=== PATIENT | female | born 1970 | race Two or more races ===

== ENCOUNTER 2020-05-21 16:19 | Outpatient (REF) | payer OTHER, SELFPAY ==
[2020-05-21 17:46] LABS: Hemoglobin 11.6 g/dl (12.0-16.0); Mean Corpuscular HGB Conc 31.4 g/dl (31.0-35.0); Mean Corpuscular Hemoglobin 24.4 pg (27.0-33.0); Mean Corpuscular Volume 77.7 fL (80-98); Mean Platelet Volume 9.7 fL (9.4-12.3); Platelet Count 313 X10*3/uL (160-400); Red Blood Count 4.76 X10*6/uL (4.20-5.50); Red Cell Distribution Width 13.4 % (11.0-16.0); White Blood Count 7.3 X10*3/uL (4.8-10.8)
[2020-05-21 18:07] LABS: Anion Gap 11 (12-20); Blood Urea Nitrogen 11 mg/dL (9-16); Calcium 8.8 mg/dL (8.4-10.2); Carbon Dioxide 29 mmol/L (22-29); Chloride 102 mmol/L (96-108); Estimated Glomerular Filt Rate > 60; Glucose Random 94 mg/dL (60-115); Iron 32 mcg/dL (30-160); Percent Iron Saturation 8 % (15-50); Potassium 4.6 mmol/l (3.3-5.1); Sodium 137 mmol/L (135-145); Total Iron Binding Capacity 387 mcg/dL (228-428); Unsaturated Iron Binding 355 ug/dL
[2020-05-21 18:30] LABS: TSH reflex Free T4 2.11 mIU/mL (0.32-4.0)
== END 2020-05-21 16:20 | disposition home or self-care (01) ==
LOC: HO.LAB 16:19
PROVIDERS: PCP Physician Assistant; Visit Provider Physician Assistant
DX: D50.9 Iron deficiency anemia, unspecified (principal); N93.9 Abnormal uterine and vaginal bleeding, unspecified; I10 Essential (primary) hypertension
CPT/HCPCS: 36415; 80048; 83540; 84443; 85027

== ENCOUNTER → 2020-05-22 12:00 | Outpatient (BNVA) | payer OTHER, SELFPAY | PROVIDERS: PCP Physician Assistant; Visit Provider Surgery Vascular Surgery | DX: I83.11 Varicose veins of right lower extremity with inflammation (principal); I89.0 Lymphedema, not elsewhere classified | CPT/HCPCS: 99202 ==

== ENCOUNTER 2020-05-29 16:48 | Emergency (ER) | payer OTHER, SELFPAY ==
[2020-05-29 17:31] VITALS: BP 137/62; PULSE 95; RESP 16; TEMP 37.1; O2SAT 96; BMI 54.8
[2020-05-29 19:20] VITALS: BP 142/63; PULSE 87; RESP 18; TEMP 37.1; O2SAT 98
[2020-05-29 19:31] LABS: MANUAL DIFF FLAG NO
[2020-05-29 19:33] LABS: Basophils Percent Auto 0.3 % (0-2); Eosinophils Absolute Auto 0.2 X10*3/uL (0.0-0.4); Hemoglobin 10.6 g/dl (12.0-16.0); Imm Gran Abs Auto 0.01 X10*3/uL (0.00-0.03); Imm Gran Pct Auto 0.1 % (0.0-0.4); Lymphocytes Absolute Auto 2.1 X10*3/uL (1.2-4.9); Lymphocytes Percent Auto 28.5 % (20-40); Mean Corpuscular HGB Conc 31.2 g/dl (31.0-35.0); Mean Corpuscular Hemoglobin 24.3 pg (27.0-33.0); Mean Platelet Volume 9.1 fL (9.4-12.3); Monocytes Absolute Auto 0.5 X10*3/uL (0.1-1.2); Monocytes Percent Auto 6.7 % (2-11); Neutrophils Absolute Auto 4.6 X10*3/uL (2.0-8.3); Neutrophils Percent Auto 62.4 % (45-73); Platelet Count 297 X10*3/uL (160-400); Red Blood Count 4.36 X10*6/uL (4.20-5.50); Red Cell Distribution Width 13.3 % (11.0-16.0); White Blood Count 7.4 X10*3/uL (4.8-10.8)
--- NOTE | 2020-05-29 19:48 | US_ITS ---
EXAMINATION: ULTRASOUND PELVIC, COMPLETE CLINICAL INFORMATION: Vaginal bleeding for 3 months. Cramping. COMPARISON: Pelvic ultrasound 07/19/2017. CT scan abdomen pelvis 02/15/2019. TECHNIQUE: Transvaginal: Used to better visualize pelvic structures Transabdominal: Not adequate for visualization Spectral Doppler and color Doppler exam was utilized. LMP: Uncertain FINDINGS: UTERUS: The uterus is anteverted. Endometrial thickness 1.8 cm. Endometrial measured 2.1 cm on the prior ultrasound exam of 2018. There are small cysts associated with the endometrium measuring up to a diameter of about 9 mm. No fluid in the endometrial cavity. Uterus measures 15.5 x 6.4 x 8 cm. Total uterine volume 415 mL ADNEXA: Ovarian vascularity:Doppler demonstrates both arterial and venous vascular flow in the right and left ovary. No evidence of ovarian torsion. Right Ovary: Unremarkable. 4.5 x 2 x 2.7 cm. Volume 12.7 mL Left Ovary: Unremarkable. 2.7 x 1.9 x 2.3 cm. Volume 6.2 mL Cul-de-sac: No Fluid US/US transvaginal IMPRESSION: Thickened endometrium with heterogeneous echotexture with small cysts. Endometrial thickness today 1.8 cm. The endometrial measured 2.1 cm on the prior ultrasound exam of 2018. Consider endometrial sampling.
--- NOTE | 2020-05-29 19:48 | US_ITS ---
EXAMINATION: ULTRASOUND PELVIC, COMPLETE CLINICAL INFORMATION: Vaginal bleeding for 3 months. Cramping. COMPARISON: Pelvic ultrasound 07/19/2017. CT scan abdomen pelvis 02/15/2019. TECHNIQUE: Transvaginal: Used to better visualize pelvic structures Transabdominal: Not adequate for visualization Spectral Doppler and color Doppler exam was utilized. LMP: Uncertain FINDINGS: UTERUS: The uterus is anteverted. Endometrial thickness 1.8 cm. Endometrial measured 2.1 cm on the prior ultrasound exam of 2018. There are small cysts associated with the endometrium measuring up to a diameter of about 9 mm. No fluid in the endometrial cavity. Uterus measures 15.5 x 6.4 x 8 cm. Total uterine volume 415 mL ADNEXA: Ovarian vascularity:Doppler demonstrates both arterial and venous vascular flow in the right and left ovary. No evidence of ovarian torsion. Right Ovary: Unremarkable. 4.5 x 2 x 2.7 cm. Volume 12.7 mL Left Ovary: Unremarkable. 2.7 x 1.9 x 2.3 cm. Volume 6.2 mL Cul-de-sac: No Fluid US/US pelvic complete IMPRESSION: Thickened endometrium with heterogeneous echotexture with small cysts. Endometrial thickness today 1.8 cm. The endometrial measured 2.1 cm on the prior ultrasound exam of 2018. Consider endometrial sampling.
[2020-05-29 20:02] LABS: Anion Gap 10 (12-20); Blood Urea Nitrogen 11 mg/dL (9-16); Calcium 8.6 mg/dL (8.4-10.2); Carbon Dioxide 30 mmol/L (22-29); Chloride 105 mmol/L (96-108); Creatinine Clr Calc Pharmacy 134.9; Estimated Glomerular Filt Rate > 60; Glucose Random 123 mg/dL (60-115); Potassium 4.2 mmol/l (3.3-5.1); Sodium 141 mmol/L (135-145)
[2020-05-29 20:18] VITALS: BP 124/65; PULSE 80; RESP 20; TEMP 36.7; O2SAT 100
--- NOTE | 2020-05-29 21:50 | ED.FEMALEGU ---
HPI - Female Genitourinary General Chief complaint: Vaginal Bleeding Stated complaint: vaginal bleeding Time Seen by Provider: 05/29/20 19:35 Source: patient Mode of arrival: ambulatory Limitations: no limitations History of Present Illness HPI Narrative: Patient comes emergency room complaining of vaginal bleeding for 3 months. Patient states she has an appointment with OBGYN in 2 weeks, however over the last week she has been passing large blood clots. Patient states approximately 2-3 years ago she had similar episode of passing blood clots, she was scheduled to have a hysterectomy. However, the vaginal bleeding stopped and she never had any recurrent symptoms until this last 3 months. Patient denies dysuria. Patient complaining discomfort in the suprapubic area, constant, nonradiating. Related Data Home Medications Medication Instructions Recorded Confirmed buprenorphine 8 mg-naloxone 2 mg 30 mg SUBLINGUAL DAILY 05/07/20 05/07/20 sublingual film cholecalciferol (vitamin D3) 50 50 mcg PO DAILY 05/07/20 05/07/20 mcg (2,000 unit) capsule ferrous sulfate 324 mg (65 mg 324 mg PO BID 05/07/20 05/07/20 iron) tablet,delayed release furosemide 20 mg tablet 20 mg PO DAILY 05/07/20 05/07/20 tamoxifen 20 mg tablet 20 mg PO DAILY 05/07/20 05/07/20 Allergies Allergy/AdvReac Type Severity Reaction Status Date / Time ibuprofen [IBUPROFEN] Allergy Intermediate SWELLING Verified 05/22/20 12:03 codeine [CODEINE] Allergy Unknown ITCHY Verified 05/22/20 12:03 gabapentin [From Neurontin] Allergy Unknown anxiety, Verified 05/22/20 12:03 insomnia, restless/anxiety hydrocodone [From VICODIN] Allergy Unknown UNKNOWN Verified 05/22/20 12:03 nabumetone [Nabumetone] Allergy Unknown swelling, Verified 05/22/20 12:03 facial swelling Nabumetone Allergy Unknown edema Uncoded 12/10/19 00:00 nsaids Allergy Unknown Unknown Uncoded 05/07/20 18:40 Review of Systems Review of Systems: Constitutional : No Weight loss, No Fever, No Chills, No Night Sweats, No Fatigue, No Malaise ENT/Mouth : No Hearing loss, No Ear Pain, No Nasal Congestion, No Sinus Pain, No Hoarseness, No sore throat, No Rhinorrhea, No Swallowing Difficulty Eyes: No Eye Pain, No Swelling, No Redness, No Foreign Body, No Discharge, No Vision Changes Cardiovascular : No Chest Pain, No SOB, No Dyspnea on Exertion, No Orthopnea, No Edema, No Palpitations Respiratory : No Cough, No Sputum, No Wheezing, No Smoke Exposure, No Dyspnea Gastrointestinal : No Nausea, No Vomiting, No Diarrhea, No Constipation, No abdominal Pain, No Hematochezia, No Melena Genitourinary : Complaining of heavy irregular bleeding, No Dysuria, No Urinary Frequency, No Urinary Incontinence, No Urgency, No Flank Pain, No Urinary Flow Changes, No Hesitancy Musculoskeletal : No joint pain, No Myalgias, No Joint Swelling Skin : No Skin Lesions, No rash Neuro : No Weakness, No Numbness, No Paresthesias, No Loss of Consciousness, No Dizziness, No Headache Psych : No Anxiety/Panic, No Depression, No SI/HI/AH/VH, No Social Issues, Heme/Lymph: No Bruising, No Bleeding,No Lymphadenopathy Endocrine : No Polyuria, No Polydipsia, No Temperature Intolerance [facility] Past Medical History Medical History Adult ADHD Anxiety and depression Arthritis Breast CA Carpal tunnel syndrome Fibromyalgia Intermittent explosive disorder Iron deficiency anemia Kidney stones Myasthenia gravis Pseudotumor cerebri Social History Social History Alcohol intake: never Smoking Status: Former smoker Smoked in Last 30 Days: No Use of substances other than those prescribed or required for medical reasons: No Advance Directives: No Advance Directives Information Provided: Yes Physical Exam Vital Signs: Vital Signs: Last Vital Signs Temp 98.5 F 05/29/20 22:00 Pulse 81 05/29/20 22:00 Resp 18 05/29/20 22:00 BP 136/69 05/29/20 22:00 Pulse Ox 99 05/29/20 22:00 Body Mass Index 54.8 Appearance: Alert. Oriented X3. No acute distress. Eyes: Pupils equal, round and reactive to light. ENT: Pharynx normal. Neck: Normal inspection. Neck supple. No lymph nodes noted. No crepitus CVS: Normal heart rate and rhythm. Pulses normal. Normal S1 and S2 Respiratory: No respiratory distress. Breath sounds normal. No Wheezing. No rales Abdomen: Soft and nontender. No rigidity. No distention. good BS x4 : Mother amount of blood in the vaginal vault, cervix was very difficult to visualize due to patient's body habitus Skin: Skin warm and dry. Normal skin color. Normal skin turgor. Extremities: No lower extremity edema. No lower extremity edema. No Lacerations. No Rash Neuro: Oriented X 3. No motor deficit. No sensory deficit. Moving all extermities. No slurred speech. Course Course Course Narrative: I discussed the labs with the patient, hemoglobin is 10.6, however patient has been chronically anemic. Patient had iron studies done which are low. Patient instructed to follow-up with her primary care physician, patient is taking iron supplements. I also discussed the ultrasound with the patient, patient's endometrium is up to 2.1 cm taken. I discussed with the patient that she will need an endometrial biopsy. She has an appointment coming up with OBGYN in 2 weeks, discussed with the patient to give him a call in the morning and check if they can reschedule her appointment was sooner date. At this time, IV Premarin is not recommended due to the patient's endometrial thickness and her history of breast cancer. MDM - Female Genitourinary Lab Data Result diagrams: 05/29/20 19:27 05/29/20 19:27 Labs: Lab Results 05/29/20 05/29/20 05/29/20 Range/Units 19:27 19:27 21:57 WBC 7.4 (4.8-10.8) X10*3/uL RBC 4.36 (4.20-5.50) X10*6/uL Hgb 10.6 L (12.0-16.0) g/dl Hct 34.0 L (37-47) % MCV 78.0 L (80-98) fL MCH 24.3 L (27.0-33.0) pg MCHC 31.2 (31.0-35.0) g/dl RDW 13.3 (11.0-16.0) % Plt Count 297 (160-400) X10*3/uL MPV 9.1 L (9.4-12.3) fL Immature Gran % (Auto) 0.1 (0.0-0.4) % Neut % (Auto) 62.4 (45-73) % Lymph % (Auto) 28.5 (20-40) % Mcnairy % (Auto) 6.7 (2-11) % Eos % (Auto) 2.0 (0-4) % Baso % (Auto) 0.3 (0-2) % Lymph # (Auto) 2.1 (1.2-4.9) X10*3/uL Mcnairy # (Auto) 0.5 (0.1-1.2) X10*3/uL Eos # (Auto) 0.2 (0.0-0.4) X10*3/uL Baso # (Auto) 0.0 (0.0-0.2) X10*3/uL Abs Immat Gran (auto) 0.01 (0.00-0.03) X10*3/uL Absolute Neuts (auto) 4.6 (2.0-8.3) X10*3/uL Absolute Nucleated RBC 0.000 (0.0-0.012) X10*3/uL Nucleated RBC % (auto) 0.0 (0.0-0.2) /100WBC Sodium 141 (135-145) mmol/L Potassium 4.2 (3.3-5.1) mmol/l Chloride 105 (96-108) mmol/L Carbon Dioxide 30 H (22-29) mmol/L Anion Gap 10 L (12-20) BUN 11 (9-16) mg/dL Creatinine 0.68 (0.5-1.4) mg/dL Estim Creat Clear Calc 134.9 Estimated GFR > 60 Random Glucose 123 H (60-115) mg/dL Calcium 8.6 (8.4-10.2) mg/dL Urine Color YELLOW Urine Appearance HAZY Urine pH 6.5 (5.0-8.0) Ur Specific Capac 1.025 (1.005-1.025) Urine Protein NEG (NEG-TRACE) MG/DL Urine Glucose (UA) NEG (NEG) MG/DL Urine Ketones NEG (NEG) MG/DL Urine Blood 3+ H (NEG) Urine Nitrite NEG (NEG) Ur Leukocyte Esterase NEG (NEG) Urine Test NEGATIVE (NEGATIVE) Imaging Data Abdominal/transvaginal ultrasound: Radiologist's impression: UTERUS: The uterus is anteverted. Endometrial thickness 1.8 cm. Endometrial measured 2.1 cm on the prior ultrasound exam of 2018. There are small cysts associated with the endometrium measuring up to a diameter of about 9 mm. No fluid in the endometrial cavity. Uterus measures 15.5 x 6.4 x 8 cm. Total uterine volume 415 mL ADNEXA: Ovarian vascularity:Doppler demonstrates both arterial and venous vascular flow in the right and left ovary. No evidence of ovarian torsion. Right Ovary: Unremarkable. 4.5 x 2 x 2.7 cm. Volume 12.7 mL Left Ovary: Unremarkable. 2.7 x 1.9 x 2.3 cm. Volume 6.2 mL Discharge Plan Discharge Clinical Impression: Menometrorrhagia Patient Disposition: Home, Self-Care Instructions: Dysfunctional Uterine Bleeding (ED) Additional Instructions: Please call your OBGYN tomorrow, tried to reschedule your appointment to a sooner date. Please follow-up with your primary care physician tomorrow. If you have any worsening or new symptoms, please return to the emergency room or call 911 Prescriptions: No Action tamoxifen 20 mg tablet 20 mg PO DAILY RF: 0 buprenorphine-naloxone 8-2 mg film 30 mg sublingual DAILY RF: 0 furosemide 20 mg tablet 20 mg PO DAILY RF: 0 cholecalciferol (vitamin D3) 50 mcg (2,000 unit) capsule 50 mcg PO DAILY RF: 0 ferrous sulfate 324 mg (65 mg iron) tablet,delayed release (DR/EC) 324 mg PO BID RF: 0 Referrals: Physician,Unknown [Primary Care Provider] -
[2020-05-29 22:00] VITALS: BP 136/69; PULSE 81; RESP 18; TEMP 36.9; O2SAT 99
[2020-05-29] MEDS: Acetaminophen 325 MG TABLET 650 MG PO (22:04)
[2020-05-29 22:13] LABS: Glucose Urine UA NEG (NEG); Leukocyte Esterase Urine NEG (NEG); Nitrite Urine NEG (NEG); PH 6.5 (5.0-8.0); Specific Gravity - Urine 1.025 (1.005-1.025); Urine Blood 3+ (NEG); Urine Ketones NEG (NEG); Urine Protein NEG (NEG-TRACE)
[2020-05-29 22:18] LABS: Appearance Urine HAZY; Color Urine YELLOW
[2020-05-29 22:19] LABS: UPreg QC Valid YES; Urine Pregnancy NEGATIVE (NEGATIVE)
[2020-05-29 22:37] LABS: Mucus Urine TRACE /LPF; RBC Urine 50-75 /HPF (0); Squamous Epithelial Cell Urine TRACE /LPF; WBC Urine 0-2 /HPF (0-4)
== END 2020-05-29 22:46 | disposition home or self-care (01) ==
PROVIDERS: Emergency Provider Emergency Medicine
DX: N92.1 Excessive and frequent menstruation with irregular cycle (principal); Z85.3 Personal history of malignant neoplasm of breast
CPT/HCPCS: 36415; 76830; 76856; 80048; 81001; 81025; 85025; 99284

== ENCOUNTER 2020-06-05 13:19 | Outpatient (REF) | payer OTHER, SELFPAY ==
--- NOTE | ~2020-06-05 | US_ITS ---
EXAMINATION: RIGHT and LEFT LOWER EXTREMITY VENOUS ULTRASOUND (Reflux Exam) CLINICAL INDICATION: leg pain and varicose veins. COMPARISON: September 22, 2017 TECHNIQUE: Color flow triplex imaging and compression Doppler was performed to evaluate both the deep and the superficial systems bilaterally. To evaluate the superficial system, the examination was performed in the upright position. Color-flow Doppler ultrasound and compression ultrasound were utilized. In addition, maneuvers were utilized to demonstrate reflux. FINDINGS: 1. DEEP VENOUS ULTRASOUND OF THE RIGHT LOWER EXTREMITY: Respiratory variation, normal compression and augmented flow are noted in the right common femoral vein as well as the right popliteal vein and there is no evidence of deep venous thrombosis at these locations. There is no evidence of reflux in the deep system in either the common femoral vein or the popliteal vein. There is no evidence of the artery aneurysm or popliteal fossa cyst. 2. SUPERFICIAL ULTRASOUND WITH DOPPLER OF RIGHT LOWER EXTREMITY: The right great saphenous vein at the saphenofemoral junction measures 9 mm, at the mid thigh 4 mm, oxphx-fdk-eltk 4 mm, cnaeu-hao-yfws 4 mm, at mid calf 3 mm and at the ankle measures 4 mm. There is no reflux demonstrated in the right great saphenous vein. The right small saphenous vein measures 3 mm and shows no reflux. There is a 3 mm mid calf color control supervisor without reflux. Varicosities are seen within the proximal and mid thigh, at the knee, and within the proximal thigh without reflux. 3. DEEP VENOUS ULTRASOUND OF THE LEFT LOWER EXTREMITY: Respiratory variation, normal compression and augmented flow are noted in the left common femoral vein as well as the left popliteal vein and there is no evidence of deep venous thrombosis at these locations. There is no evidence of reflux in the deep system in either the common femoral vein or the popliteal vein. . There is no evidence of a Barajas's cyst. 4. SUPERFICIAL ULTRASOUND WITH DOPPLER OF LEFT LOWER EXTREMITY: Left great saphenous vein at the saphenofemoral junction measures 9 mm, at the mid thigh 3 mm, ybezp-slw-utyq 4 mm, edyih-end-irnl 3 mm, at mid calf 3 mm and at the ankle measures 3 mm. There is no reflux demonstrated in the left great saphenous vein. The left small saphenous vein measures 3 mm and shows no reflux. There is a 2 mm color control supervisor without reflux in the mid calf. Varicosities are noted about the proximal thigh without reflux. US/US venous duplex LE BI IMPRESSION: 1. No evidence of reflux or thrombus in the common femoral veins or popliteal veins bilaterally. 2. The saphenous systems are competent bilaterally.
== END 2020-06-05 13:20 | disposition home or self-care (01) ==
LOC: HO.US 13:19
PROVIDERS: Visit Provider Surgery Vascular Surgery
DX: I83.893 Varicose veins of bilateral lower extremities with other complications (principal); I83.11 Varicose veins of right lower extremity with inflammation
CPT/HCPCS: 93970

== ENCOUNTER → 2020-06-06 13:17 | Outpatient (BNVA) | payer OTHER, SELFPAY | PROVIDERS: PCP Physician Assistant; Visit Provider Obstetrics & Gynecology | DX: N93.9 Abnormal uterine and vaginal bleeding, unspecified (principal) | CPT/HCPCS: 99212 ==

== ENCOUNTER → 2020-06-10 15:21 | Outpatient (BNVA) | payer OTHER, SELFPAY | PROVIDERS: PCP Physician Assistant; Visit Provider Surgery Vascular Surgery | DX: M79.89 Other specified soft tissue disorders (principal) | CPT/HCPCS: 99212 ==

== ENCOUNTER → 2020-06-26 11:13 | Outpatient (BNVA) | payer OTHER, SELFPAY | PROVIDERS: PCP Physician Assistant; Visit Provider Orthopaedic Surgery | DX: G56.02 Carpal tunnel syndrome, left upper limb (principal) | CPT/HCPCS: 99202 ==

== ENCOUNTER 2020-11-18 11:02 | Outpatient (REF) | payer OTHER, SELFPAY ==
--- NOTE | ~2020-11-18 | MM_ITS ---
EXAMINATION: MM SCREENING DIGITAL BREAST TOMOSYNTHESIS, BILATERAL CLINICAL INFORMATION: Screening. Asymptomatic. Right DCIS status post lumpectomy 2014. Due for yearly. COMPARISON: Mammography: 10/27/2019, 07/27/2018, 04/18/2017, 04/16/2016, 04/14/2015, 04/17/2014 TECHNIQUE: Digital breast tomosynthesis is performed in both the craniocaudal and mediolateral oblique views along with computer-aided detection (CAD). Synthesized 2D images are generated from the tomosynthesis. Additional left CC and left MLO views are provided. FINDINGS: There are scattered areas of fibroglandular density (ACR BI-RADS breast composition Category b). The left breast is unremarkable. There is no developing density or interval mass or architectural abnormality. No abnormal calcifications. Mild chronic nipple retraction present. Right breast has post therapy changes with mild reduced breast size and stable scarring. There is a chronic hematoma anterior 11:30 o'clock position which is slightly decreased in size, currently 2.7 cm. Margins are circumscribed. There are scattered calcifications right breast biopsy clip marker again seen posterior right upper outer quadrant. Right axilla are unremarkable. Chronic right nipple retraction. There is simulated areolar thickening on right MLO view likely related to positioning and the chronic nipple retraction. There is no skin thickening on the CC projection. There may be some retroareolar duct ectasia right CC view. Patient will be read called to fully characterize the retroareolar right breast with additional views. MM/MM tomosynthesis screening BI IMPRESSION: 1. Right: Subtle increased retroareolar density on right, suspect incompletely compressed glandular tissue. 2. Left: No mammographic evidence of malignancy. ASSESSMENT: BI-RADS 0: Incomplete - Need Additional Imaging Evaluation RECOMMENDATION: 1. Additional views of the right breast (3-D spot CC nipple in profile, 3-D spot ML nipple in profile). 2. Targeted ultrasound if warranted after review of the additional views. 3. Radiology department staff will contact the patient for additional imaging. This patient's information was entered into a reminder system with a target due date for their next mammogram.
== END 2020-11-18 11:03 | disposition home or self-care (01) ==
LOC: HO.MAMMO 11:02
PROVIDERS: Visit Provider Internal Medicine
DX: Z12.31 Encounter for screening mammogram for malignant neoplasm of breast (principal)
CPT/HCPCS: 77063; 77067

== ENCOUNTER 2020-11-21 14:30 | Outpatient (REF) | payer OTHER, SELFPAY ==
--- NOTE | ~2020-11-21 | MM_ITS ---
EXAMINATION: MM DIAGNOSTIC DIGITAL BREAST TOMOSYNTHESIS, RIGHT CLINICAL INFORMATION: Recall from screening for increased retroareolar density, likely incompletely compressed glandular tissue due to the chronic hematoma near this area. Prior history right lumpectomy for DCIS, 2014 COMPARISON: Mammography: 11/18/2020, 10/27/2019, 07/27/2018 TECHNIQUE: Digital breast tomosynthesis is performed. 2D images are generated from the tomosynthesis. The following views are obtained: 3-D spot CC, 3-D spot ML. FINDINGS: There are scattered areas of fibroglandular density (ACR BI-RADS breast composition Category b). The additional views show normal retroglandular tissue similar to prior studies. There is no interval mass or architectural abnormality. Mild smooth skin thickening or nipple retraction is similar to prior exams. Results are discussed with the patient at time of visit. MM/MM tomosynthesis added views R IMPRESSION: Additional views show no significant changes from prior exams. ASSESSMENT: BI-RADS 2: Benign RECOMMENDATION: Routine annual mammography screening. This patient's information was entered into a reminder system with a target due date for their next mammogram.
== END 2020-11-21 14:31 | disposition home or self-care (01) ==
LOC: HO.MAMMO 14:30
PROVIDERS: Visit Provider Internal Medicine
DX: N64.59 Other signs and symptoms in breast (principal)
CPT/HCPCS: 77061; 77065

== ENCOUNTER 2021-01-12 10:52 | Outpatient (REF) | payer OTHER, SELFPAY ==
--- NOTE | ~2021-01-12 | XR_ITS ---
EXAMINATION: XR LUMBOSACRAL SPINE CLINICAL INFORMATION: Low back pain radiating down both legs. COMPARISON: Lumbar spine x-rays July 24, 2013 TECHNIQUE: Three views of the lumbosacral spine. FINDINGS: 5 nonrib-bearing lumbar vertebral bodies are visualized. Normal alignment. Vertebral body heights are maintained. Minimally decreased L5/S1 disc space height. Other disc space heights are well-maintained. A few tiny anterior osteophytes are noted throughout the lumbar spine. Sacroiliac joints are symmetric. 6 mm calcific density projecting over the left renal shadow is most suggestive of renal calculus. XR/XR lumbar spine 2-3V IMPRESSION: -Minimal degenerative changes of the lumbar spine. -Suspected left renal calculus.
== END 2021-01-12 10:53 | disposition home or self-care (01) ==
LOC: HO.XRAY 10:52
PROVIDERS: PCP Physician Assistant; Visit Provider Physician Assistant
DX: M54.16 Radiculopathy, lumbar region (principal)
CPT/HCPCS: 72100

== ENCOUNTER 2021-02-24 17:02 | Inpatient (IN) | payer OTHER, SELFPAY ==
--- NOTE | ~2021-02-24 | XR_ITS ---
EXAMINATION: XR CHEST CLINICAL INFORMATION: Shortness of breath. COMPARISON: Chest radiograph dated from 09/14/2018. TECHNIQUE: Frontal view of the chest was obtained. FINDINGS: Normal appearance of the cardiomediastinal silhouette. Low lung volumes without focal airspace opacities, pleural effusions or pneumothorax. No acute osseous findings. XR/XR chest 1V IMPRESSION: Low lung volumes without focal airspace opacities.
--- NOTE | ~2021-02-24 | US_ITS ---
EXAMINATION: US PELVIS, LIMITED/FOLLOW UP CLINICAL INFORMATION: Vaginal bleeding COMPARISON: 05/29/2020 TECHNIQUE: Only transabdominal ultrasound was performed. The patient refused endovaginal exam. FINDINGS: An anteverted anteflexed uterus is present measuring 12.5 x 5.5 x 5.8 cm. The endometrium measures 8 mm in thickness but there are some adjacent small cysts, the largest measuring just under a centimeter in size. Similar cysts were present at the time of the 05/29/2020 study, but better seen on that study. No fluid is present in the endometrial canal. Neither ovary could be seen. No free fluid was present in the cul-de-sac US/US pelvic limited IMPRESSION: The endometrium appears less thickened than previously noted. Small para-endometrial cysts persist and are unchanged.
[2021-02-24 17:20] VITALS: BP 158/70; PULSE 90; RESP 16; TEMP 36.3; O2SAT 100; BMI 54.5
--- NOTE | 2021-02-24 17:27 | ECG_ITS ---
Test Reason : chest pain/dyspnea Blood Pressure : / mmHG Vent. Rate : 079 BPM Atrial Rate : 079 BPM P-R Int : 150 ms QRS Dur : 098 ms QT Int : 382 ms P-R-T Axes : 043 024 004 degrees QTc Int : 438 ms Normal sinus rhythm Normal ECG No significant changes seen Referred By: Generic ED Physician Electronically Signed By:PAPO GAINES MD
--- NOTE | 2021-02-24 18:06 | ED.SOB ---
HPI - SOB/Dyspnea General Chief Complaint: Dyspnea Stated Complaint: SoB, CP, Migraine Time Seen by Provider: 02/24/21 18:03 History of Present Illness HPI Narrative: Patient is a 50-year-old female with a history of pseudotumor cerebri. She had an episode over 20 years ago. Complaining of headache that is diffuse over the entire head that is been ongoing for about a week. Not getting any better. Not affected by position. No fever no chills. No neck pain. No focal weakness. No trauma. Patient from home. Also complaining of chest pain worse with exertion. She has no history of diabetes, hypertension, high cholesterol. Previous history of smoking. About 20 years ago. Never had a heart attack. Never had a stroke. No family member with a heart attack at a young age. No diaphoresis. Symptoms seems to be improving with rest. Patient denies any recent stress test. Positive generalized malaise. Patient from home. Did have her coronavirus vaccine x2. Related Data Home Medications Medication Instructions Recorded Confirmed buprenorphine 8 mg-naloxone 2 mg 3 film SUBLINGUAL DAILY 05/07/20 02/24/21 sublingual film Allergies Allergy/AdvReac Type Severity Reaction Status Date / Time ibuprofen [IBUPROFEN] Allergy Intermediate SWELLING Verified 01/06/21 14:25 codeine [CODEINE] Allergy Unknown ITCHY Verified 01/06/21 14:25 gabapentin [From Neurontin] Allergy Unknown anxiety, Verified 01/06/21 14:25 insomnia, restless/anxiety hydrocodone [From VICODIN] Allergy Unknown UNKNOWN Verified 01/06/21 14:25 nabumetone [Nabumetone] Allergy Unknown swelling, Verified 01/06/21 14:25 facial swelling Nabumetone Allergy Unknown edema Uncoded 06/06/20 13:26 nsaids Allergy Unknown Unknown Uncoded 06/06/20 13:26 Review of Systems Review of Systems: No fever no chills positive chest pain or diaphoresis mild shortness of breath with exertion. Positive headache Yes all other systems are reviewed and are negative Constitutional: Constitutional: Reports as per HPI [facility] Past Medical History Attestation statement: The following information was validated with the patient. Medical History (Updated 02/24/21 @ 20:06 by Caprice Youssef MD) Adult ADHD Anxiety and depression Arthritis Breast CA Carpal tunnel syndrome Fibromyalgia Intermittent explosive disorder Iron deficiency anemia Kidney stones Myasthenia gravis Pseudotumor cerebri Surgical History History of endometrial ablation History of tubal ligation Family History Family History Mother Mental health disorder Social History Social History Housing: House Alcohol intake: never Patient Tobacco Use Status: Never used Tobacco e-Cigarette/Vaping Use: Never Used Second Hand Smoke Exposure: No Use of substances other than those prescribed or required for medical reasons: No Advance Directives: No Advance Directives Information Provided: Yes Patient : No Sexual orientation: Straight/Heterosexual Gender identity: Female Physical Exam Vital Signs: Vital Signs: Last Vital Signs Temp 98.5 F 02/24/21 19:04 Pulse 73 02/24/21 19:04 Resp 18 02/24/21 19:04 BP 123/51 L 02/24/21 19:04 Pulse Ox 98 02/24/21 19:04 Body Mass Index 54.5 Appearance: Alert. Oriented X3. No acute distress. Eyes: Pupils equal, round and reactive to light. ENT: Pharynx normal. Neck: Normal inspection. Neck supple. No lymph nodes noted. No crepitus CVS: Normal heart rate and rhythm. Pulses normal. Normal S1 and S2 Respiratory: No respiratory distress. Breath sounds normal. No Wheezing. No rales Abdomen: Soft and nontender. No rigidity. No distention. good BS x4 Skin: Skin warm and dry. Normal skin color. Normal skin turgor. Extremities: No lower extremity edema. Neurovascular intact to all extremities. No Lacerations. No Rash Neuro: Oriented X 3. No motor deficit. No sensory deficit. Moving all extermities. No slurred speech MDM - SOB/Dyspnea MDM Narrative Medical decision making narrative: Patient stool was grossly guaiac negative for blood. Hemoglobin was 5. Patient is source of bleeding likely vaginal. Has been more chronic in nature likely causing patient's shortness of breath. Patient's D-dimer is negative. There is no evidence for pulmonary emboli. Patient's blood was type and screen. Crossed for a unit of blood. Risk and benefit of transfusion discussed with patient. Will transfuse patient with at least 1-2 units of blood as patient's hemoglobin even on recheck was 5. Likely the cause of patient's shortness of breath and weakness. Medical Records Attestation: I reviewed the patient's medical records. Lab Data Attestation: I reviewed the patient's lab results. Result diagrams: 02/24/21 19:29 02/24/21 18:09 Labs: Lab Results 02/24/21 02/24/21 02/24/21 Range/Units 18:09 18:09 18:09 WBC 7.1 (4.8-10.8) X10*3/uL RBC 2.73 L D (4.20-5.50) X10*6/uL Hgb 4.7 L* D (12.0-16.0) g/dl Hct 17.0 L* D (37-47) % MCV 62.3 L (80-98) fL MCH 17.2 L (27.0-33.0) pg MCHC 27.6 L (31.0-35.0) g/dl RDW 19.0 H (11.0-16.0) % Plt Count 288 (160-400) X10*3/uL MPV 9.5 (9.4-12.3) fL Immature Gran % (Auto) 1.0 H (0.0-0.4) % Neut % (Auto) 67.9 (45-73) % Lymph % (Auto) 21.8 (20-40) % [place] % (Auto) 7.9 (2-11) % Eos % (Auto) 1.1 (0-4) % Baso % (Auto) 0.3 (0-2) % Lymph # (Auto) 1.5 (1.2-4.9) X10*3/uL [place] # (Auto) 0.6 (0.1-1.2) X10*3/uL Eos # (Auto) 0.1 (0.0-0.4) X10*3/uL Baso # (Auto) 0.0 (0.0-0.2) X10*3/uL Abs Immat Gran (auto) 0.07 H (0.00-0.03) X10*3/uL Absolute Neuts (auto) 4.8 (2.0-8.3) X10*3/uL Absolute Nucleated RBC 0.050 H (0.0-0.012) X10*3/uL Nucleated RBC % (auto) 0.7 H (0.0-0.2) /100WBC D-Dimer NG/ML Sodium 142 (135-145) mmol/L Potassium 4.1 (3.3-5.1) mmol/L Chloride 107 (96-108) mmol/L Carbon Dioxide 28 (22-29) mmol/L Anion Gap 11 L (12-20) BUN 14 (9-16) mg/dL Creatinine 0.64 (0.5-1.4) mg/dL Estim Creat Clear Calc 142.7 Estimated GFR > 60 Random Glucose 93 (60-115) mg/dL Calcium 8.7 (8.4-10.2) mg/dL Troponin I High Sens < 3.5 (<3.5-17.0) ng/L B-Natriuretic Peptide 27 (<100) pg/mL Beta HCG, Quant < 2 mIU/mL Stool Occult Blood (NEGATIVE) COVID-19 ([facility]) (Negative) COVID-19 Clin Com Blood Type Antibody Screen Crossmatch 02/24/21 02/24/21 02/24/21 Range/Units 18:09 18:55 19:18 WBC (4.8-10.8) X10*3/uL RBC (4.20-5.50) X10*6/uL Hgb (12.0-16.0) g/dl Hct (37-47) % MCV (80-98) fL MCH (27.0-33.0) pg MCHC (31.0-35.0) g/dl RDW (11.0-16.0) % Plt Count (160-400) X10*3/uL MPV (9.4-12.3) fL Immature Gran % (Auto) (0.0-0.4) % Neut % (Auto) (45-73) % Lymph % (Auto) (20-40) % [place] % (Auto) (2-11) % Eos % (Auto) (0-4) % Baso % (Auto) (0-2) % Lymph # (Auto) (1.2-4.9) X10*3/uL [place] # (Auto) (0.1-1.2) X10*3/uL Eos # (Auto) (0.0-0.4) X10*3/uL Baso # (Auto) (0.0-0.2) X10*3/uL Abs Immat Gran (auto) (0.00-0.03) X10*3/uL Absolute Neuts (auto) (2.0-8.3) X10*3/uL Absolute Nucleated RBC (0.0-0.012) X10*3/uL Nucleated RBC % (auto) (0.0-0.2) /100WBC D-Dimer < 200 NG/ML Sodium (135-145) mmol/L Potassium (3.3-5.1) mmol/L Chloride (96-108) mmol/L Carbon Dioxide (22-29) mmol/L Anion Gap (12-20) BUN (9-16) mg/dL Creatinine (0.5-1.4) mg/dL Estim Creat Clear Calc Estimated GFR Random Glucose (60-115) mg/dL Calcium (8.4-10.2) mg/dL Troponin I High Sens (<3.5-17.0) ng/L B-Natriuretic Peptide (<100) pg/mL Beta HCG, Quant mIU/mL Stool Occult Blood NEGATIVE (NEGATIVE) COVID-19 ([facility]) Negative (Negative) COVID-19 Clin Com See Note Blood Type Antibody Screen Crossmatch 02/24/21 02/24/21 Range/Units 19:29 19:29 WBC 8.0 (4.8-10.8) X10*3/uL RBC 2.92 L (4.20-5.50) X10*6/uL Hgb 5.0 L* (12.0-16.0) g/dl Hct 18.0 L* (37-47) % MCV 61.6 L (80-98) fL MCH 17.1 L (27.0-33.0) pg MCHC 27.8 L (31.0-35.0) g/dl RDW 19.1 H (11.0-16.0) % Plt Count 278 (160-400) X10*3/uL MPV 9.0 L (9.4-12.3) fL Immature Gran % (Auto) 1.0 H (0.0-0.4) % Neut % (Auto) 64.4 (45-73) % Lymph % (Auto) 25.8 (20-40) % [place] % (Auto) 7.7 (2-11) % Eos % (Auto) 1.0 (0-4) % Baso % (Auto) 0.1 (0-2) % Lymph # (Auto) 2.1 (1.2-4.9) X10*3/uL [place] # (Auto) 0.6 (0.1-1.2) X10*3/uL Eos # (Auto) 0.1 (0.0-0.4) X10*3/uL Baso # (Auto) 0.0 (0.0-0.2) X10*3/uL Abs Immat Gran (auto) 0.08 H (0.00-0.03) X10*3/uL Absolute Neuts (auto) 5.1 (2.0-8.3) X10*3/uL Absolute Nucleated RBC 0.060 H (0.0-0.012) X10*3/uL Nucleated RBC % (auto) 0.8 H (0.0-0.2) /100WBC D-Dimer NG/ML Sodium (135-145) mmol/L Potassium (3.3-5.1) mmol/L Chloride (96-108) mmol/L Carbon Dioxide (22-29) mmol/L Anion Gap (12-20) BUN (9-16) mg/dL Creatinine (0.5-1.4) mg/dL Estim Creat Clear Calc Estimated GFR Random Glucose (60-115) mg/dL Calcium (8.4-10.2) mg/dL Troponin I High Sens (<3.5-17.0) ng/L B-Natriuretic Peptide (<100) pg/mL Beta HCG, Quant mIU/mL Stool Occult Blood (NEGATIVE) COVID-19 ([facility]) (Negative) COVID-19 Clin Com Blood Type O Positive Antibody Screen NEGATIVE Crossmatch See Detail Critical Care Time Critical Care Time Total Critical Care Time: 40 Attestation: I have personally provided 40 minutes of critical care time exclusive of time spent on separately billable procedures. Time includes review of lab data, radiology results, discussion with consultants, and monitoring for potential decompensation. Interventions were performed as documented above Discharge Plan Discharge Clinical Impression: Anemia, Abnormal vaginal bleeding Patient Disposition: Admitted As Inpatient Prescriptions: No Action buprenorphine-naloxone 8-2 mg film 3 film sublingual DAILY RF: 0
[2021-02-24 18:27] LABS: MANUAL DIFF FLAG NO
[2021-02-24 18:33] LABS: Basophils Percent Auto 0.3 % (0-2); Eosinophils Absolute Auto 0.1 X10*3/uL (0.0-0.4); Eosinophils Percent Auto 1.1 % (0-4); Imm Gran Abs Auto 0.07 X10*3/uL (0.00-0.03); Lymphocytes Absolute Auto 1.5 X10*3/uL (1.2-4.9); Lymphocytes Percent Auto 21.8 % (20-40); Mean Corpuscular HGB Conc 27.6 g/dl (31.0-35.0); Mean Corpuscular Hemoglobin 17.2 pg (27.0-33.0); Mean Platelet Volume 9.5 fL (9.4-12.3); Monocytes Absolute Auto 0.6 X10*3/uL (0.1-1.2); Monocytes Percent Auto 7.9 % (2-11); NRBC Pct Auto 0.7 /100WBC (0.0-0.2); Neutrophils Absolute Auto 4.8 X10*3/uL (2.0-8.3); Neutrophils Percent Auto 67.9 % (45-73); Platelet Count 288 X10*3/uL (160-400); Red Blood Count 2.73 X10*6/uL (4.20-5.50); White Blood Count 7.1 X10*3/uL (4.8-10.8)
[2021-02-24] MEDS: Ketorolac Tromethamine 15 MG/ML VIAL IVPUSH (18:41)
[2021-02-24] MEDS: diphenhydrAMINE HCL 50 MG/ML VIAL 25 MG IVPUSH (18:42)
[2021-02-24] MEDS: Metoclopramide HCl 10 MG/2 ML VIAL IVPUSH (18:42)
[2021-02-24 18:43] LABS: Mean Corpuscular Volume 62.3 fL (80-98)
[2021-02-24 18:45] LABS: Hemoglobin 4.7 g/dl (12.0-16.0)
[2021-02-24 18:46] LABS: D Dimer < 200 NG/ML
[2021-02-24 18:48] LABS: Anion Gap 11 (12-20); Blood Urea Nitrogen 14 mg/dL (9-16); Calcium 8.7 mg/dL (8.4-10.2); Carbon Dioxide 28 mmol/L (22-29); Chloride 107 mmol/L (96-108); Creatinine Clr Calc Pharmacy 142.7; Estimated Glomerular Filt Rate > 60; Glucose Random 93 mg/dL (60-115); Potassium 4.1 mmol/L (3.3-5.1); Sodium 142 mmol/L (135-145)
[2021-02-24 18:52] LABS: B Type Natriuretic Peptide 27 pg/mL (<100); Troponin-I High Sensitivity < 3.5 ng/L (<3.5-17.0)
[2021-02-24 18:59] LABS: OBS Int Ctl Valid YES; OBS1 NEGATIVE (NEGATIVE)
[2021-02-24 19:04] VITALS: BP 123/51; PULSE 73; RESP 18; TEMP 36.9; O2SAT 98
[2021-02-24 19:11] LABS: HCG Quantitative < 2 mIU/mL
[2021-02-24 19:34] LABS: Basophils Percent Auto 0.1 % (0-2); Eosinophils Absolute Auto 0.1 X10*3/uL (0.0-0.4); Imm Gran Abs Auto 0.08 X10*3/uL (0.00-0.03); Lymphocytes Absolute Auto 2.1 X10*3/uL (1.2-4.9); Lymphocytes Percent Auto 25.8 % (20-40); MANUAL DIFF FLAG NO; Mean Corpuscular HGB Conc 27.8 g/dl (31.0-35.0); Mean Corpuscular Hemoglobin 17.1 pg (27.0-33.0); Monocytes Absolute Auto 0.6 X10*3/uL (0.1-1.2); Monocytes Percent Auto 7.7 % (2-11); NRBC Pct Auto 0.8 /100WBC (0.0-0.2); Neutrophils Absolute Auto 5.1 X10*3/uL (2.0-8.3); Neutrophils Percent Auto 64.4 % (45-73); Platelet Count 278 X10*3/uL (160-400); Red Blood Count 2.92 X10*6/uL (4.20-5.50); Red Cell Distribution Width 19.1 % (11.0-16.0)
[2021-02-24 19:36] LABS: Mean Corpuscular Volume 61.6 fL (80-98)
--- NOTE | 2021-02-24 19:50 | P.HPHOSP_ITS ---
History of Present Illness Date of Service: 02/24/21 Chief Complaint: Shortness of breath 50-year-old female With a past medical history of anxiety, depression, ADHD, history of breast cancer, iron deficiency anemia, myasthenia gravis, pseudotumor cerebri, arthritis, fibromyalgia, history of uterine bleeding status post endometrial ablation; presented to the hospital with a chief complaint of shortness of breath. Patient reported that over the past week she has been having shortness of breath and dyspnea on exertion which have been gradually worsening. Denies any fever chills or cough. Reports that she gets shortness of breath with minimal activity. Patient reports that she has remote history of uterine bleeding and has ablation done; and for the past 2 months she has been having uterine bleeding-heavy menses; noted clots; just stopped yesterday. And is supposed to follow-up with OBGYN doctor as outpatient. Patient also mentioned that she has history of iron deficiency anemia-not on iron supplementation. Denies any recent travel or sick contacts. Denies any recent surgeries. Denies any nausea vomiting or diarrhea. Denies any upper or lower GI bleeding signs. Denies any blood in the urine. Patient denies any chest pain palpitations. Review of all other systems is negative except mentioned above ER course: Per ER team patient exam was nonfocal; stool guaiac test was negative; lung exam was clear; on labs noted to have hemoglobin of 4.7; repeat lab showed hemoglobin of 5.0. Patient did report chronic slow vaginal bleeding. Patient being ordered 1 unit of blood transfusion. EKG was nonischemic. Troponin negative. Admitted to the hospital for further management. [facility] Medical History (Updated 02/24/21 @ 20:06 by Caprice Youssef MD) Adult ADHD Anxiety and depression Arthritis Breast CA Carpal tunnel syndrome Fibromyalgia Intermittent explosive disorder Iron deficiency anemia Kidney stones Myasthenia gravis Pseudotumor cerebri Family History Mother Mental health disorder Pertinent family history: As mentioned above Surgical History History of endometrial ablation History of tubal ligation Social History Household Members: Children Housing: Apartment Do you presently have visiting nurse or other home services: No Alcohol intake: never Patient Tobacco Use Status: Never used Tobacco e-Cigarette/Vaping Use: Never Used Second Hand Smoke Exposure: No Use of substances other than those prescribed or required for medical reasons: No Advance Directives: No Advance Directives Information Provided: Yes Do you have thoughts of harming others: None Do you have a plan to hurt others: No Plan Recently lost weight without trying: No Nutrition Risks: No Nutritional Risk Patient : No Sexual orientation: Straight/Heterosexual Gender identity: Female Meds Allergies Allergy/AdvReac Type Severity Reaction Status Date / Time ibuprofen [IBUPROFEN] Allergy Intermediate SWELLING Verified 01/06/21 14:25 codeine [CODEINE] Allergy Unknown ITCHY Verified 01/06/21 14:25 gabapentin [From Neurontin] Allergy Unknown anxiety, Verified 01/06/21 14:25 insomnia, restless/anxiety hydrocodone [From VICODIN] Allergy Unknown UNKNOWN Verified 01/06/21 14:25 nabumetone [Nabumetone] Allergy Unknown swelling, Verified 01/06/21 14:25 facial swelling Nabumetone Allergy Unknown edema Uncoded 06/06/20 13:26 nsaids Allergy Unknown Unknown Uncoded 06/06/20 13:26 Active Medications: Current Medications Pharmacy Consult (Consult Rx Perform Med Rec) 1 each MISCELLANE ONCE PRN PRN Reason: Consult order Home Medications Medication Instructions Recorded Confirmed Last Taken Type buprenorphine 8 mg-naloxone 2 mg 3 film SUBLINGUAL DAILY 05/07/20 02/24/21 Unknown History sublingual film Physical Exam Vital Signs and Narrative: Vital Signs: Last Vital Signs Temp 98.5 F 02/24/21 19:04 Pulse 73 02/24/21 19:04 Resp 18 02/24/21 19:04 BP 123/51 L 02/24/21 19:04 Pulse Ox 98 02/24/21 19:04 Body Mass Index 54.5 Gen: Appears be in no acute distress; speaks in full sentences. No respiratory distress. HEENT: NCAT, Moist mucosa.; PERRLA Pulmonary: Vesicular breath sounds, fair air entry; no wheezing CVS: Normal S1-S2; regular Abdomen: BS+, Soft, Nontender Extremities: Warm well perfused Neuro: Alert and awake. Grossly nonfocal Results Labs CBC and Chem 7: 02/24/21 19:29 02/24/21 18:09 Labs: Laboratory Results - last 24 hr 10/26/21 10/26/21 10/26/21 18:09 18:09 18:09 MCV 62.3 L MCH 17.2 L MCHC 27.6 L RDW 19.0 H Plt Count 288 MPV 9.5 Immature Gran % (Auto) 1.0 H Neut % (Auto) 67.9 Lymph % (Auto) 21.8 [place] % (Auto) 7.9 Eos % (Auto) 1.1 Baso % (Auto) 0.3 Lymph # (Auto) 1.5 [place] # (Auto) 0.6 Eos # (Auto) 0.1 Baso # (Auto) 0.0 Abs Immat Gran (auto) 0.07 H Absolute Neuts (auto) 4.8 Absolute Nucleated RBC 0.050 H Nucleated RBC % (auto) 0.7 H D-Dimer Anion Gap 11 L Estim Creat Clear Calc 142.7 Estimated GFR > 60 Random Glucose 93 Calcium 8.7 Troponin I High Sens < 3.5 B-Natriuretic Peptide 27 Beta HCG, Quant < 2 Stool Occult Blood Blood Type Crossmatch 02/24/21 02/24/21 02/24/21 18:09 18:55 19:29 MCV MCH MCHC RDW Plt Count MPV Immature Gran % (Auto) Neut % (Auto) Lymph % (Auto) [place] % (Auto) Eos % (Auto) Baso % (Auto) Lymph # (Auto) [place] # (Auto) Eos # (Auto) Baso # (Auto) Abs Immat Gran (auto) Absolute Neuts (auto) Absolute Nucleated RBC Nucleated RBC % (auto) D-Dimer < 200 Anion Gap Estim Creat Clear Calc Estimated GFR Random Glucose Calcium Troponin I High Sens B-Natriuretic Peptide Beta HCG, Quant Stool Occult Blood NEGATIVE Blood Type O Positive Crossmatch See Detail 02/24/21 19:29 MCV 61.6 L MCH 17.1 L MCHC 27.8 L RDW 19.1 H Plt Count 278 MPV 9.0 L Immature Gran % (Auto) 1.0 H Neut % (Auto) 64.4 Lymph % (Auto) 25.8 [place] % (Auto) 7.7 Eos % (Auto) 1.0 Baso % (Auto) 0.1 Lymph # (Auto) 2.1 [place] # (Auto) 0.6 Eos # (Auto) 0.1 Baso # (Auto) 0.0 Abs Immat Gran (auto) 0.08 H Absolute Neuts (auto) 5.1 Absolute Nucleated RBC 0.060 H Nucleated RBC % (auto) 0.8 H D-Dimer Anion Gap Estim Creat Clear Calc Estimated GFR Random Glucose Calcium Troponin I High Sens B-Natriuretic Peptide Beta HCG, Quant Stool Occult Blood Blood Type Crossmatch Imaging Radiologist's Impressions: Impressions Chest X-Ray 02/24/21 17:27 IMPRESSION: Low lung volumes without focal airspace opacities. Assessment and Plan (1) Anemia: Status: Acute (2) Iron deficiency anemia: Status: Acute 50-year-old female With a past medical history of anxiety, depression, ADHD, history of breast cancer, iron deficiency anemia, myasthenia gravis, pseudotumor cerebri, arthritis, fibromyalgia, history of uterine bleeding status post endometrial ablation; presented to the hospital with a chief complaint of shortness of breath. Noted to have symptomatic anemia likely secondary to vaginal bleeding. Admitted to the hospital for further management. Anemia: Secondary to blood loss from vaginal/uterine bleeding. Will obtain transvaginal ultrasound. OBGYN consult Patient being transfused 1 unit of blood in the ER. Will order another unit. Stool guaiac was negative. Vitals currently stable. Serial H&H. Monitor H and H post transfusion. Patient does report prior history of iron-deficiency anemia. Patient noted to have microcytic anemia. Will obtain iron profile, folate and B12 as well. Hematology consult History of opiate dependence: Patient on Suboxone. Will consult Addiction Medicine for conforming and resuming her home medication. History of breast cancer: Patient on tamoxifen hx Peripheral edema: pt on lasix- hold for now. DVT prophylaxis: SCD boots Code status: Full code Quality Stroke Does the patient have a stroke diagnosis?: No VTE Prior VTE?: No VTE Risk Level:: Medical - low VTE Device Contraindication: N/A - Device Ordered VTE Drug Contraindication: Treatment Not Indicated
[2021-02-24 19:54] LABS: COVID-19 Test Negative (Negative)
--- NOTE | 2021-02-24 19:56 | PHA.MEDREC ---
Pharmacy Consult ? Medication Reconciliation Pharmacy has completed the medication reconciliation. Patient reports she only takes suboxone. Judy Sandhu, CharyD
[2021-02-24 20:08] LABS: Iron 11 mcg/dL (30-160); Percent Iron Saturation 2 % (15-50); Total Iron Binding Capacity 476 mcg/dL (228-428); Unsaturated Iron Binding 465 ug/dL
[2021-02-24 20:45] LABS: Folate 7.1 ng/mL (> or = 4.0); Vitamin B12 339 pg/mL (200-900)
[2021-02-24 21:55] VITALS: BP 127/41; PULSE 74; RESP 16; TEMP 36.8
[2021-02-24 22:11] VITALS: BP 134/41; PULSE 72; RESP 16; TEMP 37.1
[2021-02-24 23:28] VITALS: BP 126/54; PULSE 72; RESP 16; O2SAT 95
--- NOTE | 2021-02-24 23:31 | PC.NURSE ---
rn will call back for report due to being in a pt room
[2021-02-25] VITALS (14 sets, daily range): BP systolic 111–162; BP diastolic 54–76; PULSE 63–100; RESP 16–20; TEMP 36.5–36.9; O2SAT 93–100
[2021-02-25 07:22] LABS: MANUAL DIFF FLAG NO
[2021-02-25 07:29] LABS: Basophils Percent Auto 0.3 % (0-2); Eosinophils Absolute Auto 0.1 X10*3/uL (0.0-0.4); Eosinophils Percent Auto 1.6 % (0-4); Hematocrit 21.1 % (37-47); Imm Gran Abs Auto 0.07 X10*3/uL (0.00-0.03); Lymphocytes Absolute Auto 2.2 X10*3/uL (1.2-4.9); Lymphocytes Percent Auto 32.9 % (20-40); Mean Corpuscular HGB Conc 28.9 g/dl (31.0-35.0); Mean Corpuscular Hemoglobin 19.4 pg (27.0-33.0); Mean Corpuscular Volume 67.2 fL (80-98); Mean Platelet Volume 9.8 fL (9.4-12.3); Monocytes Absolute Auto 0.6 X10*3/uL (0.1-1.2); Monocytes Percent Auto 8.8 % (2-11); NRBC Pct Auto 0.4 /100WBC (0.0-0.2); Neutrophils Absolute Auto 3.8 X10*3/uL (2.0-8.3); Neutrophils Percent Auto 55.4 % (45-73); Platelet Count 247 X10*3/uL (160-400); Red Blood Count 3.14 X10*6/uL (4.20-5.50); Red Cell Distribution Width 24.9 % (11.0-16.0); White Blood Count 6.8 X10*3/uL (4.8-10.8)
[2021-02-25 07:50] LABS: Hemoglobin 6.1 g/dl (12.0-16.0)
[2021-02-25 07:51] LABS: Anion Gap 9 (12-20); Blood Urea Nitrogen 13 mg/dL (9-16); Calcium 8.3 mg/dL (8.4-10.2); Carbon Dioxide 28 mmol/L (22-29); Chloride 106 mmol/L (96-108); Estimated Glomerular Filt Rate > 60; Glucose Random 89 mg/dL (60-115); Potassium 4.1 mmol/L (3.3-5.1); Sodium 139 mmol/L (135-145)
[2021-02-25] MEDS: 0.9 % Sodium Chloride Flush 3 ML SYRINGE IVFLUSH ×3 (07:51→23:32)
--- NOTE | 2021-02-25 08:58 | MHC.CM.PN ---
Female 50 DX Anemia. She lives with family. She is independent all functional mobility. DP home no services family transport. Patient was educated on HCP. She declined the offer of documenting a HCP.
[2021-02-25] MEDS: Buprenorphine/Naloxone 8/2 mg FILM 3 FILM SUBLINGUAL (09:10)
--- NOTE | 2021-02-25 09:14 | P.CDIC_ITS ---
CDI Concurrent Query Documentation Clarification: PHYSICIAN'S DOCUMENTATION REQUEST Date of Query: 02/25/21 0914 Patient Name: Vika Reynolds Admit Date: 02/24/21 Dear Doctor, A review of the medical record indicates additional documentation may be needed. Please review below and update the documentation accordingly. Risk Factors/Clinical Indicators/Treatments Anemia 2nd to blood loss likey from vaginal/uterine bleeding. OBGYN consult Transfuse blood HGB 4.7 HCT 17.0 Bleeding more chronic in nature, vaginal is likely source causing SOB and weakness. Based on the above, could you clarify in the Progress Notes the appropriate diagnosis, if significant, that supports the above abnormalities and additional evaluation, monitoring, and/or treatment rendered: * Iron deficiency anemia secondary to blood loss (chronic) * Iron deficiency anemia secondary to acute on chronic blood loss * Other (please specify) * Unable to determine Use of terms such as suspected, likely, concern for, or probable (associated with a specific diagnosis that is being evaluated, monitored, or treated as if it exists) are acceptable and can be coded in the inpatient setting, when documented at the time of discharge. Thank you, Sharonda Chow [facility], CDIS Extension: [phone] Please use your independent medical judgment in providing your response. THIS QUERY IS PART OF THE PERMANENT MEDICAL RECORD Provider Response: Other Other Diagnosis: iron deficiency anemia due to acute on chronic blood loss
--- NOTE | 2021-02-25 09:34 | P.CONOB_ITS ---
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 H&H in the emergency room was 4.7/17 the patient gives history of chronic vaginal bleeding. The patient was seen in January of 2018 in the OBGYN office by Dr. Shaikh who performed hysteroscopy D&C because of menometrorrhagia, pathology came back with no endometrial tissue. Patient has history of endometrial ablation. Since the patient was on tamoxifen she was referred to Gyne Onc in September of 2017. After counseling by Dr. Paul at [facility] regarding her high risk for endometrial cancer due to tamoxifen intake and high BMI and thelack of endometrial tissues on endometrial biopsy secondary to endometrial ablation the plan was to proceed with robotic assisted laparoscopic hysterectomy. The patient never followed up with her appointment. Since then has been bleeding heavily. The patient was seen by Dr. Servin in June of 2020 , on pelvic exam was suboptimal to few to patient's body habitus cervix was I did not identified and an attempt at endometrial biopsy failed. The patient was referred to Gynecologic Oncology at [facility] but did not follow-up with appointment cc:: CC: Bethanie Wilson MD PRODUCTION CONTROLLER - Review of Systems Review of Systems ROS Unobtainable: All systems reviewed & are unremarkable except as noted in HPI and below OB PMFSH Past Medical History Medical History (Updated 02/24/21 @ 20:06 by Caprice Youssef MD) Adult ADHD Anxiety and depression Arthritis Breast CA Carpal tunnel syndrome Fibromyalgia Intermittent explosive disorder Iron deficiency anemia Kidney stones Myasthenia gravis Pseudotumor cerebri Family History Family History Mother Mental health disorder Surgical History Surgical History History of endometrial ablation History of tubal ligation Social History Social History Household Members: Children Housing: Apartment Do you presently have visiting nurse or other home services: No Alcohol intake: never Patient Tobacco Use Status: Never used Tobacco e-Cigarette/Vaping Use: Never Used Second Hand Smoke Exposure: No Use of substances other than those prescribed or required for medical reasons: No Advance Directives: No Advance Directives Information Provided: Yes Do you have thoughts of harming others: None Do you have a plan to hurt others: No Plan Recently lost weight without trying: No Nutrition Risks: No Nutritional Risk Patient : No service: No Current occupational status: employed Sexual orientation: Straight/Heterosexual Gender identity: Female Meds Allergies Allergy/AdvReac Type Severity Reaction Status Date / Time ibuprofen [IBUPROFEN] Allergy Intermediate SWELLING Verified 01/06/21 14:25 codeine [CODEINE] Allergy Unknown ITCHY Verified 01/06/21 14:25 gabapentin [From Neurontin] Allergy Unknown anxiety, Verified 01/06/21 14:25 insomnia, restless/anxiety hydrocodone [From VICODIN] Allergy Unknown UNKNOWN Verified 01/06/21 14:25 nabumetone [Nabumetone] Allergy Unknown swelling, Verified 01/06/21 14:25 facial swelling Nabumetone Allergy Unknown edema Uncoded 06/06/20 13:26 nsaids Allergy Unknown Unknown Uncoded 06/06/20 13:26 Active Medications: Current Medications Acetaminophen (Acetaminophen 325 Mg Tablet) 650 mg PO Q6H PRN PRN Reason: Pain, Mild (Pain Scale 1-3) Buprenorphine/Naloxone (Buprenorphine/Naloxone 8/2 Mg Film) 3 film SUBLINGUAL DAILY [facility] Last Admin: 02/25/21 09:10 Dose: 3 film Documented by: Melatonin (Melatonin 3 Mg Tablet) 6 mg PO BEDTIME PRN PRN Reason: Insomnia Pharmacy Consult (Consult Rx Perform Med Rec) 1 each MISCELLANE ONCE PRN PRN Reason: Consult order Senna (Sennosides 8.6 Mg Tablet) 17.2 mg PO BEDTIME PRN PRN Reason: Constipation Sodium Chloride (0.9 % Sodium Chloride Flush 3 Ml Syringe) 3 ml IVFLUSH QSHIFT [facility] Last Admin: 02/25/21 07:51 Dose: 3 ml Documented by: Home Medications Medication Instructions Recorded Confirmed Last Taken Type buprenorphine 8 mg-naloxone 2 mg 3 film SUBLINGUAL DAILY 05/07/20 02/24/21 Unknown History sublingual film 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 - Results Labs CBC & Chem 7: 02/25/21 06:27 02/25/21 06:27 Labs: Short CBC 02/24/21 02/24/21 02/25/21 Range/Units 18:09 19:29 06:27 WBC 7.1 8.0 6.8 (4.8-10.8) X10*3/uL Hgb 4.7 L* D 5.0 L* 6.1 L* D (12.0-16.0) g/dl Hct 17.0 L* D 18.0 L* 21.1 L (37-47) % Plt Count 288 278 247 (160-400) X10*3/uL BMP 02/24/21 02/25/21 18:09 06:27 Sodium 142 139 Potassium 4.1 4.1 Chloride 107 106 Carbon Dioxide 28 28 BUN 14 13 Creatinine 0.64 0.63 Calcium 8.7 8.3 L Antibody Screen Antibody Screen NEGATIVE 02/24/21 19:29 Assessment and Plan (1) Abnormal vaginal bleeding: Status: Acute Discussed with the patient the difficult exam, inadequate evaluation of the cervix uterus and adnexa. Also discussed with the patient that tamoxifen increases the risk of endometrial cancer , which presents with vaginal bleeding. Next step is the to proceed with endometrial sampling to rule out endometrial pathology including hyperplasia and cancer; since the patient is high risk for endometrial cancer secondary to tamoxifen and endometrial sampling failed twice in addition the fact that the patient was evaluated and scheduled for robotic assisted laparoscopic hysterectomy, I recommended for the patient to be referred to Gynecology Oncology at [facility] to reschedule the hysterectomy. I offered to refer the patient, but she stated that she would like to contact the Gyne Onc office herself, she was given our office number to call , in case she is having a difficult is reaching Gyne Onc office, we will assist in the referral. All questions answered, the patient verbalized understanding
--- NOTE | 2021-02-25 10:24 | P.PNIM_ITS ---
Subjective Subjective Date of Service: 02/25/21 Interval History: Being followed for symptomatic anemia, feeling better less short of breath and lightheaded, mostly symptomatic with ambulation, denies chest pain, shortness of breath or palpitation, denies active vaginal bleed, denies nausea /vomiting. Review of Systems General no headache, no dizziness no fever chills. CVS no chest pain, no palpitation. Respiratory no cough, no sob. Gastrointestinal no nausea, no vomiting, no abdominal pain Review of Systems: Yes all other systems are reviewed and are negative Physical Exam Vital Signs: Vital Signs: Last Vital Signs Temp 98.2 F 02/25/21 10: Pulse 80 02/25/21 10:22 Resp 18 02/25/21 10:22 BP 134/62 02/25/21 10: Pulse Ox 99 02/25/21 07:38 Body Mass Index 54.5 General alert oriented x3,no acute distress. Neck supple no JVD. CVS regular rate rhythm, Respiratory lungs clear to auscultation, no respiratory distress, no wheeze, no rhonchi. Gastrointestinal abdomen soft, nontender, bowel sounds audible, no guarding , no rigidity. Extremities no edema. Neuro nonfocal , speech clear. Skin pallor/no rash Psych appropriate affect Objective Data Active Medications Acetaminophen (Acetaminophen 325 Mg Tablet) 650 mg PO Q6H PRN PRN Reason: Pain, Mild (Pain Scale 1-3) Buprenorphine/Naloxone (Buprenorphine/Naloxone 8/2 Mg Film) 3 film SUBLINGUAL DAILY [facility] Last Admin: 02/25/21 09:10 Dose: 3 film Documented by: MARIE Ferric Sodium Gluconate Complex 125 mg/ Sodium Chloride 110 mls @ 100 mls/hr IV DAILY [facility] Stop: 02/27/21 10:05 Melatonin (Melatonin 3 Mg Tablet) 6 mg PO BEDTIME PRN PRN Reason: Insomnia Pharmacy Consult (Consult Rx Perform Med Rec) 1 each MISCELLANE ONCE PRN PRN Reason: Consult order Senna (Sennosides 8.6 Mg Tablet) 17.2 mg PO BEDTIME PRN PRN Reason: Constipation Sodium Chloride (0.9 % Sodium Chloride Flush 3 Ml Syringe) 3 ml IVFLUSH QSHIFT [facility] Last Admin: 02/25/21 07:51 Dose: 3 ml Documented by: MARIE Labs CBC & Chem 7: 02/25/21 06:27 02/25/21 06:27 Labs: Laboratory Results - last 24 hr 02/24/21 02/24/21 02/24/21 18:09 18:09 18:09 MCV 62.3 L MCH 17.2 L MCHC 27.6 L RDW 19.0 H Plt Count 288 MPV 9.5 Immature Gran % (Auto) 1.0 H Neut % (Auto) 67.9 Lymph % (Auto) 21.8 Wagoner % (Auto) 7.9 Eos % (Auto) 1.1 Baso % (Auto) 0.3 Lymph # (Auto) 1.5 Wagoner # (Auto) 0.6 Eos # (Auto) 0.1 Baso # (Auto) 0.0 Abs Immat Gran (auto) 0.07 H Absolute Neuts (auto) 4.8 Absolute Nucleated RBC 0.050 H Nucleated RBC % (auto) 0.7 H Smear Path Review SEE NOTE D-Dimer Anion Gap 11 L Estim Creat Clear Calc 142.7 Estimated GFR > 60 Random Glucose 93 Calcium 8.7 Iron 11 L TIBC 476 H % Saturation 2 L Unsat Iron Binding 465 Troponin I High Sens < 3.5 B-Natriuretic Peptide 27 Vitamin B12 Folate Beta HCG, Quant < 2 Stool Occult Blood COVID-19 (LUCIANO) COVID-[employer] Blood Type Antibody Screen Crossmatch 02/24/21 02/24/21 02/24/21 18:09 18:09 18:55 MCV MCH MCHC RDW Plt Count MPV Immature Gran % (Auto) Neut % (Auto) Lymph % (Auto) Wagoner % (Auto) Eos % (Auto) Baso % (Auto) Lymph # (Auto) Wagoner # (Auto) Eos # (Auto) Baso # (Auto) Abs Immat Gran (auto) Absolute Neuts (auto) Absolute Nucleated RBC Nucleated RBC % (auto) Smear Path Review D-Dimer < 200 Anion Gap Estim Creat Clear Calc Estimated GFR Random Glucose Calcium Iron TIBC % Saturation Unsat Iron Binding Troponin I High Sens B-Natriuretic Peptide Vitamin B12 339 Folate 7.1 Beta HCG, Quant Stool Occult Blood NEGATIVE COVID-19 ([facility]CI[facility]O) COVID-[facility] Com Blood Type Antibody Screen Crossmatch 02/24/21 02/24/21 02/24/21 19:18 19:29 19:29 MCV 61.6 L MCH 17.1 L MCHC 27.8 L RDW 19.1 H Plt Count 278 MPV 9.0 L Immature Gran % (Auto) 1.0 H Neut % (Auto) 64.4 Lymph % (Auto) 25.8 Wagoner % (Auto) 7.7 Eos % (Auto) 1.0 Baso % (Auto) 0.1 Lymph # (Auto) 2.1 Wagoner # (Auto) 0.6 Eos # (Auto) 0.1 Baso # (Auto) 0.0 Abs Immat Gran (auto) 0.08 H Absolute Neuts (auto) 5.1 Absolute Nucleated RBC 0.060 H Nucleated RBC % (auto) 0.8 H Smear Path Review D-Dimer Anion Gap Estim Creat Clear Calc Estimated GFR Random Glucose Calcium Iron TIBC % Saturation Unsat Iron Binding Troponin I High Sens B-Natriuretic Peptide Vitamin B12 Folate Beta HCG, Quant Stool Occult Blood COVID-19 ([facility]) Negative COVID-19 Clin Com See Note Blood Type O Positive Antibody Screen NEGATIVE Crossmatch See Detail 02/25/21 02/25/21 06:27 06:27 MCV 67.2 L D MCH 19.4 L MCHC 28.9 L RDW 24.9 H Plt Count 247 MPV 9.8 Immature Gran % (Auto) 1.0 H Neut % (Auto) 55.4 Lymph % (Auto) 32.9 Wagoner % (Auto) 8.8 Eos % (Auto) 1.6 Baso % (Auto) 0.3 Lymph # (Auto) 2.2 Wagoner # (Auto) 0.6 Eos # (Auto) 0.1 Baso # (Auto) 0.0 Abs Immat Gran (auto) 0.07 H Absolute Neuts (auto) 3.8 Absolute Nucleated RBC 0.030 H Nucleated RBC % (auto) 0.4 H Smear Path Review D-Dimer Anion Gap 9 L Estim Creat Clear Calc 145.0 Estimated GFR > 60 Random Glucose 89 Calcium 8.3 L Iron TIBC % Saturation Unsat Iron Binding Troponin I High Sens B-Natriuretic Peptide Vitamin B12 Folate Beta HCG, Quant Stool Occult Blood COVID-19 ([facility]) COVID-19 Clin Com Blood Type Antibody Screen Crossmatch Assessment and Plan (1) Abnormal vaginal bleeding: Status: Acute (2) Iron deficiency anemia: Status: Acute Assessment and Plan: 50-year-old female with past medical history of anxiety, depression, ADHD, history of breast cancer, iron deficiency anemia, myasthenia gravis, pseudotumor cerebri, arthritis, fibromyalgia, history of uterine bleeding status post endometrial ablation; presented to the hospital with a chief complaint of shortness of breath.? Noted to have symptomatic anemia likely secondary to vaginal bleeding.? Admitted to the hospital for further management. Iron deficiency anemia due to acute on chronic blood loss from vaginal/uterine bleeding. Less symptomatic post transfusion, still feel lightheaded and short of breath with ambulation status post 2 units of packed RBC hematocrit improved from 17-21, baseline hematocrit around 35 Will order 1 more unit. Goal of hemoglobin greater than 7,Follow hemoglobin post transfusion Stool guaiac was negative. Iron studies consistent with iron-deficiency anemia, iron saturation 2, will transfuse iron infusion Ferrlecit 125 mcg daily , normal B12 and folate. Case discussed with Dr. Bal she agrees with above management. Acute on chronic uterine bleed Status post endometrial ablation in the past Will follow OBGYN input. History of opiate dependence:? Resume Suboxone History of breast cancer:? on tamoxifen hx Peripheral edema: Resume Lasix DVT prophylaxis: On? SCD boots, avoid heparin due to bleed Code status:? Full code Quality Stroke Does the patient have a stroke diagnosis?: No VTE Prior VTE?: No VTE Risk Level:: Medical - low VTE Device Contraindication: N/A - Device Ordered VTE Drug Contraindication: Treatment Not Indicated
[2021-02-25] MEDS: Sodium Ferric Gluconat/Sucrose 125 MG in 0.9 % Sodium Chloride 100 ML 100 MG IV (12:56)
[2021-02-25 15:22] LABS: Hematocrit 23.3 % (37-47)
[2021-02-26 04:00] VITALS: BP 143/67; PULSE 57; RESP 18; TEMP 36.3; O2SAT 99
[2021-02-26 07:18] VITALS: BP 103/53; PULSE 58; RESP 17; TEMP 36.3; O2SAT 100
[2021-02-26] MEDS: Buprenorphine/Naloxone 8/2 mg FILM 3 FILM SUBLINGUAL (08:42)
[2021-02-26] MEDS: 0.9 % Sodium Chloride Flush 3 ML SYRINGE IVFLUSH (08:43)
[2021-02-26 09:15] LABS: Hematocrit 28.8 % (37-47); Hemoglobin 8.5 g/dl (12.0-16.0)
[2021-02-26] MEDS: Sodium Ferric Gluconat/Sucrose 125 MG in 0.9 % Sodium Chloride 100 ML 100 MG IV (09:49)
--- NOTE | 2021-02-26 11:54 | P.DS_ITS ---
DS: Providers Provider Date of Service: 02/26/21 Date of admission: 02/24/21 19:48 Primary care physician: Renee Marley MD Consults: 02/24/21 19:50 Consult to Hematology / Oncology Routine Consulting Provider: Yoana Cook Reason for consultation: anemia 02/24/21 21:47 Consult to Obstetrics / Gynecology Routine Consulting Provider: Carlos Lee Reason for consultation: Uterine bleeding/menorrhagia DS: Diagnosis Discharge Diagnosis (1) Abnormal vaginal bleeding: Status: Acute (2) Iron deficiency anemia: Status: Acute DS: Summary Hospital Course Hospital Course: History of presenting illness Chief Complaint: Shortness of breath 50-year-old female With a past medical history of anxiety, depression, ADHD, history of breast cancer, iron deficiency anemia, myasthenia gravis, pseudotumor cerebri, arthritis, fibromyalgia, history of uterine bleeding status post endometrial ablation; presented to the hospital with a chief complaint of shortness of breath with activity Patient reported that over the past week she has been having shortness of breath and dyspnea on exertion which have been gradually worsening.? Denies any fever chills or cough. Reports that she gets shortness of breath with minimal activity. Patient reports that she has remote history of uterine bleeding and has ablation done; and for the past 2 months she has been having uterine bleeding-heavy menses; noted clots; just stopped yesterday.? And is supposed to follow-up with OBGYN doctor as outpatient. Patient also mentioned that she has history of iron deficiency anemia-not on iron supplementation. Denies any recent travel or sick contacts. Denies any recent surgeries. Denies any nausea vomiting or diarrhea.? Denies any upper or lower GI bleeding signs. Denies any blood in the urine. Patient denies any chest pain palpitations. Hospital course 50-year-old female with past medical history of anxiety, depression, ADHD, history of breast cancer, iron deficiency anemia, myasthenia gravis, pseudotumor cerebri, arthritis, fibromyalgia, history of uterine bleeding status post endometrial ablation; presented to the hospital with a chief complaint of shortness of breath with activity, palpitation, patient noted to have severe anemia with hematocrit 17 likely due to heavy vaginal bleeding , patient treated with 3 units of packed RBC hematocrit improved to 28.8, noted to have iron saturation of 2 therefore received IV iron infusion, since patient's symptoms of shortness of breath and palpitations have resolved and she is feeling significantly better she is being discharged home on iron supplements and recommended to use stool softeners if noted to have constipation, patient was evaluated by Dr. Lee from OBGYN due to intermittent heavy uterine bleeding and he recommended patient to OBGYN at [facility] for laparoscopic hysterectomy, since patient is high risk for endometrial cancer secondary to tamoxifen. History of opiate dependence:? continue Suboxone History of breast cancer:? on tamoxifen hx Peripheral edema:? on Lasix Time Spent with Patient Time attestation: Total time spent providing and/or coordinating discharge services: Discharge coordination time: Greater than 30 minutes Quality: Stroke Does the patient have a stroke diagnosis?: No Physical Exam Vital Signs: Vital Signs: Last Vital Signs Temp 97.3 F 02/26/21 07:18 Pulse 58 02/26/21 07:18 Resp 17 02/26/21 07:18 BP 103/53 L 02/26/21 07:18 Pulse Ox 100 02/26/21 07:18 Body Mass Index 54.5 eneral alert oriented x3,no acute distress.? Neck supple no JVD. CVS? regular rate rhythm, Respiratory lungs clear to auscultation, no respiratory distress, no wheeze, no rhonchi. Gastrointestinal abdomen soft, nontender, bowel sounds audible, no guarding , no rigidity. Extremities no edema. Neuro non focal , speech clear. Skin no rash Psych appropriate affect DS: Data Data Completed and Pending Labs on day of discharge: Laboratory Results - last 24 hr 02/24/21 02/25/21 02/26/21 19:29 14:49 09:09 Hgb 7.0 L* 8.5 L D Hct 23.3 L 28.8 L D Crossmatch See Detail Discharge Plan Discharge Patient Disposition: Home, Self-Care Discharge Diagnosis: Acute blood loss anemia Iron deficiency anemia Referrals: Po,Renee Yen MD [Primary Care Provider] - 1 Week (Your doctor's office should call you to schedule a follow up appointment.) Discharge Medications: New ferrous sulfate 325 mg (65 mg iron) tablet 325 mg PO BID Qty: 60 RF: 0 Continued buprenorphine-naloxone 8-2 mg film 3 film sublingual DAILY RF: 0 Discharge Orders: Discharge Order (Routine); Ordered 02/26/21 Ordered By: Bethanie Wilson Diet: advance to usual diet Activity on Discharge: As tolerated Stand Alone Forms: Patient Portal Discharge page Care Plan Goals: Uterine bleeding causing iron deficiency anemia, please follow-up at OBGYN clinic at [facility], call Dr. Lee at [facility] if unable to make an appointment at [facility]. Health Concerns: Anemia take iron supplement twice daily if develops constipation take stool softeners and high-fiber diet Plan of Treatment: Outpatient follow-up with primary care physician and OBGYN at [facility] in next 1-2 weeks Assessment: As above
[2021-02-26 12:00] VITALS: BP 138/61; PULSE 68; RESP 18; O2SAT 100
== END 2021-02-26 15:00 | disposition home or self-care (01) | DRG 532 ==
LOC: HO.ED 20:06 → HO.EDOVER 20:15 → HO.IMC 20:28
PROVIDERS: Admitting Provider Hospitalist; Emergency Provider Emergency Medicine Emergency Medical Services; PCP Internal Medicine; Visit Provider Hospitalist
DX: N93.9 Abnormal uterine and vaginal bleeding, unspecified (principal); D62 Acute posthemorrhagic anemia; C50.919 Malignant neoplasm of unspecified site of unspecified female breast; F41.9 Anxiety disorder, unspecified; F32.A Depression, unspecified; F11.20 Opioid dependence, uncomplicated; Z88.5 Allergy status to narcotic agent; Z88.6 Allergy status to analgesic agent; Z79.810 Long term (current) use of selective estrogen receptor modulators (SERMs); Z20.822 Contact with and (suspected) exposure to COVID-19; Z79.899 Other long term (current) drug therapy
CPT/HCPCS: 36415; 36430; 71045; 76857; 80048; 82272; 82607; 82746; 83540; 83880; 84484; 84702; 85014; 85018; 85025; 85379; 86850; 86900; 86901; 86923; 87635; 93005; 96374; 96375; 99219; 99285; 99291; J1200; J1885; J2765; J2916; P9016

== ENCOUNTER 2021-09-08 13:14 | Outpatient (REF) | payer OTHER, SELFPAY ==
[2021-09-08 14:07] LABS: Hematocrit 25.9 % (37.0-47.0); Hemoglobin 7.1 g/dl (12.0-16.0); Mean Corpuscular HGB Conc 27.4 g/dl (31.0-35.0); Mean Corpuscular Hemoglobin 17.4 pg (27.0-33.0); Mean Platelet Volume 9.5 fL (9.4-12.3); Platelet Count 360 X10*3/uL (160-400); Red Blood Count 4.07 X10*6/uL (4.20-5.50); Red Cell Distribution Width 18.1 % (11.0-16.0); White Blood Count 6.8 X10*3/uL (4.8-10.8)
[2021-09-08 14:13] LABS: Mean Corpuscular Volume 63.6 fL (80.0-98.0)
[2021-09-08 14:28] LABS: Estimated Average Glucose 114 mg/dL; Hemoglobin A1c % 5.6 %
[2021-09-08 14:30] LABS: Alanine Aminotransferase 6 U/L (0-31); Albumin Level 3.8 g/dL (3.5-5.0); Alkaline Phosphatase 64 U/L (39-117); Anion Gap 9 (12-20); Aspartate Amino Transferase 11 U/L (5-31); Bilirubin Total 0.2 mg/dL (0.0-1.0); Blood Urea Nitrogen 16 mg/dL (9-16); Calcium 8.9 mg/dL (8.4-10.2); Carbon Dioxide 29 mmol/L (22-29); Chloride 107 mmol/L (96-108); Cholesterol 149 mg/dL; Estimated Glomerular Filt Rate > 60; Glucose Fasting 97 mg/dL (60-99); HDL Cholesterol 45 mg/dL; Iron 13 mcg/dL (30-160); LDL Cholesterol Calculated 92 mg/dl; Percent Iron Saturation 3 % (15-50); Potassium 4.2 mmol/L (3.3-5.1); Sodium 141 mmol/L (135-145); Total Iron Binding Capacity 423 mcg/dL (228-428); Triglycerides 64 mg/dL; Unsaturated Iron Binding 410 ug/dL
[2021-09-08 14:43] LABS: TSH reflex Free T4 2.24 uIU/mL (0.32-4.0)
== END 2021-09-08 13:15 | disposition home or self-care (01) ==
LOC: HO.LAB 13:14
PROVIDERS: PCP Physician Assistant; Visit Provider Physician Assistant
DX: Z13.1 Encounter for screening for diabetes mellitus (principal); D50.0 Iron deficiency anemia secondary to blood loss (chronic); I10 Essential (primary) hypertension; E66.9 Obesity, unspecified
CPT/HCPCS: 36415; 80053; 80061; 83036; 83540; 84443; 85027

== ENCOUNTER → 2021-09-09 15:53 | Outpatient (BNV) | payer OTHER, SELFPAY | PROVIDERS: PCP Physician Assistant; Visit Provider Internal Medicine | DX: D50.9 Iron deficiency anemia, unspecified (principal); Z85.3 Personal history of malignant neoplasm of breast | CPT/HCPCS: 99214 ==

== ENCOUNTER 2021-09-18 08:14 | Outpatient (REF) | payer OTHER, SELFPAY | END 2021-09-18 08:15 | disposition home or self-care (01) | LOC: HO.MDS 08:14 | PROVIDERS: PCP Physician Assistant; Visit Provider Internal Medicine | DX: D50.9 Iron deficiency anemia, unspecified (principal) | CPT/HCPCS: 96365; 96366; J1200; J1750; Q0163 ==

== ENCOUNTER → 2021-11-10 07:39 | Outpatient (REF) | payer OTHER, SELFPAY ==
--- NOTE | 2021-11-10 07:43 | CA_ITS ---
Transthoracic Echocardiogram Patient (Last, First, Middle): Vika Reynolds, Gender: Female Date of : 1970 Age: 51 Procedure Date: 11/10/2021 Procedure Type: Transthoracic Echocardiogram Location: OP Height: 157.48 cm Weight: 125.19 kg BSA: 2.19 m2 Heart Rate: bpm BP: 135 / 76 mmHg Aircraft Ordnance Technician: ROSEANNA Referring MD: Chris Minaya MD Group Reservations Coordinator: Porfirio Aguila MD Symptoms: PRE OP [place] Study Quality: Adequate ECG Rhythm: Sinus Conclusions: - 1. Normal LV systolic function with mild LVH 2. Mild aortic stenosis with mean gradient of 12 mmHg, aortic valve was not well visualized on this study and cannot rule out bicuspid aortic valve 3. Normal RV systolic pressure 4. No pericardial effusion Findings Left Ventricle Normal left ventricular size and systolic function. There is mildly increased left ventricular wall thickness. The visually estimated ejection fraction is between 60-65%. Spectral Doppler is indicative of a normal filling pattern. Right Ventricle The right ventricle was not well visualized. Atria The left atrium is normal in size. Interatrial shunt cannot be excluded. The right atrium was not well visualized. Aortic Valve The aortic valve was not well visualized. There is mild aortic valve stenosis. The peak aortic gradient is 21 mmHg.The mean gradient is 12 mmHg. The aortic valve area is 1.89 cm2. There is no aortic valve regurgitation. Mitral Valve The mitral valve was not well visualized. There is trace mitral valve regurgitation. There is no mitral valve stenosis. Pulmonic Valve The pulmonic valve was not well visualized. Tricuspid Valve The tricuspid valve was not well visualized. There is trace tricuspid valve regurgitation. The right ventricular systolic pressure is normal. The right ventricular systolic pressure is 20 mmHg. Normal right atrial pressure. There is no evidence of pulmonary hypertension. Great Vessels All visible segments of the aorta are normal in size. The pulmonary artery was not well visualized. Venous The inferior vena cava is normal in size and collapses greater than 50% with inspiration. Pericardium/Pleural There is no evidence of pericardial effusion. Prior Study Comparison No prior study available for comparison. Measurements 2D Linear Measurements IVSd: 1.23 0.6-0.9/0.6-1.0 cm LVIDd: 4.68 3.9-5.3/4.2-5.9 cm LVIDd Index: 2.14 2.4-3.2/2.2-3.1 cm/m2 LVIDs: 3.21 2.0-3.6 cm LVPWd: 1.13 0.7-1.1 cm LA Diam: 3.30 2.7-3.8/3.0-4.0 cm LAIDs Index: 1.51 1.5-2.3 cm/m2 LV Mass: 256.27 67-162/88-224 g LV Mass Index: 117.02 43-95/49-115 g/m2 LVOT Diam: 2.00 3.0+(-)1.3 cm 2D Systolic Function EF 4C: 62.30 >55% EF 2C: 60.30 >55% EF BiP: 61.30 >55% Mitral Valve MV Pk E: 1.02 MV PK A: 0.73 MV Decel Time: 249.00 E/A: 1.40 E'Lateral: 10.90 E'Medial: 7.07 E/E' Med: 14.40 E/E' Lat: 9.40 PHT: 73.00 MVA PHT: 3.01 Decel Tift: 4.11 Aortic Valve AoV Pk Hima: 2.31 AoV Mn Hima: 1.65 AoV VTI: 0.56 AoV Pk Grad: 21.00 Aov Mn Grad: 12.00 TIMOTHY Cont.VTI: 1.89 LVOT LVOT Pk Hima: 1.29 LVOT Mn Hima: 0.87 LVOT VTI: 0.34 LVOT Pk Grad: 7.00 LVOT Mn Grad: 3.00 LVOT Diam: 2.00 LVOT Area: 3.14 Diastolic Function MV Pk E: 1.02 MV Pk A: 0.73 E/A: 1.40 E'Medial: 7.07 E/E' Med: 14.40 E' Laterial: 10.90 E/E' Lat: 9.40 Right Ventricle TAPSE (mm): 30.10 TVS' Hima: 12.90 Tricuspid Valve TR Pk Hima: 2.06 TR Pk Grad: 17.00 RA Press: 3.00 RVSP: 20.00 Great Vessels Aorta Sinus of Valsalva: 3.12 2.0-3.5 cm Ao Asc: 3.00 2.1-3.4 cm Ao Arch: 2.90 Updated in Other Vendor System with Status of Final Porfirio Aguila MD electronically signed on 11/11/2021 9:42:57 AM with status of Final
== END ==
LOC: HO.CARD 07:39
PROVIDERS: Visit Provider Obstetrics & Gynecology Gynecologic Oncology
DX: R01.1 Cardiac murmur, unspecified (principal); R42 Dizziness and giddiness
CPT/HCPCS: 93306

== ENCOUNTER 2021-11-26 09:42 | Outpatient (REF) | payer OTHER, SELFPAY ==
--- NOTE | 2021-11-26 | EMG_ITS ---
Left median and ulnar motor and sensory studies were performed. Left radial sensory study was performed, and paraspinal muscles were tested with a needle. IMPRESSION: 1. 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 2. Left Tr Nael anastomosis. MD RHEA Baker/BONNY / [id number]
== END 2021-11-26 09:43 | disposition home or self-care (01) ==
LOC: HO.NEURO 09:42
PROVIDERS: PCP Physician Assistant; Visit Provider Obstetrics & Gynecology Gynecologic Oncology
DX: G56.02 Carpal tunnel syndrome, left upper limb (principal)
CPT/HCPCS: 95886; 95909

== ENCOUNTER 2022-08-01 01:04 | Emergency (ER) | payer OTHER, SELFPAY ==
[2022-08-01 02:03] VITALS: BP 128/63; PULSE 77; RESP 20; TEMP 35.5; O2SAT 98; BMI 54.8
[2022-08-01 02:05] LABS: Hematocrit 39.4 % (37.0-47.0); Hemoglobin 12.6 g/dl (12.0-16.0); Mean Corpuscular Hemoglobin 24.8 pg (27.0-33.0); Mean Corpuscular Volume 77.4 fL (80.0-98.0); Platelet Count 288 X10*3/uL (160-400); Red Blood Count 5.09 X10*6/uL (4.20-5.50); Red Cell Distribution Width 15.5 % (11.0-16.0); White Blood Count 6.9 X10*3/uL (4.8-10.8)
[2022-08-01 02:19] LABS: Alanine Aminotransferase 7 U/L (0-31); Albumin Level 4.1 g/dL (3.5-5.0); Alkaline Phosphatase 73 U/L (39-117); Anion Gap 13 (12-20); Aspartate Amino Transferase 10 U/L (5-31); Bilirubin Total 0.3 mg/dL (0.0-1.0); Blood Urea Nitrogen 17 mg/dL (9-16); Calcium 8.8 mg/dL (8.4-10.2); Carbon Dioxide 28 mmol/L (22-29); Chloride 105 mmol/L (96-108); Creatinine Clr Calc Pharmacy 122.9; Estimated Glomerular Filt Rate > 60; Glucose Random 96 mg/dL (60-115); Sodium 142 mmol/L (135-145)
[2022-08-01 02:49] LABS: HCG Quantitative < 2 mIU/mL
[2022-08-01 03:34] LABS: Appearance Urine Clear; Color Urine Yellow; Glucose Urine UA Negative (Negative); Leukocyte Esterase Urine Negative (Negative); Nitrite Urine Negative (Negative); PH 6.5 (5.0-9.0); Specific Gravity - Urine 1.025 (1.005-1.025); UMIC TRIGGER UACC YES; Urine Blood Small (1+) (Negative); Urine Ketones Negative (Negative); Urine Protein Negative (Neg-Trace)
[2022-08-01 03:44] LABS: Bacteria Urine None Seen (None Seen); Hyaline Casts Urine 0-2 /LPF (0-2); RBC Urine 0-2 /HPF (0-2); Squamous Epithelial Cell Urine 0-2 /HPF (0-2); WBC Urine 0-5 /HPF (0-5)
--- NOTE | 2022-08-01 03:50 | ED.GENADULT ---
HPI - General Adult General Chief complaint: General Medical Stated complaint: Dizziness x4 days Time Seen by Provider: 08/01/22 02:26 Source: patient Mode of arrival: ambulatory History of Present Illness HPI narrative: 52-year-old female who presents with dizziness for the last 5 days but not associated with any fever, chills, diaphoresis, nausea, GI or symptoms but she does endorse that she drinks very little water and she is primarily concerned she has had acute blood loss anemia previously for which she received IV iron and transfusions. Related Data Home Medications Medication Instructions Recorded Confirmed buprenorphine 8 mg-naloxone 2 mg 3 film sublingual DAILY 05/07/20 10/15/21 sublingual film (Suboxone) Previous Rx's Medication Instructions Recorded walker (Ultra-Light Rollator misc) #1 ea 09/08/21 ferrous sulfate 325 mg (65 mg 325 mg PO BID #60 tabs 09/09/21 iron) tablet (Feosol) miscellaneous medical supply 1 ea miscellaneous DAILY 99 days 11/20/21 #2 ea miscellaneous medical supply 2 ea miscellaneous DAILY 99 days 11/20/21 #2 ea miscellaneous medical supply 1 ea miscellaneous DAILY 99 days 12/29/21 #2 ea miscellaneous medical supply 1 ea miscellaneous DAILY 99 days 12/29/21 #2 ea Allergies Allergy/AdvReac Type Severity Reaction Status Date / Time ibuprofen [IBUPROFEN] Allergy Intermediate SWELLING Verified 10/15/21 16:09 codeine [CODEINE] Allergy Unknown ITCHY Verified 10/15/21 16:09 gabapentin [From Neurontin] Allergy Unknown anxiety, Verified 10/15/21 16:09 insomnia, restless/anxiety hydrocodone [From VICODIN] Allergy Unknown UNKNOWN Verified 10/15/21 16:09 nabumetone [Nabumetone] Allergy Unknown swelling, Verified 10/15/21 16:09 facial swelling Nabumetone Allergy Unknown edema Uncoded 10/15/21 16:09 nsaids Allergy Unknown Unknown Uncoded 10/15/21 16:09 Review of Systems Review of Systems: Pertinent positives and negatives as stated in HPI [facility] Past Medical History Source: nursing notes reviewed Medical History Adult ADHD Anxiety and depression Arthritis Breast CA Carpal tunnel syndrome Fibromyalgia Intermittent explosive disorder Iron deficiency anemia Kidney stones Lumbar stenosis Myasthenia gravis Pseudotumor cerebri Surgical History History of History of endometrial ablation History of tubal ligation Family History Family History Mother Mental health disorder Heart attack CVA (cerebral vascular accident), Onset Age: 50 Breast cancer Sister CVA (cerebral vascular accident), Onset Age: 51 Leukemia Social History Social History Household Members: Children Housing: Apartment Are you a primary patient centered care specialist to a significant other at home: No Do you presently have visiting nurse or other home services: No Alcohol intake: never Patient Tobacco Use Status: Never used Tobacco Smoked in Last 30 Days: No e-Cigarette/Vaping Use: Never Used Second Hand Smoke Exposure: No Use of substances other than those prescribed or required for medical reasons: No Advance Directives: Yes Advance Directives Information Provided: No Advance Directives on File: No Patient : No service: No Current occupational status: employed 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 GENERAL: Elevated BMI, Well developed, well nourished, in no acute distress. HEAD: Normocephalic/atraumatic EYES: PERRLA, EOMI EARS: Ext canals without abnormality NOSE: Nares patent bilateral OROPHARYNX: no oral lesions noted, posterior pharynx clear NECK: Supple, no adenopathy LUNGS: Normal breath sounds. No adventitious sounds or accessory muscle use. SpO2<98> CARDIOVASCULAR: Regular rate and rhythm without noted murmurs ABDOMEN: Soft, non-tender, non-distended with bowel sounds. MUSCULOSKELETAL: No tenderness, deformities, or effusions noted on gross inspection. EXTREMITIES: No cyanosis, clubbing or edema. SKIN: Inspection of the skin reveals no rashes NEUROLOGIC: Alert and oriented x 4. Strength and sensation to light touch were grossly intact x 4. Medical Decision Making Medical Decision Making [facility] Narrative: 52-year-old female with history and clinical presentation after review of all investigations most consistent with hypovolemic etiology, she was strongly encouraged to push hydration, there is no evidence to suggest infection, anemia, electrolyte abnormalities Differential Diagnosis Please see the discussion above Lab Data Please see the discussion above 08/01/22 01:56 08/01/22 01:56 Labs: Lab Results 08/01/22 08/01/22 08/01/22 Range/Units 01:56 01:56 03:28 WBC 6.9 (4.8-10.8) X10*3/uL RBC 5.09 D (4.20-5.50) X10*6/uL Hgb 12.6 D (12.0-16.0) g/dl Hct 39.4 D (37.0-47.0) % MCV 77.4 L (80.0-98.0) fL MCH 24.8 L (27.0-33.0) pg MCHC 32.0 (31.0-35.0) g/dl RDW 15.5 (11.0-16.0) % Plt Count 288 (160-400) X10*3/uL MPV 10.0 (9.4-12.3) fL Absolute Nucleated RBC 0.000 (0.0-0.012) X10*3/uL Nucleated RBC % (auto) 0.0 (0.0-0.2) /100WBC Sodium 142 (135-145) mmol/L Potassium 4.0 (3.3-5.1) mmol/L Chloride 105 (96-108) mmol/L Carbon Dioxide 28 (22-29) mmol/L Anion Gap 13 (12-20) BUN 17 H (9-16) mg/dL Creatinine 0.73 (0.5-1.4) mg/dL Estim Creat Clear Calc 122.9 Estimated GFR > 60 Random Glucose 96 (60-115) mg/dL Calcium 8.8 (8.4-10.2) mg/dL Total Bilirubin 0.3 (0.0-1.0) mg/dL AST 10 (5-31) U/L ALT 7 (0-31) U/L Alkaline Phosphatase 73 (39-117) U/L Total Protein 7.0 (6.5-8.0) g/dL Albumin 4.1 (3.5-5.0) g/dL Beta HCG, Quant < 2 mIU/mL Urine Color Yellow Urine Appearance Clear Urine pH 6.5 (5.0-9.0) Ur Specific [place] 1.025 (1.005-1.025) Urine Protein Negative (Neg-Trace) mg/dL Urine Glucose (UA) Negative (Negative) mg/dL Urine Ketones Negative (Negative) mg/dL Urine Blood Small (1+) H (Negative) Urine Nitrite Negative (Negative) Ur Leukocyte Esterase Negative (Negative) Urine RBC 0-2 (0-2) /HPF Urine WBC 0-5 (0-5) /HPF Ur Squamous Epith Cells 0-2 (0-2) /HPF Urine Bacteria None Seen (None Seen) Hyaline Casts 0-2 (0-2) /LPF External Record Review External record reviewed: Prior outpatient labs Discharge Plan Discharge Clinical Impression: Dizziness Patient Disposition: Home, Self-Care Instructions: Dizziness (ED) Additional Instructions: 1. Resume all home medications. 2. Please increase the amount of water intake. 3. Follow-up with primary care provider Tuesday morning. Return to the ER for any worsening symptoms. Prescriptions: No Action miscellaneous medical supply Misc 2 ea miscellaneous DAILY 99 Days Qty: 2 0RF miscellaneous medical supply Misc 1 ea miscellaneous DAILY 99 Days Qty: 2 0RF miscellaneous medical supply Misc 1 ea miscellaneous DAILY 99 Days Qty: 2 0RF miscellaneous medical supply Misc 1 ea miscellaneous DAILY 99 Days Qty: 2 0RF ferrous sulfate [Feosol] 325 mg (65 mg iron) Tablet 325 mg PO BID Qty: 60 3RF buprenorphine-naloxone [Suboxone] 8-2 mg film 3 film sublingual DAILY (DME) Ultra-Light Rollator Misc See Rx Instructions .Route Qty: 1 0RF Rx Instructions: As directed Referrals: Faisal Melgoza PA-C [Primary Care Provider] -
--- NOTE | 2022-08-01 04:36 | PC.NURSE ---
Discharge instructions given and explained to patient No apparent distress Patient ambulates safely and independently, with walker (baseline) All of patient's questions answered aox4
== END 2022-08-01 04:16 | disposition home or self-care (01) ==
PROVIDERS: Emergency Provider Student in an Organized Health Care Education/Training Program; PCP Physician Assistant
DX: R42 Dizziness and giddiness (principal); Z79.899 Other long term (current) drug therapy
CPT/HCPCS: 36415; 80053; 81001; 84702; 85027; 99284

== ENCOUNTER 2022-08-12 13:11 | Outpatient (REF) | payer OTHER, SELFPAY ==
--- NOTE | ~2022-08-12 | MM_ITS ---
EXAMINATION: MM SCREENING DIGITAL BREAST TOMOSYNTHESIS, BILATERAL CLINICAL INFORMATION: Screening. Asymptomatic. 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 COMPARISON: Multiple prior breast imaging exams including most recent mammography 11/21/2020. TECHNIQUE: Digital breast tomosynthesis is performed in both the craniocaudal and mediolateral oblique views along with computer-aided detection (CAD). Synthesized 2D images are generated from the tomosynthesis. FINDINGS: There are scattered areas of fibroglandular density (ACR BI-RADS breast composition Category b). Right breast post therapy changes are similar to prior studies with mild reduced breast size and stable scarring. There is a chronic hematoma anterior 11:00 right breast slightly decreased. The left breast is unremarkable and shows no significant mass and no architectural abnormality or developing density. There are no abnormal calcifications. The axilla are unremarkable. No significant changes. MM/MM tomosynthesis screening BI IMPRESSION: -No mammographic evidence of malignancy. -Post therapy changes right breast. ASSESSMENT: BI-RADS 2: Benign RECOMMENDATION: Routine annual mammography screening. This patient's information was entered into a reminder system with a target due date for their next mammogram.
== END 2022-08-12 13:12 | disposition home or self-care (01) ==
LOC: HO.MAMMO 13:11
PROVIDERS: PCP Physician Assistant; Visit Provider Physician Assistant
DX: Z12.31 Encounter for screening mammogram for malignant neoplasm of breast (principal)
CPT/HCPCS: 77063; 77067

== ENCOUNTER 2022-08-20 07:22 | Emergency (ER) | payer OTHER, SELFPAY ==
--- NOTE | 2022-08-20 | ECG_ITS ---
Test Reason : anxiety Blood Pressure : / mmHG Vent. Rate : 070 BPM Atrial Rate : 070 BPM P-R Int : 174 ms QRS Dur : 106 ms QT Int : 396 ms P-R-T Axes : 032 014 013 degrees QTc Int : 427 ms Normal sinus rhythm Normal ECG When compared with ECG of 24-FEB-2021 17:39, No significant change was found Referred By: Evgeny Kruger Electronically Signed By:KALEE WITT
--- NOTE | ~2022-08-20 | XR_ITS ---
EXAMINATION: XR CHEST CLINICAL INFORMATION: Resolved chest tightness COMPARISON: 02/24/2021 TECHNIQUE: Frontal view of the chest was obtained. FINDINGS: Cardiac leads overlie the chest. The lungs are well expanded. There is no focal consolidation, edema, or effusion. No pneumothorax. The cardiomediastinal silhouette is within normal limits. No acute osseous abnormality. Degenerative changes of the spine. XR/XR chest 1V IMPRESSION: No acute pulmonary disease.
[2022-08-20 07:36] VITALS: BP 136/66; BP 137/62; PULSE 75; PULSE 81; RESP 20; TEMP 36.6; O2SAT 100; O2SAT 98; BMI 54.5
--- OUTSIDE RECORDS SUMMARY | 2022-08-20 07:46 | XMS_ITS | Continuity of Care Document ---
Author Name Unknown Organization [facility] Address [address] [place] [id number]- Care Team Providers Care Mannequin Sander And Finisher Name Role Phone Gabbie Coker MD Primary Care Physician [place] [facility] [place]21 [facility] On[facility] [address] [place] [id number]- Attending Physician: Chris Minaya MD Admitting Physician: Chris Minaya MD Referring Physician: Gabbie Coker MD Allergies, Adverse Reactions, Alerts Substance Reaction Severity Status ibuprofen swelling Moderate Active nabumetone edema Severe Active Neurontin insomnia Persistent Moderate Active Medications Ferrous Sulfate EC Refills 0, Maintenance, 10/01/21 11:25:00 EDT, Partial fill upon patient request if the prescription is for a schedule II opioid drug. Start Date: 10/01/21 Status: Ordered Suboxone 2 mg-0.5 mg sublingual film 1 film, Sublingual, Daily, 0 Refills, Maintenance, 10/01/21 11:26:00 EDT, Partial fill upon patientrequest if the prescription is for a schedule II opioid drug. Start Date: 10/01/21 Status: Ordered Problem List Condition Effective Dates Status Health Status Inform ant Abnormal uterine bleeding (AUB)(Confirmed) Active Anxiety(Confirmed) Active Arthritis(Confirmed) Active Pseudotumor cerebri(Confirmed) Active Carpal tunnel syndrome(Confirmed) Active Depression(Confirmed) Active Fibromyalgia(Confirmed) Active HTN (hypertension)(Confirmed) Active Intermittent explosive disorder(Confirmed) Active Iron deficiency anemia(Confirmed) Active Kidney stones(Confirmed) Active Lymphedema(Confirmed) Active Breast CA(Confirmed) Active Morbid obesity(Confirmed) Active Lung nodules(Confirmed) Active Myasthenia gravis(Confirmed) Active Obesity(Confirmed) Active Opiate dependence(Confirmed) Active PVD (peripheral vascular disease)(Confirmed) Active Severe obesity(Confirmed) Active Social History Social History Type Response Smoking Status Former smoker, quit more than 30 days ago entered on: 10/01/21 Sex Care Team Personnel Name: Payam Child MD , Gabbie Scott Address: [address] [place] [id number]
--- OUTSIDE RECORDS SUMMARY | 2022-08-20 07:46 | XMS_ITS | Continuity of Care Document ---
Author Name Unknown Organization [facility] Address [address] [place] [address]- Care Team Providers Care Inspector Barrel Name Role Phone Candida Coker MD Primary Care Physician [place] [facility] [place]20 - 08/07/20 [facility] On[facility] [address] [place] [id number] Attending Physician: Chris Minaya MD Admitting Physician: Chris Minaya MD Referring Physician: Candida Coker MD Allergies, Adverse Reactions, Alerts Substance Reaction Severity Status ibuprofen swelling Moderate Active nabumetone edema Severe Active Neurontin insomnia Persistent Moderate Active Medications tamoxifen 20 mg oral tablet 1 tablet = 20 mg, By Mouth, Daily, # 30 tablet, 0 Refills, Maintenance, 07/30/15 20:52:43, Tablet Start Date: 07/30/15 Status: Ordered traMADol 50 mg oral tablet 1 tablet = 50 mg, By Mouth, Every 12 hours, PRN as needed for pain, 0 Refills, Maintenance, 07/30/15 20:52:23, Tablet Start Date: 07/30/15 Status: Ordered Problem List Condition Effective Dates Status Health Status Inform ant Anxiety(Confirmed) Active Arthritis(Confirmed) Active Pseudotumor cerebri(Confirmed) Active Carpal tunnel syndrome(Confirmed) Active Depression(Confirmed) Active Fibromyalgia(Confirmed) Active Intermittent explosive disorder(Confirmed) Active Iron deficiency anemia(Confirmed) Active Breast CA(Confirmed) Active Morbid obesity(Confirmed) Active Lung nodules(Confirmed) Active Myasthenia gravis(Confirmed) Active Procedures Procedure Date Related Diagnosis Body Site Status Endometrial ablation Comp leted Tubal ligation Completed Social History Social History Type Response Smoking Status Never (less than 100 in lifetime) entered on: 07/07/20 Sex
--- OUTSIDE RECORDS SUMMARY | 2022-08-20 07:46 | XMS_ITS | Continuity of Care Document ---
Author Name Unknown Organization [facility] Address [address] [place] [id number]- Care Team Providers Care Trouble Clerk Name Role Phone Payam Child MD, [place] Primary Care Physician [place] [facility] [place] [facility] On[facility] [address] [place] [id number] Attending Physician: Gregorio Epperson Admitting Physician: Gregorio Epperson Referring Physician: AdmtrGregorio Allergies, Adverse Reactions, Alerts Substance Reaction Severity [...] Payam Child MD , Gabbie Scott Address: [address] [place] [id number]
--- OUTSIDE RECORDS SUMMARY | 2022-08-20 07:46 | XMS_ITS | Continuity of Care Document ---
Author Name Unknown Organization [facility] Address [address] [place] [address]- Care Team Providers Care Public Relations Account Executive Name Role Phone Payam Child MD, Candida Scott Primary Care Physician [place] [facility] [id number] Date(s): 07/08/20 - 08/07/20 [facility] On[facility] [address] [place] [id number]- Attending Physician: Gregorio Epperson Admitting Physician: Admtr, Gregorio Referring Physician: Admtr, ArSukumar Allergies, Adverse Reactions, Alerts Substance Reaction Severity [...] Active Lung nodules(Confirmed) Active Myasthenia gravis(Confirmed) Active Social History Social History Type Response Smoking Status Never (less than 100 in lifetime) entered on: 07/07/20 Sex
[2022-08-20 09:03] LABS: MANUAL DIFF FLAG NO
[2022-08-20 09:04] LABS: Basophils Percent Auto 0.3 % (0-2); Eosinophils Absolute Auto 0.1 X10*3/uL (0.0-0.4); Eosinophils Percent Auto 1.6 % (0-4); Hematocrit 37.4 % (37.0-47.0); Hemoglobin 11.9 g/dl (12.0-16.0); Imm Gran Abs Auto 0.02 X10*3/uL (0.00-0.03); Imm Gran Pct Auto 0.3 % (0.0-0.4); Lymphocytes Absolute Auto 1.2 X10*3/uL (1.2-4.9); Lymphocytes Percent Auto 17.7 % (20-40); Mean Corpuscular HGB Conc 31.8 g/dl (31.0-35.0); Mean Corpuscular Hemoglobin 25.2 pg (27.0-33.0); Mean Corpuscular Volume 79.2 fL (80.0-98.0); Mean Platelet Volume 9.2 fL (9.4-12.3); Monocytes Absolute Auto 0.6 X10*3/uL (0.1-1.2); Monocytes Percent Auto 8.4 % (2-11); Neutrophils Absolute Auto 4.9 x10*3/uL (2.0-8.3); Neutrophils Percent Auto 71.7 % (45-73); Platelet Count 239 X10*3/uL (160-400); Red Blood Count 4.72 X10*6/uL (4.20-5.50); Red Cell Distribution Width 15.2 % (11.0-16.0); White Blood Count 6.8 X10*3/uL (4.8-10.8)
[2022-08-20 09:09] LABS: Prothrombin Time 11.9 SEC (10.0-13.1)
[2022-08-20 09:12] LABS: Partial Thromboplastin Time 29.3 SEC (26.0-36.4)
[2022-08-20 09:19] LABS: Alanine Aminotransferase 7 U/L (0-31); Albumin Level 3.7 g/dL (3.5-5.0); Alkaline Phosphatase 64 U/L (39-117); Anion Gap 10 (12-20); Aspartate Amino Transferase 10 U/L (5-31); Bilirubin Total 0.2 mg/dL (0.0-1.0); Blood Urea Nitrogen 15 mg/dL (9-16); Calcium 8.8 mg/dL (8.4-10.2); Carbon Dioxide 30 mmol/L (22-29); Chloride 108 mmol/L (96-108); Creatinine Clr Calc Pharmacy 127.7; Estimated Glomerular Filt Rate > 60; Glucose Random 102 mg/dL (60-115); Potassium 4.2 mmol/L (3.3-5.1); Sodium 144 mmol/L (135-145); Total Protein 6.4 g/dL (6.5-8.0)
[2022-08-20 09:25] LABS: B Type Natriuretic Peptide 30 pg/mL (<100)
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
[2022-08-20 09:31] VITALS: PULSE 76; RESP 14
[2022-08-20 09:36] LABS: Troponin-I High Sensitivity < 2.7 ng/L (<3.5-17.0)
[2022-08-20 09:39] LABS: TSH reflex Free T4 1.99 uIU/mL (0.32-4.0)
[2022-08-20 10:02] VITALS: BP 130/68; PULSE 70; RESP 12; O2SAT 99
[2022-08-20 12:11] VITALS: BP 128/65; PULSE 62; RESP 16; O2SAT 98
[2022-08-20 12:29] LABS: Troponin-I High Sensitivity < 2.7 ng/L (<3.5-17.0)
== END 2022-08-20 13:38 | disposition home or self-care (01) ==
PROVIDERS: Physician Assistant; Emergency Provider Emergency Medicine Emergency Medical Services; PCP Physician Assistant
DX: F41.1 Generalized anxiety disorder (principal); F43.0 Acute stress reaction; R07.89 Other chest pain; R06.02 Shortness of breath; Z79.899 Other long term (current) drug therapy
CPT/HCPCS: 36415; 71045; 80053; 83880; 84443; 84484; 85025; 85610; 85730; 93005; 99283; 99284

== ENCOUNTER 2022-08-25 09:37 | Emergency (ER) | payer OTHER, SELFPAY ==
[2022-08-25 10:21] VITALS: BP 181/87; PULSE 70; RESP 20; TEMP 36.6; O2SAT 100; BMI 54.5
--- NOTE | 2022-08-25 10:26 | ECG_ITS ---
Test Reason : chest tightness/pain Blood Pressure : / mmHG Vent. Rate : 069 BPM Atrial Rate : 069 BPM P-R Int : 158 ms QRS Dur : 096 ms QT Int : 396 ms P-R-T Axes : 035 014 013 degrees QTc Int : 424 ms Normal sinus rhythm Normal ECG When compared with ECG of 20-AUG-2022 07:44, No significant change was found Referred By: Generic ED Physician Electronically Signed By:Shaun Alan
[2022-08-25 10:50] LABS: MANUAL DIFF FLAG NO
[2022-08-25 10:56] LABS: Basophils Percent Auto 0.4 % (0-2); Eosinophils Absolute Auto 0.2 X10*3/uL (0.0-0.4); Eosinophils Percent Auto 2.2 % (0-4); Hematocrit 39.4 % (37.0-47.0); Hemoglobin 12.4 g/dl (12.0-16.0); Imm Gran Abs Auto 0.02 X10*3/uL (0.00-0.03); Imm Gran Pct Auto 0.3 % (0.0-0.4); Lymphocytes Absolute Auto 1.6 X10*3/uL (1.2-4.9); Lymphocytes Percent Auto 21.8 % (20-40); Mean Corpuscular HGB Conc 31.5 g/dl (31.0-35.0); Mean Corpuscular Hemoglobin 25.4 pg (27.0-33.0); Mean Corpuscular Volume 80.7 fL (80.0-98.0); Mean Platelet Volume 9.7 fL (9.4-12.3); Monocytes Absolute Auto 0.7 X10*3/uL (0.1-1.2); Monocytes Percent Auto 8.9 % (2-11); Neutrophils Absolute Auto 4.9 x10*3/uL (2.0-8.3); Neutrophils Percent Auto 66.4 % (45-73); Platelet Count 273 X10*3/uL (160-400); Red Blood Count 4.88 X10*6/uL (4.20-5.50); Red Cell Distribution Width 15.2 % (11.0-16.0); White Blood Count 7.4 X10*3/uL (4.8-10.8)
[2022-08-25 11:18] LABS: Alanine Aminotransferase 8 U/L (0-31); Albumin Level 4.1 g/dL (3.5-5.0); Alkaline Phosphatase 67 U/L (39-117); Anion Gap 10 (12-20); Aspartate Amino Transferase 13 U/L (5-31); Bilirubin Direct 0.1 mg/dL (0.0-0.5); Bilirubin Total 0.4 mg/dL (0.0-1.0); Blood Urea Nitrogen 22 mg/dL (9-16); Calcium 9.2 mg/dL (8.4-10.2); Carbon Dioxide 31 mmol/L (22-29); Chloride 106 mmol/L (96-108); Creatinine Clr Calc Pharmacy 135.4; Estimated Glomerular Filt Rate > 60; Glucose Random 95 mg/dL (60-115); Lipase 10 U/L (8-78); Potassium 4.7 mmol/L (3.3-5.1); Sodium 142 mmol/L (135-145); Total Protein 7.1 g/dL (6.5-8.0)
[2022-08-25 11:27] LABS: Troponin-I High Sensitivity < 2.7 ng/L (<3.5-17.0)
--- NOTE | 2022-08-25 11:36 | ED.GENADULT ---
HPI - General Adult General Chief complaint: Anxiety Stated complaint: dizzy, shakes, anxiety attacks Time Seen by Provider: 08/25/22 11:36 Source: patient Mode of arrival: other (walker assisted ambulation) Limitations: no limitations History of Present Illness HPI narrative: Patient is a 52 year old assigned female at with a history of MDD, anxiety, and HTN presenting to the emergency department today with increased anxiety over the last few days. Patient states that she has been under an immense amount of stress with her son being recently shot in the leg and her other son being arrested. Patient states that she used to be on medication for depression and anxiety but she stopped following up with that doctor and stopped taking the medication because she felt better. Patient states that she has been feeling much more worked up over the last few days. Patient denies any current dizziness, lightheadedness, abdominal pain, nausea, vomiting, fever, chills, blurry vision, double vision, loss of vision, chest pain, difficulty breathing, shortness of breath, back pain, night sweats, pain with urination, increased urinary frequency, increased urinary urgency, blood in her urine or stool, syncope or a near syncopal episode, recent trauma or falls, bowel incontinence, bladder incontinence, bowel retention, bladder retention, or any other complaints at this time. Onset (ago): day(s) Severity: mild Relieving factors: none Exacerbating factors: none Associated symptoms: denies other symptoms Treatments prior to arrival: none Related Data Home Medications Medication Instructions Recorded Confirmed buprenorphine 8 mg-naloxone 2 mg 3 film sublingual DAILY 05/07/20 10/15/21 sublingual film (Suboxone) Previous Rx's Medication Instructions Recorded walker (Ultra-Light Rollator misc) #1 ea 09/08/21 ferrous sulfate 325 mg (65 mg 325 mg PO BID #60 tabs 09/09/21 iron) tablet (Feosol) miscellaneous medical supply 1 ea miscellaneous DAILY 99 days 11/20/21 #2 ea miscellaneous medical supply 2 ea miscellaneous DAILY 99 days 11/20/21 #2 ea miscellaneous medical supply 1 ea miscellaneous DAILY 99 days 12/29/21 #2 ea miscellaneous medical supply 1 ea miscellaneous DAILY 99 days 12/29/21 #2 ea hydroxyzine HCl 10 mg tablet 10 mg PO TID PRN anxiety #10 tabs 08/25/22 Allergies Allergy/AdvReac Type Severity Reaction Status Date / Time ibuprofen [IBUPROFEN] Allergy Intermediate SWELLING Verified 08/25/22 10:24 codeine [CODEINE] Allergy Unknown ITCHY Verified 08/25/22 10:24 gabapentin [From Neurontin] Allergy Unknown anxiety, Verified 08/25/22 10:24 insomnia, restless/anxiety hydrocodone [From VICODIN] Allergy Unknown UNKNOWN Verified 08/25/22 10:24 nabumetone [Nabumetone] Allergy Unknown swelling, Verified 08/25/22 10:24 facial swelling Nabumetone Allergy Unknown edema Uncoded 10/15/21 16:09 nsaids Allergy Unknown Unknown Uncoded 10/15/21 16:09 Review of Systems Constitutional: Constitutional: Reports no additional constitutional complaints, Denies chills, Denies fever(s) and Denies night sweats Eyes: Eyes: Reports no additional eye complaints, Denies blurry vision, Denies change in vision, Denies diplopia, Denies eye discharge, Denies loss of vision and Denies eye pain ENT: Denies dizziness Cardiovascular: Cardiovascular: Reports no additional cardiovascular complaints, Reports chest pain (now resolved), Denies lightheadedness, Denies Loss of Consciousness and Denies dyspnea Respiratory: Respiratory: Reports no additional respiratory complaints and Denies dyspnea Gastrointestinal: Gastrointestinal: Reports no additional gastrointestinal complaints, Denies abdominal pain, Denies melena, Denies hematochezia, Denies change in bowel habits and Denies change in stool character Genitourinary: Genitourinary: Denies hematuria, Denies urinary frequency, Denies dysuria, Denies urinary incontinence, Denies urinary hesitancy and Denies urinary urgency Musculoskeletal: Musculoskeletal: Reports no additional musculoskeletal complaints, Denies numbness and Denies tingling Neurologic: Denies dizziness, Denies loss of vision, Denies numbness and Denies tingling Psychiatric: Psychiatric: Reports no additional psychiatric complaints, Reports anxiety and Reports panic attacks Endocrine: Endocrine: Reports no additional endocrine complaints Hematologic/Lymphatic: Hematologic/Lymphatic: Reports no additional hematologic/lymphatic complaints Allergic/Immunologic: Allergic/Immunologic: Reports no additional allergic/immunologic complaints PMFSH Past Medical History Attestation statement: The following information was validated with the patient. Source: old records reviewed and nursing notes reviewed Medical History Adult ADHD Anxiety and depression Arthritis Breast CA Carpal tunnel syndrome Fibromyalgia Intermittent explosive disorder Iron deficiency anemia Kidney stones Lumbar stenosis Myasthenia gravis Pseudotumor cerebri Surgical History History of History of endometrial ablation History of tubal ligation Family History Family History Mother Mental health disorder Heart attack CVA (cerebral vascular accident), Onset Age: 50 Breast cancer Sister CVA (cerebral vascular accident), Onset Age: 51 Leukemia Social History Social History Household Members: Children Housing: Apartment Are you a primary rn progressive care unit to a significant other at home: No Do you presently have visiting nurse or other home services: No Alcohol intake: never Patient Tobacco Use Status: Never used Tobacco e-Cigarette/Vaping Use: Never Used Second Hand Smoke Exposure: No Advance Directives: No service: No Current occupational status: employed 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[employer] Sexual orientation: Straight/Heterosexual Gender identity: Female Cognitive needs: Yes Hearing needs: No Vision needs: Yes (Pt wears glasses and is up to date.) Physical Exam ED Vital Signs: Vital Signs - 24 hr 08/25/22 10:21 Temperature 97.8 F Pulse Rate 70 Respiratory Rate 20 Blood Pressure 181/87 H Pulse Oximetry 100 Oxygen Delivery Method Room Air BMI result Body Mass Index 54.5 Const General: cooperative, no acute distress, alert and awake Nutritional Appearance: well nourished Orientation/consciousness: patient oriented x3 Limitations: no limitations HENMT Head: Yes normal to inspection and Yes atraumatic Ears: hearing grossly normal bilaterally and external ears normal General nose exam: Normal external nose present, no nasal discharge noted and no epistaxis Face and sinus: Yes normal facial exam, No abrasion and No laceration Mouth: Normal oral and palatal mucosa present, no drooling and no muffled voice Eyes General: appearance normal, both eyes and all related structures Periorbital: periorbital findings normal Eyelids: Yes eyelids normal Conjunctivae: conjunctivae normal Pupils: Equal, round and reactive pupils present EOM: EOMs intact bilaterally Neck Neck: Yes normal visual inspection, Yes full ROM and Yes no lymphadenopathy Chest Chest palpation & inspection: normal inspection of the chest Resp Effort & Inspection: normal respiratory effort and able to speak in complete sentences Auscultation: clear to auscultation bilaterally Cardio Rate: regular rate Rhythm: regular rhythm GI Inspection: Yes normal to inspection Neuro General: patient oriented x3 and moves all extremities Cranial nerves: Yes Equal, round and reactive pupils present Cognition (Neuro): normal cognition Motor exam (neuro): 5/5 motor strength present throughout Sensory Exam: Normal double simultaneous stimulation for sensation Coordination: [id number] test normal Extrem General: Yes normal to inspection, Yes full ROM and Yes capillary refill normal Psych Appearance: grossly normal Mental Status: mental status grossly normal Affect: normal affect Attitude: cooperative Thought process: Normal thought process present Thought content: Normal thought content present Insight: Good insight present (Psych) Medical Decision Making Medical Decision Making MDM Narrative: Patient is a 52 year old assigned female at with a history of MDD, anxiety, and HTN presenting to the emergency department today with intermittent anxiety. Patient's physical exam showed a tearful individual but was otherwise unremarkable. Patient's blood work was unremarkable. Patient's EKG was unremarkable. I explained my physical exam findings as well as all test results to the patient. I answered all questions asked by the patient. I stressed the importance of the patient taking her medication as prescribed. I stressed the importance of the patient following up with her primary care provider and a psychiatrist. I stressed the importance of the patient returning to the emergency department immediately if her symptoms were to worsen or if she were to develop any dizziness, shortness of breath, difficulty breathing, chest pain, blurry vision, loss of vision, nausea, vomiting, abdominal pain, fever, chills, back pain, or any other complaints. Patient verbalized agreement and understanding with this treatment plan and discharge. Differential Diagnosis Differential Diagnoses: The differential diagnosis associated with the presentation includes anxiety Lab Data [facility] Lab Attestation statement: I reviewed the patient's lab results. 08/25/22 10:40 08/25/22 10:40 Labs: Lab Results 08/25/22 08/25/22 08/25/22 Range/Units 10:40 10:40 10:40 WBC 7.4 (4.8-10.8) X10*3/uL RBC 4.88 (4.20-5.50) X10*6/uL Hgb 12.4 (12.0-16.0) g/dl Hct 39.4 (37.0-47.0) % MCV 80.7 (80.0-98.0) fL MCH 25.4 L (27.0-33.0) pg MCHC 31.5 (31.0-35.0) g/dl RDW 15.2 (11.0-16.0) % Plt Count 273 (160-400) X10*3/uL MPV 9.7 (9.4-12.3) fL Immature Gran % (Auto) 0.3 (0.0-0.4) % Neut % (Auto) 66.4 (45-73) % Lymph % (Auto) 21.8 (20-40) % Evans % (Auto) 8.9 (2-11) % Eos % (Auto) 2.2 (0-4) % Baso % (Auto) 0.4 (0-2) % Lymph # (Auto) 1.6 (1.2-4.9) X10*3/uL [place] # (Auto) 0.7 (0.1-1.2) X10*3/uL Eos # (Auto) 0.2 (0.0-0.4) X10*3/uL Baso # (Auto) 0.0 (0.0-0.2) X10*3/uL Abs Immat Gran (auto) 0.02 (0.00-0.03) X10*3/uL Absolute Neuts (auto) 4.9 (2.0-8.3) x10*3/uL Absolute Nucleated RBC 0.000 (0.0-0.012) X10*3/uL Nucleated RBC % (auto) 0.0 (0.0-0.2) /100WBC Sodium 142 (135-145) mmol/L Potassium 4.7 (3.3-5.1) mmol/L Chloride 106 (96-108) mmol/L Carbon Dioxide 31 H (22-29) mmol/L Anion Gap 10 L (12-20) BUN 22 H (9-16) mg/dL Creatinine 0.66 (0.5-1.4) mg/dL Estim Creat Clear Calc 135.4 Estimated GFR > 60 Random Glucose 95 (60-115) mg/dL Calcium 9.2 (8.4-10.2) mg/dL Total Bilirubin 0.4 (0.0-1.0) mg/dL Direct Bilirubin 0.1 (0.0-0.5) mg/dL AST 13 (5-31) U/L ALT 8 (0-31) U/L Alkaline Phosphatase 67 (39-117) U/L Troponin I High Sens < 2.7 (<3.5-17.0) ng/L Total Protein 7.1 (6.5-8.0) g/dL Albumin 4.1 (3.5-5.0) g/dL Lipase 10 (8-78) U/L Independent Interpretation I performed an independent interpretation of an: EKG Interpretation: Vent. Rate: 069 BPM ? ? Atrial Rate: 069 BPM P-R Int: 158 ms? QRS Dur: 096 ms QT Int: 396 ms ? ? ? P-R-T Axes: 035 014 013 degrees QTc Int: 424 ms ? Normal sinus rhythm Normal ECG When compared with ECG of 20-AUG-2022 07:44, No significant change was found DD/ 1030 Discharge Plan Discharge Clinical Impression: Anxiety Patient Disposition: Home, Self-Care Instructions: Anxiety (ED) Additional Instructions: Follow up with your primary care provider. Return to the emergency department immediately if your symptoms worsen or if you develop any dizziness, shortness of breath, difficulty breathing, chest pain, blurry vision, loss of vision, nausea, vomiting, abdominal pain, fever, chills, back pain, or any other complaints. [facility] ([facility]) at [facility]: [address] [place] [address] Open from 10am - 12pm [facility] Crisis Services: [address] [place] [address] Open 22/11 Behavioral [facility] Network: [address] [place] [id number] [address] [place] [id number] Hours: M-F 8am to 8pm Tuesday and Tuesday 9am to 5pm Prescriptions: New hydroxyzine HCl 10 mg tablet 10 mg PO TID PRN (Reason: anxiety) Qty: 10 0RF No Action miscellaneous medical supply Misc 2 ea miscellaneous DAILY 99 Days Qty: 2 0RF miscellaneous medical supply Misc 1 ea miscellaneous DAILY 99 Days Qty: 2 0RF miscellaneous medical supply Misc 1 ea miscellaneous DAILY 99 Days Qty: 2 0RF miscellaneous medical supply Misc 1 ea miscellaneous DAILY 99 Days Qty: 2 0RF ferrous sulfate [Feosol] 325 mg (65 mg iron) Tablet 325 mg PO BID Qty: 60 3RF buprenorphine-naloxone [Suboxone] 8-2 mg film 3 film sublingual DAILY (DME) Ultra-Light Rollator Misc See Rx Instructions .Route Qty: 1 0RF Rx Instructions: As directed Referrals: Faisal Melgoza PA-C [Primary Care Provider] - Interventions: ED Discharge Assessment Last Done: 08/25/22 11:50 Discharge Date/Time: 08/25/22 11:52 Print Language: Polish
== END 2022-08-25 11:52 | disposition home or self-care (01) ==
PROVIDERS: Emergency Provider Emergency Medicine; PCP Physician Assistant
DX: F41.1 Generalized anxiety disorder (principal); R42 Dizziness and giddiness; F43.0 Acute stress reaction; R07.89 Other chest pain; Z79.899 Other long term (current) drug therapy
CPT/HCPCS: 36415; 80048; 80076; 83690; 84484; 85025; 93005; 99283

== ENCOUNTER 2022-09-19 03:41 | Emergency (ER) | payer OTHER, SELFPAY ==
--- NOTE | ~2022-09-19 | CT_ITS ---
EXAMINATION: CT HEAD WITHOUT CONTRAST CLINICAL INFORMATION: Headache. History of pseudotumor cerebri. COMPARISON: 09/22/2014 TECHNIQUE: Contiguous axial imaging was performed from the skull base to vertex without intravenous administration of contrast. This CT examination was performed using dose optimization techniques as appropriate, variously including the following: *Automated exposure control *Adjustment of mA and/or kV according to patient size (this includes techniques or standardized protocols for targeted exams where dose is matched to indication/reason for exam; i.e. extremities or head) *Use of iterative reconstruction technique DLP: 657 mGy-cm FINDINGS: There is no evidence of acute intracranial hemorrhage or territorial infarction. No abnormal mass effect or midline shift is seen. Leonard to white matter differentiation is well preserved. No extra-axial fluid collections are identified. No hydrocephalus. No significant volume loss. There is no abnormal attenuation within the brain parenchyma. No acute osseous or soft tissue abnormality. Chronic opacification of the right middle ear cavity and mastoid air cells. Left mastoid air cells and middle ear cavity are clear. Paranasal sinuses are clear. CT/CT head/brain wo IV con IMPRESSION: No acute intracranial pathology.
[2022-09-19 04:04] VITALS: BP 157/69; PULSE 73; RESP 16; TEMP 36.7; O2SAT 96; BMI 50.7
--- NOTE | 2022-09-19 04:12 | ED.HA ---
HPI - Headache General Chief Complaint: Headache Stated Complaint: Migraine, pressure in head Time Seen by Provider: 09/19/22 04:04 Source: patient Mode of arrival: ambulatory Limitations: no limitations History of Present Illness HPI Narrative: Patient comes to the emergency room complaining of a headache. Patient states she has history of pseudotumor cerebri. Patient states the headache has been ongoing for about 4 days, complaining of nausea, photophobia, no vomiting or diarrhea. No neck pain or neck stiffness. Related Data Home Medications Medication Instructions Recorded Confirmed buprenorphine 8 mg-naloxone 2 mg 3 film sublingual DAILY 05/07/20 09/09/22 sublingual film (Suboxone) Previous Rx's Medication Instructions Recorded walker (Ultra-Light Rollator misc) #1 ea 09/08/21 ferrous sulfate 325 mg (65 mg 325 mg PO BID #60 tabs 09/09/21 iron) tablet (Feosol) miscellaneous medical supply 1 ea miscellaneous DAILY 99 days 11/20/21 #2 ea miscellaneous medical supply 2 ea miscellaneous DAILY 99 days 11/20/21 #2 ea miscellaneous medical supply 1 ea miscellaneous DAILY 99 days 12/29/21 #2 ea miscellaneous medical supply 1 ea miscellaneous DAILY 99 days 12/29/21 #2 ea meclizine 12.5 mg tablet 12.5 mg PO TID PRN dizziness 10 09/09/22 days #30 tabs sertraline 50 mg tablet (Zoloft) 50 mg PO DAILY #30 tabs 09/09/22 metoclopramide HCl 5 mg tablet 5 mg PO BID PRN nausea and 09/19/22 (Reglan) vomiting #7 tabs sumatriptan succinate 100 mg tablet 100 mg PO Q2-4H PRN migraine 09/19/22 headache 2 doses #7 tabs Allergies Allergy/AdvReac Type Severity Reaction Status Date / Time ibuprofen [IBUPROFEN] Allergy Intermediate SWELLING Verified 09/09/22 11:24 codeine [CODEINE] Allergy Unknown ITCHY Verified 09/09/22 11:24 gabapentin [From Neurontin] Allergy Unknown anxiety, Verified 09/09/22 11:24 insomnia, restless/anxiety hydrocodone [From VICODIN] Allergy Unknown UNKNOWN Verified 09/09/22 11:24 nabumetone [Nabumetone] Allergy Unknown swelling, Verified 09/09/22 11:24 facial swelling Nabumetone Allergy Unknown edema Uncoded 10/15/21 16:09 nsaids Allergy Unknown Unknown Uncoded 10/15/21 16:09 Review of Systems Review of Systems: Constitutional : No Weight loss, No Fever, No Chills, No Night Sweats, No Fatigue, No Malaise ENT/Mouth : No Hearing loss, No Ear Pain, No Nasal Congestion, No Sinus Pain, No Hoarseness, No sore throat, No Rhinorrhea, No Swallowing Difficulty Eyes: No Eye Pain, No Swelling, No Redness, No Foreign Body, No Discharge, No Vision Changes Cardiovascular : No Chest Pain, No SOB, No Dyspnea on Exertion, No Orthopnea, No Edema, No Palpitations Respiratory : No Cough, No Sputum, No Wheezing, No Smoke Exposure, No Dyspnea Gastrointestinal : No Nausea, No Vomiting, No Diarrhea, No Constipation, No abdominal Pain, No Hematochezia, No Melena Genitourinary : no irregular bleeding, No Dysuria, No Urinary Frequency, No Hematuria, No Urinary Incontinence, No Urgency, No Flank Pain, No Urinary Flow Changes, No Hesitancy Musculoskeletal : No joint pain, No Myalgias, No Joint Swelling Skin : No Skin Lesions, No rash Neuro : No Weakness, No Numbness, No Paresthesias, No Loss of Consciousness, No Dizziness, complaining of Headache Psych : No Anxiety/Panic, No Depression, No SI/HI/AH/VH, No Social Issues, Heme/Lymph: No Bruising, No Bleeding,No Lymphadenopathy Endocrine : No Polyuria, No Polydipsia, No Temperature Intolerance [facility] Past Medical History Medical History Adult ADHD Anxiety and depression Arthritis Breast CA Carpal tunnel syndrome Fibromyalgia Intermittent explosive disorder Iron deficiency anemia Kidney stones Lumbar stenosis Myasthenia gravis Pseudotumor cerebri Surgical History History of History of endometrial ablation History of tubal ligation Family History Family History Mother Mental health disorder Heart attack CVA (cerebral vascular accident), Onset Age: 50 Breast cancer Sister CVA (cerebral vascular accident), Onset Age: 51 Leukemia Social History Social History Household Members: Children Housing: Apartment Are you a primary long term acute care registered nurse to a significant other at home: No Do you presently have visiting nurse or other home services: No Alcohol intake: never Patient Tobacco Use Status: Former Tobacco user Tobacco use type: Cigarette e-Cigarette/Vaping Use: Never Used Second Hand Smoke Exposure: No Advance Directives: No Advance Directives Information Provided: No service: No Current occupational status: employed 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 Oriented X3. Seems uncomfortable Eyes: Pupils equal, round and reactive to light. Patient has photophobia ENT: Pharynx normal. Neck: Normal inspection. Neck supple. No lymph nodes noted. No crepitus CVS: Normal heart rate and rhythm. Pulses normal. Normal S1 and S2 Respiratory: No respiratory distress. Breath sounds normal. No Wheezing. No rales Abdomen: Soft and nontender. No rigidity. No distention. Skin: Skin warm and dry. Normal skin color. Normal skin turgor. Extremities: No lower extremity edema. No Lacerations. No Rash Neuro: Oriented X 3. No motor deficit. No sensory deficit. Moving all extremities. No slurred speech. CN 2 through 12 grossly intact Psych: calm, cooperative, normal affect Course Course Course Narrative: -patient's CT scan of the head pending, history of pseudotumor cerebri -patient receiving IV fluids, Reglan, Benadryl, PO sumatriptan, patient allergic to NSAIDs, declines receiving narcotics due to history of narcotic abuse Medications Administered Discontinued Medications Generic Name Dose Route Start Last Admin Trade Name Freq PRN Reason Stop Dose Admin Diphenhydramine HCl 25 mg 09/19/22 04:10 09/19/22 05:39 Diphenhydramine Hcl 50 Mg/Ml Vial IVPUSH 09/19/22 04:11 25 mg ONCE ONE Administration Sodium Chloride 1,000 mls @ 999 mls/hr 09/19/22 04:10 09/19/22 05:40 Ns IVCONT 09/19/22 05:10 999 mls/hr .Q1H1M ONE Administration Metoclopramide HCl 10 mg 09/19/22 04:10 09/19/22 05:39 Metoclopramide Hcl 10 Mg/2 Ml Vial IVPUSH 09/19/22 04:11 10 mg ONCE ONE Administration Sumatriptan Succinate 100 mg 09/19/22 04:11 09/19/22 05:39 Sumatriptan Succinate 100 Mg Tablet PO 09/19/22 04:12 100 mg ONCE ONE Administration Medical Decision Making Medical Decision Making MDM Narrative: -patient states that she feels much better, no longer having a headache -CT scan of the head, no acute pathology, no intracranial bleed Lab Data MDM Lab Attestation statement: I reviewed the patient's lab results. 09/19/22 04:18 09/19/22 04:18 Labs: Lab Results 09/19/22 09/19/22 Range/Units 04:18 04:18 WBC 7.5 (4.8-10.8) X10*3/uL RBC 4.55 (4.20-5.50) X10*6/uL Hgb 11.5 L (12.0-16.0) g/dl Hct 36.3 L (37.0-47.0) % MCV 79.8 L (80.0-98.0) fL MCH 25.3 L (27.0-33.0) pg MCHC 31.7 (31.0-35.0) g/dl RDW 14.5 (11.0-16.0) % Plt Count 253 (160-400) X10*3/uL MPV 9.8 (9.4-12.3) fL Immature Gran % (Auto) 0.1 (0.0-0.4) % Neut % (Auto) 66.6 (45-73) % Lymph % (Auto) 24.1 (20-40) % [place] % (Auto) 7.2 (2-11) % Eos % (Auto) 1.7 (0-4) % Baso % (Auto) 0.3 (0-2) % Lymph # (Auto) 1.8 (1.2-4.9) X10*3/uL [place] # (Auto) 0.5 (0.1-1.2) X10*3/uL Eos # (Auto) 0.1 (0.0-0.4) X10*3/uL Baso # (Auto) 0.0 (0.0-0.2) X10*3/uL Abs Immat Gran (auto) 0.01 (0.00-0.03) X10*3/uL Absolute Neuts (auto) 5.0 (2.0-8.3) x10*3/uL Absolute Nucleated RBC 0.000 (0.0-0.012) X10*3/uL Nucleated RBC % (auto) 0.0 (0.0-0.2) /100WBC Sodium 143 (135-145) mmol/L Potassium 4.0 (3.3-5.1) mmol/L Chloride 106 (96-108) mmol/L Carbon Dioxide 32 H (22-29) mmol/L Anion Gap 9 L (12-20) BUN 17 H (9-16) mg/dL Creatinine 0.77 (0.5-1.4) mg/dL Estim Creat Clear Calc 110.8 Estimated GFR > 60 Random Glucose 111 (60-115) mg/dL Calcium 9.2 (8.4-10.2) mg/dL Total Bilirubin 0.3 (0.0-1.0) mg/dL AST 11 (5-31) U/L ALT 8 (0-31) U/L Alkaline Phosphatase 72 (39-117) U/L Total Protein 6.8 (6.5-8.0) g/dL Albumin 3.9 (3.5-5.0) g/dL Radiology Impression Discussion of test interpretation with radiology: I have reviewed the radiologist's reading. Radiologist Impression: FINDINGS: There is no evidence of acute intracranial hemorrhage or territorial infarction. No abnormal mass effect or midline shift is seen. Leonard to white matter differentiation is well preserved. No extra-axial fluid collections are identified. No hydrocephalus. No significant volume loss. There is no abnormal attenuation within the brain parenchyma. No acute osseous or soft tissue abnormality. Chronic opacification of the right middle ear cavity and mastoid air cells. Left mastoid air cells and middle ear cavity are clear. Paranasal sinuses are clear. ? CT/CT head/brain wo IV con IMPRESSION: No acute intracranial pathology. Discharge Plan Discharge Clinical Impression: Headache, migraine Patient Disposition: Home, Self-Care Instructions: Migraine Headache (ED) Additional Instructions: Please follow-up with your primary care physician tomorrow. If you have any worsening or new symptoms, please return to the emergency room or call 911 Prescriptions: New sumatriptan succinate 100 mg tablet 100 mg PO Q2-4H PRN (Reason: migraine headache) Qty: 7 0RF Rx Instructions: do not exceed 2 doses per 24 hrs metoclopramide HCl [Reglan] 5 mg tablet 5 mg PO BID PRN (Reason: nausea and vomiting) Qty: 7 0RF Rx Instructions: Take together with sumatriptan p.r.n. migraine No Action miscellaneous medical supply Misc 2 ea miscellaneous DAILY 99 Days Qty: 2 0RF miscellaneous medical supply Misc 1 ea miscellaneous DAILY 99 Days Qty: 2 0RF miscellaneous medical supply Misc 1 ea miscellaneous DAILY 99 Days Qty: 2 0RF miscellaneous medical supply Misc 1 ea miscellaneous DAILY 99 Days Qty: 2 0RF ferrous sulfate [Feosol] 325 mg (65 mg iron) Tablet 325 mg PO BID Qty: 60 3RF buprenorphine-naloxone [Suboxone] 8-2 mg film 3 film sublingual DAILY sertraline [Zoloft] 50 mg tablet 50 mg PO DAILY Qty: 30 3RF meclizine 12.5 mg tablet 12.5 mg PO TID PRN (Reason: dizziness) 10 Days Qty: 30 0RF (DME) Ultra-Light Rollator Misc See Rx Instructions .Route Qty: 1 0RF Rx Instructions: As directed
[2022-09-19 04:46] LABS: MANUAL DIFF FLAG NO
[2022-09-19 04:47] LABS: Basophils Percent Auto 0.3 % (0-2); Eosinophils Absolute Auto 0.1 X10*3/uL (0.0-0.4); Eosinophils Percent Auto 1.7 % (0-4); Hematocrit 36.3 % (37.0-47.0); Hemoglobin 11.5 g/dl (12.0-16.0); Imm Gran Abs Auto 0.01 X10*3/uL (0.00-0.03); Imm Gran Pct Auto 0.1 % (0.0-0.4); Lymphocytes Absolute Auto 1.8 X10*3/uL (1.2-4.9); Lymphocytes Percent Auto 24.1 % (20-40); Mean Corpuscular HGB Conc 31.7 g/dl (31.0-35.0); Mean Corpuscular Hemoglobin 25.3 pg (27.0-33.0); Mean Corpuscular Volume 79.8 fL (80.0-98.0); Mean Platelet Volume 9.8 fL (9.4-12.3); Monocytes Absolute Auto 0.5 X10*3/uL (0.1-1.2); Monocytes Percent Auto 7.2 % (2-11); Neutrophils Percent Auto 66.6 % (45-73); Platelet Count 253 X10*3/uL (160-400); Red Blood Count 4.55 X10*6/uL (4.20-5.50); Red Cell Distribution Width 14.5 % (11.0-16.0); White Blood Count 7.5 X10*3/uL (4.8-10.8)
[2022-09-19 05:08] LABS: Alanine Aminotransferase 8 U/L (0-31); Albumin Level 3.9 g/dL (3.5-5.0); Alkaline Phosphatase 72 U/L (39-117); Anion Gap 9 (12-20); Aspartate Amino Transferase 11 U/L (5-31); Bilirubin Total 0.3 mg/dL (0.0-1.0); Blood Urea Nitrogen 17 mg/dL (9-16); Calcium 9.2 mg/dL (8.4-10.2); Carbon Dioxide 32 mmol/L (22-29); Chloride 106 mmol/L (96-108); Creatinine Clr Calc Pharmacy 110.8; Estimated Glomerular Filt Rate > 60; Glucose Random 111 mg/dL (60-115); Sodium 143 mmol/L (135-145); Total Protein 6.8 g/dL (6.5-8.0)
[2022-09-19] MEDS: SUMAtriptan succinate 100 MG TABLET PO (05:39)
[2022-09-19] MEDS: Metoclopramide HCl 10 MG/2 ML VIAL IVPUSH (05:39)
[2022-09-19] MEDS: diphenhydrAMINE HCL 50 MG/ML VIAL 25 MG IVPUSH (05:39)
[2022-09-19] MEDS: 0.9 % Sodium Chloride 1,000 ML 999 ML IVCONT (05:40)
== END 2022-09-19 06:48 | disposition home or self-care (01) ==
PROVIDERS: Emergency Provider Emergency Medicine; PCP Physician Assistant
DX: G43.909 Migraine, unspecified, not intractable, without status migrainosus (principal); Z87.891 Personal history of nicotine dependence; Z79.899 Other long term (current) drug therapy
CPT/HCPCS: 36415; 70450; 80053; 85025; 96361; 96374; 96375; 99284; J1200; J2765

== ENCOUNTER 2022-09-27 00:24 | Emergency (ER) | payer OTHER, SELFPAY ==
[2022-09-27 01:16] VITALS: BP 125/65; PULSE 79; RESP 16; TEMP 36.9; O2SAT 96; BMI 50.1
[2022-09-27 01:25] VITALS: BP 163/87; PULSE 86; RESP 16; TEMP 36.9; O2SAT 96
[2022-09-27] MEDS: Butalb/Acetamin/Caff 50/325/40 TABLET 1 TAB PO (01:31)
--- NOTE | 2022-09-27 02:13 | ED_ITS ---
HPI - Headache General Chief Complaint: Headache Stated Complaint: Migraine Time Seen by Provider: 09/27/22 01:21 Source: patient Mode of arrival: ambulatory History of Present Illness HPI Narrative: 52-year-old female who presents with what she initially states is a migraine with 9/10 pain but reports that it feels like a lot of pressure. Patient also reports that it is located at her forehead, behind her eyes and additionally reports nasal congestion. Related Data Home Medications Medication Instructions Recorded Confirmed buprenorphine 8 mg-naloxone 2 mg 3 film sublingual DAILY 05/07/20 09/09/22 sublingual film (Suboxone) Previous Rx's Medication Instructions Recorded walker (Ultra-Light Rollator misc) #1 ea 09/08/21 ferrous sulfate 325 mg (65 mg 325 mg PO BID #60 tabs 09/09/21 iron) tablet (Feosol) miscellaneous medical supply 1 ea miscellaneous DAILY 99 days 11/20/21 #2 ea miscellaneous medical supply 2 ea miscellaneous DAILY 99 days 11/20/21 #2 ea miscellaneous medical supply 1 ea miscellaneous DAILY 99 days 12/29/21 #2 ea miscellaneous medical supply 1 ea miscellaneous DAILY 99 days 12/29/21 #2 ea meclizine 12.5 mg tablet 12.5 mg PO TID PRN dizziness 10 09/09/22 days #30 tabs sertraline 50 mg tablet (Zoloft) 50 mg PO DAILY #30 tabs 09/09/22 metoclopramide HCl 5 mg tablet 5 mg PO BID PRN nausea and 09/19/22 (Reglan) vomiting #7 tabs sumatriptan succinate 100 mg tablet 100 mg PO Q2-4H PRN migraine 09/19/22 headache 2 doses #7 tabs amoxicillin 875 mg-potassium 1 tab PO Q12H 5 days #10 tabs 09/27/22 clavulanate 125 mg tablet Allergies Allergy/AdvReac Type Severity Reaction Status Date / Time ibuprofen [IBUPROFEN] Allergy Intermediate SWELLING Verified 09/27/22 01:21 codeine [CODEINE] Allergy Unknown ITCHY Verified 09/27/22 01:21 gabapentin [From Neurontin] Allergy Unknown anxiety, Verified 09/27/22 01:21 insomnia, restless/anxiety hydrocodone [From VICODIN] Allergy Unknown UNKNOWN Verified 09/27/22 01:21 nabumetone [Nabumetone] Allergy Unknown swelling, Verified 09/27/22 01:21 facial swelling Nabumetone Allergy Unknown edema Uncoded 09/27/22 01:21 nsaids Allergy Unknown Unknown Uncoded 09/27/22 01:21 Review of Systems Review of Systems: Pertinent positives and negatives as stated in HPI [facility] Past Medical History Source: nursing notes reviewed Medical History Adult ADHD Anxiety and depression Arthritis Breast CA Carpal tunnel syndrome Fibromyalgia Intermittent explosive disorder Iron deficiency anemia Kidney stones Lumbar stenosis Myasthenia gravis Pseudotumor cerebri Surgical History History of History of endometrial ablation History of tubal ligation Family History Family History Mother Mental health disorder Heart attack CVA (cerebral vascular accident), Onset Age: 50 Breast cancer Sister CVA (cerebral vascular accident), Onset Age: 51 Leukemia Social History Social History Household Members: Children Housing: Apartment Are you a primary pet caretaker to a significant other at home: No Do you presently have visiting nurse or other home services: No Alcohol intake: never Patient Tobacco Use Status: Former Tobacco user Tobacco use type: Cigarette Smoked in Last 30 Days: No e-Cigarette/Vaping Use: Never Used Second Hand Smoke Exposure: No Use of substances other than those prescribed or required for medical reasons: No Advance Directives: No Advance Directives Information Provided: No Patient : No service: No Current occupational status: employed 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 GENERAL: Well developed, well nourished, in no acute distress. HEAD: Normocephalic/atraumatic, some tenderness to palpation over frontal sinus/maxillary sinuses EYES: PERRLA, EOMI EARS: Ext canals without abnormality NOSE: Nasal congestion, bilateral boggy turbinates OROPHARYNX: no oral lesions noted, posterior pharynx clear NECK: Supple, no adenopathy LUNGS: Normal breath sounds. No adventitious sounds or accessory muscle use. SpO2<96> CARDIOVASCULAR: Regular rate and rhythm without noted murmurs ABDOMEN: Soft, non-tender, non-distended with bowel sounds. MUSCULOSKELETAL: No tenderness, deformities, or effusions noted on gross inspection. EXTREMITIES: No cyanosis, clubbing or edema. SKIN: Inspection of the skin reveals no rashes NEUROLOGIC: Alert and oriented x 4. Strength and sensation to light touch were grossly intact x 4, no facial asymmetry, no pronator drift, cranial nerves 2-12 are grossly intact.. Medications Administered Discontinued Medications Generic Name Dose Route Start Last Admin Trade Name Freq PRN Reason Stop Dose Admin Acetaminophen/Butalbital/Caffeine 1 tab 09/27/22 01:24 09/27/22 01:31 Butalb/Acetamin/Caff 50/325/40 Tablet PO 09/27/22 01:25 1 tab ONCE ONE Administration Medical Decision Making Medical Decision Making MDM Narrative: 52-year-old female with whom I provided initially your set but will go home with presumptive sinus infection will be treated for 5 days. All findings and recommendations were discussed with her at bedside and she reports feeling better and will follow-up with primary care provider on Tuesday. Differential Diagnosis Please see the discussion above Discharge Plan Discharge Clinical Impression: Sinusitis Patient Disposition: Home, Self-Care Instructions: Sinusitis (ED) Additional Instructions: 1. Please complete the entire course of antibiotics as ordered. 2. Recommend [id number] Flonase, apply 1 spray to each nostril daily. 3. Please follow-up with primary care provider on Tuesday. Return to the ER for any worsening symptoms. Prescriptions: New amoxicillin-pot clavulanate 875-125 mg tablet 1 tab PO Q12H 5 Days Qty: 10 0RF No Action miscellaneous medical supply Misc 2 ea miscellaneous DAILY 99 Days Qty: 2 0RF miscellaneous medical supply Misc 1 ea miscellaneous DAILY 99 Days Qty: 2 0RF miscellaneous medical supply Misc 1 ea miscellaneous DAILY 99 Days Qty: 2 0RF miscellaneous medical supply Misc 1 ea miscellaneous DAILY 99 Days Qty: 2 0RF ferrous sulfate [Feosol] 325 mg (65 mg iron) Tablet 325 mg PO BID Qty: 60 3RF sumatriptan succinate 100 mg tablet 100 mg PO Q2-4H PRN (Reason: migraine headache) Qty: 7 0RF Rx Instructions: do not exceed 2 doses per 24 hrs metoclopramide HCl [Reglan] 5 mg tablet 5 mg PO BID PRN (Reason: nausea and vomiting) Qty: 7 0RF Rx Instructions: Take together with sumatriptan p.r.n. migraine buprenorphine-naloxone [Suboxone] 8-2 mg film 3 film sublingual DAILY sertraline [Zoloft] 50 mg tablet 50 mg PO DAILY Qty: 30 3RF meclizine 12.5 mg tablet 12.5 mg PO TID PRN (Reason: dizziness) 10 Days Qty: 30 0RF (DME) [facility] See Rx Instructions .Route Qty: 1 0RF Rx Instructions: As directed Referrals: Faisal Melgoza PA-C [Primary Care Provider] -
[2022-09-27] MEDS: Amoxicillin/Potassium Clav 875 MG TABLET PO (02:33)
== END 2022-09-27 02:39 | disposition home or self-care (01) ==
PROVIDERS: Emergency Provider Student in an Organized Health Care Education/Training Program; PCP Physician Assistant
DX: J32.9 Chronic sinusitis, unspecified (principal); Z87.891 Personal history of nicotine dependence; Z79.899 Other long term (current) drug therapy
CPT/HCPCS: 99283; 99284

== ENCOUNTER 2022-10-05 12:20 | Outpatient (REF) | payer OTHER, SELFPAY ==
[2022-10-05 12:53] LABS: Hematocrit 38.2 % (37.0-47.0); Hemoglobin 12.2 g/dl (12.0-16.0); Mean Corpuscular HGB Conc 31.9 g/dl (31.0-35.0); Mean Corpuscular Hemoglobin 25.7 pg (27.0-33.0); Mean Corpuscular Volume 80.6 fL (80.0-98.0); Platelet Count 272 X10*3/uL (160-400); Red Blood Count 4.74 X10*6/uL (4.20-5.50); Red Cell Distribution Width 13.9 % (11.0-16.0); White Blood Count 6.1 X10*3/uL (4.8-10.8)
[2022-10-05 13:50] LABS: Creatinine Urine 203.48 mg/dL; Microalbum/Creatinine Ratio Ur 10.8 ug/mg cr
[2022-10-05 13:52] LABS: Alanine Aminotransferase 8 U/L (0-31); Alkaline Phosphatase 66 U/L (39-117); Anion Gap 11 (12-20); Aspartate Amino Transferase 11 U/L (5-31); Bilirubin Total 0.4 mg/dL (0.0-1.0); Blood Urea Nitrogen 12 mg/dL (9-16); Calcium 9.1 mg/dL (8.4-10.2); Carbon Dioxide 27 mmol/L (22-29); Chloride 108 mmol/L (96-108); Cholesterol 163 mg/dL; Estimated Glomerular Filt Rate > 60; Glucose Fasting 92 mg/dL (60-99); HDL Cholesterol 47 mg/dL; LDL Cholesterol Calculated 100 mg/dl; Sodium 142 mmol/L (135-145); Triglycerides 82 mg/dL
== END 2022-10-05 12:21 | disposition home or self-care (01) ==
LOC: HO.LAB 12:20
PROVIDERS: PCP Physician Assistant; Visit Provider Physician Assistant
DX: I73.9 Peripheral vascular disease, unspecified (principal); I10 Essential (primary) hypertension
CPT/HCPCS: 36415; 80053; 80061; 82043; 85027

== ENCOUNTER 2022-10-05 13:01 | Emergency (ER) | payer OTHER, SELFPAY ==
[2022-10-05 13:58] VITALS: BP 126/70; PULSE 82; RESP 18; TEMP 36.5; O2SAT 96; BMI 49.6
--- NOTE | 2022-10-05 13:59 | ED_ITS ---
HPI - Headache General Chief Complaint: Headache Stated Complaint: Headache Related Data Home Medications Medication Instructions Recorded Confirmed buprenorphine 8 mg-naloxone 2 mg 3 film sublingual DAILY 05/07/20 09/09/22 sublingual film (Suboxone) Previous Rx's Medication Instructions Recorded walker (Ultra-Light Rollator misc) #1 ea 09/08/21 ferrous sulfate 325 mg (65 mg 325 mg PO BID #60 tabs 09/09/21 iron) tablet (Feosol) miscellaneous medical supply 1 ea miscellaneous DAILY 99 days 11/20/21 #2 ea miscellaneous medical supply 2 ea miscellaneous DAILY 99 days 11/20/21 #2 ea miscellaneous medical supply 1 ea miscellaneous DAILY 99 days 12/29/21 #2 ea miscellaneous medical supply 1 ea miscellaneous DAILY 99 days 12/29/21 #2 ea meclizine 12.5 mg tablet 12.5 mg PO TID PRN dizziness 10 09/09/22 days #30 tabs sertraline 50 mg tablet (Zoloft) 50 mg PO DAILY #30 tabs 09/09/22 metoclopramide HCl 5 mg tablet 5 mg PO BID PRN nausea and 09/19/22 (Reglan) vomiting #7 tabs sumatriptan succinate 100 mg tablet 100 mg PO Q2-4H PRN migraine 09/19/22 headache 2 doses #7 tabs amoxicillin 875 mg-potassium 1 tab PO Q12H 5 days #10 tabs 09/27/22 clavulanate 125 mg tablet Allergies Allergy/AdvReac Type Severity Reaction Status Date / Time ibuprofen [IBUPROFEN] Allergy Intermediate SWELLING Verified 10/05/22 14:02 codeine [CODEINE] Allergy Unknown ITCHY Verified 10/05/22 14:02 gabapentin [From Neurontin] Allergy Unknown anxiety, Verified 10/05/22 14:02 insomnia, restless/anxiety hydrocodone [From VICODIN] Allergy Unknown UNKNOWN Verified 10/05/22 14:02 nabumetone [Nabumetone] Allergy Unknown swelling, Verified 10/05/22 14:02 facial swelling Nabumetone Allergy Unknown edema Uncoded 09/27/22 01:21 nsaids Allergy Unknown Unknown Uncoded 09/27/22 01:21 [facility] Past Medical History Medical History Adult ADHD Anxiety and depression Arthritis Breast CA Carpal tunnel syndrome Fibromyalgia Intermittent explosive disorder Iron deficiency anemia Kidney stones Lumbar stenosis Myasthenia gravis Pseudotumor cerebri Surgical History History of History of endometrial ablation History of tubal ligation Family History Family History Mother Mental health disorder Heart attack CVA (cerebral vascular accident), Onset Age: 50 Breast cancer Sister CVA (cerebral vascular accident), Onset Age: 51 Leukemia Social History Social History Household Members: Children Housing: Apartment Are you a primary ambulatory care coordinator to a significant other at home: No Do you presently have visiting nurse or other home services: No Alcohol intake: never Patient Tobacco Use Status: Former Tobacco user Tobacco use type: Cigarette e-Cigarette/Vaping Use: Never Used Second Hand Smoke Exposure: No Advance Directives: No Advance Directives Information Provided: No service: No Current occupational status: employed 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 Current occupational exposures/hazards: No Sexual orientation: Straight/Heterosexual Gender identity: Female Cognitive needs: Yes Hearing needs: No Vision needs: Yes (Pt wears glasses and is up to date.) Physical Exam Vital Signs: Vital Signs: Last Vital Signs Temp 97.7 F 10/05/22 13:58 Pulse 82 10/05/22 13:58 Resp 18 10/05/22 13:58 BP 126/70 10/05/22 13:58 Pulse Ox 96 10/05/22 13:58 O2 Del Method Room Air 10/05/22 13:58 BMI result Body Mass Index 49.6 Course Course Course Narrative: RME - 52 y/o f with history of migraine, psuedo tumor cerebri Presents today with 2 weeks headache, states diffuse head ache in the back of the head and front. Denies vision changes, tingling, dumbness of the face similar to her last experience of psuedo tumor cerebri. Seen here twice for the same sx with a CT done on 09/19 Plan: full evaluation and treatment in ER Reevaluation(s) Reevaluation #1: patient eloped from the ER prior to full eval and treatment Discharge Plan Discharge Clinical Impression: Headache Patient Disposition: Elopement Prescriptions: No Action miscellaneous medical supply Misc 2 ea miscellaneous DAILY 99 Days Qty: 2 0RF miscellaneous medical supply Misc 1 ea miscellaneous DAILY 99 Days Qty: 2 0RF miscellaneous medical supply Misc 1 ea miscellaneous DAILY 99 Days Qty: 2 0RF miscellaneous medical supply Misc 1 ea miscellaneous DAILY 99 Days Qty: 2 0RF ferrous sulfate [Feosol] 325 mg (65 mg iron) Tablet 325 mg PO BID Qty: 60 3RF sumatriptan succinate 100 mg tablet 100 mg PO Q2-4H PRN (Reason: migraine headache) Qty: 7 0RF Rx Instructions: do not exceed 2 doses per 24 hrs metoclopramide HCl [Reglan] 5 mg tablet 5 mg PO BID PRN (Reason: nausea and vomiting) Qty: 7 0RF Rx Instructions: Take together with sumatriptan p.r.n. migraine amoxicillin-pot clavulanate 875-125 mg tablet 1 tab PO Q12H 5 Days Qty: 10 0RF buprenorphine-naloxone [Suboxone] 8-2 mg film 3 film sublingual DAILY sertraline [Zoloft] 50 mg tablet 50 mg PO DAILY Qty: 30 3RF meclizine 12.5 mg tablet 12.5 mg PO TID PRN (Reason: dizziness) 10 Days Qty: 30 0RF (DME) Ultra-Light Rollator Misc See Rx Instructions .Route Qty: 1 0RF Rx Instructions: As directed Interventions: ED Discharge Assessment Last Done: 10/05/22 19:35 Discharge Date/Time: 10/05/22 19:35
== END 2022-10-05 19:35 | disposition left against medical advice (07) ==
PROVIDERS: Emergency Provider Emergency Medicine; PCP Physician Assistant
DX: R51.9 Headache, unspecified (principal)
CPT/HCPCS: 99282

== ENCOUNTER 2022-10-08 15:01 | Outpatient (RCR) | payer OTHER, SELFPAY ==
[2022-10-08 15:04] VITALS: BP 147/67; PULSE 70
--- NOTE | 2022-10-08 16:07 | MHC.PT.EP ---
[facility] [place] Office [place] [facility] [place] [facility] [address] [phone] F: [phone] F: [phone] F: [phone] F: [phone] Physical Therapy Plan of Care Date of Evaluation: Date of Surgery: NA Diagnosis: Dizziness and giddiness Assessment: Vika is a 52 year old female who is referred to PT for dizziness and giddiness . She reports of having symptoms of dizziness for about 2 months. She describes them as unsteadiness and it comes on randomly and lasts for a few seconds. She denies any nausea or vomiting. On PT examination she presented with intact saccades, visual tracking, smooth pursuit, negative head thrust, intact DVA and static balance. Dynamic balance impaired due to leg pain. She was negative for BPPV in [place] and B roll test. She did not present with any symptoms suggestive of vestibular dysfunction. Therefore no PT indicated at this time. Pt however has intractable SANCHEZ and was advised to follow up with her PCP. 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 Manual therapy to restore motion and function. Therapeutic exercise to improve strength and flexibility. Neuromuscular re-education for posture and balance. Therapeutic activities to return to functional activities of daily living. Electronically signed by: Berenice Bashir PT DPT Please sign and return to therapist. Thank you for your referral.
--- NOTE | 2022-11-10 15:47 | MHC.PT.DC ---
[facility] [place] Office [place] Office [place] Office [address] [place] Cuadra [address] [phone] F: [phone] F: [phone] F: [phone] F: [phone] Physical Therapy Discharge Report Diagnosis: Dizziness and giddiness Date of Surgery: NA Date of Evaluation: 10/08/22 Date of Discharge: 11/10/22 Treatments to Date: 1 Cancellations to Date: No Shows to Date: Discharge Status: Achieved Goals Discharge Summary: Vika has had no symptoms of vestibular dysfunction in over a month. She is therefore being d/c from PT. Electronically signed by: Berenice Bashir PT DPT Please sign and return to therapist. Thank you for your referral.
== END 2022-11-10 15:47 | disposition home or self-care (01) ==
LOC: HO.PT 15:01
PROVIDERS: PCP Physician Assistant; Visit Provider Physician Assistant
DX: R42 Dizziness and giddiness (principal)
CPT/HCPCS: 97112; 97161

== ENCOUNTER 2022-10-11 14:45 | Outpatient (REF) | payer OTHER, SELFPAY ==
--- NOTE | ~2022-10-11 | US_ITS ---
EXAMINATION: US EXTRACRANIAL CAROTID DUPLEX, BILATERAL CLINICAL INFORMATION: 1 month history of dizziness. COMPARISON: None available. TECHNIQUE: Real-time ultrasound and Doppler techniques (integrating B-mode 2-D vascular images, Doppler spectral analysis and color-flow Doppler imaging) were utilized to interrogate the extracranial carotid arteries, the vertebral arteries and proximal subclavian arteries bilaterally. The degree of stenosis is determined by criteria similar to NASCET. FINDINGS: Right Side: 1. There is mild atherosclerotic plaque seen in the bifurcation/proximal ICA region. 2. The common carotid artery PSV proximally is 108 cm/s and distally 94 cm/s. 3. The proximal internal carotid artery velocities are 62 cm/s systolic and 24 cm/s diastolic. 4. The proximal external carotid artery PSV is 120 cm/s. 5. The vertebral artery shows antegrade flow. 6. The subclavian artery waveforms are normal. Left Side: 1. There is mild atherosclerotic plaque seen in the bifurcation/proximal ICA region. 2. The common carotid artery PSV proximally is 118 cm/s and distally 71 cm/s. 3. The proximal internal carotid artery velocities are 97 cm/s systolic and 41 cm/s diastolic. 4. The proximal external carotid artery PSV is 94 cm/s. 5. The vertebral artery shows antegrade flow. 6. The subclavian artery waveforms are normal. US/US carotid duplex BI IMPRESSION: 1. RIGHT: Minimal, non-hemodynamically significant stenosis of the proximal right internal carotid artery corresponding to a 0-49% stenosis by velocity criteria. 2. LEFT: Minimal, non-hemodynamically significant stenosis of the proximal left internal carotid artery corresponding to a 0-49% stenosis by velocity criteria.
== END 2022-10-11 14:46 | disposition home or self-care (01) ==
LOC: HO.US 14:45
PROVIDERS: PCP Physician Assistant; Visit Provider Physician Assistant
DX: R09.89 Other specified symptoms and signs involving the circulatory and respiratory systems (principal)
CPT/HCPCS: 93880

== ENCOUNTER 2022-11-01 01:59 | Emergency (ER) | payer OTHER, SELFPAY ==
[2022-11-01 02:00] VITALS: BP 146/74; PULSE 92; RESP 18; TEMP 36.3; O2SAT 97; BMI 49.6
[2022-11-01 02:23] LABS: MANUAL DIFF FLAG NO
[2022-11-01 02:25] LABS: Basophils Percent Auto 0.4 % (0-2); Eosinophils Absolute Auto 0.2 X10*3/uL (0.0-0.4); Eosinophils Percent Auto 2.7 % (0-4); Hemoglobin 12.3 g/dl (12.0-16.0); Imm Gran Abs Auto 0.01 X10*3/uL (0.00-0.03); Imm Gran Pct Auto 0.1 % (0.0-0.4); Lymphocytes Absolute Auto 1.7 X10*3/uL (1.2-4.9); Lymphocytes Percent Auto 21.7 % (20-40); Mean Corpuscular HGB Conc 32.4 g/dl (31.0-35.0); Mean Corpuscular Hemoglobin 25.7 pg (27.0-33.0); Mean Corpuscular Volume 79.5 fL (80.0-98.0); Mean Platelet Volume 9.8 fL (9.4-12.3); Monocytes Absolute Auto 0.6 X10*3/uL (0.1-1.2); Monocytes Percent Auto 7.2 % (2-11); Neutrophils Absolute Auto 5.2 x10*3/uL (2.0-8.3); Neutrophils Percent Auto 67.9 % (45-73); Platelet Count 268 X10*3/uL (160-400); Red Blood Count 4.78 X10*6/uL (4.20-5.50); White Blood Count 7.7 X10*3/uL (4.8-10.8)
[2022-11-01 02:39] LABS: Anion Gap 14 (12-20); Blood Urea Nitrogen 18 mg/dL (9-16); Calcium 9.4 mg/dL (8.4-10.2); Carbon Dioxide 25 mmol/L (22-29); Chloride 106 mmol/L (96-108); Creatinine Clr Calc Pharmacy 120.2; Estimated Glomerular Filt Rate > 60; Glucose Random 101 mg/dL (60-115); Potassium 4.1 mmol/L (3.3-5.1); Sodium 141 mmol/L (135-145)
[2022-11-01 05:42] VITALS: BP 136/72; PULSE 69; RESP 15; O2SAT 99
--- NOTE | 2022-11-01 05:50 | PC.NURSE ---
pt reports headaches x 2 weeks. intermittent in intensity but says the pain is constantly there. pt has been seen here a few times for the same, had CT scans done with no findings. pt reports her pcp appt is not until next month but she cannot deal with the pain. home medications no relief only slight relief from imitrex that she was previously prescribed. denies n/v or dizziness. vital signs updated, pt waiting to be seen by ED provider. will CTM
--- NOTE | 2022-11-01 06:44 | ED.GENADULT ---
HPI - General Adult General Chief complaint: General Medical Stated complaint: shaking, trouble breathing Time Seen by Provider: 11/01/22 05:49 Source: patient Mode of arrival: ambulatory Limitations: no limitations History of Present Illness HPI narrative: 52-year-old female came in for evaluation of multiple symptoms. Headache for several weeks patient was treated previously for acute sinusitis with partial improvement, patient also was treated for this headache with Imitrex no improvement. Patient also felt chest pain earlier today that is localized to the mid chest with no radiation lasted for less than a minute, no exacerbating factor or relieving factor, no other associated symptoms. Patient earlier before coming to the emergency department felt anxious and shaking, but no fever or chills. Related Data Home Medications Medication Instructions Recorded Confirmed buprenorphine 8 mg-naloxone 2 mg 3 film sublingual DAILY 05/07/20 09/09/22 sublingual film (Suboxone) Previous Rx's Medication Instructions Recorded walker (Ultra-Light Rollator misc) #1 ea 09/08/21 ferrous sulfate 325 mg (65 mg 325 mg PO BID #60 tabs 09/09/21 iron) tablet (Feosol) miscellaneous medical supply 1 ea miscellaneous DAILY 99 days 11/20/21 #2 ea miscellaneous medical supply 2 ea miscellaneous DAILY 99 days 11/20/21 #2 ea miscellaneous medical supply 1 ea miscellaneous DAILY 99 days 12/29/21 #2 ea miscellaneous medical supply 1 ea miscellaneous DAILY 99 days 12/29/21 #2 ea meclizine 12.5 mg tablet 12.5 mg PO TID PRN dizziness 10 09/09/22 days #30 tabs sertraline 50 mg tablet (Zoloft) 50 mg PO DAILY #30 tabs 09/09/22 metoclopramide HCl 5 mg tablet 5 mg PO BID PRN nausea and 09/19/22 (Reglan) vomiting #7 tabs sumatriptan succinate 100 mg tablet 100 mg PO Q2-4H PRN migraine 09/19/22 headache 2 doses #7 tabs amoxicillin 875 mg-potassium 1 tab PO Q12H 5 days #10 tabs 09/27/22 clavulanate 125 mg tablet sumatriptan succinate 50 mg tablet See Rx Instructions PO .COMPLEX 11/01/22 (Imitrex) #20 tabs Allergies Allergy/AdvReac Type Severity Reaction Status Date / Time ibuprofen [IBUPROFEN] Allergy Intermediate SWELLING Verified 10/05/22 14:02 codeine [CODEINE] Allergy Unknown ITCHY Verified 10/05/22 14:02 gabapentin [From Neurontin] Allergy Unknown anxiety, Verified 10/05/22 14:02 insomnia, restless/anxiety hydrocodone [From VICODIN] Allergy Unknown UNKNOWN Verified 10/05/22 14:02 nabumetone [Nabumetone] Allergy Unknown swelling, Verified 10/05/22 14:02 facial swelling Nabumetone Allergy Unknown edema Uncoded 09/27/22 01:21 nsaids Allergy Unknown Unknown Uncoded 09/27/22 01:21 Review of Systems Review of Systems: All other systems are reviewed and are negative Constitutional: Reports as per HPI and Reports no additional constitutional complaints Eyes: Reports as per HPI and Reports no additional eye complaints Reports system reviewed and no additional complaints, except as documented Cardiovascular: Reports as per HPI and Reports no additional cardiovascular complaints Respiratory: Reports as per HPI and Reports no additional respiratory complaints Gastrointestinal: Reports as per HPI and Reports no additional gastrointestinal complaints Genitourinary: Reports no additional female genitourinary complaints Musculoskeletal: Reports no additional musculoskeletal complaints Skin/Breast: Reports system reviewed and no additional complaints, except as docu Psychiatric: Reports no additional psychiatric complaints Endocrine: Reports no additional endocrine complaints Hematologic/Lymphatic: Reports no additional hematologic/lymphatic complaints Allergic/Immunologic: Reports no additional allergic/immunologic complaints Reports system reviewed and no additional complaints, except as documented and Reports Abnormal speech present PMFSH Past Medical History Medical History Adult ADHD Anxiety and depression Arthritis Breast CA Carpal tunnel syndrome Fibromyalgia Intermittent explosive disorder Iron deficiency anemia Kidney stones Lumbar stenosis Myasthenia gravis Pseudotumor cerebri Surgical History History of History of endometrial ablation History of tubal ligation Family History Family History Mother Mental health disorder Heart attack CVA (cerebral vascular accident), Onset Age: 50 Breast cancer Sister CVA (cerebral vascular accident), Onset Age: 51 Leukemia Social History Social History Household Members: Children Housing: Apartment Are you a primary skin care specialist to a significant other at home: No Do you presently have visiting nurse or other home services: No Alcohol intake: never Patient Tobacco Use Status: Former Tobacco user Tobacco use type: Cigarette e-Cigarette/Vaping Use: Never Used Second Hand Smoke Exposure: No Advance Directives: No Advance Directives Information Provided: No Patient : No service: No Current occupational status: employed Current occupation: [employer] Current occupational exposures/hazards: No Sexual orientation: Straight/Heterosexual Gender identity: Female Cognitive needs: Yes Hearing needs: No Vision needs: Yes (Pt wears glasses and is up to date.) Physical Exam ED Vital Signs: Vital Signs - 24 hr 11/01/22 02:00 11/01/22 05:42 Temperature 97.4 F Pulse Rate 92 69 Respiratory Rate 18 15 Blood Pressure 146/74 H 136/72 Pulse Oximetry 97 99 Oxygen Delivery Method Room Air Room Air BMI result Body Mass Index 49.6 Vital signs have been reviewed as appeared to be correct. Blood pressure normal. Heart rate normal. Respiration rate normal. Temperature normal. Oxygen saturation normal. Appearance: Alert. Oriented X3. No acute distress. Head: Normal external exam. Normocephalic. Atraumatic. No Shepard signs noted. No raccoon eyes noted, tenderness on percussion over bilateral frontal sinuses Eyes: PERRLA. EOMI. Conjunctiva and sclera normal. Eyelids normal. ENT: TM's Normal. Pharynx normal. Uvula midline. Moist mucous membranes. No trismus noted. No drooling noted. No muffled voice noted. Neck: Normal inspection. Neck supple. FROM. No adenopathy. Thyroid Normal. No meningeal signs. No neck mass noted. CVS: Normal heart rate and rhythm. Heart sound normal. No murmurs noted. Pulses normal throughout. Respiratory: No respiratory distress. Painless inspiration. Breath sounds normal. No wheezes/rales/rhonchi noted. Chest nontender. No accessory muscle usage noted or decreased air movement noted. Abdomen: Soft and nontender. Bowel sounds normal in all 4 quadrants. No distention noted. No organomegaly noted. No visible injury noted. Back: No CVA tenderness. Full range of motion noted. Skin: Skin warm and dry. Normal skin color. Normal skin turgor. No rashes/lesions/lacerations noted. Extremities: No lower extremity edema. Extremities exhibit normal range of motion. Extremities nontender. Neuro: Oriented X 3. Cranial nerve exam: II-XII are grossly intact No motor deficit. No sensory deficit. Reflexes normal. Course Reevaluation(s) Reevaluation #1: 52 year old female came in for evaluation of multiple symptoms CP/headache/shaking. Labs otherwise unremarkable and exam is consistent with sinusitis, EKG/ troponin/chest x-ray/UA/head CT are pending and the case was signed out to Dr. Kruger. To check the pending results and dispo accordingly. Time: 06:48 Reevaluation #2: I assumed care of this patient from my colleague at 07:[address] scan of the head was unremarkable, chest x-ray was unremarkable as well . Her laboratory evaluation did not reveal any signal abnormality. Patient states she has a history of pseudotumor cerebri. Patient's headache sounds more chronic and she has had a multiple times over the last month. At this time, I do not think that her headache is due to a sinus infection. Patient states that the last time she was here with her headache she did get prescribed Imitrex which improved her pain. Patient was prescribed tract 50 mg x1, may repeat in 2 hours, dispense 20 tablets. Patient was advised to follow-up her neurologist, Dr. Mathew for further evaluation of her headaches Time: 09:28 Medications Administered Discontinued Medications Generic Name Dose Route Start Last Admin Trade Name Freq PRN Reason Stop Dose Admin Amoxicillin/Clavulanate Potassium 875 mg 11/01/22 06:43 11/01/22 07:39 Amoxicillin/Potassium Clav 875 Mg Tablet PO 11/01/22 06:44 875 mg ONCE ONE Administration Medical Decision Making Differential Diagnosis Differential Diagnoses: The differential diagnosis associated with the presentation includes (Anxiety, sinusitis, migraine headache, chills and infection, UTI, ACS, electrolyte abnormalities, severe anemia.) Admission/Observation Consideration of admission/observation: Escalation of care including admission/observation considered Lab Data MDM Lab Attestation statement: I reviewed the patient's lab results. My interpretation of the patient's laboratory evaluation is as follows: WBC was normal 7700, H&H was normal 12.3 and 38-patient has a low MCV-this is chronic. BMP was normal . Troponin was below detectable limits. Urinalysis was positive for blood, microscopic greater than 20 RBCs, 0 WBCs, trace bacteria-negative urine analysis and microscopic 11/01/22 02:19 11/01/22 02:19 Labs: Lab Results 11/01/22 11/01/22 11/01/22 Range/Units 02:19 02:19 07:30 WBC 7.7 (4.8-10.8) X10*3/uL RBC 4.78 (4.20-5.50) X10*6/uL Hgb 12.3 (12.0-16.0) g/dl Hct 38.0 (37.0-47.0) % MCV 79.5 L (80.0-98.0) fL MCH 25.7 L (27.0-33.0) pg MCHC 32.4 (31.0-35.0) g/dl RDW 14.0 (11.0-16.0) % Plt Count 268 (160-400) X10*3/uL MPV 9.8 (9.4-12.3) fL Immature Gran % (Auto) 0.1 (0.0-0.4) % Neut % (Auto) 67.9 (45-73) % Lymph % (Auto) 21.7 (20-40) % [place] % (Auto) 7.2 (2-11) % Eos % (Auto) 2.7 (0-4) % Baso % (Auto) 0.4 (0-2) % Lymph # (Auto) 1.7 (1.2-4.9) X10*3/uL [place] # (Auto) 0.6 (0.1-1.2) X10*3/uL Eos # (Auto) 0.2 (0.0-0.4) X10*3/uL Baso # (Auto) 0.0 (0.0-0.2) X10*3/uL Abs Immat Gran (auto) 0.01 (0.00-0.03) X10*3/uL Absolute Neuts (auto) 5.2 (2.0-8.3) x10*3/uL Absolute Nucleated RBC 0.000 (0.0-0.012) X10*3/uL Nucleated RBC % (auto) 0.0 (0.0-0.2) /100WBC Sodium 141 (135-145) mmol/L Potassium 4.1 (3.3-5.1) mmol/L Chloride 106 (96-108) mmol/L Carbon Dioxide 25 (22-29) mmol/L Anion Gap 14 (12-20) BUN 18 H (9-16) mg/dL Creatinine 0.70 (0.5-1.4) mg/dL Estim Creat Clear Calc 120.2 Estimated GFR > 60 Random Glucose 101 (60-115) mg/dL Calcium 9.4 (8.4-10.2) mg/dL Troponin I High Sens (<3.5-17.0) ng/L Urine Color Yellow Urine Appearance Clear Urine pH 6.0 (5.0-9.0) Ur Specific [place] >= 1.030 H (1.005-1.025) Urine Protein Trace (Neg-Trace) mg/dL Urine Glucose (UA) Negative (Negative) mg/dL Urine Ketones Negative (Negative) mg/dL Urine Blood Large (3+) H (Negative) Urine Nitrite Negative (Negative) Ur Leukocyte Esterase Negative (Negative) Urine RBC >20 H (0-2) /HPF Urine WBC 0-5 (0-5) /HPF Ur Squamous Epith Cells 0-2 (0-2) /HPF Urine Bacteria Trace (None Seen) Hyaline Casts 0-2 (0-2) /LPF 11/01/22 Range/Units 07:36 WBC (4.8-10.8) X10*3/uL RBC (4.20-5.50) X10*6/uL Hgb (12.0-16.0) g/dl Hct (37.0-47.0) % MCV (80.0-98.0) fL MCH (27.0-33.0) pg MCHC (31.0-35.0) g/dl RDW (11.0-16.0) % Plt Count (160-400) X10*3/uL MPV (9.4-12.3) fL Immature Gran % (Auto) (0.0-0.4) % Neut % (Auto) (45-73) % Lymph % (Auto) (20-40) % [place] % (Auto) (2-11) % Eos % (Auto) (0-4) % Baso % (Auto) (0-2) % Lymph # (Auto) (1.2-4.9) X10*3/uL [place] # (Auto) (0.1-1.2) X10*3/uL Eos # (Auto) (0.0-0.4) X10*3/uL Baso # (Auto) (0.0-0.2) X10*3/uL Abs Immat Gran (auto) (0.00-0.03) X10*3/uL Absolute Neuts (auto) (2.0-8.3) x10*3/uL Absolute Nucleated RBC (0.0-0.012) X10*3/uL Nucleated RBC % (auto) (0.0-0.2) /100WBC Sodium (135-145) mmol/L Potassium (3.3-5.1) mmol/L Chloride (96-108) mmol/L Carbon Dioxide (22-29) mmol/L Anion Gap (12-20) BUN (9-16) mg/dL Creatinine (0.5-1.4) mg/dL Estim Creat Clear Calc Estimated GFR Random Glucose (60-115) mg/dL Calcium (8.4-10.2) mg/dL Troponin I High Sens < 2.7 (<3.5-17.0) ng/L Urine Color Urine Appearance Urine pH (5.0-9.0) Ur Specific [place] (1.005-1.025) Urine Protein (Neg-Trace) mg/dL Urine Glucose (UA) (Negative) mg/dL Urine Ketones (Negative) mg/dL Urine Blood (Negative) Urine Nitrite (Negative) Ur Leukocyte Esterase (Negative) Urine RBC (0-2) /HPF Urine WBC (0-5) /HPF Ur Squamous Epith Cells (0-2) /HPF Urine Bacteria (None Seen) Hyaline Casts (0-2) /LPF Independent Interpretation I performed an independent interpretation of an: Plain X-Ray Interpretation: My interpretation patient's chest x-ray is as follows: No acute disease Radiology Impression Discussion of test interpretation with radiology: I have reviewed the radiologist's reading. Radiologist Impression: CT head/brain wo IV con IMPRESSION: No acute intracranial pathology. No significant interval change. Dictated By:Alberto Lerma MD R chest 1V IMPRESSION: No acute cardiopulmonary process. Dictated By:Alberto Lerma MD Discharge Plan Discharge Clinical Impression: Headache Patient Disposition: Still a Patient Instructions: Acute Headache (ED) Additional Instructions: The CT scan of your brain was normal. Your EKG was normal and your troponin (marker of heart damage) was below detectable limits which is reassuring Your blood work was otherwise unremarkable. Your headaches are more consistent with a chronic headache such as a migraine headache or they may be caused by your pseudotumor cerebri. Take Imitrex (sumatriptan) 50 mg pills, take 1 pill you may repeat this pill in 2 hours if not better. When you take this medication you should lie down in a dark quiet room and try to fall asleep and this may break the headache Follow-up with your doctor in 2 days. Please return to the emergency department if your symptoms get worse or if you develop any symptoms that are concerning to you. Prescriptions: New sumatriptan succinate [Imitrex] 50 mg tablet See Rx Instructions .ROUTE .COMPLEX Qty: 20 0RF Rx Instructions: take 1 tab at onset of headache; if no relief may repeat 1 tab after at least 2 hrs; max = 4 tabs/24 hr No Action miscellaneous medical supply Misc 2 ea miscellaneous DAILY 99 Days Qty: 2 0RF miscellaneous medical supply Misc 1 ea miscellaneous DAILY 99 Days Qty: 2 0RF miscellaneous medical supply Misc 1 ea miscellaneous DAILY 99 Days Qty: 2 0RF miscellaneous medical supply Misc 1 ea miscellaneous DAILY 99 Days Qty: 2 0RF ferrous sulfate [Feosol] 325 mg (65 mg iron) Tablet 325 mg PO BID Qty: 60 3RF sumatriptan succinate 100 mg tablet 100 mg PO Q2-4H PRN (Reason: migraine headache) Qty: 7 0RF Rx Instructions: do not exceed 2 doses per 24 hrs metoclopramide HCl [Reglan] 5 mg tablet 5 mg PO BID PRN (Reason: nausea and vomiting) Qty: 7 0RF Rx Instructions: Take together with sumatriptan p.r.n. migraine amoxicillin-pot clavulanate 875-125 mg tablet 1 tab PO Q12H 5 Days Qty: 10 0RF buprenorphine-naloxone [Suboxone] 8-2 mg film 3 film sublingual DAILY sertraline [Zoloft] 50 mg tablet 50 mg PO DAILY Qty: 30 3RF meclizine 12.5 mg tablet 12.5 mg PO TID PRN (Reason: dizziness) 10 Days Qty: 30 0RF (DME) Ultra-Light Rollator Misc See Rx Instructions .Route Qty: 1 0RF Rx Instructions: As directed
== END 2022-11-01 10:09 | disposition home or self-care (01) ==
PROVIDERS: Emergency Medicine; Emergency Provider Emergency Medicine Emergency Medical Services; PCP Physician Assistant
DX: R51.9 Headache, unspecified (principal); F11.20 Opioid dependence, uncomplicated; Z87.891 Personal history of nicotine dependence
CPT/HCPCS: 36415; 70450; 71045; 80048; 81001; 84484; 85025; 93005; 99284

== ENCOUNTER 2022-12-02 05:53 | Emergency (ER) | payer OTHER, SELFPAY ==
--- NOTE | 2022-12-02 | ECG_ITS ---
Test Reason : DIZZINESS Blood Pressure : / mmHG Vent. Rate : 062 BPM Atrial Rate : 062 BPM P-R Int : 174 ms QRS Dur : 102 ms QT Int : 402 ms P-R-T Axes : 031 005 027 degrees QTc Int : 408 ms Normal sinus rhythm with sinus arrhythmia Minimal voltage criteria for LVH, may be normal variant ( R in aVL ) Borderline ECG When compared with ECG of 01-NOV-2022 07:08, No significant change was found Referred By: Generic ED Physician Electronically Signed By:KALEE WITT
[2022-12-02 06:19] VITALS: BP 136/58; PULSE 78; RESP 16; TEMP 36.1; O2SAT 99; BMI 49.2
[2022-12-02 06:50] LABS: Hematocrit 39.6 % (37.0-47.0); Hemoglobin 12.5 g/dl (12.0-16.0); Mean Corpuscular HGB Conc 31.6 g/dl (31.0-35.0); Mean Corpuscular Hemoglobin 25.2 pg (27.0-33.0); Mean Corpuscular Volume 79.8 fL (80.0-98.0); Mean Platelet Volume 9.8 fL (9.4-12.3); Platelet Count 255 X10*3/uL (160-400); Red Blood Count 4.96 X10*6/uL (4.20-5.50); Red Cell Distribution Width 13.5 % (11.0-16.0); White Blood Count 6.7 X10*3/uL (4.8-10.8)
[2022-12-02 07:06] LABS: Alanine Aminotransferase 9 U/L (0-31); Alkaline Phosphatase 70 U/L (39-117); Anion Gap 15 (12-20); Aspartate Amino Transferase 12 U/L (5-31); Bilirubin Total 0.2 mg/dL (0.0-1.0); Blood Urea Nitrogen 18 mg/dL (9-16); Calcium 9.7 mg/dL (8.4-10.2); Carbon Dioxide 25 mmol/L (22-29); Chloride 106 mmol/L (96-108); Estimated Glomerular Filt Rate > 60; Glucose Random 98 mg/dL (60-115); Potassium 4.1 mmol/L (3.3-5.1); Sodium 142 mmol/L (135-145); Total Protein 7.6 g/dL (6.5-8.0)
[2022-12-02 07:34] LABS: HCG Quantitative < 2 mIU/mL
--- NOTE | 2022-12-02 07:44 | ED.ANXIETY ---
HPI - Anxiety General Chief Complaint: Anxiety Stated Complaint: Anxiety? Body shakes, feels like going to faint Time Seen by Provider: 12/02/22 07:11 Source: patient Mode of arrival: ambulatory History of Present Illness HPI narrative: 52-year-old female who has a history of anxiety states that last night while she was pumping gas she experienced some palpitations and then began feeling very flushed and nervous and took half a Klonopin before going home. Patient states that she surprised as everything is going much better at home and states that there are no significant stresses in her life right now. Patient then reports that this morning while she was preparing breakfast she experienced another episode of palpitations and decided to come into the emergency room. Related Data Home Medications Medication Instructions Recorded Confirmed buprenorphine 8 mg-naloxone 2 mg 3 film sublingual DAILY 05/07/20 09/09/22 sublingual film (Suboxone) Previous Rx's Medication Instructions Recorded landy (Ultra-Light Rollator misc) #1 ea 09/08/21 ferrous sulfate 325 mg (65 mg 325 mg PO BID #60 tabs 09/09/21 iron) tablet (Feosol) miscellaneous medical supply 1 ea miscellaneous DAILY 99 days 11/20/21 #2 ea miscellaneous medical supply 2 ea miscellaneous DAILY 99 days 11/20/21 #2 ea miscellaneous medical supply 1 ea miscellaneous DAILY 99 days 12/29/21 #2 ea miscellaneous medical supply 1 ea miscellaneous DAILY 99 days 12/29/21 #2 ea meclizine 12.5 mg tablet 12.5 mg PO TID PRN dizziness 10 09/09/22 days #30 tabs sertraline 50 mg tablet (Zoloft) 50 mg PO DAILY #30 tabs 09/09/22 metoclopramide HCl 5 mg tablet 5 mg PO BID PRN nausea and 09/19/22 (Reglan) vomiting #7 tabs sumatriptan succinate 100 mg tablet 100 mg PO Q2-4H PRN migraine 09/19/22 headache 2 doses #7 tabs amoxicillin 875 mg-potassium 1 tab PO Q12H 5 days #10 tabs 09/27/22 clavulanate 125 mg tablet sumatriptan succinate 50 mg tablet See Rx Instructions PO .COMPLEX 11/01/22 (Imitrex) #20 tabs Allergies Allergy/AdvReac Type Severity Reaction Status Date / Time ibuprofen [IBUPROFEN] Allergy Intermediate SWELLING Verified 10/05/22 14:02 codeine [CODEINE] Allergy Unknown ITCHY Verified 10/05/22 14:02 gabapentin [From Neurontin] Allergy Unknown anxiety, Verified 10/05/22 14:02 insomnia, restless/anxiety hydrocodone [From VICODIN] Allergy Unknown UNKNOWN Verified 10/05/22 14:02 nabumetone [Nabumetone] Allergy Unknown swelling, Verified 10/05/22 14:02 facial swelling Nabumetone Allergy Unknown edema Uncoded 09/27/22 01:21 nsaids Allergy Unknown Unknown Uncoded 09/27/22 01:21 Review of Systems Review of Systems: Pertinent positives and negatives as stated in HPI [facility] Past Medical History Source: nursing notes reviewed Medical History Adult ADHD Anxiety and depression Arthritis Breast CA Carpal tunnel syndrome Fibromyalgia Intermittent explosive disorder Iron deficiency anemia Kidney stones Lumbar stenosis Myasthenia gravis Pseudotumor cerebri Surgical History History of History of endometrial ablation History of tubal ligation Family History Family History Mother Mental health disorder Heart attack CVA (cerebral vascular accident), Onset Age: 50 Breast cancer Sister CVA (cerebral vascular accident), Onset Age: 51 Leukemia Social History Social History Household Members: Children Housing: Apartment Are you a primary customer care specialist to a significant other at home: No Do you presently have visiting nurse or other home services: No Alcohol intake: never Patient Tobacco Use Status: Former Tobacco user Tobacco use type: Cigarette e-Cigarette/Vaping Use: Never Used Second Hand Smoke Exposure: No Advance Directives: No Advance Directives Information Provided: No service: No Current occupational status: employed Current occupation: [employer] Current occupational exposures/hazards: No Sexual orientation: Straight/Heterosexual Gender identity: Female Cognitive needs: Yes Hearing needs: No Vision needs: Yes (Pt wears glasses and is up to date.) Physical Exam Vital Signs: Vital Signs: Last Vital Signs Temp 97 F 12/02/22 08:24 Pulse 56 12/02/22 08:24 Resp 18 12/02/22 08:24 BP 132/54 L 12/02/22 08:24 Pulse Ox 96 12/02/22 08:24 O2 Del Method Room Air 12/02/22 08:24 BMI result Body Mass Index 49.2 VITAL SIGNS: Reviewed. GENERAL: Elevated BMI, Well developed, well nourished, in no acute distress. HEAD: Normocephalic/atraumatic EYES: PERRLA, EOMI EARS: Ext canals without abnormality NOSE: Nares patent bilateral OROPHARYNX: no oral lesions noted, posterior pharynx clear NECK: Supple, no adenopathy LUNGS: Normal breath sounds. No adventitious sounds or accessory muscle use. SpO2<99> CARDIOVASCULAR: Regular rate and rhythm without noted murmurs ABDOMEN: Soft, non-tender, non-distended with bowel sounds. MUSCULOSKELETAL: No tenderness, deformities, or effusions noted on gross inspection. EXTREMITIES: No cyanosis, clubbing or edema. SKIN: Inspection of the skin reveals no rashes NEUROLOGIC: Alert and oriented x 4. Strength and sensation to light touch were grossly intact x 4. Medical Decision Making Medical Decision Making [facility] Narrative: 52-year-old female with history and clinical presentation, DDX: Anxiety/panic attack, no history or clinical exam findings to suggest infectious etiology, patient does have a history of anemia and will evaluate for acute worsening or electrolyte abnormalities. And will evaluate urinalysis. She is otherwise nonfocal in suspect once again that this is likely anxiety or panic in etiology. I reviewed all investigations there is no evidence of acute anemia or infection, hematologic indices do not demonstrate any leukocytosis or anemia. Chemistry and sees are negative for FELIPE or electrolyte abnormalities and liver enzymes do not demonstrate any derangement, urinalysis is negative for UTI or hematuria. EKG does not demonstrate any arrhythmia and again highly suspect this is an anxiety/panic reaction and patient was discharged home with instructions to follow-up with her primary care provider. She is asymptomatic at this time. Differential Diagnosis Differential Diagnoses: The differential diagnosis associated with the presentation includes Please see the discussion above Admission/Observation Consideration of admission/observation: Escalation of care including admission/observation considered Please see the discussion above Lab Data [facility] Lab Attestation statement: I reviewed the patient's lab results. Please see the discussion above. 12/02/22 06:39 12/02/22 06:38 Labs: Lab Results 12/02/22 12/02/22 12/02/22 Range/Units 06:38 06:39 07:47 WBC 6.7 (4.8-10.8) X10*3/uL RBC 4.96 (4.20-5.50) X10*6/uL Hgb 12.5 (12.0-16.0) g/dl Hct 39.6 (37.0-47.0) % MCV 79.8 L (80.0-98.0) fL MCH 25.2 L (27.0-33.0) pg MCHC 31.6 (31.0-35.0) g/dl RDW 13.5 (11.0-16.0) % Plt Count 255 (160-400) X10*3/uL MPV 9.8 (9.4-12.3) fL Absolute Nucleated RBC 0.000 (0.0-0.012) X10*3/uL Nucleated RBC % (auto) 0.0 (0.0-0.2) /100WBC Sodium 142 (135-145) mmol/L Potassium 4.1 (3.3-5.1) mmol/L Chloride 106 (96-108) mmol/L Carbon Dioxide 25 (22-29) mmol/L Anion Gap 15 (12-20) BUN 18 H (9-16) mg/dL Creatinine 0.67 (0.5-1.4) mg/dL Estim Creat Clear Calc 125.0 Estimated GFR > 60 Random Glucose 98 (60-115) mg/dL Calcium 9.7 (8.4-10.2) mg/dL Total Bilirubin 0.2 (0.0-1.0) mg/dL AST 12 (5-31) U/L ALT 9 (0-31) U/L Alkaline Phosphatase 70 (39-117) U/L Total Protein 7.6 (6.5-8.0) g/dL Albumin 4.0 (3.5-5.0) g/dL Beta HCG, Quant < 2 mIU/mL Urine Color Yellow Urine Appearance Clear Urine pH 6.0 (5.0-9.0) Ur Specific [place] >= 1.030 H (1.005-1.025) Urine Protein Negative (Neg-Trace) mg/dL Urine Glucose (UA) Negative (Negative) mg/dL Urine Ketones Negative (Negative) mg/dL Urine Blood Negative (Negative) Urine Nitrite Negative (Negative) Ur Leukocyte Esterase Negative (Negative) Independent Interpretation I performed an independent interpretation of an: EKG Interpretation: Normal sinus rhythm, HR-62, no STEMI, MI/QRS/QTC are within normal limits. Chronic Conditions Patient?s care impacted by: Hypertension Discharge Plan Discharge Clinical Impression: Anxiety Patient Disposition: Home, Self-Care Instructions: Anxiety (ED) Additional Instructions: 1. Resume all home medications as prescribed. 2. I recommend that you follow-up with your primary care provider by calling the office this morning and setting up an appointment for re-evaluation. Return to the ER for any worsening symptoms. Prescriptions: No Action miscellaneous medical supply Misc 2 ea miscellaneous DAILY 99 Days Qty: 2 0RF miscellaneous medical supply Misc 1 ea miscellaneous DAILY 99 Days Qty: 2 0RF miscellaneous medical supply Misc 1 ea miscellaneous DAILY 99 Days Qty: 2 0RF miscellaneous medical supply Misc 1 ea miscellaneous DAILY 99 Days Qty: 2 0RF ferrous sulfate [Feosol] 325 mg (65 mg iron) Tablet 325 mg PO BID Qty: 60 3RF sumatriptan succinate 100 mg tablet 100 mg PO Q2-4H PRN (Reason: migraine headache) Qty: 7 0RF Rx Instructions: do not exceed 2 doses per 24 hrs metoclopramide HCl [Reglan] 5 mg tablet 5 mg PO BID PRN (Reason: nausea and vomiting) Qty: 7 0RF Rx Instructions: Take together with sumatriptan p.r.n. migraine amoxicillin-pot clavulanate 875-125 mg tablet 1 tab PO Q12H 5 Days Qty: 10 0RF sumatriptan succinate [Imitrex] 50 mg tablet See Rx Instructions .ROUTE .COMPLEX Qty: 20 0RF Rx Instructions: take 1 tab at onset of headache; if no relief may repeat 1 tab after at least 2 hrs; max = 4 tabs/24 hr buprenorphine-naloxone [Suboxone] 8-2 mg film 3 film sublingual DAILY sertraline [Zoloft] 50 mg tablet 50 mg PO DAILY Qty: 30 3RF meclizine 12.5 mg tablet 12.5 mg PO TID PRN (Reason: dizziness) 10 Days Qty: 30 0RF (DME) Ultra-Light Rollator Misc See Rx Instructions .Route Qty: 1 0RF Rx Instructions: As directed Referrals: Faisal Melgoza PA-C [Primary Care Provider] -
[2022-12-02 07:56] LABS: Appearance Urine Clear; Color Urine Yellow; Glucose Urine UA Negative (Negative); Leukocyte Esterase Urine Negative (Negative); Nitrite Urine Negative (Negative); Specific Gravity - Urine >= 1.030 (1.005-1.025); Urine Blood Negative (Negative); Urine Ketones Negative (Negative); Urine Protein Negative (Neg-Trace)
[2022-12-02 08:24] VITALS: BP 132/54; PULSE 56; RESP 18; TEMP 36.1; O2SAT 96
[2022-12-02 08:46] VITALS: BP 133/54; PULSE 55; RESP 18; TEMP 36.5; O2SAT 99
== END 2022-12-02 08:51 | disposition home or self-care (01) ==
PROVIDERS: Emergency Provider Student in an Organized Health Care Education/Training Program; PCP Physician Assistant
DX: F41.1 Generalized anxiety disorder (principal); F43.0 Acute stress reaction; I49.8 Other specified cardiac arrhythmias; M79.10 Myalgia, unspecified site; R00.2 Palpitations; Z79.899 Other long term (current) drug therapy
CPT/HCPCS: 36415; 80053; 81003; 84702; 85027; 93005; 99284

== ENCOUNTER → 2022-12-02 06:32 | Outpatient (BNV) | payer OTHER, SELFPAY | PROVIDERS: Emergency Provider Student in an Organized Health Care Education/Training Program; PCP Physician Assistant; Visit Provider Internal Medicine | DX: I49.9 Cardiac arrhythmia, unspecified (principal) | CPT/HCPCS: 93010 ==

== ENCOUNTER 2023-05-19 05:11 | Emergency (ER) | payer OTHER, SELFPAY ==
[2023-05-19 05:32] VITALS: BP 132/64; PULSE 88; RESP 18; TEMP 36.8; O2SAT 95; BMI 50.4
--- NOTE | 2023-05-19 05:41 | ECG_ITS ---
Test Reason : ABD PAIN Blood Pressure : / mmHG Vent. Rate : 070 BPM Atrial Rate : 070 BPM P-R Int : 168 ms QRS Dur : 102 ms QT Int : 410 ms P-R-T Axes : 042 017 009 degrees QTc Int : 442 ms Normal sinus rhythm Normal ECG When compared with ECG of 02-DEC-2022 06:32, No significant change was found Referred By: Generic ED Physician Electronically Signed By:KALEE WITT
[2023-05-19 05:55] LABS: Appearance Urine Turbid; Color Urine Yellow; Glucose Urine UA Negative (Negative); Leukocyte Esterase Urine Large (3+) (Negative); Nitrite Urine Positive (Negative); Specific Gravity - Urine 1.025 (1.005-1.025); UMIC TRIGGER UACC YES; Urine Blood Small (1+) (Negative); Urine Ketones Negative (Negative); Urine Protein 100 (2+) mg/dL (Neg-Trace)
[2023-05-19 05:57] LABS: Urine Pregnancy NEGATIVE (NEGATIVE)
[2023-05-19 05:58] LABS: UPreg QC Valid YES
[2023-05-19 06:10] LABS: MANUAL DIFF FLAG NO
[2023-05-19 06:14] LABS: Basophils Percent Auto 0.4 % (0-2); Eosinophils Absolute Auto 0.2 X10*3/uL (0.0-0.4); Eosinophils Percent Auto 2.8 % (0-4); Hemoglobin 10.4 g/dl (12.0-16.0); Imm Gran Abs Auto 0.02 X10*3/uL (0.00-0.03); Imm Gran Pct Auto 0.4 % (0.0-0.4); Lymphocytes Absolute Auto 1.5 X10*3/uL (1.2-4.9); Lymphocytes Percent Auto 27.8 % (20-40); Mean Corpuscular HGB Conc 31.5 g/dl (31.0-35.0); Mean Corpuscular Hemoglobin 26.3 pg (27.0-33.0); Mean Corpuscular Volume 83.5 fL (80.0-98.0); Mean Platelet Volume 9.3 fL (9.4-12.3); Monocytes Absolute Auto 0.5 X10*3/uL (0.1-1.2); Monocytes Percent Auto 9.1 % (2-11); Neutrophils Absolute Auto 3.2 x10*3/uL (2.0-8.3); Neutrophils Percent Auto 59.5 % (45-73); Platelet Count 244 X10*3/uL (160-400); Red Blood Count 3.95 X10*6/uL (4.20-5.50); Red Cell Distribution Width 15.9 % (11.0-16.0); White Blood Count 5.4 X10*3/uL (4.8-10.8)
[2023-05-19 06:15] LABS: Bacteria Urine 4+ (None Seen); Hyaline Casts Urine 0-2 /LPF (0-2); Squamous Epithelial Cell Urine 0-2 /HPF (0-2); UACC Culture Trigger YES; WBC Urine >50 /HPF (0-5)
[2023-05-19 06:25] LABS: Alanine Aminotransferase 12 U/L (0-31); Alkaline Phosphatase 67 U/L (39-117); Anion Gap 12 (12-20); Aspartate Amino Transferase 17 U/L (5-31); Bilirubin Total 0.2 mg/dL (0.0-1.0); Blood Urea Nitrogen 17 mg/dL (9-16); Calcium 9.2 mg/dL (8.4-10.2); Carbon Dioxide 33 mmol/L (22-29); Chloride 104 mmol/L (96-108); Creatinine Clr Calc Pharmacy 121.9; Estimated Glomerular Filt Rate > 60; Glucose Random 95 mg/dL (60-115); Potassium 3.8 mmol/L (3.3-5.1); Sodium 145 mmol/L (135-145); Total Protein 7.4 g/dL (6.5-8.0)
[2023-05-19 06:31] LABS: B Type Natriuretic Peptide 24 pg/mL (<100); Troponin-I High Sensitivity < 2.7 ng/L (<3.5-17.0)
--- NOTE | 2023-05-19 06:48 | ED.GENADULT ---
HPI - General Adult General Chief complaint: General Medical Stated complaint: ?UTI/ Leg swelling Time Seen by Provider: 05/19/23 06:43 Source: patient Mode of arrival: ambulatory Limitations: no limitations History of Present Illness HPI narrative: Patient is a 53 yr old female with a past medical history of PVD, carotid stenosis, bilateral carotid bruits, lymphedema, lumbar radiculopathy, ANSON, MDD, DIDIER, GENE, kidney stones, opioid dependence on suboxone, breast cancer status post lumpectomy presenting with worsening lower leg swelling for 1.5 weeks and foul smelling urine. She states her legs were bumpy and rock hard up until this morning. Denies calf pain, numbness or tingling. Patient started taking lasix 2 days ago, double her normal dose. She states that her legs are improved today. Also states she has a weird feeling in her chest like something bad is about to happen feels like her anxiety however. Additionally, patient states she noticed foul smelling urine 6 days ago that developed into burning with urinary and increased frequency. Reports mild right sided back pain. Reports intermittent dizziness. Denies fever, cough, chills SOB, chest pain, recent sick contacts, headache, nausea, vomiting, abdominal pain. Related Data Home Medications Medication Instructions Recorded Confirmed buprenorphine 8 mg-naloxone 2 mg 3 film sublingual DAILY 05/07/20 01/17/23 sublingual film (Suboxone) Previous Rx's Medication Instructions Recorded walker (Ultra-Light Rollator misc) #1 ea 09/08/21 miscellaneous medical supply 1 ea miscellaneous DAILY 99 days 11/20/21 #2 ea miscellaneous medical supply 2 ea miscellaneous DAILY 99 days 11/20/21 #2 ea miscellaneous medical supply 1 ea miscellaneous DAILY 99 days 12/29/21 #2 ea miscellaneous medical supply 1 ea miscellaneous DAILY 99 days 12/29/21 #2 ea sertraline 50 mg tablet 50 mg PO DAILY 90 days #90 tabs 12/06/22 meclizine 12.5 mg tablet 12.5 mg PO TID PRN dizziness 10 01/17/23 days #30 tabs miscellaneous medical supply #1 ea 01/17/23 (Blood Pressure Cuff) sumatriptan succinate 50 mg tablet See Rx Instructions PO .COMPLEX 30 01/17/23 (Imitrex) days #20 tabs ferrous sulfate 325 mg (65 mg 325 mg PO BID #60 tabs 04/22/23 iron) tablet (Feosol) cefuroxime axetil 250 mg tablet 250 mg PO BID 7 days #14 tabs 05/19/23 Allergies Allergy/AdvReac Type Severity Reaction Status Date / Time ibuprofen [IBUPROFEN] Allergy Intermediate SWELLING Verified 05/19/23 05:31 codeine [CODEINE] Allergy Unknown ITCHY Verified 05/19/23 05:31 gabapentin [From Neurontin] Allergy Unknown anxiety, Verified 05/19/23 05:31 insomnia, restless/anxiety hydrocodone [From VICODIN] Allergy Unknown UNKNOWN Verified 05/19/23 05:31 nabumetone [Nabumetone] Allergy Unknown swelling, Verified 05/19/23 05:31 facial swelling Nabumetone Allergy Unknown edema Uncoded 01/17/23 15:21 nsaids Allergy Unknown Unknown Uncoded 01/17/23 15:21 Review of Systems Review of Systems: Constitutional : No Weight loss, No Fever, No Chills, No Fatigue, No Malaise ENT/Mouth : No sore throat, No Rhinorrhea Eyes: No Eye Pain, No Swelling, No Redness Cardiovascular : + Chest Pain, No SOB, No Dyspnea on Exertion, No Orthopnea, No Edema, No Palpitations Respiratory : No Cough, No Sputum, No Wheezing Gastrointestinal : No Nausea, No Vomiting, No Diarrhea, No Constipation, No abdominal Pain, No Hematochezia, No Melena Genitourinary : + Dysuria, + Urinary Frequency, No Hematuria, Musculoskeletal : No joint pain, No Myalgias, No Joint Swelling Skin : + LE erythema, swelling. No Skin Lesions, No rash Neuro : No Weakness, No Numbness, No Dizziness, No Headache Psych : + Anxiety/Panic, No Depression Heme/Lymph: No Bruising, No Bleeding,No Lymphadenopathy All other systems reviewed and are negative Yes all other systems are reviewed and are negative PMFSH Past Medical History Attestation statement: The following information was validated with the patient. Source: old records reviewed and nursing notes reviewed Onset Date is defined in the Problem List Problems that require an onset date and time if occurred within 24 hrs of arrival to the ED Aortic Dissection and Rupture; Neurologic impairment; Cardiopulmonary Arrest; Endotracheal Intubation; Insertion or Replacement of Mechanical Circulatory Assist Device Medical History Lumbar stenosis Kidney stones Intermittent explosive disorder Adult ADHD Anxiety and depression Myasthenia gravis Carpal tunnel syndrome Arthritis Fibromyalgia Pseudotumor cerebri Iron deficiency anemia Breast CA Surgical History History of History of tubal ligation History of endometrial ablation Family History Family History Mother Mental health disorder Heart attack CVA (cerebral vascular accident), Onset Age: 50 Breast cancer Sister CVA (cerebral vascular accident), Onset Age: 51 Leukemia Social History Social History Household Members: Children Housing: Apartment Are you a primary director of healthcare systems to a significant other at home: No Do you presently have visiting nurse or other home services: No Alcohol intake: never Patient Tobacco Use Status: Former Tobacco user Tobacco use type: Cigarette e-Cigarette/Vaping Use: Never Used Second Hand Smoke Exposure: No Advance Directives: No Advance Directives Information Provided: Yes service: No Current occupational status: employed 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 Oriented X3.? No acute distress.? Head: Normocephalic, atraumatic, no step-offs or deformities Eyes: Pupils equal, round and reactive to light.? Neck: Normal inspection.? Neck supple.?+ carotid bruit bilaterally ( known hx of this) CVS: Normal heart rate and rhythm.? Pulses normal.? Respiratory: No respiratory distress.? Breath sounds normal.? Abdomen: Soft, nontender, non distended.?Bowel sounds present throughout. Skin: Skin warm and dry.? Normal skin color.? Normal skin turgor.? Extremities: 4+ pitting lower extremity edema from the knee to feet b/l. Pulses 2+ and symmetric. Mild erythema of the LE bilaterally. No calf ttp b/l. 5/5 strength to bilateral upper and lower extremities. Negative Jason's sign b/l. Back: Mild right sided lower back tenderness to palpation. No midline tenderness, no C-spine tenderness, full range of motion, no CVA tenderness bilaterally Neuro: Oriented X 3.? No motor deficit.? No sensory deficit. CN 2-12 intact Course Reevaluation(s) Reevaluation #1: CBC with no acute findings. Chemistry unremarkable. Troponin negative, EKG nonischemic. UA with evident infection. Urine negative. Will treat patient for UTI. Without chest pain or shortness of breath at this time, no need for 2nd troponin, unlikely ACS. History and physical exam not consistent with PE. Will treat patient for UTI advised her to follow-up with PCP for lower extremity edema peer Educated patient on diagnosis and treatment plan, answered all question, patient verbalizes understanding. At this time patient will be discharged home, advised to return with new or worsening symptoms. Educated on worrisome signs and symptoms and when to return. At this time I feel comfortable discharge home. Time: 07:39 Medical Decision Making Medical Decision Making MDM Narrative: Patient is a 53 yr old female with a past medical history of PVD, carotid stenosis, bilateral carotid bruits, lymphedema, lumbar radiculopathy, ANSON, MDD, DIDIER, GENE, kidney stones, opioid dependence on suboxone, breast cancer status post lumpectomy presenting with worsening lower leg swelling for 1.5 weeks and foul smelling urine. PE significant for 4+ pitting edema bilaterally. LE erythema which is the patients baseline. Pulses 2+ symmetric. Mild right sided lower back tenderness to palpation. Most likely exacerbation of lymphedema. Unlikely DVT due to negative Jason and both lower extremities being involved. Unlikely heart failure exacerbation, PE. Most likely UTI. Unlikely renal calculus, pyelonephritis, obstruction, acute abdomen Dizziness most likely related to patients ongoing carotid stenosis patient states this is her baseline. Unlikely stroke, posterior stroke, ich Will rule out metaboic derangements Hx and pe not consistent w/ ACS, dissection, acute respiratory distress. Plan labs, EKG, UA. Differential Diagnosis Differential Diagnoses: The differential diagnosis associated with the presentation includes Most likely exacerbation of lymphedema. Unlikely DVT due to negative Jason and both lower extremities being involved. Unlikely heart failure exacerbation, PE. Most likely UTI. Unlikely renal calculus, pyelonephritis, obstruction, acute abdomen Dizziness most likely related to patients ongoing carotid stenosis patient states this is her baseline. Unlikely stroke, posterior stroke, ich Will rule out metaboic derangements Hx and pe not consistent w/ ACS, dissection, acute respiratory distress. Admission/Observation Consideration of admission/observation: Escalation of care including admission/observation considered Lab Data MDM Lab Attestation statement: I reviewed the patient's lab results. CBC low RBC 3.95, Hgb 10.4, Hct 33.0 BUN high 17, but at patients baseline UA 2+ protein, 1+ blood, + nitrate, + 3+ leukocytes, 3-5 RBC and >50 WBC. urine preg negative 05/19/23 06:04 05/19/23 06:04 Labs: Lab Results 05/19/23 05/19/23 Range/Units 05:45 06:04 WBC 5.4 (4.8-10.8) X10*3/uL RBC 3.95 L D (4.20-5.50) X10*6/uL Hgb 10.4 L (12.0-16.0) g/dl Hct 33.0 L (37.0-47.0) % MCV 83.5 (80.0-98.0) fL MCH 26.3 L (27.0-33.0) pg MCHC 31.5 (31.0-35.0) g/dl RDW 15.9 (11.0-16.0) % Plt Count 244 (160-400) X10*3/uL MPV 9.3 L (9.4-12.3) fL Immature Gran % (Auto) 0.4 (0.0-0.4) % Neut % (Auto) 59.5 (45-73) % Lymph % (Auto) 27.8 (20-40) % [place] % (Auto) 9.1 (2-11) % Eos % (Auto) 2.8 (0-4) % Baso % (Auto) 0.4 (0-2) % Lymph # (Auto) 1.5 (1.2-4.9) X10*3/uL [place] # (Auto) 0.5 (0.1-1.2) X10*3/uL Eos # (Auto) 0.2 (0.0-0.4) X10*3/uL Baso # (Auto) 0.0 (0.0-0.2) X10*3/uL Abs Immat Gran (auto) 0.02 (0.00-0.03) X10*3/uL Absolute Neuts (auto) 3.2 (2.0-8.3) x10*3/uL Absolute Nucleated RBC 0.000 (0.0-0.012) X10*3/uL Nucleated RBC % (auto) 0.0 (0.0-0.2) /100WBC Sodium 145 (135-145) mmol/L Potassium 3.8 (3.3-5.1) mmol/L Chloride 104 (96-108) mmol/L Carbon Dioxide 33 H (22-29) mmol/L Anion Gap 12 (12-20) BUN 17 H (9-16) mg/dL Creatinine 0.69 (0.5-1.4) mg/dL Estim Creat Clear Calc 121.9 Estimated GFR > 60 Random Glucose 95 (60-115) mg/dL Calcium 9.2 (8.4-10.2) mg/dL Total Bilirubin 0.2 (0.0-1.0) mg/dL AST 17 (5-31) U/L ALT 12 (0-31) U/L Alkaline Phosphatase 67 (39-117) U/L Troponin I High Sens < 2.7 (<3.5-17.0) ng/L B-Natriuretic Peptide 24 (<100) pg/mL Total Protein 7.4 (6.5-8.0) g/dL Albumin 4.0 (3.5-5.0) g/dL Urine Color Yellow Urine Appearance Turbid Urine pH 6.0 (5.0-9.0) Ur Specific [place] 1.025 (1.005-1.025) Urine Protein 100 (2+) H (Neg-Trace) mg/dL Urine Glucose (UA) Negative (Negative) mg/dL Urine Ketones Negative (Negative) mg/dL Urine Blood Small (1+) H (Negative) Urine Nitrite Positive H (Negative) Ur Leukocyte Esterase Large (3+) H (Negative) Urine RBC 3-5 H (0-2) /HPF Urine WBC >50 H (0-5) /HPF Ur Squamous Epith Cells 0-2 (0-2) /HPF Urine Bacteria 4+ (None Seen) Hyaline Casts 0-2 (0-2) /LPF Urine Test NEGATIVE (NEGATIVE) Independent Interpretation I performed an independent interpretation of an: EKG (Vent. Rate : 070 BPM Atrial Rate : 070 BPM P-R Int : 168 ms QRS Dur : 102 ms QT Int : 410 ms P-R-T Axes : 042 017 009 degrees QTc Int : 442 ms Normal sinus rhythm Normal ECG When compared with ECG of 02-DEC-2022 06:32, No significant change was found) Interpretation: EKG: Vent. Rate : 070 BPM Atrial Rate : 070 BPM P-R Int : 168 ms QRS Dur : 102 ms QT Int : 410 ms P-R-T Axes : 042 017 009 degrees QTc Int : 442 ms Normal sinus rhythm Normal ECG When compared with ECG of 02-DEC-2022 06:32, No significant change was found Radiology Impression Discussion of test interpretation with radiology: I have reviewed the radiologist's reading. External Record Review External record reviewed: Inpatient record, Outpatient record, Prior outpatient labs and Primary care record Social Determinants Patient?s care significantly limited by Social Determinants of Health including: Other Social Determinant of Health Discharge Plan Discharge Clinical Impression: UTI (urinary tract infection), Bilateral edema of lower extremity Patient Disposition: Home, Self-Care Instructions: Urinary Tract Infection in Women (DC), Leg Edema (ED), Edema (ED) Additional Instructions: Take your medications as prescribed. If you were prescribed antibiotics today, it is important that you take your medication to their entirety, do not skip any doses, do not finish them early. Follow-up with your primary care provider this week. Return to the emergency department with new or worsening symptoms. Such as fevers, chills, chest pain, shortness of breath, nausea, vomiting, dizziness, headache, vision changes, lethargy In case of emergency call 911 Please take your water pills as prescribed. Take Ceftin for urinary tract infection. Return for worsening symptoms such as flank pain, fevers, chills, nausea, vomiting, abdominal pain Prescriptions: New cefuroxime axetil 250 mg tablet 250 mg PO BID 7 Days Qty: 14 0RF No Action miscellaneous medical supply Misc 2 ea miscellaneous DAILY 99 Days Qty: 2 0RF miscellaneous medical supply Misc 1 ea miscellaneous DAILY 99 Days Qty: 2 0RF miscellaneous medical supply Misc 1 ea miscellaneous DAILY 99 Days Qty: 2 0RF miscellaneous medical supply Misc 1 ea miscellaneous DAILY 99 Days Qty: 2 0RF sertraline 50 mg tablet 50 mg PO DAILY 90 Days Qty: 90 2RF ferrous sulfate [Feosol] 325 mg (65 mg iron) tablet 325 mg PO BID Qty: 60 3RF buprenorphine-naloxone [Suboxone] 8-2 mg film 3 film sublingual DAILY sumatriptan succinate [Imitrex] 50 mg tablet See Rx Instructions .ROUTE .COMPLEX 30 Days Qty: 20 3RF Rx Instructions: take 1 tab at onset of headache; if no relief may repeat 1 tab after at least 2 hrs; max = 4 tabs/24 hr meclizine 12.5 mg tablet 12.5 mg PO TID PRN (Reason: dizziness) 10 Days Qty: 30 3RF (DME) Blood Pressure Cuff Misc See Rx Instructions .ROUTE .MEDSUPPLY Qty: 1 0RF Rx Instructions: As directed (DME) Ultra-Light Rollator Misc See Rx Instructions .Route Qty: 1 0RF Rx Instructions: As directed Referrals: Faisal Melgoza PA-C [Primary Care Provider] - 2 days Stand Alone Forms: Work/School Release
[2023-05-19 07:43] VITALS: BP 115/39; PULSE 60; RESP 14; TEMP 36.6; O2SAT 100
== END 2023-05-19 08:03 | disposition home or self-care (01) ==
PROVIDERS: Emergency Provider Emergency Medicine; PCP Physician Assistant
DX: I49.9 Cardiac arrhythmia, unspecified (principal); R07.89 Other chest pain; R00.2 Palpitations; M79.10 Myalgia, unspecified site; R06.02 Shortness of breath; F14.90 Cocaine use, unspecified, uncomplicated; F41.9 Anxiety disorder, unspecified; Z79.899 Other long term (current) drug therapy
CPT/HCPCS: 36415; 80053; 81001; 81025; 83880; 84484; 85025; 87086; 93005; 99283; 99284

== ENCOUNTER → 2023-05-19 05:41 | Outpatient (BNV) | payer OTHER, SELFPAY | PROVIDERS: Emergency Provider Emergency Medicine; PCP Physician Assistant; Visit Provider Internal Medicine | DX: R60.0 Localized edema (principal); N39.0 Urinary tract infection, site not specified | CPT/HCPCS: 93010 ==

== ENCOUNTER 2023-06-02 01:41 | Emergency (ER) | payer OTHER, SELFPAY ==
--- NOTE | ~2023-06-02 | US_ITS ---
EXAMINATION: BILATERAL LOWER EXTREMITY DEEP VENOUS ULTRASOUND CLINICAL INFORMATION: Extremity pain and edema. COMPARISON: Left lower extremity DVT study October 25, 2014 TECHNIQUE: Duplex Doppler imaging with compression maneuvers were performed of the bilateral lower extremity deep venous systems. Today's examination is extreme limited secondary to habitus and patient's inability to tolerate compression. FINDINGS: The bilateral visualized common femoral, femoral and left popliteal veins demonstrate normal compressibility and color flow without evidence of venous thrombosis. Right popliteal vein and visualized. Visualized portions of the bilateral calf veins demonstrate normal color fill-in suggesting patency. There is no evidence of a Barajas's cyst. US/US venous duplex LE BI IMPRESSION: No evidence of deep venous thrombosis involving the bilateral lower extremities on today's limited study.
--- NOTE | ~2023-06-02 | XR_ITS ---
EXAMINATION: XR CHEST CLINICAL INFORMATION: Lower extremity swelling and difficulty breathing COMPARISON: 11/01/2022 TECHNIQUE: 2 views of the chest were obtained. FINDINGS: Heart borderline size with slight distention of the pulmonary vessels. There may be mild element of edema. No focal consolidations or pleural effusions. XR/XR chest 2V IMPRESSION: Query mild congestive change.
[2023-06-02 01:58] VITALS: BP 164/81; PULSE 87; RESP 16; TEMP 36.8; O2SAT 95; BMI 51.2
--- NOTE | 2023-06-02 02:05 | ECG_ITS ---
Test Reason : leg pain Blood Pressure : / mmHG Vent. Rate : 070 BPM Atrial Rate : 070 BPM P-R Int : 176 ms QRS Dur : 096 ms QT Int : 396 ms P-R-T Axes : 032 010 019 degrees QTc Int : 427 ms Normal sinus rhythm Normal ECG When compared with ECG of 19-MAY-2023 06:13, No significant change was found Referred By: Generic ED Physician Electronically Signed By:MALIK TAM MD
[2023-06-02 02:20] LABS: MANUAL DIFF FLAG NO
[2023-06-02 02:21] LABS: Basophils Percent Auto 0.4 % (0-2); Eosinophils Absolute Auto 0.2 X10*3/uL (0.0-0.4); Eosinophils Percent Auto 2.7 % (0-4); Hematocrit 35.3 % (37.0-47.0); Hemoglobin 11.1 g/dl (12.0-16.0); Imm Gran Abs Auto 0.01 X10*3/uL (0.00-0.03); Imm Gran Pct Auto 0.1 % (0.0-0.4); Lymphocytes Absolute Auto 1.5 X10*3/uL (1.2-4.9); Lymphocytes Percent Auto 21.8 % (20-40); Mean Corpuscular HGB Conc 31.4 g/dl (31.0-35.0); Mean Corpuscular Hemoglobin 25.6 pg (27.0-33.0); Mean Corpuscular Volume 81.5 fL (80.0-98.0); Mean Platelet Volume 9.4 fL (9.4-12.3); Monocytes Absolute Auto 0.5 X10*3/uL (0.1-1.2); Neutrophils Absolute Auto 4.5 x10*3/uL (2.0-8.3); Platelet Count 248 X10*3/uL (160-400); Red Blood Count 4.33 X10*6/uL (4.20-5.50); Red Cell Distribution Width 14.2 % (11.0-16.0); White Blood Count 6.7 X10*3/uL (4.8-10.8)
[2023-06-02 02:40] LABS: Alanine Aminotransferase 12 U/L (0-31); Albumin Level 3.9 g/dL (3.5-5.0); Alkaline Phosphatase 71 U/L (39-117); Anion Gap 15 (12-20); Aspartate Amino Transferase 17 U/L (5-31); Bilirubin Total 0.2 mg/dL (0.0-1.0); Blood Urea Nitrogen 19 mg/dL (9-16); Calcium 9.2 mg/dL (8.4-10.2); Carbon Dioxide 25 mmol/L (22-29); Chloride 105 mmol/L (96-108); Creatinine Clr Calc Pharmacy 121.3; Estimated Glomerular Filt Rate > 60; Glucose Random 127 mg/dL (60-115); Sodium 141 mmol/L (135-145); Total Protein 7.3 g/dL (6.5-8.0)
[2023-06-02 03:01] LABS: B Type Natriuretic Peptide 31 pg/mL (<100)
[2023-06-02 04:55] VITALS: BP 142/47; PULSE 71; RESP 14; TEMP 36.8; O2SAT 98
[2023-06-02 05:16] LABS: Appearance Urine Clear; Color Urine Yellow; Glucose Urine UA Negative (Negative); Leukocyte Esterase Urine Negative (Negative); Nitrite Urine Negative (Negative); PH 6.5 (5.0-9.0); Specific Gravity - Urine 1.025 (1.005-1.025); Urine Blood Negative (Negative); Urine Ketones Negative (Negative); Urine Protein Negative (Neg-Trace)
--- NOTE | 2023-06-02 07:17 | ED.GENADULT ---
HPI - General Adult General Chief complaint: Extremity Problem Stated complaint: R Leg pain/swelling Time Seen by Provider: 06/02/23 06:33 Source: patient and RN notes reviewed Mode of arrival: ambulatory Limitations: no limitations History of Present Illness HPI narrative: This is a 53-year-old female, with a history of PVD, carotid stenosis, bilateral carotid bruits, lymphedema, lumbar radiculopathy, ANSON, MDD, myasthenia gravis, pseudotumor cerebri, GERD, kidney stones, opioid dependence on Suboxone, breast cancer status post lumpectomy, presenting to the emergency department for evaluation of right calf pain x2 days. Patient reports that she has a history of lower extremity edema but states that over the last 2 days she has now had right calf pain. She denies any fevers, chills, chest pain, shortness for breath, abdominal pain, nausea, vomiting or diarrhea. Denies any recent trauma or injury to her calf or leg. MD complaint: calf pain Onset (ago): day(s) Severity: moderate Quality: aching Relieving factors: none Exacerbating factors: none Associated symptoms: denies other symptoms Treatments prior to arrival: none Related Data Home Medications Medication Instructions Recorded Confirmed buprenorphine 8 mg-naloxone 2 mg 3 film sublingual DAILY 05/07/20 01/17/23 sublingual film (Suboxone) Previous Rx's Medication Instructions Recorded walker (Ultra-Light Rollator misc) #1 ea 09/08/21 miscellaneous medical supply 1 ea miscellaneous DAILY 99 days 11/20/21 #2 ea miscellaneous medical supply 2 ea miscellaneous DAILY 99 days 11/20/21 #2 ea miscellaneous medical supply 1 ea miscellaneous DAILY 99 days 12/29/21 #2 ea miscellaneous medical supply 1 ea miscellaneous DAILY 99 days 12/29/21 #2 ea sertraline 50 mg tablet 50 mg PO DAILY 90 days #90 tabs 12/06/22 meclizine 12.5 mg tablet 12.5 mg PO TID PRN dizziness 10 01/17/23 days #30 tabs miscellaneous medical supply #1 ea 01/17/23 (Blood Pressure Cuff) sumatriptan succinate 50 mg tablet See Rx Instructions PO .COMPLEX 30 01/17/23 (Imitrex) days #20 tabs ferrous sulfate 325 mg (65 mg 325 mg PO BID #60 tabs 04/22/23 iron) tablet (Feosol) cefuroxime axetil 250 mg tablet 250 mg PO BID 7 days #14 tabs 05/19/23 furosemide 20 mg tablet (Lasix) 20 mg PO DAILY 5 days #5 tabs 06/02/23 Allergies Allergy/AdvReac Type Severity Reaction Status Date / Time ibuprofen [IBUPROFEN] Allergy Intermediate SWELLING Verified 06/02/23 01:57 codeine [CODEINE] Allergy Unknown ITCHY Verified 06/02/23 01:57 gabapentin [From Neurontin] Allergy Unknown anxiety, Verified 06/02/23 01:57 insomnia, restless/anxiety hydrocodone [From VICODIN] Allergy Unknown UNKNOWN Verified 06/02/23 01:57 nabumetone [Nabumetone] Allergy Unknown swelling, Verified 06/02/23 01:57 facial swelling Nabumetone Allergy Unknown edema Uncoded 01/17/23 15:21 nsaids Allergy Unknown Unknown Uncoded 01/17/23 15:21 Review of Systems Review of Systems: Yes all other systems are reviewed and are negative Constitutional: Constitutional: Reports as per [facility] Past Medical History Attestation statement: The following information was validated with the patient. Medical History Lumbar stenosis Kidney stones Intermittent explosive disorder Adult ADHD Anxiety and depression Myasthenia gravis Carpal tunnel syndrome Arthritis Fibromyalgia Pseudotumor cerebri Iron deficiency anemia Breast CA Surgical History History of History of tubal ligation History of endometrial ablation Family History Family History Mother Mental health disorder Heart attack CVA (cerebral vascular accident), Onset Age: 50 Breast cancer Sister CVA (cerebral vascular accident), Onset Age: 51 Leukemia Social History Social History Household Members: Children Housing: Apartment Are you a primary personal caregiver to a significant other at home: No Do you presently have visiting nurse or other home services: No Alcohol intake: never Patient Tobacco Use Status: Former Tobacco user Tobacco use type: Cigarette Smoked in Last 30 Days: No e-Cigarette/Vaping Use: Never Used Second Hand Smoke Exposure: No Use of substances other than those prescribed or required for medical reasons: No Advance Directives: No Advance Directives Information Provided: Yes Patient : No service: No Current occupational status: employed Current occupation: [employer] Current occupational exposures/hazards: No Sexual orientation: Straight/Heterosexual Gender identity: Female Cognitive needs: Yes Hearing needs: No Vision needs: Yes (Pt wears glasses and is up to date.) Physical Exam ED Vital Signs: Vital Signs - 24 hr 06/02/23 01:58 06/02/23 04:55 06/02/23 11:35 Temperature 98.2 F 98.2 F Pulse Rate 87 71 69 Respiratory Rate 16 14 16 Blood Pressure 164/81 H 142/47 H 122/54 L Pulse Oximetry 95 98 96 Oxygen Delivery Method Room Air Room Air Room Air BMI result Body Mass Index 51.2 Const General: cooperative, comfortable and no acute distress Orientation/consciousness: patient oriented x3 Limitations: no limitations HENMT Head: Yes normal to inspection, Yes normocephalic and Yes atraumatic Ears: hearing grossly normal bilaterally General nose exam: Normal external nose present Face and sinus: Yes normal facial exam Mouth: Normal oral and palatal mucosa present, oropharynx normal and moist mucous membranes Throat: Yes posterior oropharynx normal Eyes General: appearance normal, both eyes and all related structures Eyelids: Yes eyelids normal Conjunctivae: conjunctivae normal Sclerae: sclerae normal Pupils: Equal, round and reactive pupils present EOM: EOMs intact bilaterally Neck Neck: Yes normal visual inspection, Yes full ROM and Yes no lymphadenopathy Lymphatic: no lymphadenopathy noted Chest Chest palpation & inspection: normal inspection of the chest Resp Effort & Inspection: normal respiratory effort and able to speak in complete sentences Auscultation: clear to auscultation bilaterally, no crackles, no rales, no rhonchi and no wheezes Cardio Rate: regular rate Rhythm: regular rhythm Heart sounds: S1 normal heart sound present and S2 normal heart sound present GI Inspection: Yes normal to inspection Skin General skin exam: no rashes or lesions noted Trauma: no lacerations or abrasions Wounds: no wounds Neuro General: patient oriented x3 and moves all extremities Cranial nerves: Yes Equal, round and reactive pupils present Extrem Other: 4+ pitting edema noted to bilateral pitting edema noted from the knee to the feet bilaterally. Pulse 2 + and symmetric. Mild erythema of the lower extremities bilaterally, exquisite tenderness palpation along the right calf. She does have tenderness along the left calf as well. Strength 5/5 in bilateral upper and lower extremities. General: Yes normal to inspection Right upper extremity: normal to inspection Left upper extremity: normal to inspection Course Reevaluation(s) Reevaluation #1: Ultrasound returns, no evidence of DVT involving bilateral lower extremities. Labs today do not reveal leukocytosis, stable H&H, BUN around her baseline, no evidence of acute kidney injury, mild hyperglycemia at 1:27 a.m., BNP 31. Will obtain chest x-ray to rule out any cardio pulmonary process that were related to her lower extremity swelling. Symptoms likely due to exacerbation of dependent edema. Urine does not appear to be infected. Time: 10:11 Reevaluation #2: Chest x-ray finally returns. I discussed workup with patient, answered all questions. Patient states that she has not on Lasix every day, but takes as needed. She states that she took Lasix several days ago, has not had any doses in the last 2 days. Will give Lasix 20 mg for the next 5 days. Given return precautions. Legs do not appear to be infectious, will treat as dependent edema, patient given return precautions. Patient stable for discharge. Time: 12:35 Medical Decision Making Medical Decision Making [facility] Narrative: This is a 53-year-old female with a history of PVD, carotid stenosis, bilateral carotid bruits, lymphedema, lumbar radiculopathy, ANSON, MDD, IgA, GERD, kidney stones, opioid dependency on Suboxone, breast cancer status post lumpectomy presenting to the emergency department complaints of atraumatic right calf pain x2 days. On arrival, patient mildly hypertensive at 164/81, all other vital signs within normal limits. Patient is nontoxic appearing, afebrile. Physical examination significant for 4+ pitting edema bilaterally. No profound lower extremity erythema noted, cellulitis less likely. Pulses 2+ symmetric. Plan: Labs, EKG, chest x-ray, ultrasound, urine Differential Diagnosis Differential Diagnoses: The differential diagnosis associated with the presentation includes Lymphedema, cellulitis, DVT, CHF Lab Data [facility] Lab Attestation statement: I reviewed the patient's lab results. No leukocytosis, H&H 11.1/35.3, BNP 31. 02//24 02:16 02/01/24 02:16 Labs: Lab Results 06/02/23 06/02/23 Range/Units 02:16 05:11 WBC 6.7 (4.8-10.8) X10*3/uL RBC 4.33 (4.20-5.50) X10*6/uL Hgb 11.1 L (12.0-16.0) g/dl Hct 35.3 L (37.0-47.0) % MCV 81.5 (80.0-98.0) fL MCH 25.6 L (27.0-33.0) pg MCHC 31.4 (31.0-35.0) g/dl RDW 14.2 (11.0-16.0) % Plt Count 248 (160-400) X10*3/uL MPV 9.4 (9.4-12.3) fL Immature Gran % (Auto) 0.1 (0.0-0.4) % Neut % (Auto) 68.0 (45-73) % Lymph % (Auto) 21.8 (20-40) % [place] % (Auto) 7.0 (2-11) % Eos % (Auto) 2.7 (0-4) % Baso % (Auto) 0.4 (0-2) % Lymph # (Auto) 1.5 (1.2-4.9) X10*3/uL [place] # (Auto) 0.5 (0.1-1.2) X10*3/uL Eos # (Auto) 0.2 (0.0-0.4) X10*3/uL Baso # (Auto) 0.0 (0.0-0.2) X10*3/uL Abs Immat Gran (auto) 0.01 (0.00-0.03) X10*3/uL Absolute Neuts (auto) 4.5 (2.0-8.3) x10*3/uL Absolute Nucleated RBC 0.000 (0.0-0.012) X10*3/uL Nucleated RBC % (auto) 0.0 (0.0-0.2) /100WBC Sodium 141 (135-145) mmol/L Potassium 4.0 (3.3-5.1) mmol/L Chloride 105 (96-108) mmol/L Carbon Dioxide 25 (22-29) mmol/L Anion Gap 15 (12-20) BUN 19 H (9-16) mg/dL Creatinine 0.70 (0.5-1.4) mg/dL Estim Creat Clear Calc 121.3 Estimated GFR > 60 Random Glucose 127 H (60-115) mg/dL Calcium 9.2 (8.4-10.2) mg/dL Total Bilirubin 0.2 (0.0-1.0) mg/dL AST 17 (5-31) U/L ALT 12 (0-31) U/L Alkaline Phosphatase 71 (39-117) U/L B-Natriuretic Peptide 31 (<100) pg/mL Total Protein 7.3 (6.5-8.0) g/dL Albumin 3.9 (3.5-5.0) g/dL Urine Color Yellow Urine Appearance Clear Urine pH 6.5 (5.0-9.0) Ur Specific [place] 1.025 (1.005-1.025) Urine Protein Negative (Neg-Trace) mg/dL Urine Glucose (UA) Negative (Negative) mg/dL Urine Ketones Negative (Negative) mg/dL Urine Blood Negative (Negative) Urine Nitrite Negative (Negative) Ur Leukocyte Esterase Negative (Negative) Independent Interpretation I performed an independent interpretation of an: EKG and Plain X-Ray Interpretation: EKG normal sinus rhythm at a ventricular rate of 70 beats per minute, no ST elevation or depression. WV interval 176, QRS 96, QTC 427 I reviewed the chest x-ray and agree with the radiology report Radiology Impression Discussion of test interpretation with radiology: I have reviewed the radiologist's reading. Radiologist Impression: EXAMINATION: XR CHEST CLINICAL INFORMATION: Lower extremity swelling and difficulty breathing COMPARISON: 11/01/2022 TECHNIQUE: 2 views of the chest were obtained. FINDINGS: Heart borderline size with slight distention of the pulmonary vessels. There may be mild element of edema. No focal consolidations or pleural effusions. XR/XR chest 2V IMPRESSION: Query mild congestive change. Dictated By: Freddy Patel MD EXAMINATION: BILATERAL LOWER EXTREMITY DEEP VENOUS ULTRASOUND CLINICAL INFORMATION: Extremity pain and edema. COMPARISON: Left lower extremity DVT study October 25, 2014 TECHNIQUE: Duplex Doppler imaging with compression maneuvers were performed of the bilateral lower extremity deep venous systems. Today's examination is extreme limited secondary to habitus and patient's inability to tolerate compression. FINDINGS: The bilateral visualized common femoral, femoral and left popliteal veins demonstrate normal compressibility and color flow without evidence of venous thrombosis. Right popliteal vein and visualized. Visualized portions of the bilateral calf veins demonstrate normal color fill-in suggesting patency. There is no evidence of a Barajas's cyst. US/US venous duplex LE BI IMPRESSION: No evidence of deep venous thrombosis involving the bilateral lower extremities on today's limited study. Dictated By: Boo Danielle MD Discharge Plan Discharge Clinical Impression: Dependent edema Patient Disposition: Home, Self-Care Instructions: Leg Edema (ED) Additional Instructions: You were seen in the emergency department due to leg swelling. Your ultrasound did not reveal any blood clots. Your blood work was reassuring. Your chest x-ray was normal. Your urine does not appear to be infected. Please take prescribed Lasix as directed. Please be advised that this can cause urinary frequency. Follow-up with your primary care physician. Call today to make an appointment. If any new or worsening symptoms occur, including but not limited to chest pain, shortness breast, worsening swelling, fevers, chills, increased redness to your legs, please return for re-evaluation. Prescriptions: New furosemide [Lasix] 20 mg tablet 20 mg PO DAILY 5 Days Qty: 5 0RF No Action miscellaneous medical supply [facility] 2 ea miscellaneous DAILY 99 Days Qty: 2 0RF miscellaneous medical supply [facility] [place] 1 ea miscellaneous DAILY 99 Days Qty: 2 0RF miscellaneous medical supply [facility] [place] 1 ea miscellaneous DAILY 99 Days Qty: 2 0RF [facility] misc[facility] DAILY 99 Days Qty: 2 0RF sertraline 50 mg tablet 50 mg PO DAILY 90 Days Qty: 90 2RF ferrous sulfate [Feosol] 325 mg (65 mg iron) tablet 325 mg PO BID Qty: 60 3RF cefuroxime axetil 250 mg tablet 250 mg PO BID 7 Days Qty: 14 0RF buprenorphine-naloxone [Suboxone] 8-2 mg film 3 film sublingual DAILY sumatriptan succinate [Imitrex] 50 mg tablet See Rx Instructions .ROUTE .COMPLEX 30 Days Qty: 20 3RF Rx Instructions: take 1 tab at onset of headache; if no relief may repeat 1 tab after at least 2 hrs; max = 4 tabs/24 hr meclizine 12.5 mg tablet 12.5 mg PO TID PRN (Reason: dizziness) 10 Days Qty: 30 3RF (DME) Blood Pressure Cuff Misc See Rx Instructions .ROUTE .MEDSUPPLY Qty: 1 0RF Rx Instructions: As directed (DME) Ultra-Light Rollator Misc See Rx Instructions .Route Qty: 1 0RF Rx Instructions: As directed Referrals: [facility] [place] [facility] [Provider Group]
[2023-06-02 11:35] VITALS: BP 122/54; PULSE 69; RESP 16; O2SAT 96
== END 2023-06-02 13:12 | disposition home or self-care (01) ==
PROVIDERS: Internal Medicine; Emergency Provider Emergency Medicine; PCP Physician Assistant
DX: R60.0 Localized edema (principal); M79.661 Pain in right lower leg; R06.00 Dyspnea, unspecified; F11.20 Opioid dependence, uncomplicated; Z85.3 Personal history of malignant neoplasm of breast
CPT/HCPCS: 36415; 71046; 80053; 81003; 83880; 85025; 93005; 93970; 99284

== ENCOUNTER → 2023-06-02 02:05 | Outpatient (BNV) | payer OTHER, SELFPAY | PROVIDERS: Emergency Provider Emergency Medicine; PCP Physician Assistant; Visit Provider Internal Medicine Cardiovascular Disease | DX: M79.604 Pain in right leg (principal); R60.0 Localized edema | CPT/HCPCS: 93010 ==

== ENCOUNTER 2023-07-02 12:23 | Emergency (ER) | payer OTHER, SELFPAY ==
--- NOTE | ~2023-07-02 | CT_ITS ---
EXAMINATION: CT ANGIOGRAM OF THE CHEST WITH AND WITHOUT CONTRAST (CT PULMONARY ANGIOGRAM FOR PE) CLINICAL INFORMATION: Reason for Exam Chest pain with elevated D-dimer COMPARISON: None available. Report of mammogram for 1323 indicates previous lumpectomy for right breast DCIS. TECHNIQUE: Prior to contrast administration, noncontrast localization images were obtained. Subsequently, multidetector volumetric imaging was performed from the thoracic inlet to below the diaphragms following the administration of 65 mL Omnipaque 350 intravenous contrast. No contrast reaction reported Sagittal, coronal, and MIP oblique sagittal reformatted images were obtained on the CT workstation, uploaded to PACS, and reviewed. This CT examination was performed using dose optimization techniques as appropriate, variously including the following: *Automated exposure control *Adjustment of mA and/or kV according to patient size (this includes techniques or standardized protocols for targeted exams where dose is matched to indication/reason for exam; i.e. extremities or head) *Use of iterative reconstruction technique Total exam dose-length product 476 mGy-cm FINDINGS: QUALITY OF STUDY/CONTRAST BOLUS: Suboptimal. The degree of enhancement of the pulmonary arteries is limited. PULMONARY ARTERIES: No central pulmonary embolus demonstrated. THORACIC AORTA: No aneurysm. LUNG: There are several small calcified and noncalcified pulmonary nodules all of which measure less than 0.6 cm. These involve the upper and lower lung zones. No edema or mass. No focal pneumonia PLEURA: No pleural effusion or pneumothorax. MEDIASTINUM: Normal heart size. No pericardial effusion. No hilar or mediastinal lymphadenopathy. No evidence of septal bowing or right heart strain. CORONARY ARTERY CALCIFICATION: None visualized on this study. CHEST WALL/AXILLA: There is a mass in the right breast likely related to previous lumpectomy. OSSEOUS STRUCTURES: No acute or suspicious osseous abnormality. UPPER ABDOMEN: No suspicious abnormality demonstrated. No reflux of contrast into the hepatic veins to suggest elevated right heart pressures. CT/CT angio chest PE protocol IMPRESSION: Suboptimal enhancement of the pulmonary arteries. No central pulmonary embolus demonstrated. No focal pneumonia or edema. There are multiple scattered pulmonary nodules. These all measure less than 0.6 cm. According to the UPDATED 2017 Fleischner Society recommendations, the advised follow-up imaging for nodules < 6mm in the upper lobes is not necessarily required in low-risk patients. In high-risk patients with a nodule in the upper lobe and/or demonstrating suspicious morphology, an optional CT follow-up at 12 months may be obtained. If stable at 12 months, no further follow-up is recommended. VTE: negative
--- NOTE | ~2023-07-02 | XR_ITS ---
EXAMINATION: XR CHEST CLINICAL INFORMATION: Chest pain COMPARISON: 06/02/2023 TECHNIQUE: Frontal view of the chest was obtained. FINDINGS: Heart is top normal in size. No acute vascular congestion or focal infiltrates. No pleural effusions XR/XR chest 1V IMPRESSION: No acute process
--- NOTE | 2023-07-02 12:26 | ECG_ITS ---
Test Reason : CHEST PAIN Blood Pressure : / mmHG Vent. Rate : 070 BPM Atrial Rate : 070 BPM P-R Int : 154 ms QRS Dur : 102 ms QT Int : 398 ms P-R-T Axes : 015 016 009 degrees QTc Int : 429 ms Normal sinus rhythm Normal ECG When compared with ECG of 02-JUN-2023 02:21, No significant change was found Referred By: Generic ED Physician Electronically Signed By:KALEE WITT
[2023-07-02 12:53] VITALS: BP 147/62; PULSE 88; RESP 16; TEMP 36.8; O2SAT 96; BMI 51.8
--- NOTE | 2023-07-02 12:55 | ED.GENADULT ---
HPI - General Adult General Chief complaint: Chest Pain Stated complaint: Chest pain 3 days Time Seen by Provider: 07/02/23 16:35 Source: patient Mode of arrival: ambulatory Limitations: no limitations History of Present Illness HPI narrative: 53-year-old female came in for evaluation of left-sided chest pain. Came in for evaluation of left-sided chest pain x3 days pain feels like sharp stabbing pain on and off for the past 3 days, no clear aggravating or relieving factor, pain is not associated with exertion or taking deep breath, no recent travel, no recent prolonged immobilization, patient with chronic bilateral lower extremities lymphedema and pain patient had multiple ultrasound to the lower extremities in the past to rule out DVT and patient prefer not to repeat the ultrasound. No coughing, no chest trauma. Related Data Home Medications Medication Instructions Recorded Confirmed buprenorphine 8 mg-naloxone 2 mg 3 film sublingual DAILY 05/07/20 01/17/23 sublingual film (Suboxone) Previous Rx's Medication Instructions Recorded walker (Ultra-Light Rollator misc) #1 ea 09/08/21 miscellaneous medical supply 1 ea miscellaneous DAILY 99 days 11/20/21 #2 ea miscellaneous medical supply 2 ea miscellaneous DAILY 99 days 11/20/21 #2 ea miscellaneous medical supply 1 ea miscellaneous DAILY 99 days 12/29/21 #2 ea miscellaneous medical supply 1 ea miscellaneous DAILY 99 days 12/29/21 #2 ea sertraline 50 mg tablet 50 mg PO DAILY 90 days #90 tabs 12/06/22 miscellaneous medical supply #1 ea 01/17/23 (Blood Pressure Cuff) sumatriptan succinate 50 mg tablet See Rx Instructions PO .COMPLEX 01/17/23 (Imitrex) days #20 tabs ferrous sulfate 325 mg (65 mg 325 mg PO BID #60 tabs 04/22/23 iron) tablet (Feosol) cefuroxime axetil 250 mg tablet 250 mg PO BID 7 days #14 tabs 05/19/23 furosemide 20 mg tablet (Lasix) 20 mg PO DAILY 5 days #5 tabs 06/02/23 meclizine 12.5 mg tablet 12.5 mg PO TID PRN dizziness 10 06/18/23 days #30 tabs Allergies Allergy/AdvReac Type Severity Reaction Status Date / Time ibuprofen [IBUPROFEN] Allergy Intermediate SWELLING Verified 06/02/23 01:57 codeine [CODEINE] Allergy Unknown ITCHY Verified 06/02/23 01:57 gabapentin [From Neurontin] Allergy Unknown anxiety, Verified 06/02/23 01:57 insomnia, restless/anxiety hydrocodone [From VICODIN] Allergy Unknown UNKNOWN Verified 06/02/23 01:57 nabumetone [Nabumetone] Allergy Unknown swelling, Verified 06/02/23 01:57 facial swelling Nabumetone Allergy Unknown edema Uncoded 01/17/23 15:21 nsaids Allergy Unknown Unknown Uncoded 01/17/23 15:21 Review of Systems Review of Systems: All other systems are reviewed and are negative Constitutional: Reports as per HPI and Reports no additional constitutional complaints Eyes: Reports as per HPI and Reports no additional eye complaints Reports system reviewed and no additional complaints, except as documented Cardiovascular: Reports as per HPI and Reports no additional cardiovascular complaints Respiratory: Reports as per HPI and Reports no additional respiratory complaints Gastrointestinal: Reports as per HPI and Reports no additional gastrointestinal complaints Genitourinary: Reports no additional female genitourinary complaints Musculoskeletal: Reports no additional musculoskeletal complaints Skin/Breast: Reports system reviewed and no additional complaints, except as docu Psychiatric: Reports no additional psychiatric complaints Endocrine: Reports no additional endocrine complaints Hematologic/Lymphatic: Reports no additional hematologic/lymphatic complaints Allergic/Immunologic: Reports no additional allergic/immunologic complaints Reports system reviewed and no additional complaints, except as documented and Reports Abnormal speech present [facility] Past Medical History Medical History Lumbar stenosis Kidney stones Intermittent explosive disorder Adult ADHD Anxiety and depression Myasthenia gravis Carpal tunnel syndrome Arthritis Fibromyalgia Pseudotumor cerebri Iron deficiency anemia Breast CA Surgical History History of History of tubal ligation History of endometrial ablation Family History Family History Mother Mental health disorder Heart attack CVA (cerebral vascular accident), Onset Age: 50 Breast cancer Sister CVA (cerebral vascular accident), Onset Age: 51 Leukemia Social History Social History Household Members: Children Housing: Apartment Are you a primary healthcare applications analyst to a significant other at home: No Do you presently have visiting nurse or other home services: No Alcohol intake: never Patient Tobacco Use Status: Former Tobacco user Tobacco use type: Cigarette e-Cigarette/Vaping Use: Never Used Second Hand Smoke Exposure: No Advance Directives: No Advance Directives Information Provided: No service: No Current occupational status: employed 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 Blood pressure elevated. Heart rate normal. Respiratory rate normal. Temperature normal. Oxygen saturation normal. Appearance: Alert. Oriented X3. No acute distress. Head: Normal external exam. Normocephalic. Atraumatic. No Shepard signs noted. No raccoon eyes noted Eyes: PERRLA. EOMI. Conjunctiva and sclera normal. Eyelids normal. ENT: TM's Normal. Pharynx normal. Uvula midline. Moist mucous membranes. No trismus noted. No drooling noted. No muffled voice noted. Neck: Normal inspection. Neck supple. FROM. No adenopathy. Thyroid Normal. No meningeal signs. No neck mass noted. CVS: Normal heart rate and rhythm. Heart sound normal. No murmurs noted. Pulses normal throughout. Respiratory: No respiratory distress. Painless inspiration. Breath sounds normal. No wheezes/rales/rhonchi noted. Chest nontender. No accessory muscle usage noted or decreased air movement noted. Abdomen: Soft and nontender. Bowel sounds normal in all 4 quadrants. No distention noted. No organomegaly noted. No visible injury noted. Back: No CVA tenderness. Full range of motion noted. Skin: Skin warm and dry. Normal skin color. Normal skin turgor. No rashes/lesions/lacerations noted. Extremities: No lower extremity edema. Extremities exhibit normal range of motion. Extremities nontender. Neuro: Oriented X 3. Cranial nerve exam: II-XII are grossly intact No motor deficit. No sensory deficit. Reflexes normal. Course Course Course Narrative: RME- 53 year old female presents for evaluation of left sided chest pain and numbness in her fingers. Plan for labs, EKG Reevaluation(s) Reevaluation #1: 53-year-old female with chronic bilateral lower extremity lymphedema otherwise no history of HTN or high cholesterol or DM. Three days of stabbing chest pain not likely to be ACS related with a negative troponin after 3 days, a slightly elevated D-dimer with suboptimal CTA show no central pulmonary embolism patient has stable vital sign with normal O2 sat and respiratory rate, with history of multiple ultrasound of lower extremity to rule out DVT, making pulmonary embolism is not a favorable diagnosis. Will reassure the patient and follow-up with PCP. Time: 16:45 Medications Administered Discontinued Medications Generic Name Dose Route Start Last Admin Trade Name Freq PRN Reason Stop Dose Admin Iohexol 100 ml 07/02/23 18:23 07/02/23 18:23 Iohexol 350 Mg/Ml 100 Ml Infus..Btl IV 07/02/23 18:24 65 ml ONCE ONE Administration Medical Decision Making Differential Diagnosis Differential Diagnoses: The differential diagnosis associated with the presentation includes (Pneumonia, pneumothorax, pleural effusion, aortic dissection, ACS, pulmonary embolism, anxiety, electrolyte derangement, severe anemia.) Admission/Observation Consideration of admission/observation: Escalation of care including admission/observation considered Lab Data MDM Lab Attestation statement: I reviewed the patient's lab results. 07/02/23 13:18 07/02/23 13:18 Labs: Lab Results 07/02/23 Range/Units 13:18 WBC 6.8 (4.8-10.8) X10*3/uL RBC 4.67 (4.20-5.50) X10*6/uL Hgb 11.6 L (12.0-16.0) g/dl Hct 37.1 (37.0-47.0) % MCV 79.4 L (80.0-98.0) fL MCH 24.8 L (27.0-33.0) pg MCHC 31.3 (31.0-35.0) g/dl RDW 13.0 (11.0-16.0) % Plt Count 242 (160-400) X10*3/uL MPV 9.9 (9.4-12.3) fL Immature Gran % (Auto) 0.1 (0.0-0.4) % Neut % (Auto) 68.3 (45-73) % Lymph % (Auto) 22.0 (20-40) % Hardin % (Auto) 6.5 (2-11) % Eos % (Auto) 2.8 (0-4) % Baso % (Auto) 0.3 (0-2) % Lymph # (Auto) 1.5 (1.2-4.9) X10*3/uL Hardin # (Auto) 0.4 (0.1-1.2) X10*3/uL Eos # (Auto) 0.2 (0.0-0.4) X10*3/uL Baso # (Auto) 0.0 (0.0-0.2) X10*3/uL Abs Immat Gran (auto) 0.01 (0.00-0.03) X10*3/uL Absolute Neuts (auto) 4.7 (2.0-8.3) x10*3/uL Absolute Nucleated RBC 0.000 (0.0-0.012) X10*3/uL Nucleated RBC % (auto) 0.0 (0.0-0.2) /100WBC PT 12.1 (11.1-13.3) SEC INR 1.0 (0.9-1.1) D-Dimer High Sensitivty 374 NG/ML Sodium 142 (135-145) mmol/L Potassium 3.8 (3.3-5.1) mmol/L Chloride 106 (96-108) mmol/L Carbon Dioxide 29 (22-29) mmol/L Anion Gap 11 L (12-20) BUN 16 (9-16) mg/dL Creatinine 0.74 (0.5-1.4) mg/dL Estim Creat Clear Calc 115.7 Estimated GFR > 60 Random Glucose 127 H (60-115) mg/dL Calcium 9.6 (8.4-10.2) mg/dL Total Bilirubin 0.2 (0.0-1.0) mg/dL AST 11 (5-31) U/L ALT 7 (0-31) U/L Alkaline Phosphatase 77 (39-117) U/L Troponin I High Sens < 2.7 (<3.5-17.0) ng/L Total Protein 7.7 (6.5-8.0) g/dL Albumin 4.2 (3.5-5.0) g/dL Lipase 12 (8-78) U/L Independent Interpretation I performed an independent interpretation of an: EKG (Normal sinus rhythm at 70 beats per minutes, normal axis deviation, normal intervals, nonspecific ST-T changes, no change from prior EKG.), Plain X-Ray (Chest: No acute intrathoracic pathology.) and CT Scan (CTA chest: Multiple pulmonary nodule, no central pulmonary embolism.) Radiology Impression Discussion of test interpretation with radiology: I have reviewed the radiologist's reading. Discharge Plan Discharge Clinical Impression: Chest pain, non-cardiac, Pulmonary nodule Patient Disposition: Home, Self-Care Instructions: Chest Pain (ED) Prescriptions: No Action miscellaneous medical supply Misc 2 ea miscellaneous DAILY 99 Days Qty: 2 0RF miscellaneous medical supply Misc 1 ea miscellaneous DAILY 99 Days Qty: 2 0RF miscellaneous medical supply Misc 1 ea miscellaneous DAILY 99 Days Qty: 2 0RF miscellaneous medical supply Misc 1 ea miscellaneous DAILY 99 Days Qty: 2 0RF sertraline 50 mg tablet 50 mg PO DAILY 90 Days Qty: 90 2RF ferrous sulfate [Feosol] 325 mg (65 mg iron) tablet 325 mg PO BID Qty: 60 3RF meclizine 12.5 mg tablet 12.5 mg PO TID PRN (Reason: dizziness) 10 Days Qty: 30 3RF cefuroxime axetil 250 mg tablet 250 mg PO BID 7 Days Qty: 14 0RF furosemide [Lasix] 20 mg tablet 20 mg PO DAILY 5 Days Qty: 5 0RF buprenorphine-naloxone [Suboxone] 8-2 mg film 3 film sublingual DAILY sumatriptan succinate [Imitrex] 50 mg tablet See Rx Instructions .ROUTE .COMPLEX 30 Days Qty: 20 3RF Rx Instructions: take 1 tab at onset of headache; if no relief may repeat 1 tab after at least 2 hrs; max = 4 tabs/24 hr (DME) Blood Pressure Cuff Misc See Rx Instructions .ROUTE .MEDSUPPLY Qty: 1 0RF Rx Instructions: As directed (DME) Ultra-Light Rollator Misc See Rx Instructions .Route Qty: 1 0RF Rx Instructions: As directed Referrals: Faisal Melgoza PA-C [Primary Care Provider] -
[2023-07-02 13:40] LABS: MANUAL DIFF FLAG NO
[2023-07-02 13:45] LABS: Basophils Percent Auto 0.3 % (0-2); Eosinophils Absolute Auto 0.2 X10*3/uL (0.0-0.4); Eosinophils Percent Auto 2.8 % (0-4); Hematocrit 37.1 % (37.0-47.0); Hemoglobin 11.6 g/dl (12.0-16.0); Imm Gran Abs Auto 0.01 X10*3/uL (0.00-0.03); Imm Gran Pct Auto 0.1 % (0.0-0.4); Lymphocytes Absolute Auto 1.5 X10*3/uL (1.2-4.9); Mean Corpuscular HGB Conc 31.3 g/dl (31.0-35.0); Mean Corpuscular Hemoglobin 24.8 pg (27.0-33.0); Mean Corpuscular Volume 79.4 fL (80.0-98.0); Mean Platelet Volume 9.9 fL (9.4-12.3); Monocytes Absolute Auto 0.4 X10*3/uL (0.1-1.2); Monocytes Percent Auto 6.5 % (2-11); Neutrophils Absolute Auto 4.7 x10*3/uL (2.0-8.3); Neutrophils Percent Auto 68.3 % (45-73); Platelet Count 242 X10*3/uL (160-400); Red Blood Count 4.67 X10*6/uL (4.20-5.50); White Blood Count 6.8 X10*3/uL (4.8-10.8)
[2023-07-02 13:52] LABS: Prothrombin Time 12.1 SEC (11.1-13.3)
[2023-07-02 14:04] LABS: Alanine Aminotransferase 7 U/L (0-31); Albumin Level 4.2 g/dL (3.5-5.0); Alkaline Phosphatase 77 U/L (39-117); Anion Gap 11 (12-20); Aspartate Amino Transferase 11 U/L (5-31); Bilirubin Total 0.2 mg/dL (0.0-1.0); Blood Urea Nitrogen 16 mg/dL (9-16); Calcium 9.6 mg/dL (8.4-10.2); Carbon Dioxide 29 mmol/L (22-29); Chloride 106 mmol/L (96-108); Creatinine Clr Calc Pharmacy 115.7; Estimated Glomerular Filt Rate > 60; Glucose Random 127 mg/dL (60-115); Lipase 12 U/L (8-78); Potassium 3.8 mmol/L (3.3-5.1); Sodium 142 mmol/L (135-145); Total Protein 7.7 g/dL (6.5-8.0)
[2023-07-02 14:13] LABS: Troponin-I High Sensitivity < 2.7 ng/L (<3.5-17.0)
[2023-07-02 16:51] LABS: D Dimer High Sensitivity 374 NG/ML
[2023-07-02] MEDS: iohexoL 350 MG/ML 100 ML INFUS..BTL IV (18:23)
[2023-07-02 18:27] VITALS: BP 137/59; PULSE 68; RESP 18; TEMP 36.7; O2SAT 98
== END 2023-07-02 20:16 | disposition home or self-care (01) ==
PROVIDERS: Physician Assistant; Emergency Provider Emergency Medicine; PCP Physician Assistant
DX: R07.9 Chest pain, unspecified (principal); R91.1 Solitary pulmonary nodule; I89.0 Lymphedema, not elsewhere classified; R79.1 Abnormal coagulation profile
CPT/HCPCS: 36415; 71045; 71275; 80053; 83690; 84484; 85025; 85379; 85610; 93005; 99284; Q9967

== ENCOUNTER → 2023-07-02 12:26 | Outpatient (BNV) | payer OTHER, SELFPAY | PROVIDERS: Emergency Provider Emergency Medicine; PCP Physician Assistant; Visit Provider Internal Medicine | DX: R07.9 Chest pain, unspecified (principal) | CPT/HCPCS: 93010 ==

== ENCOUNTER 2023-07-18 15:30 | Outpatient (AMB) | payer OTHER, SELFPAY ==
[2023-07-18 15:32] VITALS: BP 108/68; PULSE 84; RESP 16; O2SAT 98; BMI 52.1
--- NOTE | 2023-07-18 15:32 | MHC.PC.OV ---
Vital Signs 07/18/23 15:32 Height 5 ft 2 in Weight 285 lb 0.923 oz BMI 52.1 BP 108/68 Blood Pressure Location Lt brachial Position Sitting Respiration 16 Pulse 84 Pulse Source Pulse Oximeter Pulse Oximetry (%) 98 Oxygen Delivery Method Room Air Intake Visit Reasons: f/u migraines. Intake Note: The patient is here for a follow-up regarding bilateral edema noted on June 02 and their visit to [facility] [place] emergency room for chest pain on July 01. 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 [employer] Required: No Accompanied by: Self / Same As Patient Allergies ibuprofen [IBUPROFEN] Allergy (Intermediate, Verified 07/18/23 16:12) SWELLING codeine [CODEINE] Allergy (Unknown, Verified 07/18/23 16:12) ITCHY gabapentin [From Neurontin] Allergy (Unknown, Verified 07/18/23 16:12) anxiety, insomnia, restless/anxiety hydrocodone [From VICODIN] Allergy (Unknown, Verified 07/18/23 16:12) UNKNOWN nabumetone [Nabumetone] Allergy (Unknown, Verified 07/18/23 16:12) swelling, facial swelling Nabumetone Allergy (Unknown, Uncoded 07/18/23 15:54) edema nsaids Allergy (Unknown, Uncoded 07/18/23 15:54) Unknown Medication List - Last Reconciled 07/18/23 by Faisal Melgoza PA-C buprenorphine-naloxone 8-2 mg (Suboxone) 3 film sublingual DAILY ferrous sulfate (Feosol) 325 mg PO BID furosemide (Lasix) 20 mg PO DAILY 5 days meclizine 12.5 mg PO TID PRN 10 days miscellaneous medical supply 1 ea miscellaneous DAILY 99 days miscellaneous medical supply 1 ea miscellaneous DAILY 99 days miscellaneous medical supply 1 ea miscellaneous DAILY 99 days miscellaneous medical supply 2 ea miscellaneous DAILY 99 days miscellaneous medical supply (Blood Pressure Cuff) As directed sertraline 50 mg PO DAILY 90 days sumatriptan succinate (Imitrex) take 1 tab at onset of headache; if no relief may repeat 1 tab after at least 2 hrs; max = 4 tabs/24 hr 30 days walker (Ultra-Light Rollator misc) As directed Tobacco use date assessed: 07/18/23 Dental Screening Dental Screen Date: 07/18/23 Did you have a dental visit in the last 12 months?: Yes Did you have a dental problem in the last 6 months where you did not have access to dental care?: No Was dental information given to patient?: Patient has dentist HPI f/u migraines. HPI Details Patient is a 53-year-old female here today for an ER follow-up visit. She was seen at the ER for chest pain, EKG, CT angio of chest and labs were all within normal range. Chest pain likely related to her anxiety. She is mostly concerned about her bilateral lower extremity swelling and pain. She does report furosemide is helpful. She has seen Occupational therapy in the past for wrappings though could not continue due to insurance issues. [facility] Medical History Lumbar stenosis Kidney stones Intermittent explosive disorder Adult ADHD Anxiety and depression Myasthenia gravis Carpal tunnel syndrome Arthritis Fibromyalgia Pseudotumor cerebri Iron deficiency anemia Breast CA Surgical History History of History of tubal ligation History of endometrial ablation Family History Mother Mental health disorder Heart attack CVA (cerebral vascular accident), Onset Age: 50 Breast cancer Sister CVA (cerebral vascular accident), Onset Age: 51 Leukemia Social History Household Members: Children Housing: Apartment Are you a primary career services director to a significant other at home: No Do you presently have visiting nurse or other home services: No Alcohol intake: never Patient Tobacco Use Status: Former Tobacco user Tobacco use type: Cigarette e-Cigarette/Vaping Use: Never Used Second Hand Smoke Exposure: No service: No Current occupational status: employed 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 1. Little interest or pleasure in doing things: not at all 2. Feeling down, depressed, or hopeless: not at all 3. Trouble falling or staying asleep, or sleeping too much: not at all 4. Feeling tired or having little energy: not at all 5. Poor appetite or overeating: not at all 6. Feeling bad about yourself - or that you are a failure or have let yourself or your family down: not at all 7. Trouble concentrating on things, such as reading the newspaper or watching television: not at all 8. Moving or speaking so slowly that other people could have noticed. Or the opposite - being so fidgety or restless that you have been moving around a lot more than usual: not at all 9. Thoughts that you would be better off or of hurting yourself in some way: not at all Total score: 0 Depression Screening Interpretation: Negative Depression Screening Done: Yes 77230 - PHQ-9 Billing: Yes Source: Developed by Drs. Garrett Peres, Marla Dick, Jorge Duarte and colleagues, with an educational romeo from [employer]. Thrive Questionnaire Date Thrive assessed: 07/18/23 I am a: Patient What is your living situation today?: I have a steady place to live Within the past 12 months, did the food you bought not last and you didn't have the money to get more?: Never true Within the past 12 months, did you worry whether your food would run out before you got money to buy more?: Never true Do you have trouble paying for medicines?: No Do you have trouble getting transportation to medical appointments?: No Do you have trouble paying your heating and electricity bill?: No Do you have trouble taking care of your child, family member or friend?: No Do you have trouble with day-to-day activities such as bathing, preparing meals, shopping, managing finances, etc.?: No Are you currently unemployed and looking for a job?: No Are you interested in more education?: No Please select the resources that you would like help with: None Currently or been in a relationship where the following occur: no concerns reported THRIVE Score: 0 AUDIT C Alcohol Use Questionnaire (AUDIT-C) 1. How often do you have a drink containing alcohol?: Never 3. How often do you have six or more drinks on one occasion?: Never Total Score: 0 GENE-7 AMB Questionnaire GENE-7 Date GENE - 7 assessed: 07/18/23 Feeling nervous, anxious, or on edge: 2 = More than half the days Not being able to stop or control worryin = Nearly every day Worrying too much about different things: 3 = Nearly every day Trouble relaxin = Nearly every day Being so restless that it is hard to sit still: 3 = Nearly every day Becoming easily annoyed or irritable: 3 = Nearly every day Feeling afraid as if something awful might happen: 3 = Nearly every day Total GENE-7 score (0-4 normal; 5-9 mild; 10-14 moderate; 15-21 severe): 20 Source: Developed by Drs. Garrett Peres, Marla Dick, Jorge Duarte and colleagues, with an educational romeo from [employer]. GENE-7 Assessment Billing GENE-7 Assessment Tool: GENE-7 Assessment 96834 Review of Systems Const Denies headache(s) Eyes Denies loss of vision ENT Denies vertigo, Denies dizziness, Denies headache(s) and Denies sore throat Card Denies chest pain, Denies leg edema and Denies lightheadedness Resp Denies cough, Denies hemoptysis and Denies wheezing GI Denies abdominal pain, Denies melena, Denies constipation, Denies diarrhea and Denies vomiting Denies urinary frequency, Denies dysuria and Denies urinary urgency Musc Denies arthralgias, Denies joint swelling, Denies numbness and Denies tingling Neuro Denies Abnormal speech present, Denies behavioral changes, Denies vertigo, Denies dizziness, Denies headache(s), Denies loss of vision, Denies memory loss, Denies numbness and Denies tingling Psych Denies anxiety, Denies behavioral changes, Denies depression, Denies memory loss and Denies panic attacks Kevin/Lymph Denies easy bleeding and Denies easy bruising Aller/Immun Denies wheezing Physical exam (Primary Care) Vital Signs: Last Vital Signs Pulse 84 07/18/23 15:32 Resp 16 07/18/23 15:32 BP 108/68 07/18/23 15:32 Pulse Ox 98 07/18/23 15:32 Oxygen Delivery Method Room Air 07/18/23 15:32 BMI result Body Mass Index 52.1 Tobacco/Smoking Status: Tobacco use Status Tobacco use date assessed 07/18/23 07/18/23 15:56 Patient Tobacco Use Status Former Tobacco user 07/18/23 15:33 Tobacco use type Cigarette 07/18/23 15:33 e-Cigarette/Vaping Use Never Used 07/18/23 15:33 PHQ-9: PHQ-9 Score PHQ-9: Total score 0 07/18/23 16:13 Depression Screening Interpretation: Negative Thrive Assessment: Date of Thrive Assessment Date Thrive assessed 07/18/23 07/18/23 15:56 Currently or been in a relationship where the following occur: no concerns reported Const General: healthy appearing, no acute distress, alert and awake Nutritional Appearance: well nourished Orientation/consciousness: oriented to person, oriented to place and oriented to time HENMT Ears: TM's normal bilaterally General nose exam: Normal nasal mucous membranes and turbinates present Eyes Conjunctivae: conjunctivae normal Sclerae: sclerae normal Pupils: Equal, round and reactive pupils present Neck Neck: Yes no lymphadenopathy and Yes no JVD Thyroid: Thyroid normal Carotids: no bruits Resp Effort & Inspection: normal respiratory effort and not tachypneic Auscultation: no crackles, no rales, no rhonchi and no wheezes Cardio Rate: regular rate Rhythm: regular rhythm Heart sounds: no murmurs and normal S1 and S2 GI Palpation (GI): Soft to palpation, nontender, no hepatomegaly and no splenomegaly Auscultation: normal bowel sounds Skin General skin exam: no rashes or lesions noted and dry skin Neuro General: oriented to person, oriented to place and oriented to time Cranial nerves: Yes Equal, round and reactive pupils present Speech: No Abnormal speech present Gait exam (Neuro): Normal gait present Motor exam (neuro): no tremor noted Extrem Other: BILATERAL LOWER EXTREMITY LYMPHEDEMA ON NOTED Right upper extremity: full ROM Left upper extremity: full ROM Right lower extremity: full ROM; no edema Left lower extremity: full ROM; no edema Psych Mental Status: mental status grossly normal Speech and movement: Normal speech and movement present Affect: normal affect Attitude: cooperative Thought process: Normal thought process present Assessment and Plan Assessment & Plan (1) GENE (generalized anxiety disorder): Code(s): F41.1 - Generalized anxiety disorder Plan: Patient's GEEN-7 Positive for severe anxiety which has been existing condition for her though has worsened over the last month.. Patient seems to be suffering with generalized anxiety disorder which has been an existing condition for her though has worsened over last month. She is interested in increasing dose of her sertraline 100 mg daily. (2) Lymphedema: Code(s): I89.0 - Lymphedema, not elsewhere classified Plan: Patient continues to have significant lymphedema in her lower extremities. She does use furosemide which she feels is helpful. She has upcoming appointment with vascular surgeon to evaluate her chronic leg edema. (3) ANSON (obstructive sleep apnea): Code(s): G47.33 - Obstructive sleep apnea (adult) (pediatric) Plan: Patient does have history of obstructive sleep apnea. She does report she has lost her CPAP machine during moving out of her apartment. She will need a new sleep study Orders: Orders RT home sleep study 07/18/23 G47.33 - Obstructive sleep apnea (adult) (pediatric) Medications: New sertraline 100 mg PO DAILY 90 days 90 tabs 2RF F41.1 - Generalized anxiety disorder Changed From furosemide (Lasix) 20 mg PO DAILY 5 days 5 tabs 0RF I89.0 - Lymphedema, not elsewhere classified To furosemide (Lasix) 20 mg PO Q OTHER DAY 30 days 15 tabs 1RF I89.0 - Lymphedema, not elsewhere classified Refilled sumatriptan succinate (Imitrex) take 1 tab at onset of headache; if no relief may repeat 1 tab after at least 2 hrs; max = 4 tabs/24 hr 30 days 20 tabs 3RF G43.909 - Migraine, unspecified, not intractable, without status migrainosus meclizine 12.5 mg PO TID 10 days PRN 30 tabs 3RF dizziness R42 - Dizziness and giddiness Coding Level of Care Code Est Pt Level 4 (99330) Diagnoses GENE (generalized anxiety disorder) F41.1 Lymphedema I89.0 ANSON (obstructive sleep apnea) G47.33 Additional Codes GENE-7 Assessment Billing - GENE-7 Assessment Tool: GENE-7 Assessment [id number] ([id number])
== END 2023-07-18 16:38 | disposition home or self-care (01) ==
PROVIDERS: PCP Physician Assistant; Visit Provider Physician Assistant
DX: I89.0 Lymphedema, not elsewhere classified (principal); R07.9 Chest pain, unspecified; F41.1 Generalized anxiety disorder; G47.33 Obstructive sleep apnea (adult) (pediatric)
CPT/HCPCS: 99214

== ENCOUNTER 2023-08-11 15:38 | Outpatient (AMB) | payer OTHER, SELFPAY ==
--- NOTE | 2023-08-11 15:39 | A.OFFVIS_ITS ---
Intake Intake Visit Reasons: ED Re-Ref for LE swelling & Pain Intake Note: Patient presents for bilateral leg swelling. States she has burning, swelling and numbness. Right leg is worse. Also has burning on the heel of her right foot for about a month. Accompanied by: Self / Same As Patient Allergies ibuprofen [IBUPROFEN] Allergy (Intermediate, Verified 08/11/23 15:42) SWELLING codeine [CODEINE] Allergy (Unknown, Verified 08/11/23 15:42) ITCHY gabapentin [From Neurontin] Allergy (Unknown, Verified 08/11/23 15:42) anxiety, insomnia, restless/anxiety hydrocodone [From VICODIN] Allergy (Unknown, Verified 08/11/23 15:42) UNKNOWN nabumetone [Nabumetone] Allergy (Unknown, Verified 08/11/23 15:42) swelling, facial swelling Nabumetone Allergy (Unknown, Uncoded 07/18/23 15:54) edema nsaids Allergy (Unknown, Uncoded 07/18/23 15:54) Unknown HPI ED Re-Ref for LE swelling & Pain HPI Details Very pleasant 53-year-old female Year old patient presents for evaluation of lymphedema. The patient complains of lymphedema located bilateral lower extremity but does experience it more so on the right. This has been present for approximately 2 years at which time she had seen us but at that time insurance had refused lymphedema pumps. Her symptoms continued to get worse. Symptoms that the patient has been experiencing include hyperkeratosis hyperpigmentation lymphedema papillomatosis pitting edema recurrent episodes of infection cellulitis pain and wounds. Patient has had a trial of conservative therapy inclusive compression garments of 20-30 mmHg starting on 05/22/2020. In addition the patient has tried exercise limb elevation and home manual lymph decongestive therapy for proximally 30 minutes a day over the past month. They have not experienced any significant relief from the swelling and discomfort. They now present for follow-up evaluation. [facility] Medical History Lumbar stenosis Kidney stones Intermittent explosive disorder Adult ADHD Anxiety and depression Myasthenia gravis Carpal tunnel syndrome Arthritis Fibromyalgia Pseudotumor cerebri Iron deficiency anemia Breast CA Surgical History History of History of tubal ligation History of endometrial ablation Family History Mother Mental health disorder Heart attack CVA (cerebral vascular accident), Onset Age: 50 Breast cancer Sister CVA (cerebral vascular accident), Onset Age: 51 Leukemia Social History Household Members: Children Housing: Apartment Are you a primary ambulatory care coordinator to a significant other at home: No Do you presently have visiting nurse or other home services: No Alcohol intake: never Patient Tobacco Use Status: Former Tobacco user Tobacco use type: Cigarette e-Cigarette/Vaping Use: Never Used Second Hand Smoke Exposure: No service: No Current occupational status: employed 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 Current occupational exposures/hazards: No Sexual orientation: Straight/Heterosexual Gender identity: Female Cognitive needs: Yes Hearing needs: No Vision needs: Yes (Pt wears glasses and is up to date.) Review of Systems Const All systems reviewed & are unremarkable except as noted in HPI and below Reports no additional complaints ENT Reports Normal hearing present Card Denies chest pain, Denies chest pain at rest, Denies chest pain with activity and Denies pedal edema Resp Denies cough GI Denies abdominal pain Musc Denies abnormal gait, Denies muscle cramps and Denies radiating pain into limb Skin/Breast Denies skin ulcer and Denies wounds Neuro Reports Normal hearing present and Denies abnormal gait Psych Reports no additional complaints Physical Exam Const General: cooperative, healthy appearing and comfortable Orientation/consciousness: oriented to person, oriented to place and oriented to time HEENT Head: Yes normal to inspection Neck Neck: Yes normal visual inspection Carotids: no bruits Chest Chest palpation & inspection: normal inspection of the chest Resp Effort & Inspection: normal respiratory effort and able to speak in complete sentences Auscultation: clear to auscultation bilaterally, no crackles, no rales, no rhonchi and no wheezes Cardio Rate: regular rate Rhythm: regular rhythm Heart sounds: S1 normal heart sound present and S2 normal heart sound present Bruits: no carotid bruits Peripheral pulses: Peripheral pulses 2+ throughout GI Inspection: Yes normal to inspection Skin Wounds: no wounds Hair: normal Neuro General: oriented to person, oriented to place and oriented to time Cranial nerves: Yes CN's II-XII intact bilaterally and Yes Normal hearing present Cognition (Neuro): normal cognition Motor exam (neuro): 5/5 motor strength present throughout Extrem Other: venous exam: +4 edema bilateral Right in cm: Thigh 75.5 Knee 72 Calf 60 Ankle 31.5 Left in cm: Thigh 67 Knee 48 Calf 56 Ankle 36 Hip/waist 125 General: No clubbing, No cyanosis and Yes edema Psych Appearance: grossly normal Mental Status: mental status grossly normal Speech and movement: Normal speech and movement present Assessment & Plan Assessment & Plan (1) Lymphedema: Code(s): I89.0 - Lymphedema, not elsewhere classified Plan: In short the patient has late on sent lymphedema. The patient has been on conservative treatment for at least 3 months with minimal relief. Patient has tried 30 mm of mercury compression garments, elevation, exercise healthy diet and doing manual says self MLD to the best of their ability for over 4 weeks but with no significant relief. She has been compliant with the program but has pr ovided minimal relief. In addition on physical we are noticing hyperpigmentation, lymphorrhea, and hyperplasia. It appears that she has stage 2 lymphedema. Patient has completed multiple forms of conservative therapy yet significant symptoms remain. Patient requires the use of a pneumatic compression device which we will assist in trying to have the patient obtain them. A pneumatic compression device will help reduce swelling and other lymphedema comorbidities. Thank you for allowing us to assist in this patient's care. Coding Level of Care Code Est Pt Level 4 (66340) Diagnoses Lymphedema I89.0
== END 2023-08-11 16:20 | disposition home or self-care (01) ==
PROVIDERS: PCP Physician Assistant; Visit Provider Surgery Vascular Surgery
DX: I89.0 Lymphedema, not elsewhere classified (principal)
CPT/HCPCS: 99214

== ENCOUNTER → 2023-08-11 15:38 | Outpatient (BNVA) | payer OTHER, SELFPAY | PROVIDERS: PCP Physician Assistant; Visit Provider Surgery Vascular Surgery | DX: I89.0 Lymphedema, not elsewhere classified (principal) | CPT/HCPCS: 99212 ==

== ENCOUNTER → 2023-08-29 13:15 | Outpatient (REF) | payer OTHER, SELFPAY | LOC: HO.SL 13:15 | PROVIDERS: PCP Physician Assistant; Visit Provider Physician Assistant | DX: G47.33 Obstructive sleep apnea (adult) (pediatric) (principal) | CPT/HCPCS: 95806 ==

== ENCOUNTER → 2023-08-29 13:43 | Outpatient (BNV) | payer OTHER, SELFPAY | PROVIDERS: PCP Physician Assistant; Visit Provider Internal Medicine | DX: G47.33 Obstructive sleep apnea (adult) (pediatric) (principal) | CPT/HCPCS: 95806 ==

== ENCOUNTER 2023-09-19 13:13 | Outpatient (AMB) | payer OTHER, SELFPAY ==
[2023-09-19 13:15] VITALS: BMI 52.1
--- NOTE | 2023-09-19 13:15 | MHC.OFFVIS ---
Vital Signs 09/19/23 13:15 Height 5 ft 2 in Weight 285 lb BMI 52.1 Intake Visit Reasons: Lymphedema clinic Intake Note: follow up bilateral LE swelling, Right LE worse than Left LE, LE swelling, burning and numbness. Started over 2 months ago but states LE swelling is about the same. Accompanied by: Self / Same As Patient Allergies ibuprofen [IBUPROFEN] Allergy (Intermediate, Verified 09/19/23 13:20) SWELLING codeine [CODEINE] Allergy (Unknown, Verified 09/19/23 13:20) ITCHY gabapentin [From Neurontin] Allergy (Unknown, Verified 09/19/23 13:20) anxiety, insomnia, restless/anxiety hydrocodone [From VICODIN] Allergy (Unknown, Verified 09/19/23 13:20) UNKNOWN nabumetone [Nabumetone] Allergy (Unknown, Verified 09/19/23 13:20) swelling, facial swelling Nabumetone Allergy (Unknown, Uncoded 09/19/23 13:20) edema nsaids Allergy (Unknown, Uncoded 09/19/23 13:20) Unknown HPI HPI Lymphedema clinic: Details: 53-year-old Year old patient presents for evaluation of lymphedema. The patient complains of lymphedema located bilateral lower extremity. This has been present for approximately 2 years. Symptoms that the patient has been experiencing include hyperkeratosis hyperpigmentation lymphedema papillomatosis pitting edema recurrent episodes of infection cellulitis pain and wounds. Patient has had a trial of conservative therapy inclusive compression garments of 20-30 mmHg starting on 05/22/2020. In addition the patient has tried exercise limb elevation and home manual lymph decongestive therapy for proximally 30 minutes a day. They have not experienced any significant relief from the swelling and discomfort. They now present for follow-up lymphedema evaluation [facility] Medical History Lumbar stenosis Kidney stones Intermittent explosive disorder Adult ADHD Anxiety and depression Myasthenia gravis Carpal tunnel syndrome Arthritis Fibromyalgia Pseudotumor cerebri Iron deficiency anemia Breast CA Surgical History History of History of tubal ligation History of endometrial ablation Family History Mother Mental health disorder Heart attack CVA (cerebral vascular accident), Onset Age: 50 Breast cancer Sister CVA (cerebral vascular accident), Onset Age: 51 Leukemia Social History Household Members: Children Housing: Apartment Are you a primary urgent care physician assistant to a significant other at home: No Do you presently have visiting nurse or other home services: No Alcohol intake: never Patient Tobacco Use Status: Former Tobacco user Tobacco use type: Cigarette e-Cigarette/Vaping Use: Never Used Second Hand Smoke Exposure: No service: No Current occupational status: employed 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 Current occupational exposures/hazards: No Sexual orientation: Straight/Heterosexual Gender identity: Female Cognitive needs: Yes Hearing needs: No Vision needs: Yes (Pt wears glasses and is up to date.) Review of Systems Const Reports as per HPI ENT Reports no additional complaints Card Denies chest pain, Denies chest pain at rest and Denies chest pain with activity Resp Denies chest congestion and Denies cough GI Reports no additional complaints Musc Details: pain over varicosities, aching of lower extremities, swelling, cramping, heaviness and tiredness, itching Denies abnormal gait Skin/Breast Reports pruritus and Denies wounds Neuro Reports no additional complaints and Denies abnormal gait Psych Denies no additional complaints Physical Exam Vital Signs: BMI result Body Mass Index 52.1 Const General: cooperative, healthy appearing and comfortable Orientation/consciousness: oriented to person, oriented to place and oriented to time Neck Carotids: no bruits Chest Chest palpation & inspection: normal inspection of the chest and normal palpation of entire chest wall Resp Effort & Inspection: normal respiratory effort and able to speak in complete sentences Cardio Rate: regular rate Heart sounds: S1 normal heart sound present and S2 normal heart sound present Peripheral pulses: Peripheral pulses 2+ throughout GI Inspection: Yes normal to inspection Skin Other: +2 edema General skin exam: dry skin Neuro General: oriented to person, oriented to place and oriented to time Extrem Other: Right in cm: Thigh 76 Knee 71.25 Calf 62.5 Ankle 33 Left in cm: Thigh 67.5 Knee 49.25 Calf 58.25 Ankle 36.75 Hip/waist 128.5 Right lower extremity: full ROM, normal capillary refill and edema Left lower extremity: full ROM, normal capillary refill and edema Psych Mental Status: mental status grossly normal Assessment & Plan Assessment & Plan (1) Lymphedema: Code(s): I89.0 - Lymphedema, not elsewhere classified Category: Medical Plan: In short the patient has late on sent lymphedema. The patient has been on conservative treatment for at least 3 months with minimal relief. Patient has tried 30 mm of mercury compression garments, elevation, exercise healthy diet and doing manual says self MLD to the best of their ability for over 4 weeks but with no significant relief. She has been compliant with the program but has provided minimal relief. In addition on physical we are noticing hyperpigmentation, lymphorrhea, and hyperplasia. It appears that she has stage 2 lymphedema. Patient has completed multiple forms of conservative therapy yet significant symptoms remain. Patient requires the use of a pneumatic compression device which we will assist in trying to have the patient obtain them. A pneumatic compression device will help reduce swelling and other lymphedema comorbidities. Thank you for allowing us to assist in this patient's care. Coding Level of Care Code Est Pt Level 4 (06209) Diagnoses Lymphedema I89.0
== END 2023-09-19 14:55 | disposition home or self-care (01) ==
LOC: HO.HVS 13:13
PROVIDERS: PCP Physician Assistant; Visit Provider Surgery Vascular Surgery
DX: I89.0 Lymphedema, not elsewhere classified (principal)
CPT/HCPCS: 99214

== ENCOUNTER → 2023-09-19 13:13 | Outpatient (BNVA) | payer OTHER, SELFPAY | PROVIDERS: PCP Physician Assistant; Visit Provider Surgery Vascular Surgery | DX: I89.0 Lymphedema, not elsewhere classified (principal) | CPT/HCPCS: 99212 ==

== ENCOUNTER 2023-09-22 15:36 | Outpatient (REF) | payer OTHER, SELFPAY ==
--- NOTE | ~2023-09-22 | MM_ITS ---
EXAMINATION: MM SCREENING DIGITAL BREAST TOMOSYNTHESIS, BILATERAL CLINICAL INFORMATION: Screening. Asymptomatic. The patient is status post right breast surgery for DCIS. COMPARISON: Mammography: This study is compared with prior exams dating back to 2019. TECHNIQUE: Digital breast tomosynthesis is performed in both the craniocaudal and mediolateral oblique views along with computer-aided detection (CAD). Synthesized 2D images are generated from the tomosynthesis. FINDINGS: There are scattered areas of fibroglandular density (ACR BI-RADS breast composition Category b). There are no significant masses, abnormal calcifications, or other abnormalities. There is a well-circumscribed hematoma/seroma in the upper outer quadrant of the right breast at approximately the 11:00 location. It occurs in the surgical bed of previously resected right DCIS from 2015. There are few, coarse benign calcifications at the anterosuperior aspect of the treatment bed. All of these findings are benign. There is a tissue marker in the upper outer quadrant of the right breast from prior benign percutaneous biopsy. This is remote from the site of previously treated DCIS. MM/MM tomosynthesis screening BI IMPRESSION: No mammographic evidence of malignancy. ASSESSMENT: BI-RADS BI-RADS 2 - Benign Findings RECOMMENDATION: Routine annual mammography screening. 1 year F/U This examination should not preclude the clinical evaluation of a suspicious palpable abnormality. This patient's information was entered into a reminder system with a target due date for their next mammogram.
== END 2023-09-22 15:37 | disposition home or self-care (01) ==
LOC: HO.MAMMO 15:36
PROVIDERS: PCP Physician Assistant; Visit Provider Physician Assistant
DX: Z12.31 Encounter for screening mammogram for malignant neoplasm of breast (principal)
CPT/HCPCS: 77063; 77067

== ENCOUNTER → 2023-09-22 15:45 | Outpatient (BNV) | payer OTHER, SELFPAY | PROVIDERS: PCP Physician Assistant; Visit Provider Radiology Diagnostic Radiology | DX: Z12.31 Encounter for screening mammogram for malignant neoplasm of breast (principal) | CPT/HCPCS: 77063; 77067 ==

== ENCOUNTER 2023-10-16 23:23 | Emergency (ER) | payer OTHER, SELFPAY ==
[2023-10-16 23:26] VITALS: BP 142/55; PULSE 81; RESP 16; TEMP 36.6; O2SAT 96; BMI 52.5
--- NOTE | 2023-10-17 00:14 | ED_ITS ---
HPI - Skin/Abscess/Foreign Bdy General Chief complaint: Skin/Abscess/Foreign Body Stated complaint: swollen lower right leg , headache Time Seen by Provider: 10/17/23 00:14 Source: patient Mode of arrival: ambulatory Limitations: no limitations History of Present Illness ED Provider: chrissy MCCLELLAN narrative: Patient with chronic lymphedema comes here with increased swelling of the right lower extremity with open wounds patient does scratch her lower extremity and has some open wounds which leaking clear fluids no fever history of same in the past no shortness a breath Related Data Home Medications ?Medication ?Instructions ?Recorded ?Confirmed buprenorphine 8 mg-naloxone 2 mg 3 film sublingual DAILY 05/07/20 07/18/23 sublingual film (Suboxone) sertraline 50 mg tablet 50 mg PO DAILY 09/19/23 Previous Rx's ?Medication ?Instructions ?Recorded walker (Ultra-Light Rollator misc) #1 ea 09/08/21 miscellaneous medical supply 1 ea miscellaneous DAILY 99 days 11/20/21 #2 ea miscellaneous medical supply 2 ea miscellaneous DAILY 99 days 11/20/21 #2 ea miscellaneous medical supply 1 ea miscellaneous DAILY 99 days 12/29/21 #2 ea miscellaneous medical supply 1 ea miscellaneous DAILY 99 days 12/29/21 #2 ea miscellaneous medical supply #1 ea 01/17/23 (Blood Pressure Cuff) furosemide 20 mg tablet (Lasix) 20 mg PO Q OTHER DAY 30 days #15 07/18/23 tabs meclizine 12.5 mg tablet 12.5 mg PO TID PRN dizziness 10 07/18/23 days #30 tabs sertraline 100 mg tablet 100 mg PO DAILY 90 days #90 tabs 07/18/23 ferrous sulfate 325 mg (65 mg 325 mg PO BID #60 tabs 08/30/23 iron) tablet (Feosol) sumatriptan succinate 50 mg tablet See Rx Instructions PO .COMPLEX 30 09/12/23 (Imitrex) days #20 tabs CPAP (CPAP Machine/Device) #1 ea 09/19/23 cephalexin 500 mg capsule 500 mg PO QID 10 days #40 caps 10/17/23 doxycycline hyclate 100 mg tablet 100 mg PO BID #20 tabs 10/17/23 hydrochlorothiazide 50 mg tablet 50 mg PO QAM #90 tabs 10/17/23 Allergies Allergy/AdvReac Type Severity Reaction Status Date / Time ibuprofen [IBUPROFEN] Allergy Intermediate SWELLING Verified 10/16/23 23:31 codeine [CODEINE] Allergy Unknown ITCHY Verified 10/16/23 23:31 gabapentin [From Neurontin] Allergy Unknown anxiety, Verified 10/16/23 23:31 insomnia, restless/anxiety hydrocodone [From VICODIN] Allergy Unknown UNKNOWN Verified 10/16/23 23:31 nabumetone [Nabumetone] Allergy Unknown swelling, Verified 10/16/23 23:31 facial swelling Nabumetone Allergy Unknown edema Uncoded 10/16/23 23:31 nsaids Allergy Unknown Unknown Uncoded 10/16/23 23:31 Review of Systems 2 Review of Systems: Yes all other systems are reviewed and are negative PMFSH Past Medical History Medical History Lumbar stenosis Kidney stones Intermittent explosive disorder Adult ADHD Anxiety and depression Myasthenia gravis Carpal tunnel syndrome Arthritis Fibromyalgia Pseudotumor cerebri Iron deficiency anemia Breast CA Surgical History History of History of tubal ligation History of endometrial ablation Family History Family History Mother Mental health disorder Heart attack CVA (cerebral vascular accident), Onset Age: 50 Breast cancer Sister CVA (cerebral vascular accident), Onset Age: 51 Leukemia Social History Social History Household Members: Children Housing: Apartment Are you a primary primary care sales representative to a significant other at home: No Do you presently have visiting nurse or other home services: No Alcohol intake: never Patient Tobacco Use Status: Former Tobacco user Tobacco use type: Cigarette Smoked in Last 30 Days: No e-Cigarette/Vaping Use: Never Used Second Hand Smoke Exposure: No Use of substances other than those prescribed or required for medical reasons: No Advance Directives: No Advance Directives Information Provided: No Patient : No service: No Current occupational status: employed 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 Oriented X3. No acute distress. Obese ENT: Pharynx normal. Oral Mucosa moist Neck: Normal inspection. Neck supple. CVS: Normal heart rate and rhythm. Pulses normal. Respiratory: No respiratory distress. Equal air entry bilateral, no wheezing/rales/rhonchi Abdomen: Soft and nontender. Bowel sounds are present, no mass palpable, no CVA tenderness Skin: Skin warm and dry. Normal skin color. Normal skin turgor. Extremities: 4+ lower extremity edema. r sol With scratch persaud with open wound with clear fluid leak with surrounding warmth, No calf tenderness Neuro: Oriented X 3. Medications Administered Discontinued Medications Generic Name Dose Route Start Last Admin Trade Name Freq PRN Reason Stop Dose Admin Cephalexin HCl 500 mg 10/17/23 00:22 10/17/23 01:14 Cephalexin 500 Mg Capsule PO 10/17/23 00:23 500 mg ONCE ONE Administration Doxycycline Monohydrate 100 mg 10/17/23 00:22 10/17/23 01:14 Doxycycline Monohydrate 100 Mg Capsule PO 10/17/23 00:23 100 mg ONCE ONE Administration Medical Decision Making Medical Decision Making [facility] Narrative: Patient has chronic lymphedema with infected wounds from scratching will discharge patient home on cephalexin and doxycycline and advised to take hydrochlorothiazide daily no signs of deeper infection Differential Diagnosis Differential Diagnoses: The differential diagnosis associated with the presentation includes Lab Data [facility] Lab Attestation statement: I reviewed the patient's lab results. 10/17/23 00:28 10/17/23 00:28 Labs: Lab Results 10/17/23 Range/Units 00:28 WBC 6.3 (4.8-10.8) X10*3/uL RBC 4.56 (4.20-5.50) X10*6/uL Hgb 10.5 L (12.0-16.0) g/dl Hct 33.5 L (37.0-47.0) % MCV 73.5 L (80.0-98.0) fL MCH 23.0 L (27.0-33.0) pg MCHC 31.3 (31.0-35.0) g/dl RDW 15.5 (11.0-16.0) % Plt Count 245 (160-400) X10*3/uL MPV 9.2 L (9.4-12.3) fL Immature Gran % (Auto) 0.3 (0.0-0.4) % Neut % (Auto) 67.8 (45-73) % Lymph % (Auto) 20.7 (20-40) % Peach % (Auto) 7.8 (2-11) % Eos % (Auto) 2.9 (0-4) % Baso % (Auto) 0.5 (0-2) % Lymph # (Auto) 1.3 (1.2-4.9) X10*3/uL Peach # (Auto) 0.5 (0.1-1.2) X10*3/uL Eos # (Auto) 0.2 (0.0-0.4) X10*3/uL Baso # (Auto) 0.0 (0.0-0.2) X10*3/uL Abs Immat Gran (auto) 0.02 (0.00-0.03) X10*3/uL Absolute Neuts (auto) 4.3 (2.0-8.3) x10*3/uL Absolute Nucleated RBC 0.000 (0.0-0.012) X10*3/uL Nucleated RBC % (auto) 0.0 (0.0-0.2) /100WBC Sodium 141 (135-145) mmol/L Potassium 3.8 (3.3-5.1) mmol/L Chloride 106 (96-108) mmol/L Carbon Dioxide 28 (22-29) mmol/L Anion Gap 11 L (12-20) BUN 15 (9-16) mg/dL Creatinine 0.77 (0.5-1.4) mg/dL Estim Creat Clear Calc 112.1 Estimated GFR > 60 Random Glucose 122 H (60-115) mg/dL Calcium 9.3 (8.4-10.2) mg/dL Total Bilirubin 0.3 (0.0-1.0) mg/dL AST 11 (5-31) U/L ALT 8 (0-31) U/L Alkaline Phosphatase 63 (39-117) U/L B-Natriuretic Peptide 17 (<100) pg/mL Total Protein 7.2 (6.5-8.0) g/dL Albumin 3.7 (3.5-5.0) g/dL Lipase 13 (8-78) U/L Discharge Plan Discharge Clinical Impression: Lymphedema, Cellulitis Patient Disposition: Home, Self-Care Instructions: Cellulitis (ED), Lymphedema (ED) Additional Instructions: Keep your legs elevated, strep scratching your lower extremities Antibiotic as advised Water pill daily Follow with your PCP if not better Prescriptions: New cephalexin 500 mg capsule 500 mg PO QID 10 Days Qty: 40 0RF doxycycline hyclate 100 mg tablet 100 mg PO BID Qty: 20 0RF hydrochlorothiazide 50 mg tablet 50 mg PO QAM Qty: 90 0RF No Action miscellaneous medical supply Misc 2 ea miscellaneous DAILY 99 Days Qty: 2 0RF miscellaneous medical supply Misc 1 ea miscellaneous DAILY 99 Days Qty: 2 0RF miscellaneous medical supply Misc 1 ea miscellaneous DAILY 99 Days Qty: 2 0RF miscellaneous medical supply Misc 1 ea miscellaneous DAILY 99 Days Qty: 2 0RF ferrous sulfate [Feosol] 325 mg (65 mg iron) tablet 325 mg PO BID Qty: 60 1RF sumatriptan succinate [Imitrex] 50 mg tablet See Rx Instructions .ROUTE .COMPLEX 30 Days Qty: 20 8RF Rx Instructions: take 1 tab at onset of headache; if no relief may repeat 1 tab after at least 2 hrs; max = 4 tabs/24 hr (DME) CPAP Machine/Device Device See Rx Instructions .Route Qty: 1 0RF Rx Instructions: Need for auto PAP 6 to 12 cm H20- for nightly lifetime use buprenorphine-naloxone [Suboxone] 8-2 mg film 3 film sublingual DAILY (DME) Blood Pressure Cuff Misc See Rx Instructions .ROUTE .MEDSUPPLY Qty: 1 0RF Rx Instructions: As directed (DME) Ultra-Light Rollator Misc See Rx Instructions .Route Qty: 1 0RF Rx Instructions: As directed meclizine 12.5 mg tablet 12.5 mg PO TID PRN (Reason: dizziness) 10 Days Qty: 30 3RF furosemide [Lasix] 20 mg tablet 20 mg PO Q OTHER DAY 30 Days Qty: 15 1RF sertraline 100 mg tablet 100 mg PO DAILY 90 Days Qty: 90 2RF sertraline 50 mg tablet 50 mg PO DAILY Print Language: Albanian
[2023-10-17 00:33] LABS: Basophils Percent Auto 0.5 % (0-2); Eosinophils Absolute Auto 0.2 X10*3/uL (0.0-0.4); Eosinophils Percent Auto 2.9 % (0-4); Hematocrit 33.5 % (37.0-47.0); Hemoglobin 10.5 g/dl (12.0-16.0); Imm Gran Abs Auto 0.02 X10*3/uL (0.00-0.03); Imm Gran Pct Auto 0.3 % (0.0-0.4); Lymphocytes Absolute Auto 1.3 X10*3/uL (1.2-4.9); Lymphocytes Percent Auto 20.7 % (20-40); MANUAL DIFF FLAG NO; Mean Corpuscular HGB Conc 31.3 g/dl (31.0-35.0); Mean Corpuscular Volume 73.5 fL (80.0-98.0); Mean Platelet Volume 9.2 fL (9.4-12.3); Monocytes Absolute Auto 0.5 X10*3/uL (0.1-1.2); Monocytes Percent Auto 7.8 % (2-11); Neutrophils Absolute Auto 4.3 x10*3/uL (2.0-8.3); Neutrophils Percent Auto 67.8 % (45-73); Platelet Count 245 X10*3/uL (160-400); Red Blood Count 4.56 X10*6/uL (4.20-5.50); Red Cell Distribution Width 15.5 % (11.0-16.0); White Blood Count 6.3 X10*3/uL (4.8-10.8)
[2023-10-17 00:49] LABS: Alanine Aminotransferase 8 U/L (0-31); Albumin Level 3.7 g/dL (3.5-5.0); Alkaline Phosphatase 63 U/L (39-117); Anion Gap 11 (12-20); Aspartate Amino Transferase 11 U/L (5-31); Bilirubin Total 0.3 mg/dL (0.0-1.0); Blood Urea Nitrogen 15 mg/dL (9-16); Calcium 9.3 mg/dL (8.4-10.2); Carbon Dioxide 28 mmol/L (22-29); Chloride 106 mmol/L (96-108); Creatinine Clr Calc Pharmacy 112.1; Estimated Glomerular Filt Rate > 60; Glucose Random 122 mg/dL (60-115); Lipase 13 U/L (8-78); Potassium 3.8 mmol/L (3.3-5.1); Sodium 141 mmol/L (135-145); Total Protein 7.2 g/dL (6.5-8.0)
[2023-10-17 00:52] LABS: B Type Natriuretic Peptide 17 pg/mL (<100)
[2023-10-17] MEDS: cephALEXin 500 MG CAPSULE PO (01:14)
[2023-10-17] MEDS: Doxycycline Monohydrate 100 MG CAPSULE PO (01:14)
[2023-10-17 01:28] VITALS: BP 133/65; PULSE 91; RESP 17; O2SAT 98
[2023-10-17 01:29] VITALS: BP 133/65; PULSE 91; RESP 17; TEMP 37; O2SAT 98
== END 2023-10-17 01:37 | disposition home or self-care (01) ==
PROVIDERS: Emergency Provider Internal Medicine; PCP Physician Assistant
DX: L03.115 Cellulitis of right lower limb (principal); R60.0 Localized edema; R51.9 Headache, unspecified; Z79.899 Other long term (current) drug therapy; Z87.891 Personal history of nicotine dependence
CPT/HCPCS: 36415; 80053; 83690; 83880; 85025; 99283; 99284

== ENCOUNTER 2023-10-28 07:33 | Inpatient (IN) | payer MEDICAID, SELFPAY ==
[2023-10-28] VITALS (8 sets, daily range): BP systolic 112–151; BP diastolic 48–64; PULSE 88–95; RESP 14–20; TEMP 37.1–39.1; O2SAT 88–100; BMI 53.4
--- NOTE | ~2023-10-28 | XR_ITS ---
EXAMINATION: XR CHEST CLINICAL INFORMATION: Fever and cough COMPARISON: Previous chest x-ray most recent July 2023 TECHNIQUE: Frontal view of the chest was obtained. FINDINGS: No significant abnormality is noted involving the heart, lungs, mediastinum, bony thorax or soft tissues. Degenerative changes of the spine. XR/XR chest 1V IMPRESSION: Unremarkable examination.
--- NOTE | 2023-10-28 08:02 | PC.NURSE ---
a&ox4. vss and up to date. nsr on the sql analyst. pt presents to the ED w/ n/v/fever/chills x yesterday. pt denies any associated abd pain/diarrhea/urinary sx. pt verbalizes not taking medications prior to coming in/not monitoring temp. oral temp displays 100.1. pt seemingly diaphoretic/tremulous. no sob/wob noted. respirations even/unlabored. plan of care ongoing. call wells placed within reach.
--- NOTE | 2023-10-28 08:20 | ED.NAVMDI ---
HPI - Nausea/Vomiting/Diarrhea General Chief complaint: General Medical Stated complaint: chills nausea Time Seen by Provider: 10/28/23 07:48 Source: patient and old records reviewed Mode of arrival: ambulatory Limitations: no limitations History of Present Illness ED Provider: JACOB MCCLELLAN Narrative: 53 yo female with PMH of lymphedema, PVD, ANSON, depression, HTN, anxiety, obesity, opiate dependence, anemia here with c/o last night starting with abrupt onset nausea, chills, subjective fever and not feeling well. Denies known cause states she thinks her leg looks the same. She denies travel or sick contacts. Denies vomiting/diarrhea. MD elicited complaint: nausea and vomiting Onset (ago): hour(s) (several) Description of vomiting: watery Associated nausea: Yes Associated abdominal pain: No Severity: moderate Quality: aching Exacerbating factors: movement Relieving factors: none Associated symptoms: fever/chills, loss of appetite, malaise, nausea/vomiting and weakness Related Data Home Medications ?Medication ?Instructions ?Recorded ?Confirmed buprenorphine 8 mg-naloxone 2 mg 3 film sublingual DAILY 05/07/20 07/18/23 sublingual film (Suboxone) sertraline 50 mg tablet 50 mg PO DAILY 09/19/23 Previous Rx's ?Medication ?Instructions ?Recorded walker (Ultra-Light Rollator mis) #1 ea 09/08/21 miscellaneous medical supply 1 ea miscellaneous DAILY 99 days 11/20/21 #2 ea miscellaneous medical supply 2 ea miscellaneous DAILY 99 days 11/20/21 #2 ea miscellaneous medical supply 1 ea miscellaneous DAILY 99 days 12/29/21 #2 ea miscellaneous medical supply 1 ea miscellaneous DAILY 99 days 12/29/21 #2 ea miscellaneous medical supply #1 ea 01/17/23 (Blood Pressure Cuff) furosemide 20 mg tablet (Lasix) 20 mg PO Q OTHER DAY 30 days #15 07/18/23 tabs meclizine 12.5 mg tablet 12.5 mg PO TID PRN dizziness 10 07/18/23 days #30 tabs sertraline 100 mg tablet 100 mg PO DAILY 90 days #90 tabs 07/18/23 ferrous sulfate 325 mg (65 mg 325 mg PO BID #60 tabs 08/30/23 iron) tablet (Feosol) sumatriptan succinate 50 mg tablet See Rx Instructions PO .COMPLEX 30 09/12/23 (Imitrex) days #20 tabs CPAP (CPAP Machine/Device) #1 ea 09/19/23 cephalexin 500 mg capsule 500 mg PO QID 10 days #40 caps 10/17/23 doxycycline hyclate 100 mg tablet 100 mg PO BID #20 tabs 10/17/23 hydrochlorothiazide 50 mg tablet 50 mg PO QAM #90 tabs 10/17/23 Allergies Allergy/AdvReac Type Severity Reaction Status Date / Time ibuprofen [IBUPROFEN] Allergy Intermediate SWELLING Verified 10/28/23 07:56 codeine [CODEINE] Allergy Unknown ITCHY Verified 10/28/23 07:56 gabapentin [From Neurontin] Allergy Unknown anxiety, Verified 10/28/23 07:56 insomnia, restless/anxiety hydrocodone [From VICODIN] Allergy Unknown UNKNOWN Verified 10/28/23 07:56 nabumetone [Nabumetone] Allergy Unknown swelling, Verified 10/28/23 07:56 facial swelling Nabumetone Allergy Unknown edema Uncoded 10/28/23 07:56 nsaids Allergy Unknown Unknown Uncoded 10/28/23 07:56 Review of Systems Review of Systems: Constitutional : pos Fever, pos Chills ENT/Mouth : No sore throat, No Rhinorrhea Eyes: No Eye Pain, No Swelling, No Redness Cardiovascular : No Chest Pain, No SOB Respiratory : No Cough, No Sputum Gastrointestinal : pos Nausea, No Vomiting, No Diarrhea, No abdominal Pain Genitourinary : No Dysuria, No Hematuria Musculoskeletal : No joint pain, No Myalgias, No Joint Swelling Skin : pos Skin Lesions, positive skin rash Neuro : No Weakness, No Numbness, No Headache Psych : No Anxiety, No Depression Heme/Lymph: No Bruising, No Bleeding,No Lymphadenopathy Endocrine : No Polyuria, No Polydipsia All other systems reviewed and are negative Gastrointestinal: Gastrointestinal: Reports nausea PMFSH Past Medical History Attestation statement: The following information was validated with the patient. Source: old records reviewed Medical History Lumbar stenosis Kidney stones Intermittent explosive disorder Adult ADHD Anxiety and depression Myasthenia gravis Carpal tunnel syndrome Arthritis Fibromyalgia Pseudotumor cerebri Iron deficiency anemia Breast CA Surgical History History of History of tubal ligation History of endometrial ablation Family History Family History Mother Mental health disorder Heart attack CVA (cerebral vascular accident), Onset Age: 50 Breast cancer Sister CVA (cerebral vascular accident), Onset Age: 51 Leukemia Social History Social History Household Members: Children Housing: Apartment Are you a primary childcare teacher to a significant other at home: No Do you presently have visiting nurse or other home services: No Alcohol intake: never Patient Tobacco Use Status: Former Tobacco user Tobacco use type: Cigarette e-Cigarette/Vaping Use: Never Used Second Hand Smoke Exposure: No Advance Directives: No Advance Directives Information Provided: No Do you have a plan to hurt others: No Plan service: No Current occupational status: employed 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 Oriented X3. No acute distress. anxious Eyes: Pupils equal, round and reactive to light. ENT: Pharynx normal. Neck: Normal inspection. Neck supple. CVS: Normal heart rate and rhythm. Pulses normal. Respiratory: No respiratory distress. Breath sounds normal. Abdomen: Soft and nontender. Skin: Skin warm and dry. Normal skin color. Normal skin turgor. Extremities: bilateral pitting edema of both legs R leg is very hot to touch with erythema along R anterior sol with lesions on anterior sol no purulence noted no crepitus it is ttp distal NV intact Neuro: Oriented X 3. No motor deficit. No sensory deficit. Medications Administered Discontinued Medications Generic Name Dose Route Start Last Admin Trade Name Freq PRN Reason Stop Dose Admin Acetaminophen 650 mg 10/28/23 08:15 10/28/23 08:58 Acetaminophen 325 Mg Tablet PO 10/28/23 08:16 650 mg ONCE ONE Administration Sodium Chloride 1,000 mls @ 999 mls/hr 10/28/23 08:08 10/28/23 08:58 Ns IV 10/28/23 09:08 999 mls/hr .Q1H1M ONE Administration Piperacillin Sod/Tazobactam 50 mls @ 100 mls/hr 10/28/23 08:15 10/28/23 09:50 Sod 3.375 gm/ Sodium Chloride IV 10/28/23 08:44 Infused ONCE ONE Infusion Ondansetron HCl 4 mg 10/28/23 08:08 10/28/23 08:58 Ondansetron Hcl 4 Mg/2 Ml Vial IVPUSH 10/28/23 08:09 4 mg ONCE ONE Administration Medical Decision Making Medical Decision Making [facility] Narrative: 53 yo female with PMH of lymphedema, PVD, ANSON, depression, HTN, anxiety, obesity, opiate dependence, anemia here with c/o fever, chills and not feeling well she denies travel, tick bites or any localizing symptoms such as resp or urinary at this time her R leg is red and hot to the touch she thinks it looks good but it appears infected to me at this time labs, cultures, IV zosyn, resp panel ordered. Differential Diagnosis Differential Diagnoses: The differential diagnosis associated with the presentation includes viral infection, cellulitis, UTI, pneumonia Admission/Observation Consideration of admission/observation: Escalation of care including admission/observation considered will admit for further workup given fevers, white count, lactic acidosis Consult Healthcare Provider Management of the patient was discussed with: Hospitalist will admit Lab Data [facility] Lab Attestation statement: I reviewed the patient's lab results. 10/28/23 08:56 10/28/23 09:56 Labs: Lab Results 10/28/23 10/28/23 10/28/23 Range/Units 08:56 08:57 09:56 WBC 13.4 H (4.8-10.8) X10*3/uL RBC 5.32 (4.20-5.50) X10*6/uL Hgb 12.1 (12.0-16.0) g/dl Hct 39.2 (37.0-47.0) % MCV 73.7 L (80.0-98.0) fL MCH 22.7 L (27.0-33.0) pg MCHC 30.9 L (31.0-35.0) g/dl RDW 16.3 H (11.0-16.0) % Plt Count 190 (160-400) X10*3/uL MPV 9.4 (9.4-12.3) fL Immature Gran % (Auto) 0.4 (0.0-0.4) % Neut % (Auto) 90.5 H (45-73) % Lymph % (Auto) 3.9 L (20-40) % [place] % (Auto) 4.9 (2-11) % Eos % (Auto) 0.0 (0-4) % Baso % (Auto) 0.3 (0-2) % Lymph # (Auto) 0.5 L (1.2-4.9) X10*3/uL [place] # (Auto) 0.7 (0.1-1.2) X10*3/uL Eos # (Auto) 0.0 (0.0-0.4) X10*3/uL Baso # (Auto) 0.0 (0.0-0.2) X10*3/uL Abs Immat Gran (auto) 0.06 H (0.00-0.03) X10*3/uL Absolute Neuts (auto) 12.1 H (2.0-8.3) x10*3/uL Absolute Nucleated RBC 0.000 (0.0-0.012) X10*3/uL Nucleated RBC % (auto) 0.0 (0.0-0.2) /100WBC Smear Tech's Comments VERIFIED Sodium 137 (135-145) mmol/L Potassium 3.4 (3.3-5.1) mmol/L Chloride 102 (96-108) mmol/L Carbon Dioxide 26 (22-29) mmol/L Anion Gap 12 (12-20) BUN 10 (9-16) mg/dL Creatinine 0.72 (0.5-1.4) mg/dL Estim Creat Clear Calc 121.1 Estimated GFR > 60 Random Glucose 122 H (60-115) mg/dL Lactic Acid 2.6 H* (0.5-2.0) mmol/L Calcium 8.6 D (8.4-10.2) mg/dL Magnesium 1.6 (1.6-2.6) mg/dL Total Bilirubin 0.5 (0.0-1.0) mg/dL Direct Bilirubin 0.2 (0.0-0.5) mg/dL AST 12 (5-31) U/L ALT 5 (0-31) U/L Alkaline Phosphatase 48 (39-117) U/L Total Protein 7.0 (6.5-8.0) g/dL Albumin 3.5 (3.5-5.0) g/dL Lipase 6 L (8-78) U/L Urine Color Yellow Urine Appearance Clear Urine pH 7.0 (5.0-9.0) Ur Specific [place] 1.020 (1.005-1.025) Urine Protein 300 (3+) H (Neg-Trace) mg/dL Urine Glucose (UA) Negative (Negative) mg/dL Urine Ketones 15 (Negative) mg/dL Urine Blood Small (1+) H (Negative) Urine Nitrite Negative (Negative) Ur Leukocyte Esterase Negative (Negative) Urine RBC 0-2 (0-2) /HPF Urine WBC 0-5 (0-5) /HPF Ur Squamous Epith Cells 0-2 (0-2) /HPF Urine Bacteria None Seen (None Seen) Hyaline Casts 0-2 (0-2) /LPF Influenza Type A (PCR) NEGATIVE (Negative) Influenza Type B (PCR) NEGATIVE (Negative) RSV RNA Qual (PCR) NEGATIVE (Negative) SARS-CoV-2 RNA (RT-PCR) NEGATIVE (Negative) Independent Interpretation I performed an independent interpretation of an: Plain X-Ray (normal ) Radiology Impression Discussion of test interpretation with radiology: I have reviewed the radiologist's reading. External Record Review External record reviewed: Inpatient record Discharge Plan Discharge Clinical Impression: Fever, Acidosis, lactic, Elevated WBC count, Cellulitis Patient Disposition: Admitted As Inpatient Prescriptions: No Action miscellaneous medical supply Misc 2 ea miscellaneous DAILY 99 Days Qty: 2 0RF miscellaneous medical supply Misc 1 ea miscellaneous DAILY 99 Days Qty: 2 0RF miscellaneous medical supply Misc 1 ea miscellaneous DAILY 99 Days Qty: 2 0RF miscellaneous medical supply Misc 1 ea miscellaneous DAILY 99 Days Qty: 2 0RF ferrous sulfate [Feosol] 325 mg (65 mg iron) tablet 325 mg PO BID Qty: 60 1RF sumatriptan succinate [Imitrex] 50 mg tablet See Rx Instructions .ROUTE .COMPLEX 30 Days Qty: 20 8RF Rx Instructions: take 1 tab at onset of headache; if no relief may repeat 1 tab after at least 2 hrs; max = 4 tabs/24 hr (DME) CPAP Machine/Device Device See Rx Instructions .Route Qty: 1 0RF Rx Instructions: Need for auto PAP 6 to 12 cm H20- for nightly lifetime use cephalexin 500 mg capsule 500 mg PO QID 10 Days Qty: 40 0RF doxycycline hyclate 100 mg tablet 100 mg PO BID Qty: 20 0RF hydrochlorothiazide 50 mg tablet 50 mg PO QAM Qty: 90 0RF buprenorphine-naloxone [Suboxone] 8-2 mg film 3 film sublingual DAILY (DME) Blood Pressure Cuff Misc See Rx Instructions .ROUTE .MEDSUPPLY Qty: 1 0RF Rx Instructions: As directed (DME) Ultra-Light Rollator Misc See Rx Instructions .Route Qty: 1 0RF Rx Instructions: As directed meclizine 12.5 mg tablet 12.5 mg PO TID PRN (Reason: dizziness) 10 Days Qty: 30 3RF furosemide [Lasix] 20 mg tablet 20 mg PO Q OTHER DAY 30 Days Qty: 15 1RF sertraline 100 mg tablet 100 mg PO DAILY 90 Days Qty: 90 2RF sertraline 50 mg tablet 50 mg PO DAILY Print Language: Angolan
[2023-10-28] MEDS: ondansetron HCL 4 MG/2 ML VIAL IVPUSH (08:58)
[2023-10-28] MEDS: Acetaminophen 325 MG TABLET 650 MG PO ×2 (08:58→21:41)
[2023-10-28] MEDS: 0.9 % Sodium Chloride 1,000 ML 999 ML IV (08:58)
[2023-10-28 09:08] LABS: Basophils Percent Auto 0.3 % (0-2); Hematocrit 39.2 % (37.0-47.0); Hemoglobin 12.1 g/dl (12.0-16.0); Imm Gran Abs Auto 0.06 X10*3/uL (0.00-0.03); Imm Gran Pct Auto 0.4 % (0.0-0.4); Lymphocytes Absolute Auto 0.5 X10*3/uL (1.2-4.9); Lymphocytes Percent Auto 3.9 % (20-40); MANUAL DIFF FLAG SCAN; Mean Corpuscular HGB Conc 30.9 g/dl (31.0-35.0); Mean Corpuscular Hemoglobin 22.7 pg (27.0-33.0); Mean Corpuscular Volume 73.7 fL (80.0-98.0); Mean Platelet Volume 9.4 fL (9.4-12.3); Monocytes Absolute Auto 0.7 X10*3/uL (0.1-1.2); Monocytes Percent Auto 4.9 % (2-11); Neutrophils Absolute Auto 12.1 x10*3/uL (2.0-8.3); Neutrophils Percent Auto 90.5 % (45-73); Platelet Count 190 X10*3/uL (160-400); Red Blood Count 5.32 X10*6/uL (4.20-5.50); Red Cell Distribution Width 16.3 % (11.0-16.0); SCAN SMEAR FLAG 1; White Blood Count 13.4 X10*3/uL (4.8-10.8)
[2023-10-28 09:09] LABS: Appearance Urine Clear; Color Urine Yellow; Glucose Urine UA Negative (Negative); Leukocyte Esterase Urine Negative (Negative); Nitrite Urine Negative (Negative); UMIC TRIGGER UACC YES; Urine Blood Small (1+) (Negative); Urine Ketones 15 mg/dL (Negative); Urine Protein 300 (3+) mg/dL (Neg-Trace)
[2023-10-28] MEDS: Piperacillin Sodium/Tazobactam 3.375 GM in 0.9 % Sodium Chloride 50 ML IV ×3 (09:20→21:41)
--- NOTE | 2023-10-28 09:20 | PC.NURSE ---
222gIV placed in the right hand. IVF administered per provider order. delay in abx administration d/t pt being difficult stikc/obtaining cultures. abx now administered per provider order.
[2023-10-28 09:26] LABS: Bacteria Urine None Seen (None Seen); Hyaline Casts Urine 0-2 /LPF (0-2); RBC Urine 0-2 /HPF (0-2); Squamous Epithelial Cell Urine 0-2 /HPF (0-2); WBC Urine 0-5 /HPF (0-5)
--- NOTE | 2023-10-28 09:28 | PC.NURSE ---
when changing pt into hospital attire - LE noticeable swollen. 3+ pitting edema in LE bilaterally. pt's RLE displays w/ erythema, taught skin, hot to the touch. noticeable temperature difference between LE bilaterally. pt verbalizing she has lymphedema. slight drainage noted from multiple sites on LE. foul odor present. tender to the touch. provider aware.
[2023-10-28 09:31] LABS: SLIDE REVIEW VERIFIED
[2023-10-28 09:40] LABS: Lactic Acid 2.6 mmol/L (0.5-2.0)
[2023-10-28 09:54] LABS: Influenza A PCR NEGATIVE (Negative); Influenza B PCR NEGATIVE (Negative); Resp Syncy Virus RNA Qual PCR NEGATIVE (Negative); SARS COV2 PCR INHOUSE NEGATIVE (Negative)
--- NOTE | 2023-10-28 09:54 | PC.NURSE ---
labs hemolyzed. tech reobtaining labs at this time.
[2023-10-28 10:17] LABS: Alanine Aminotransferase 5 U/L (0-31); Albumin Level 3.5 g/dL (3.5-5.0); Alkaline Phosphatase 48 U/L (39-117); Anion Gap 12 (12-20); Aspartate Amino Transferase 12 U/L (5-31); Bilirubin Direct 0.2 mg/dL (0.0-0.5); Bilirubin Total 0.5 mg/dL (0.0-1.0); Blood Urea Nitrogen 10 mg/dL (9-16); Calcium 8.6 mg/dL (8.4-10.2); Carbon Dioxide 26 mmol/L (22-29); Chloride 102 mmol/L (96-108); Creatinine Clr Calc Pharmacy 121.1; Estimated Glomerular Filt Rate > 60; Glucose Random 122 mg/dL (60-115); Lipase 6 U/L (8-78); Magnesium 1.6 mg/dL (1.6-2.6); Potassium 3.4 mmol/L (3.3-5.1); Sodium 137 mmol/L (135-145)
--- NOTE | 2023-10-28 10:21 | PC.NURSE ---
pt noted to be on 87%-88% on RA. pt seemingly sleepy. has hx of ANSON. pt denies any drug use but verbalizes taking 8mg suboxone this morning. pt placed on 2L via NC w/ good effect. resting at 97%. no sob/wob noted. respirations even/unlabored. lung sounds CTA. pt repositioned upright to promote patent airway. pt also more febrile despite previous tylneol administration. provider notified/aware of all findings.
[2023-10-28] MEDS: vancomycin/NS 2,000 MG/500 ML PLAST..BAG 250 MG IV (10:34)
[2023-10-28 10:52] LABS: Amphetamine Screen Urine Not Detected (Not Detect); Barbiturates, Urine Not Detected (Not Detect); Benzodiazepines Screen Urine Not Detected (Not Detect); Buprenorphine Scr Positive (Not Detect); Cannabinoid Screen Urine Not Detected (Not Detect); Cocaine Screen Urine Not Detected (Not Detect); Fentanyl, urine Not Detected (Not Detect); Methadone Screen, Urine Not Detected (Not Detect); Opiate Screen Urine Not Detected (Not Detect); Oxycodone Screen Urine Not Detected (Not Detect); Phencyclidine Screen Urine Not Detected (Not Detect)
[2023-10-28 11:04] LABS: Reflex Lactate? Lactic Acid Added
[2023-10-28 11:21] LABS: Venous Blood Gas Refer to POC result
[2023-10-28 11:21] LABS: VBG Base Excess 3.3 mmol/L; VBG HCO3 27 mmol/L (22-26); VBG pCO2 39 mmHg; VBG pH 7.44 (7.32-7.43); VBG pO2 67 mmHg
--- NOTE | 2023-10-28 12:14 | PM.IMHP ---
History of Present Illness Date of Service: 10/28/23 Attending physician on admission: Bethanie Wilson Chief Complaint: Nausea, chills Pt is a 53-year-old female with a PMH significant for?HTN, PVD, lymphedema, hx of breast cancer, ANSON on CPAP, opiate use disorder on Suboxone, anxiety, and depression who presents to the ED for evaluation of sudden onset dizziness, chills, and nausea since yesterday. Patient reports symptoms began yesterday afternoon. [place] feverish, but did not measure temperature. Has not experienced vomiting or abdominal pain. No known sick contacts. Chronic pain in legs at baseline. Denies any injury or trauma to her lower extremities or change in their appearance. Symptoms persisted this morning and patient decided to come to the emergency room for further evaluation. No chest pain/pressure, palpitations. Denies shortness of breath, difficulty breathing, cough. No headache. No changes to bowel or bladder habits. ? In the ED pt was febrile up to 102.4, with elevated HR of 95, and desatting as low as 88% on RA while asleep. Labs were significant for leukocytosis of 13.4 and lactic acid 2.6 with repeat 1.0 after fluids, otherwise grossly unremarkable. Stable H&H. No significant electrolyte abnormalities. Renal and hepatic function WNL. UA negative for UTI. Tested negative for flu, COVID, RSV. CXR showed no acute cardiopulmonary disease. Pt was treated with IVF, ondansetron, acetaminophen, Zosyn and vancomycin. Pt will be admitted to the hospital for treatment and further evaluation of right lower leg cellulitis with sepsis. Review of Systems Review of Systems: Nausea with no vomiting Dizziness, lightheadedness Subjective fever and chills Chronic lower extremity pain at baseline Denies shortness of breath or difficulty breathing No chest pain/pressure, palpitations Denies abdominal pain No changes to [facility] Medical History Lumbar stenosis Kidney stones Intermittent explosive disorder Adult ADHD Anxiety and depression Myasthenia gravis Carpal tunnel syndrome Arthritis Fibromyalgia Pseudotumor cerebri Iron deficiency anemia Breast CA Family History Mother Mental health disorder Heart attack CVA (cerebral vascular accident), Onset Age: 50 Breast cancer Sister CVA (cerebral vascular accident), Onset Age: 51 Leukemia Surgical History History of History of tubal ligation History of endometrial ablation Social History Household Members: Children Housing: Apartment Are you a primary transitional care nurse to a significant other at home: No Do you presently have visiting nurse or other home services: No Alcohol intake: never Patient Tobacco Use Status: Former Tobacco user Tobacco use type: Cigarette e-Cigarette/Vaping Use: Never Used Second Hand Smoke Exposure: No Advance Directives: No Advance Directives Information Provided: No Do you have a plan to hurt others: No Plan service: No Current occupational status: employed Current occupation: [employer] Current occupational exposures/hazards: No Sexual orientation: Straight/Heterosexual Gender identity: Female Cognitive needs: Yes Hearing needs: No Vision needs: Yes (Pt wears glasses and is up to date.) Meds Allergies Allergy/AdvReac Type Severity Reaction Status Date / Time ibuprofen [IBUPROFEN] Allergy Intermediate SWELLING Verified 10/28/23 07:56 codeine [CODEINE] Allergy Unknown ITCHY Verified 10/28/23 07:56 gabapentin [From Neurontin] Allergy Unknown anxiety, Verified 10/28/23 07:56 insomnia, restless/anxiety hydrocodone [From VICODIN] Allergy Unknown UNKNOWN Verified 10/28/23 07:56 nabumetone [Nabumetone] Allergy Unknown swelling, Verified 10/28/23 07:56 facial swelling Nabumetone Allergy Unknown edema Uncoded 10/28/23 07:56 nsaids Allergy Unknown Unknown Uncoded 10/28/23 07:56 Active Medications: Current Medications Vancomycin HCl (Vancomycin/Ns) 2,000 mg in 500 mls @ 250 mls/hr IV ONCE ONE Stop: 10/28/23 12:19 Last Admin: 10/28/23 10:34 Dose: 250 mls/hr Home Medications ?Medication ?Instructions ?Recorded ?Confirmed ?Last Taken ?Type buprenorphine 8 mg-naloxone 2 mg 3 film sublingual DAILY 05/07/20 07/18/23 Unknown History sublingual film (Suboxone) sertraline 50 mg tablet 50 mg PO DAILY 09/19/23 Unknown History Physical Exam Vital Signs and Narrative: Vital Signs: Last Vital Signs Temp 102.4 F H 10/28/23 10:16 Pulse 95 10/28/23 10:16 Resp 14 10/28/23 10:16 BP 120/48 L 10/28/23 10:16 Pulse Ox 97 10/28/23 10:20 O2 Del Method Nasal Cannula 10/28/23 10:20 O2 Flow Rate 2 10/28/23 10:20 BMI result Body Mass Index 53.4 Constitutional: Alert, in no acute distress. Mental Status: Oriented to person, place and time. Eyes: Pupils are equal, round, and reactive to light. Ear, Nose, and Throat: Oropharynx clear, mucous membranes moist. Ears and nose without deformities. Trachea midline. Respiratory: Clear to auscultation bilaterally. No wheezing, rales, or rhonchi. Cardiovascular: S1, S2 regular. No murmurs, rubs, or gallops. Gastrointestinal: Abdomen soft, non-tender, non-distended. Normal bowel sounds. Neurologic: Cranial nerves II-XII are grossly intact bilaterally. No focal neurological deficits. Moves all extremities spontaneously. Extremities: Chronic lymphedema with bilateral pitting edema. Right leg with warmth and erythema covering entire lower extremity below-knee and extending laterally up to groin. Multiple small weeping vesicles and ulcerations in various states of healing. As pictured below. Psychiatric: Normal mood and affect. Results Labs 10/28/23 08:56 10/28/23 09:56 Labs: Laboratory Results - last 24 hr 10/28/23 10/28/23 10/28/23 08:56 08:57 09:56 MCV 73.7 L MCH 22.7 L MCHC 30.9 L RDW 16.3 H Plt Count 190 MPV 9.4 Immature Gran % (Auto) 0.4 Neut % (Auto) 90.5 H Lymph % (Auto) 3.9 L [place] % (Auto) 4.9 Eos % (Auto) 0.0 Baso % (Auto) 0.3 Lymph # (Auto) 0.5 L [place] # (Auto) 0.7 Eos # (Auto) 0.0 Baso # (Auto) 0.0 Abs Immat Gran (auto) 0.06 H Absolute Neuts (auto) 12.1 H Absolute Nucleated RBC 0.000 Nucleated RBC % (auto) 0.0 Smear Tech's Comments VERIFIED VBG pH VBG pCO2 VBG pO2 VBG HCO3 VBG O2 Saturation VBG Base Excess Anion Gap 12 Estim Creat Clear Calc 121.1 Estimated GFR > 60 Random Glucose 122 H Lactic Acid 2.6 H* Lactic Acid F/U @ 2Hr Calcium 8.6 D Magnesium 1.6 Total Bilirubin 0.5 Direct Bilirubin 0.2 AST 12 ALT 5 Alkaline Phosphatase 48 Total Protein 7.0 Albumin 3.5 Lipase 6 L Urine Color Yellow Urine Appearance Clear Urine pH 7.0 Ur Specific [place] 1.020 Urine Protein 300 (3+) H Urine Glucose (UA) Negative Urine Ketones 15 Urine Blood Small (1+) H Urine Nitrite Negative Ur Leukocyte Esterase Negative Urine RBC 0-2 Urine WBC 0-5 Ur Squamous Epith Cells 0-2 Urine Bacteria None Seen Hyaline Casts 0-2 Urine Opiates Screen Ur Buprenorphine Scrn Ur Oxycodone Screen Urine Methadone Screen Urine Fentanyl Screen Ur Barbiturates Screen Ur Phencyclidine Scrn Ur Amphetamines Screen U Benzodiazepines Scrn Urine Cocaine Screen U Marijuana (THC) Screen Influenza Type A (PCR) NEGATIVE Influenza Type B (PCR) NEGATIVE RSV RNA Qual (PCR) NEGATIVE SARS-CoV-2 RNA (RT-PCR) NEGATIVE 10/28/23 10/28/23 10/28/23 11:13 11:15 Unknown MCV MCH MCHC RDW Plt Count MPV Immature Gran % (Auto) Neut % (Auto) Lymph % (Auto) [place] % (Auto) Eos % (Auto) Baso % (Auto) Lymph # (Auto) [place] # (Auto) Eos # (Auto) Baso # (Auto) Abs Immat Gran (auto) Absolute Neuts (auto) Absolute Nucleated RBC Nucleated RBC % (auto) Smear Tech's Comments VBG pH 7.44 H VBG pCO2 39 VBG pO2 67 VBG HCO3 27 H VBG O2 Saturation 93.0 VBG Base Excess 3.3 Anion Gap Estim Creat Clear Calc Estimated GFR Random Glucose Lactic Acid Lactic Acid F/U @ 2Hr 1.0 Calcium Magnesium Total Bilirubin Direct Bilirubin AST ALT Alkaline Phosphatase Total Protein Albumin Lipase Urine Color Urine Appearance Urine pH Ur Specific [place] Urine Protein Urine Glucose (UA) Urine Ketones Urine Blood Urine Nitrite Ur Leukocyte Esterase Urine RBC Urine WBC Ur Squamous Epith Cells Urine Bacteria Hyaline Casts Urine Opiates Screen Not Detected Ur Buprenorphine Scrn Positive H Ur Oxycodone Screen Not Detected Urine Methadone Screen Not Detected Urine Fentanyl Screen Not Detected Ur Barbiturates Screen Not Detected Ur Phencyclidine Scrn Not Detected Ur Amphetamines Screen Not Detected U Benzodiazepines Scrn Not Detected Urine Cocaine Screen Not Detected U Marijuana (THC) Screen Not Detected Influenza Type A (PCR) Influenza Type B (PCR) RSV RNA Qual (PCR) SARS-CoV-2 RNA (RT-PCR) Imaging Radiologist's Impressions: Impressions Chest X-Ray 10/28/23 09:29 IMPRESSION: Unremarkable examination. Assessment and Plan (1) Cellulitis: Qualifiers: Laterality: right Status: Acute Plan Pt is a 53-year-old female with a PMH significant for?HTN, PVD, lymphedema, hx of breast cancer, ANSON on CPAP, opiate use disorder on Suboxone, anxiety, and depression who presents to the ED for evaluation of sudden onset dizziness, chills, and nausea since yesterday. Pt will be admitted to the hospital for treatment and further evaluation of right lower leg cellulitis with sepsis. Right leg cellulitis with sepsis Patient with nausea, dizziness, fever, chills, erythema and warmth Meets sepsis criteria: Fever, tachycardia, leukocytosis; lactic acid 2.6 repeat 1.0 after IVF Patient given fluids and started on broad-spectrum antibiotics in the ED Will treat with vancomycin and Zosyn, started 10/28/2023 Follow cultures Chronic lymphedema BP slightly soft, will hold diuretics for now Resume diuretics as warranted Opiate use disorder Continue Suboxone Mood disorder Continue home mood stabilizers ANSON CPAP at night Obesity Class III Weight loss encouraged Full Code Attending:?Dr. Wilson DVT Prophylaxis: Lovenox Pt will require a hospitalization of at least two nights for treatment of?right leg cellulitis with sepsis. Patient will require administration of IV antibiotics while awaiting cultures. Quality Stroke Does the patient have a stroke diagnosis?: No VTE Prior VTE?: No VTE Risk Level:: Medical - moderate - high VTE Device Contraindication: Treatment Not Indicated VTE Drug Contraindication: N/A - Med Ordered
--- NOTE | 2023-10-28 13:30 | PC.NURSE ---
pt spoke w/ admitting provider in regards to being admitted at this time. pt resting in no apparent distress. remains on 2L via NC. no sob/wob noted. respirations even/unlabored. plan of care ongoing.
[2023-10-28] MEDS: Enoxaparin Sodium 40 MG/0.4 ML SYRINGE SUBCUT (13:46)
--- NOTE | 2023-10-28 14:06 | PHA.MEDREC ---
Pharmacy Consult ? Medication Reconciliation Pharmacy has completed the medication reconciliation. Spoke to patient to confirm med list Patient states she is no longer taking Furosemide 20 mg every other day, Hctz 50 mg daily. Patients says Sertraline 50 mg daily was changed 100 mg daily.
[2023-10-28] MEDS: Buprenorphine/Naloxone 8/2 mg FILM 3 FILM SUBLINGUAL (17:36)
[2023-10-28] MEDS: Sertraline HCL 100 MG TABLET PO (17:48)
[2023-10-28] MEDS: Ferrous Sulfate 324 MG TABLET.DR PO (21:42)
[2023-10-28] MEDS: 0.9 % Sodium Chloride Flush 3 ML SYRINGE IVFLUSH (21:42)
[2023-10-28] MEDS: vancomycin HCL 1,000 MG in 0.9 % Sodium Chloride 250 ML 270 MG IV (23:02)
--- NOTE | 2023-10-29 00:55 | PC.NURSE ---
Addendum entered by Luciana Davalos RN 10/29/23 01:15: RT was paged, CPAP was provided and pt tolerated. Original Note: Pt seen on bed, drowsy but respond appropriately when spoken to, also noted with mild fever of 99.9, O2 sats at 90-92% RA, O2 at 2L/min via NC applied, pt family at bedside and observed pt as having new episodes of random and slight head and arm twitching while asleep and snoring, Dr. Hernadez was made aware, pt has chronic back pain 01/09 and SANCHEZ, preferred to take Tylenol 650 mg po, pt rested after.
[2023-10-29 03:10] VITALS: BP 133/64; PULSE 76; RESP 18; TEMP 36.2; O2SAT 96
[2023-10-29] MEDS: Piperacillin Sodium/Tazobactam 3.375 GM in 0.9 % Sodium Chloride 50 ML IV ×4 (04:14→21:39)
[2023-10-29] MEDS: Acetaminophen 325 MG TABLET 650 MG PO (04:19)
[2023-10-29 06:25] LABS: Hematocrit 29.5 % (37.0-47.0); Hemoglobin 9.3 g/dl (12.0-16.0); Mean Corpuscular HGB Conc 31.5 g/dl (31.0-35.0); Mean Corpuscular Hemoglobin 23.2 pg (27.0-33.0); Mean Corpuscular Volume 73.6 fL (80.0-98.0); Mean Platelet Volume 10.1 fL (9.4-12.3); Platelet Count 168 X10*3/uL (160-400); Red Blood Count 4.01 X10*6/uL (4.20-5.50); Red Cell Distribution Width 16.4 % (11.0-16.0); White Blood Count 8.6 X10*3/uL (4.8-10.8)
[2023-10-29 06:43] LABS: Anion Gap 11 (12-20); Blood Urea Nitrogen 9 mg/dL (9-16); Calcium 8.4 mg/dL (8.4-10.2); Carbon Dioxide 27 mmol/L (22-29); Chloride 103 mmol/L (96-108); Creatinine Clr Calc Pharmacy 132.1; Estimated Glomerular Filt Rate > 60; Glucose Random 112 mg/dL (60-115); Magnesium 1.9 mg/dL (1.6-2.6); Potassium 3.3 mmol/L (3.3-5.1); Sodium 138 mmol/L (135-145)
[2023-10-29 07:20] VITALS: BP 121/57; PULSE 67; RESP 16; TEMP 36; O2SAT 96
[2023-10-29] MEDS: Buprenorphine/Naloxone 8/2 mg FILM 3 FILM SUBLINGUAL (09:08)
[2023-10-29] MEDS: Sertraline HCL 100 MG TABLET PO (09:08)
[2023-10-29] MEDS: Ferrous Sulfate 324 MG TABLET.DR PO ×2 (09:08→21:39)
[2023-10-29] MEDS: 0.9 % Sodium Chloride Flush 3 ML SYRINGE IVFLUSH ×3 (09:09→21:39)
[2023-10-29] MEDS: vancomycin HCL 1,000 MG in 0.9 % Sodium Chloride 250 ML 270 MG IV (10:31)
--- NOTE | 2023-10-29 12:08 | P.PNIM_ITS ---
Subjective Subjective Date of Service: 10/29/23 Interval History: Being followed for sepsis due to right lower extremity cellulitis. Feeling better this morning denies fever, no chills, feels right leg swelling has improved, no nausea no vomiting tolerating diet slept well no acute events overnight. Review of Systems All other system reviewed and negative. Physical Exam 2 Vital Signs: Vital Signs: Last Vital Signs Temp 96.8 F 10/29/23 07:20 Pulse 67 10/29/23 07:20 Resp 16 10/29/23 07:20 BP 121/57 L 10/29/23 07:20 Pulse Ox 96 10/29/23 07:20 O2 Del Method Room Air 10/29/23 07:20 O2 Flow Rate 2 10/28/23 13:07 BMI result Body Mass Index 53.4 Const: Other: General alert orie nted x3,no acute d istress. Neck mohamud pple no JVD. CVS regular rate rhyth m, Respiratory shazia gs clear to auscul tation, no respira tory distress, no wheeze, no rhonchi . Gastrointestinal abdomen soft, non tender, bowel jimenez nds audible, no gu arding , no rigidi ty. Extremities ri ght lower extremit y, swollen, hypere jennifer extending to k nee and medial thi gh,with dry scabs, no fluctuation no open wounds Neuro non focal , speec h clear. Skin pall or Psych appropria te affect Objective Data Active Medications Acetaminophen (Acetaminophen 325 Mg Tablet) 650 mg PO Q6H PRN PRN Reason: Pain, Mild (Pain Scale 1-3), fever or headache Last Admin: 10/29/23 04:19 Dose: 650 mg Documented By: CASTILM Benzonatate (Benzonatate 100 Mg Capsule) 100 mg PO TID PRN PRN Reason: Cough Buprenorphine/Naloxone (Buprenorphine/Naloxone 8/2 Mg Film) 3 film SUBLINGUAL DAILY [facility] Last Admin: 10/29/23 09:08 Dose: 3 film Documented By: ROCAEL Calcium Carbonate (Calcium Carbonate 750 Mg Tab.Chew) 750 mg PO Q4H PRN PRN Reason: Heartburn Enoxaparin Sodium (Enoxaparin Sodium 40 Mg/0.4 Ml Syringe) 40 mg SUBCUT Q24H [facility] Last Admin: 10/28/23 13:46 Dose: 40 mg Documented By: ARY Ferrous Sulfate (Ferrous Sulfate 324 Mg Tablet.) 324 mg PO BID [facility] Last Admin: 10/29/23 09:08 Dose: 324 mg Documented By: ROCAEL Piperacillin Sod/Tazobactam (Sod 3.375 gm/ Sodium Chloride) 50 mls @ 100 mls/hr IV Q6H [facility] Last Infusion: 10/29/23 10:08 Dose: Infused Documented By: ROCAEL Vancomycin HCl 1,000 mg/ (Sodium Chloride) 270 mls @ 270 mls/hr IV Q12H [facility] Last Infusion: 10/29/23 11:39 Dose: Infused Documented By: ROCAEL Meclizine HCl (Meclizine Hcl 12.5 Mg Tablet) 12.5 mg PO TID PRN PRN Reason: dizziness Melatonin (Melatonin 3 Mg Tablet) 6 mg PO BEDTIME PRN PRN Reason: Insomnia Ondansetron HCl (Ondansetron Hcl 4 Mg/2 Ml Vial) 4 mg IVPUSH Q8H PRN PRN Reason: Nausea and Vomiting Pharmacy Consult (Consult Rx Vancomycin Dosing) 1 each MISCELLANE DAILY PRN PRN Reason: Consult order Polyethylene Glycol (Polyethylene Glycol 3350 17 Gm Powd.Pack) 17 gm PO DAILY PRN PRN Reason: Constipation Sertraline HCl (Sertraline Hcl 100 Mg Tablet) 100 mg PO DAILY [facility] Last Admin: 10/29/23 09:08 Dose: 100 mg Documented By: ROCAEL Sodium Chloride (0.9 % Sodium Chloride Flush 3 Ml Syringe) 3 ml IVFLUSH QSHIFT [facility] Last Admin: 10/29/23 09:09 Dose: 3 ml Documented By: ROCAEL Sumatriptan Succinate (Sumatriptan Succinate 50 Mg Tablet) 50 mg PO DAILY PRN PRN Reason: Headache Labs 10/29/23 05:21 10/29/23 05:21 Labs: Laboratory Results - last 24 hr 10/29/23 05:21 MCV 73.6 L MCH 23.2 L MCHC 31.5 RDW 16.4 H Plt Count 168 MPV 10.1 Absolute Nucleated RBC 0.000 Nucleated RBC % (auto) 0.0 Anion Gap 11 L Estim Creat Clear Calc 132.1 Estimated GFR > 60 Random Glucose 112 Calcium 8.4 Magnesium 1.9 Microbiology Microbiology Results: Microbiology 10/28/23 09:08 Blood Culture - Final Blood - Venous Strep agalactiae (Grp B) 10/28/23 08:56 Blood Culture - Final Blood - Venous Strep agalactiae (Grp B) Assessment and Plan (1) Cellulitis: Status: Acute (2) Gram-positive bacteremia: Status: Acute Plan 53-year-old female with a PMH significant for?HTN, PVD, lymphedema, hx of breast cancer, ANSON on CPAP, opiate use disorder on Suboxone, anxiety, and depression who presents to the ED for evaluation of sudden onset dizziness, chills, and nausea since yesterday. Pt will be admitted to the hospital for treatment and further evaluation of right lower leg cellulitis with sepsis. Acute extensive Right leg cellulitis with sepsis Nausea dizziness and fever resolved, persistent right lower extremity erythema and warmth extending to medial thigh All symptoms of sepsis resolved, WBC and lactic acid normalized Continue IV vancomycin and Zosyn, started 10/28/2023 Blood cultures x2 positive for Gram-positive cocci and change follow final sensitivities Chronic lymphedema BP slightly soft, hold diuretics for now,resume diuretics as warranted Acute on chronic microcytic anemia due to chronic iron deficiency anemia related to heavy periods, worse due to infection ,cont. iron supplements. Opiate use disorder Continue Suboxone Mood disorder Continue home mood stabilizers ANSON CPAP at night Obesity Class III Weight loss encouraged Full Code DVT Prophylaxis: Lovenox Patient will require continued inpatient hospitalization for treatment of?right leg cellulitis with sepsis and bacteremia requiring IV antibiotics and close clinical follow-up Quality Stroke Does the patient have a stroke diagnosis?: No VTE Prior VTE?: No VTE Risk Level:: Medical - moderate - high VTE Device Contraindication: Treatment Not Indicated VTE Drug Contraindication: N/A - Med Ordered
[2023-10-29] MEDS: Enoxaparin Sodium 40 MG/0.4 ML SYRINGE SUBCUT (12:27)
--- NOTE | 2023-10-29 12:31 | MHC.CM.PN ---
PT REPORTS SHE LIVES WITH HER ADULT SON SHE IS INDEPENDENT WITH CARE AND USES A CPAP AND ROLLATOR FOR DME SHE SAYS SHE HAS A HCP AT [facility] PCP: DAVID ALVARADO DCP: HOME ? [facility] REF TO [facility] PER PT PREFERENCE PT TO ARRANGE TRANSPORT
[2023-10-29 15:27] VITALS: BP 107/53; PULSE 74; RESP 18; TEMP 36.1; O2SAT 95
[2023-10-29 20:00] VITALS: BP 126/61; PULSE 82; RESP 18; TEMP 37.1; O2SAT 94
[2023-10-29 21:37] LABS: Vancomycin Random 8.1 mcg/mL (15-20)
[2023-10-29 22:32] LABS: CDiff Gene PCR NEGATIVE (Negative)
[2023-10-29] MEDS: vancomycin HCL 1,250 MG in 0.9 % Sodium Chloride 250 ML 166.67 MG IV (22:54)
[2023-10-29 23:06] VITALS: PULSE 61; RESP 16; O2SAT 98
[2023-10-30 03:23] VITALS: BP 119/60; PULSE 62; RESP 18; TEMP 36.3; O2SAT 97
[2023-10-30] MEDS: Piperacillin Sodium/Tazobactam 3.375 GM in 0.9 % Sodium Chloride 50 ML IV ×4 (04:24→21:40)
[2023-10-30 06:33] LABS: Creatinine Clr Calc Pharmacy 145.4; Estimated Glomerular Filt Rate > 60
[2023-10-30 07:32] VITALS: BP 135/63; PULSE 66; RESP 16; TEMP 36.1; O2SAT 96
[2023-10-30] MEDS: Ferrous Sulfate 324 MG TABLET.DR PO ×2 (08:36→20:18)
[2023-10-30] MEDS: Sertraline HCL 100 MG TABLET PO (08:36)
[2023-10-30] MEDS: Buprenorphine/Naloxone 8/2 mg FILM 3 FILM SUBLINGUAL (08:38)
[2023-10-30] MEDS: 0.9 % Sodium Chloride Flush 3 ML SYRINGE IVFLUSH ×3 (08:38→20:28)
[2023-10-30 08:47] LABS: Adenovirus F 40/41 Not Detected (Not Detect.); Astrovirus Not Detected (Not Detect.); Campylobacter Not Detected (Not Detect.); Cryptosporidium Not Detected (Not Detect.); Cyclospora cayetanensis Not Detected (Not Detect.); E. coli EAEC Not Detected (Not Detect.); E. coli EPEC Not Detected (Not Detect.); E. coli ETEC Not Detected (Not Detect.); E. coli STEC Not Detected (Not Detect.); Entamoeba histolytica Not Detected (Not Detect.); Giardia lamblia Not Detected (Not Detect.); Norovirus GI/GII Not Detected (Not Detect.); Plesiomonas shigelloides Not Detected (Not Detect.); Rotavirus A Not Detected (Not Detect.); Salmonella Not Detected (Not Detect.); Sapovirus Not Detected (Not Detect.); Shigella sp./EIEC Not Detected (Not Detect.); Vibrio Not Detected (Not Detect.); Vibrio Cholerae Not Detected (Not Detect.); Yersinia enterocolitica Not Detected (Not Detect.)
[2023-10-30] MEDS: Enoxaparin Sodium 40 MG/0.4 ML SYRINGE SUBCUT (13:21)
[2023-10-30 15:22] VITALS: BP 118/55; PULSE 69; RESP 20; TEMP 36.1; O2SAT 96
--- NOTE | 2023-10-30 16:05 | HO.PM.IMPN ---
Subjective Subjective Date of Service: 10/30/23 Interval History: Being followed for extensive left lower extremity cellulitis and sepsis Noted to have significant improvement left lower extremity swelling but has new redness above knee extending towards lateral thigh, denies fever chills, no nausea vomiting, no other acute issues overnight. Review of Systems All other system reviewed and are negative. Physical Exam Vital Signs: Vital Signs: Last Vital Signs Temp 97.0 F 10/30/23 15:22 Pulse 69 10/30/23 15:22 Resp 20 10/30/23 15:22 BP 118/55 L 10/30/23 15:22 Pulse Ox 96 10/30/23 15:22 O2 Del Method Room Air 10/30/23 15:22 O2 Flow Rate 2 10/28/23 13:07 BMI result Body Mass Index 53.4 Const: Other: General alert oriented x3,no acute distress. Neck supple no JVD. CVS regular rate rhythm, Respiratory lungs clear to auscultation, no respiratory distress, no wheeze, no rhonchi. Gastrointestinal abdomen soft, non tender, bowel sounds audible, no guarding , no rigidity. Extremities right lower extremity, persistent swelling, hyperemia improving lower leg, but noted to have new hyperemia above knee laterally extending towards lateral thigh, no fluctuation stable redness medial thigh, dry scabs, no fluctuation, no open wounds Neuro non focal , speech clear. Skin pallor Psych appropriate affect Objective Data Active Medications Acetaminophen (Acetaminophen 325 Mg Tablet) 650 mg PO Q6H PRN PRN Reason: Pain, Mild (Pain Scale 1-3), fever or headache Last Admin: 10/29/23 04:19 Dose: 650 mg Documented By: CASTILM Benzonatate (Benzonatate 100 Mg Capsule) 100 mg PO TID PRN PRN Reason: Cough Buprenorphine/Naloxone (Buprenorphine/Naloxone 8/2 Mg Film) 3 film SUBLINGUAL DAILY [facility] Last Admin: 10/30/23 08:38 Dose: 3 film Documented By: ROCAEL Calcium Carbonate (Calcium Carbonate 750 Mg Tab.Chew) 750 mg PO Q4H PRN PRN Reason: Heartburn Enoxaparin Sodium (Enoxaparin Sodium 40 Mg/0.4 Ml Syringe) 40 mg SUBCUT Q24H [facility] Last Admin: 10/30/23 13:21 Dose: 40 mg Documented By: ROCAEL Ferrous Sulfate (Ferrous Sulfate 324 Mg Tablet.Dr) 324 mg PO BID [facility] Last Admin: 10/30/23 08:36 Dose: 324 mg Documented By: ROCAEL Piperacillin Sod/Tazobactam (Sod 3.375 gm/ Sodium Chloride) 50 mls @ 100 mls/hr IV Q6H [facility] Last Admin: 10/30/23 15:47 Dose: 100 mls/hr Documented By: ROCAEL Meclizine HCl (Meclizine Hcl 12.5 Mg Tablet) 12.5 mg PO TID PRN PRN Reason: dizziness Melatonin (Melatonin 3 Mg Tablet) 6 mg PO BEDTIME PRN PRN Reason: Insomnia Ondansetron HCl (Ondansetron Hcl 4 Mg/2 Ml Vial) 4 mg IVPUSH Q8H PRN PRN Reason: Nausea and Vomiting Polyethylene Glycol (Polyethylene Glycol 3350 17 Gm Powd.Pack) 17 gm PO DAILY PRN PRN Reason: Constipation Sertraline HCl (Sertraline Hcl 100 Mg Tablet) 100 mg PO DAILY [facility] Last Admin: 10/30/23 08:36 Dose: 100 mg Documented By: ROCAEL Sodium Chloride (0.9 % Sodium Chloride Flush 3 Ml Syringe) 3 ml IVFLUSH QSHIFT [facility] Last Admin: 10/30/23 15:47 Dose: 3 ml Documented By: ROCAEL Sumatriptan Succinate (Sumatriptan Succinate 50 Mg Tablet) 50 mg PO DAILY PRN PRN Reason: Headache Labs 10/29/23 05:21 10/30/23 05:38 Labs: Laboratory Results - last 24 hr 10/29/23 10/29/23 10/30/23 21:00 Unknown 05:38 Estim Creat Clear Calc 145.4 Estimated GFR > 60 Stl C. cayetanensis PCR Not Detected Stool Rotavirus A PCR Not Detected Stl Adenov F 40/41 PCR Not Detected Stool Astrovirus (PCR) Not Detected Stool Campylobacter PCR Not Detected Stool Cryptosporidium PCR Not Detected Stl Sh Tox Pr E STEC PCR Not Detected Stool E coli O157 PCR Not applicable Stl Enterotoxigenic E PCR Not Detected Stool EPEC (PCR) Not Detected Stool EAEC (PCR) Not Detected Stl E. histolytica PCR Not Detected Stool Giardia Lamblia PCR Not Detected Stl P. shigelloides PCR Not Detected Stool Salmonella PCR Not Detected Stool Sapovirus (PCR) Not Detected Stl Shigella/EIEC PCR Not Detected St Y.enterocolitica PCR Not Detected Stool Vibrio (PCR) Not Detected Stl Vibrio cholerae PCR Not Detected Stl Norovirus GI/GII PCR Not Detected Random Vancomycin 8.1 L C. difficile Tox B Gene NEGATIVE Assessment and Plan (1) Cellulitis: Status: Acute (2) Gram-positive bacteremia: Status: Acute Plan 53-year-old female with a PMH significant for?HTN, PVD, lymphedema, hx of breast cancer, ANSON on CPAP, opiate use disorder on Suboxone, anxiety, and depression who presents to the ED for evaluation of sudden onset dizziness, chills, and nausea since yesterday. Pt will be admitted to the hospital for treatment and further evaluation of right lower leg cellulitis with sepsis. Acute extensive Right leg cellulitis with sepsis Nausea dizziness and fever resolved, right lower extremity erythema and warmth improving, new redness extending to lateral thigh All symptoms of sepsis resolved, WBC and lactic acid normalized Continue IV Zosyn, started 10/28/2023, DC IV vanco Blood cultures x2 positive for Streptococcus agalactiae group B Follow clinical course Chronic lymphedema will give lasix 20 mg Acute on chronic microcytic anemia due to chronic iron deficiency anemia related to heavy periods, worse due to infection ,cont. iron supplements. Opiate use disorder Continue Suboxone Mood disorder Continue home mood stabilizers ANSON CPAP at night Obesity Class III Weight loss encouraged Full Code DVT Prophylaxis: Lovenox Patient will require continued inpatient hospitalization for treatment of?right leg cellulitis with sepsis and bacteremia requiring IV antibiotics and close clinical follow-up Quality Stroke Does the patient have a stroke diagnosis?: No VTE Prior VTE?: No VTE Risk Level:: Medical - moderate - high VTE Device Contraindication: Treatment Not Indicated VTE Drug Contraindication: N/A - Med Ordered
[2023-10-30 18:28] VITALS: BP 122/63
[2023-10-30] MEDS: Furosemide 20 MG TABLET PO (18:28)
[2023-10-30 19:38] VITALS: BP 119/54; PULSE 69; RESP 20; TEMP 36.2; O2SAT 96
[2023-10-30 23:34] VITALS: PULSE 69; RESP 20; O2SAT 96
[2023-10-31 03:30] VITALS: BP 133/59; PULSE 54; RESP 16; TEMP 36.1; O2SAT 96
[2023-10-31] MEDS: Piperacillin Sodium/Tazobactam 3.375 GM in 0.9 % Sodium Chloride 50 ML IV (03:47)
[2023-10-31 06:52] VITALS: BP 147/68; PULSE 62; RESP 16; TEMP 36.6; O2SAT 98
[2023-10-31 06:58] LABS: Estimated Glomerular Filt Rate > 60
--- NOTE | 2023-10-31 07:00 | CA_ITS ---
Transthoracic Echocardiogram Patient (Last, First, Middle): Vika Reynolds, Gender: Female Date of : 1970 Age: 53 Procedure Date: 10/31/2023 Procedure Type: Transthoracic Echocardiogram Location: S3E Height: 157.48 cm Weight: 132. kg BSA: 2.24 m2 Heart Rate: bpm BP: 147 / 68 mmHg Glaze Wiper: Referring MD: Edith De La Rosa MD Symptoms: gbs bacteremia Study Quality: Technically Difficult due to body habitus ECG Rhythm: Sinus Conclusions: - The left ventricular systolic function is normal. The calculated ejection fraction is 64% by biplane method. - No obvious valvular pathology seen on this study. Findings Left Ventricle Normal left ventricular cavity size. There is normal left ventricular wall thickness. The left ventricular systolic function is normal. The calculated ejection fraction is 64% by biplane method. There is no evidence of regional wall motion abnormalities. Diastolic function is normal for age. Right Ventricle Mildly increased right ventricular cavity size. There is normal right ventricular systolic function. Atria Both atria are normal in size. Aortic Valve There is a normal trileaflet aortic valve. There is no aortic valve stenosis. There is no aortic valve regurgitation. Elevated gradients across aortic valve could be from high stroke volume. Mitral Valve The mitral valve appears normal. There is trace mitral valve regurgitation. There is no mitral valve stenosis. Pulmonic Valve The pulmonic valve is likely normal. Tricuspid Valve There is trace tricuspid valve regurgitation. There is no evidence of pulmonary hypertension. Great Vessels The asc aorta is normal in size. Venous The inferior vena cava is mildly dilated and collapses less than 50% with inspiration. Pericardium/Pleural There is no evidence of pericardial effusion. Prior Study Comparison No significant change compared to prior study dated: 11/10/2021. Recommendations, Care & Conclusions No obvious valvular pathology seen on this study. Measurements 2D Linear Measurements IVSd: 1.11 0.6-0.9/0.6-1.0 cm LVIDd: 5.13 3.9-5.3/4.2-5.9 cm LVIDd Index: 2.29 2.4-3.2/2.2-3.1 cm/m2 LVIDs: 3.01 2.0-3.6 cm LVPWd: 1.09 0.7-1.1 cm Ao Root: 3.00 2.1-3.5 cm LA Diam: 4.20 2.7-3.8/3.0-4.0 cm LAIDs Index: 1.88 1.5-2.3 cm/m2 LV Mass: 269.18 67-162/88-224 g LV Mass Index: 120.17 43-95/49-115 g/m2 LVOT Diam: 2.10 3.0+(-)1.3 cm 2D Systolic Function EF 4C: 64.80 >55% EF 2C: 61.20 >55% EF BiP: 63.70 >55% Mitral Valve MV VTI: 0.31 MV Pk Hima: 0.96 MV Mn Hima: 0.59 MV Pk Grad: 4.00 MV Mn Grad: 2.00 MV Pk E: 1.08 MV PK A: 0.78 MV Decel Time: 250.00 E/A: 1.40 E'Lateral: 11.10 E'Medial: 10.30 E/E' Med: 10.50 E/E' Lat: 9.70 PHT: 73.00 MVA PHT: 3.01 MVA Continuity: 3.11 Decel [place]: 4.30 Aortic Valve AoV Pk Hima: 2.19 AoV Mn Hima: 1.57 AoV VTI: 0.49 AoV Pk Grad: 19.00 Aov Mn Grad: 11.00 TIMOTHY Cont.VTI: 1.94 LVOT LVOT Pk Hima: 1.23 LVOT Mn Hima: 0.89 LVOT VTI: 0.28 LVOT Pk Grad: 6.00 LVOT Mn Grad: 4.00 LVOT Diam: 2.10 LVOT Area: 3.46 Diastolic Function MV Pk E: 1.08 MV Pk A: 0.78 E/A: 1.40 E'Medial: 10.30 E/E' Med: 10.50 E' Laterial: 11.10 E/E' Lat: 9.70 Right Ventricle TAPSE (mm): 42.00 TVS' Hima: 14.00 Tricuspid Valve TR Pk Hima: 2.46 TR Pk Grad: 24.00 RA Press: 3.00 RVSP: 27.00 Great Vessels Aorta Ao Root-2D: 3.00 2.0-3.7 cm Ao Asc: 3.30 2.1-3.4 cm Pulmonary Valve PV Pk Hima: 1.31 Peak PV Grad: 7.00 Updated in Other Vendor System with Status of Final Sudhakar Bañuelos MD electronically signed on 10/31/2023 4:58:34 PM with status of Final
[2023-10-31 07:46] LABS: MANUAL DIFF FLAG NO
[2023-10-31 08:07] LABS: Basophils Percent Auto 0.4 % (0-2); Eosinophils Absolute Auto 0.1 X10*3/uL (0.0-0.4); Eosinophils Percent Auto 1.9 % (0-4); Hematocrit 31.3 % (37.0-47.0); Hemoglobin 9.3 g/dl (12.0-16.0); Imm Gran Abs Auto 0.03 X10*3/uL (0.00-0.03); Imm Gran Pct Auto 0.6 % (0.0-0.4); Lymphocytes Absolute Auto 1.1 X10*3/uL (1.2-4.9); Lymphocytes Percent Auto 23.6 % (20-40); Mean Corpuscular HGB Conc 29.7 g/dl (31.0-35.0); Mean Corpuscular Hemoglobin 22.5 pg (27.0-33.0); Mean Corpuscular Volume 75.8 fL (80.0-98.0); Mean Platelet Volume 10.7 fL (9.4-12.3); Monocytes Absolute Auto 0.4 X10*3/uL (0.1-1.2); Monocytes Percent Auto 8.2 % (2-11); Neutrophils Percent Auto 65.3 % (45-73); Platelet Count 212 X10*3/uL (160-400); Red Blood Count 4.13 X10*6/uL (4.20-5.50); Red Cell Distribution Width 16.5 % (11.0-16.0); White Blood Count 4.7 X10*3/uL (4.8-10.8)
[2023-10-31 08:15] VITALS: BP 144/68
[2023-10-31] MEDS: Ferrous Sulfate 324 MG TABLET.DR PO (08:15)
[2023-10-31] MEDS: Furosemide 20 MG TABLET PO (08:15)
[2023-10-31] MEDS: Sertraline HCL 100 MG TABLET PO (08:15)
[2023-10-31] MEDS: cefTRIAXone sodium 2 GM in 0.9 % Sodium Chloride 50 ML IV (08:16)
[2023-10-31] MEDS: 0.9 % Sodium Chloride Flush 3 ML SYRINGE IVFLUSH ×3 (08:16→23:36)
[2023-10-31 08:25] LABS: Estimated Average Glucose 123 mg/dL; Hemoglobin A1c % 5.9 % (<6.0)
[2023-10-31] MEDS: Buprenorphine/Naloxone 8/2 mg FILM 3 FILM SUBLINGUAL (08:54)
--- NOTE | 2023-10-31 11:04 | HO.WOUND ---
Wound Consult: Initial 53yr old?female admitted to [facility] on 10/28/23 - See progress notes and H&P for detailed history.? Wound consult placed for Right Leg Cellulitis.? Patient agreeable to assessment and photo documentation.? Patient reports cellulitis is simginifcantly improving at this time. She reports the red stable scabs to her lower right leg are from scratching. No topical interventions needed at this time. Socks removed for assessment and bilateral heels were noted for Deep Tissue Injuries. Patient reports tenderness to the sites - educated on off loading pressure from heels - demonstrates understanding - foam dressing applied and heels floated off of pillow surfaces. Right Leg Cellulitis and chronic lymphemdema Left Leg chronic lymphemdema Right Heel Left Heel Etiology: ?Deep Tissue Injuries Measurements: see charting for detailed measurements Wound Bed: intact maroon red light purple nonblanchable tissue Drainage / Odor: None Edges: ? irregular and attached Sona wound: ?intact No Induration, Fluctuance or Warmth noted Pain: reports tenderness Goals of Treatment: ? Off load pressure - float heels and foam dressing applied to aid in pressure redistribution and protect from friction. Recommendations: 1. Turn and Reposition every 2 hours and as needed for patient comfort.? Use pillows or wedges to support off loading positions. 2. Off Load all bony prominences with use of pillows and heel boots if needed.? Apply Preventative foams where needed. ? 3. Monitor for incontinence and moisture control, use barrier creams when needed for prevention and treatment. 4. Provide adequate and supplemental nutrition.? 5. Order or Continue low air loss mattress. 6. When applicable maintain blood glucose levels per Providers order. 7. Bilateral Heels - Elevate lower legs with pillows, be sure to float heels off of surface of bed or pillows. Apply foam dressing peel back and assess Q shift and change every 3 days. Re-consult wound care Nurse for wound deterioration or wound changes.
[2023-10-31] MEDS: Enoxaparin Sodium 40 MG/0.4 ML SYRINGE SUBCUT (12:31)
--- NOTE | 2023-10-31 13:00 | P.PNIM_ITS ---
Subjective Subjective Date of Service: 10/31/23 Interval History: R leg swelling/redness improving no fever/chills Review of Systems Review of Systems: Yes all other systems are reviewed and are negative Physical Exam 2 Vital Signs: Vital Signs: Last Vital Signs Temp 98 F 10/31/23 06:52 Pulse 62 10/31/23 06:52 Resp 16 10/31/23 06:52 BP 144/68 H 10/31/23 08:15 Pulse Ox 98 10/31/23 06:52 O2 Del Method Room Air 10/31/23 06:52 O2 Flow Rate 2 10/28/23 13:07 BMI result Body Mass Index 53.4 Gen: in no acute distress HEENT: sclera anicteric, moist mucus membranes Neck: supple Lungs: clear to auscultation bilaterally Heart: regular rate and rhythm, no murmurs Abd: soft, non-tender, non-distended, obese Ext: bilateral lymphedema, faint erythema R leg improving from prior demarcation, no purulence Skin: warm/well-perfused Neuro: alert and oriented x3, no focal findings Psych: appropriate affect Objective Data Active Medications Acetaminophen (Acetaminophen 325 Mg Tablet) 650 mg PO Q6H PRN PRN Reason: Pain, Mild (Pain Scale 1-3), fever or headache Last Admin: 10/29/23 04:19 Dose: 650 mg Documented By: CASTILM Benzonatate (Benzonatate 100 Mg Capsule) 100 mg PO TID PRN PRN Reason: Cough Buprenorphine/Naloxone (Buprenorphine/Naloxone 8/2 Mg Film) 3 film SUBLINGUAL DAILY [facility] Last Admin: 10/31/23 08:54 Dose: 3 film Documented By: ROCAEL Calcium Carbonate (Calcium Carbonate 750 Mg Tab.Chew) 750 mg PO Q4H PRN PRN Reason: Heartburn Enoxaparin Sodium (Enoxaparin Sodium 40 Mg/0.4 Ml Syringe) 40 mg SUBCUT Q24H [facility] Last Admin: 10/31/23 12:31 Dose: 40 mg Documented By: ROCAEL Ferrous Sulfate (Ferrous Sulfate 324 Mg Tablet.) 324 mg PO Q48H [facility] Last Admin: 10/31/23 08:15 Dose: 324 mg Documented By: ROCAEL Furosemide (Furosemide 20 Mg Tablet) 20 mg PO DAILY [facility]; Protocol Last Admin: 10/31/23 08:15 Dose: 20 mg Documented By: ROCAEL Ceftriaxone Sodium 2 gm/ (Sodium Chloride) 50 mls @ 100 mls/hr IV Q24H [facility] Last Infusion: 10/31/23 08:57 Dose: Infused Documented By: ROCAEL Meclizine HCl (Meclizine Hcl 12.5 Mg Tablet) 12.5 mg PO TID PRN PRN Reason: dizziness Melatonin (Melatonin 3 Mg Tablet) 6 mg PO BEDTIME PRN PRN Reason: Insomnia Ondansetron HCl (Ondansetron Hcl 4 Mg/2 Ml Vial) 4 mg IVPUSH Q8H PRN PRN Reason: Nausea and Vomiting Polyethylene Glycol (Polyethylene Glycol 3350 17 Gm Powd.Pack) 17 gm PO DAILY PRN PRN Reason: Constipation Sertraline HCl (Sertraline Hcl 100 Mg Tablet) 100 mg PO DAILY [facility] Last Admin: 10/31/23 08:15 Dose: 100 mg Documented By: ROCAEL Sodium Chloride (0.9 % Sodium Chloride Flush 3 Ml Syringe) 3 ml IVFLUSH QSHIFT [facility] Last Admin: 10/31/23 08:16 Dose: 3 ml Documented By: ROCAEL Sumatriptan Succinate (Sumatriptan Succinate 50 Mg Tablet) 50 mg PO DAILY PRN PRN Reason: Headache Labs 10/31/23 05:43 10/31/23 05:43 Labs: Laboratory Results - last 24 hr 10/31/23 05:43 MCV 75.8 L MCH 22.5 L MCHC 29.7 L RDW 16.5 H Plt Count 212 D MPV 10.7 Immature Gran % (Auto) 0.6 H Neut % (Auto) 65.3 Lymph % (Auto) 23.6 [place] % (Auto) 8.2 Eos % (Auto) 1.9 Baso % (Auto) 0.4 Lymph # (Auto) 1.1 L [place] # (Auto) 0.4 Eos # (Auto) 0.1 Baso # (Auto) 0.0 Abs Immat Gran (auto) 0.03 Absolute Neuts (auto) 3.0 Absolute Nucleated RBC 0.000 Nucleated RBC % (auto) 0.0 Hold Purple Top SEE NOTE Estim Creat Clear Calc 143.0 Estimated GFR > 60 Estimat Average Glucose 123 Hemoglobin A1c % 5.9 Assessment and Plan (1) Cellulitis: Status: Acute (2) Gram-positive bacteremia: Status: Acute Plan d4 53yo F with HTN, PVD, lymphedema, hx breast CA, ANSON on CPAP, OUD on Suboxone, anxiety, depression, morbid obesity presenting with dizziness + chills admitted for sepsis due to RLE cellulitis, found to have GBS bacteremia GBS bacteremia/cellulitisa - vanc 10/27-10/29, pip-yamila 10/27-10/30, change to ceftriaxone 10/30-; repeat BCx 10/31; ID consultation; TTE chronic lymphedema - furosemide DIDIER- - continue Fe OUD - continue Suboxone mood disorder - continue sertraline ANSON - continue CPAP at night morbid obesity - diet/exercise counseling VTE ppx - LMWH dispo - eventual home In my clinical judgment, the patient requires continued inpatient hospitalization for the following reasons: IV ABX Total time managing care of this patient today: 35 minutes. Quality Stroke Does the patient have a stroke diagnosis?: No VTE Prior VTE?: No VTE Risk Level:: Medical - moderate - high VTE Device Contraindication: Treatment Not Indicated VTE Drug Contraindication: N/A - Med Ordered
[2023-10-31 13:18] VITALS: BMI 53.4
--- NOTE | 2023-10-31 14:57 | MHC.CM.PN ---
EMR REVIEWED AND PER MD ROUNDS, PT IS AWAITING FINAL BLOOD CULTURES/ID EVAL. THIS CM SENT FINANCIAL COUNSELOR REQUEST TO ADDRESS INSURANCE ISSUE. CM WILL CONTINUE TO FOLLOW.
--- NOTE | 2023-10-31 15:44 | P.CNID_ITS ---
History of Present Illness Data of Consult Service Date: 10/31/23 Requesting physician: Edith De La Rosa Primary Care Provider: Faisal Melgoza PA-C HPI Reason for consult: sepsis,Group B strep She presents with one daily fever and chills and lethargy. Temperature 102.4 on arrival and heart rate 95. She has Group B strep bacteremia on 10/27. Review of Systems 2 Review of Systems: Yes all other systems are reviewed and are negative PMFSH Past Medical History Medical History (Updated 10/31/23 @ 15:46 by Caryn Anna MD) Sepsis Lumbar stenosis Kidney stones Intermittent explosive disorder Adult ADHD Anxiety and depression Myasthenia gravis Carpal tunnel syndrome Arthritis Fibromyalgia Pseudotumor cerebri Iron deficiency anemia Breast CA Family History Family History Mother Mental health disorder Heart attack CVA (cerebral vascular accident), Onset Age: 50 Breast cancer Sister CVA (cerebral vascular accident), Onset Age: 51 Leukemia Family history: reviewed and not pertinent Surgical History Surgical History History of History of tubal ligation History of endometrial ablation Social History Social History Household Members: Children Housing: Apartment Are you a primary child care attendant to a significant other at home: No Do you presently have visiting nurse or other home services: No Alcohol intake: never Patient Tobacco Use Status: Former Tobacco user Tobacco use type: Cigarette e-Cigarette/Vaping Use: Never Used Second Hand Smoke Exposure: No Use of substances other than those prescribed or required for medical reasons: No Currently Displaying Signs/Symptoms of Drug Intoxication Withdrawal: No Have you been hit, kicked, punched, or otherwise hurt by someone within the past year? 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 Current occupational exposures/hazards: No Sexual orientation: Straight/Heterosexual Gender identity: Female Cognitive needs: Yes Hearing needs: No Vision needs: Yes (Pt wears glasses and is up to date.) Meds Allergies Allergy/AdvReac Type Severity Reaction Status Date / Time ibuprofen [IBUPROFEN] Allergy Intermediate SWELLING Verified 10/28/23 07:56 codeine [CODEINE] Allergy Unknown ITCHY Verified 10/28/23 07:56 gabapentin [From Neurontin] Allergy Unknown anxiety, Verified 10/28/23 07:56 insomnia, restless/anxiety hydrocodone [From VICODIN] Allergy Unknown UNKNOWN Verified 10/28/23 07:56 nabumetone [Nabumetone] Allergy Unknown swelling, Verified 10/28/23 07:56 facial swelling Nabumetone Allergy Unknown edema Uncoded 10/28/23 07:56 nsaids Allergy Unknown Unknown Uncoded 10/28/23 07:56 Active Medications: Current Medications Acetaminophen (Acetaminophen 325 Mg Tablet) 650 mg PO Q6H PRN PRN Reason: Pain, Mild (Pain Scale 1-3), fever or headache Last Admin: 10/29/23 04:19 Dose: 650 mg Benzonatate (Benzonatate 100 Mg Capsule) 100 mg PO TID PRN PRN Reason: Cough Buprenorphine/Naloxone (Buprenorphine/Naloxone 8/2 Mg Film) 3 film SUBLINGUAL DAILY [facility] Last Admin: 10/31/23 08:54 Dose: 3 film Calcium Carbonate (Calcium Carbonate 750 Mg Tab.Chew) 750 mg PO Q4H PRN PRN Reason: Heartburn Enoxaparin Sodium (Enoxaparin Sodium 40 Mg/0.4 Ml Syringe) 40 mg SUBCUT Q24H [facility] Last Admin: 10/31/23 12:31 Dose: 40 mg Ferrous Sulfate (Ferrous Sulfate 324 Mg Tablet.Dr) 324 mg PO Q48H [facility] Last Admin: 10/31/23 08:15 Dose: 324 mg Furosemide (Furosemide 20 Mg Tablet) 20 mg PO DAILY [facility]; Protocol Last Admin: 10/31/23 08:15 Dose: 20 mg Ceftriaxone Sodium 2 gm/ (Sodium Chloride) 50 mls @ 100 mls/hr IV Q24H [facility] Last Infusion: 10/31/23 08:57 Dose: Infused Meclizine HCl (Meclizine Hcl 12.5 Mg Tablet) 12.5 mg PO TID PRN PRN Reason: dizziness Melatonin (Melatonin 3 Mg Tablet) 6 mg PO BEDTIME PRN PRN Reason: Insomnia Ondansetron HCl (Ondansetron Hcl 4 Mg/2 Ml Vial) 4 mg IVPUSH Q8H PRN PRN Reason: Nausea and Vomiting Polyethylene Glycol (Polyethylene Glycol 3350 17 Gm Powd.Pack) 17 gm PO DAILY PRN PRN Reason: Constipation Sertraline HCl (Sertraline Hcl 100 Mg Tablet) 100 mg PO DAILY [facility] Last Admin: 10/31/23 08:15 Dose: 100 mg Sodium Chloride (0.9 % Sodium Chloride Flush 3 Ml Syringe) 3 ml IVFLUSH QSHIFT [facility] Last Admin: 10/31/23 08:16 Dose: 3 ml Sumatriptan Succinate (Sumatriptan Succinate 50 Mg Tablet) 50 mg PO DAILY PRN PRN Reason: Headache Home Medications ?Medication ?Instructions ?Recorded ?Confirmed ?Last Taken ?Type buprenorphine 8 mg-naloxone 2 mg 3 film sublingual DAILY 05/07/20 10/28/23 10/27/23 History sublingual film (Suboxone) acetaminophen 650 mg 650 mg PO Q8H PRN Pain 10/28/23 10/28/23 Unknown History tablet,extended release sumatriptan succinate 50 mg tablet 50 mg PO DAILY PRN Headache 10/28/23 10/28/23 Unknown History Physical Exam 2 Vital Signs: Vital Signs: Last Vital Signs Temp 98 F 10/31/23 06:52 Pulse 62 10/31/23 06:52 Resp 16 10/31/23 06:52 BP 144/68 H 10/31/23 08:15 Pulse Ox 98 10/31/23 06:52 O2 Del Method Room Air 10/31/23 06:52 O2 Flow Rate 2 10/28/23 13:07 BMI result Body Mass Index 53.4 Const: General: cooperative HEENT: Head: Yes normal to inspection Face and sinus: Yes normal facial exam Mouth: Normal oral and palatal mucosa present Teeth and gingiva: d entition normal Eyes: General: appearance normal, both eyes and all related structures P upils: Equal, round and reactive pupils present Resp: Effort & Inspection: normal respiratory effort Cardio: Rate: regular rate Rhythm: regular rhythm GI: Palpation (GI): Soft to palpation and nontender : General: Yes no CVA tenderness Back/Spine/Pelvis: Back: no CVA tenderness Skin: General skin exam: no rashes or lesions noted Neuro: General: moves all extremities Cranial nerves: Yes Equal, round and reactive pupils present Extrem: Other: redness right lower extremity posterior improving Psych: Appearance: grossly normal Results Labs 10/31/23 05:43 10/31/23 05:43 Labs: Short CBC 10/31/23 Range/Units 05:43 WBC 4.7 L (4.8-10.8) X10*3/uL Hgb 9.3 L (12.0-16.0) g/dl Hct 31.3 L (37.0-47.0) % Plt Count 212 D (160-400) X10*3/uL BMP 10/31/23 05:43 Creatinine 0.61 Microbiology Microbiology Results: Microbiology 10/28/23 09:08 Blood - Venous Blood Culture - Final Strep agalactiae (Grp B) 10/28/23 08:56 Blood - Venous Blood Culture - Final Strep agalactiae (Grp B) Assessment and Plan (1) Sepsis: Status: Acute (2) Gram-positive bacteremia: Status: Acute Plan Group B strep sepsis She is feeling better. Continue IV Ceftriaxone and then change to po Ceftin as long as no signs of cellulitis remain for 14 days total antibiotics.
[2023-10-31 15:45] VITALS: BP 126/62; PULSE 70; RESP 16; TEMP 36.1; O2SAT 97
[2023-10-31 19:08] VITALS: BP 146/67; PULSE 73; RESP 16; TEMP 36.3; O2SAT 97
[2023-11-01 01:18] VITALS: PULSE 56; RESP 15; O2SAT 97
[2023-11-01 04:00] VITALS: BP 121/58; PULSE 55; RESP 16; TEMP 36.1; O2SAT 96
[2023-11-01] MEDS: cefTRIAXone sodium 2 GM in 0.9 % Sodium Chloride 50 ML IV (07:29)
[2023-11-01] MEDS: 0.9 % Sodium Chloride Flush 3 ML SYRINGE IVFLUSH ×3 (07:29→21:15)
[2023-11-01 07:33] VITALS: BP 141/66; PULSE 55; RESP 16; TEMP 36.2; O2SAT 96
[2023-11-01 07:59] LABS: Erythrocyte Sedimentation Rate 105 MM/HR (0-20)
[2023-11-01 08:16] VITALS: BP 141/66; PULSE 55; O2SAT 96
[2023-11-01] MEDS: Sertraline HCL 100 MG TABLET PO (08:59)
[2023-11-01] MEDS: Furosemide 20 MG TABLET PO (08:59)
[2023-11-01] MEDS: Buprenorphine/Naloxone 8/2 mg FILM 3 FILM SUBLINGUAL (08:59)
--- NOTE | 2023-11-01 10:53 | HO.PM.IMPN ---
Subjective Subjective Date of Service: 11/01/23 Interval History: redness/swelling much better; no fever Review of Systems Review of Systems: Yes all other systems are reviewed and are negative Physical Exam Vital Signs: Vital Signs: Last Vital Signs Temp 97.2 F 11/01/23 07:33 Pulse 55 11/01/23 08:16 Resp 16 11/01/23 07:33 BP 141/66 H 11/01/23 08:16 Pulse Ox 96 11/01/23 08:16 O2 Del Method Room Air 11/01/23 07:33 O2 Flow Rate 2 10/28/23 13:07 BMI result Body Mass Index 53.4 Gen: in no acute distress HEENT: sclera anicteric, moist mucus membranes Neck: supple Lungs: clear to auscultation bilaterally Heart: regular rate and rhythm, no murmurs Abd: soft, non-tender, non-distended, obese Ext: bilateral lymphedema, faint erythema R leg improving from prior demarcation, no purulence Skin: warm/well-perfused Neuro: alert and oriented x3, no focal findings Psych: appropriate affect Objective Data Active Medications Acetaminophen (Acetaminophen 325 Mg Tablet) 650 mg PO Q6H PRN PRN Reason: Pain, Mild (Pain Scale 1-3), fever or headache Last Admin: 10/29/23 04:19 Dose: 650 mg Documented By: CASTILM Benzonatate (Benzonatate 100 Mg Capsule) 100 mg PO TID PRN PRN Reason: Cough Buprenorphine/Naloxone (Buprenorphine/Naloxone 8/2 Mg Film) 3 film SUBLINGUAL DAILY [facility] Last Admin: 11/01/23 08:59 Dose: 3 film Documented By: DABPurnima Calcium Carbonate (Calcium Carbonate 750 Mg Tab.Chew) 750 mg PO Q4H PRN PRN Reason: Heartburn Enoxaparin Sodium (Enoxaparin Sodium 40 Mg/0.4 Ml Syringe) 40 mg SUBCUT Q24H [facility] Last Admin: 10/31/23 12:31 Dose: 40 mg Documented By: ROCAEL Ferrous Sulfate (Ferrous Sulfate 324 Mg Tablet.) 324 mg PO Q48H [facility] Last Admin: 10/31/23 08:15 Dose: 324 mg Documented By: ROCAEL Furosemide (Furosemide 20 Mg Tablet) 20 mg PO DAILY [facility]; Protocol Last Admin: 11/01/23 08:59 Dose: 20 mg Documented By: MARIA LUISA Ceftriaxone Sodium 2 gm/ (Sodium Chloride) 50 mls @ 100 mls/hr IV Q24H [facility] Last Infusion: 11/01/23 07:59 Dose: Infused Documented By: MARIA LUISA Meclizine HCl (Meclizine Hcl 12.5 Mg Tablet) 12.5 mg PO TID PRN PRN Reason: dizziness Melatonin (Melatonin 3 Mg Tablet) 6 mg PO BEDTIME PRN PRN Reason: Insomnia Ondansetron HCl (Ondansetron Hcl 4 Mg/2 Ml Vial) 4 mg IVPUSH Q8H PRN PRN Reason: Nausea and Vomiting Polyethylene Glycol (Polyethylene Glycol 3350 17 Gm Powd.Pack) 17 gm PO DAILY PRN PRN Reason: Constipation Sertraline HCl (Sertraline Hcl 100 Mg Tablet) 100 mg PO DAILY [facility] Last Admin: 11/01/23 08:59 Dose: 100 mg Documented By: MARIA LUISA Sodium Chloride (0.9 % Sodium Chloride Flush 3 Ml Syringe) 3 ml IVFLUSH QSHIFT [facility] Last Admin: 11/01/23 07:29 Dose: 3 ml Documented By: MARIA LUISA Sumatriptan Succinate (Sumatriptan Succinate 50 Mg Tablet) 50 mg PO DAILY PRN PRN Reason: Headache Labs 10/31/23 05:43 10/31/23 05:43 Labs: Laboratory Results - last 24 hr 11/01/23 06:04 ESR 105 H Assessment and Plan (1) Cellulitis: Status: Acute (2) Gram-positive bacteremia: Status: Acute Plan d5 53yo F with HTN, PVD, lymphedema, hx breast CA, ANSON on CPAP, OUD on Suboxone, anxiety, depression, morbid obesity presenting with dizziness + chills admitted for sepsis due to RLE cellulitis, found to have GBS bacteremia GBS bacteremia/cellulitis - vanc 10/27-10/29, pip-yamila 10/27-10/30, changed to ceftriaxone 10/30-; repeat BCx 10/31 and if clear will d/c on 11/02 on cefuroxime as per ID; DORIE 10/31/23 negative for vegetations chronic lymphedema - furosemide DIDIER- - continue Fe OUD - continue Suboxone mood disorder - continue sertraline ANSON - continue CPAP at night morbid obesity - diet/exercise counseling VTE ppx - LMWH dispo - eventual home with VNA In my clinical judgment, the patient requires continued inpatient hospitalization for the following reasons: IV ABX, BCx clearance Total time managing care of this patient today: 35 minutes. Quality Stroke Does the patient have a stroke diagnosis?: No VTE Prior VTE?: No VTE Risk Level:: Medical - moderate - high VTE Device Contraindication: Treatment Not Indicated VTE Drug Contraindication: N/A - Med Ordered
[2023-11-01] MEDS: Enoxaparin Sodium 40 MG/0.4 ML SYRINGE SUBCUT (12:44)
--- NOTE | 2023-11-01 14:23 | MHC.CM.PN ---
PER FINANCIAL COUNSELOR, PT HAS NOT KEPT UP WITH HER PREMIUMS SO [place] IS INACTIVE. PT HAS NO INSURANCE AND WILL BE UNABLE TO HAVE A VNA.
[2023-11-01 15:45] VITALS: BP 133/63; PULSE 58; RESP 16; TEMP 36.3; O2SAT 98
[2023-11-01 19:42] VITALS: BP 127/60; PULSE 65; RESP 16; TEMP 36.2; O2SAT 97
[2023-11-02 00:05] VITALS: PULSE 67; RESP 16; O2SAT 96
[2023-11-02 03:00] VITALS: BP 145/66; PULSE 55; RESP 16; TEMP 36.4; O2SAT 98
[2023-11-02 07:44] VITALS: BP 145/71; PULSE 59; RESP 16; TEMP 36.1
[2023-11-02] MEDS: cefTRIAXone sodium 2 GM in 0.9 % Sodium Chloride 50 ML IV (08:04)
[2023-11-02] MEDS: Sertraline HCL 100 MG TABLET PO (08:04)
[2023-11-02] MEDS: 0.9 % Sodium Chloride Flush 3 ML SYRINGE IVFLUSH ×3 (08:05→19:48)
[2023-11-02] MEDS: Ferrous Sulfate 324 MG TABLET.DR PO (08:05)
[2023-11-02] MEDS: Furosemide 20 MG TABLET PO (08:05)
[2023-11-02] MEDS: Buprenorphine/Naloxone 8/2 mg FILM 3 FILM SUBLINGUAL (09:00)
--- NOTE | 2023-11-02 09:22 | MHC.CLN ---
F/U DIET=2 GRAM SODIUM-APPROPRIATE. INTAKE 50-100% WITH MOST MEALS 100%. IMPAIRED SKIN INTEGRITY WITH DTIs TO LEFT AND RIGHT HEELS. ANTICIPATE ADEQUATE INTAKE OF DIETARY PROTEIN WITH USUALLY EXCELLENT PO. MONITOR FOR PO INTAKE AND SKIN INTEGRITY.
--- NOTE | 2023-11-02 10:48 | P.PNIM_ITS ---
Subjective Subjective Date of Service: 11/02/23 Interval History: continued improvement in RLE swelling no fever Review of Systems Review of Systems: Yes all other systems are reviewed and are negative Physical Exam 2 Vital Signs: Vital Signs: Last Vital Signs Temp 97 F 11/02/23 07:44 Pulse 59 11/02/23 07:44 Resp 16 11/02/23 07:44 BP 145/71 H 11/02/23 07:44 Pulse Ox 98 11/02/23 03:00 O2 Del Method Room Air 11/02/23 07:44 O2 Flow Rate 2 10/28/23 13:07 BMI result Body Mass Index 53.4 Gen: in no acute distress HEENT: sclera anicteric, moist mucus membranes Neck: supple Lungs: clear to auscultation bilaterally Heart: regular rate and rhythm, no murmurs Abd: soft, non-tender, non-distended, obese Ext: bilateral lymphedema, very little erythema of RLE, no purulence Skin: warm/well-perfused Neuro: alert and oriented x3, no focal findings Psych: appropriate affect Objective Data Active Medications Acetaminophen (Acetaminophen 325 Mg Tablet) 650 mg PO Q6H PRN PRN Reason: Pain, Mild (Pain Scale 1-3), fever or headache Last Admin: 10/29/23 04:19 Dose: 650 mg Documented By: CASTILM Benzonatate (Benzonatate 100 Mg Capsule) 100 mg PO TID PRN PRN Reason: Cough Buprenorphine/Naloxone (Buprenorphine/Naloxone 8/2 Mg Film) 3 film SUBLINGUAL DAILY [facility] Last Admin: 11/02/23 09:00 Dose: 3 film Documented By: MARIA LUISA Calcium Carbonate (Calcium Carbonate 750 Mg Tab.Chew) 750 mg PO Q4H PRN PRN Reason: Heartburn Enoxaparin Sodium (Enoxaparin Sodium 40 Mg/0.4 Ml Syringe) 40 mg SUBCUT Q24H [facility] Last Admin: 11/01/23 12:44 Dose: 40 mg Documented By: MARIA LUISA Ferrous Sulfate (Ferrous Sulfate 324 Mg Tablet.) 324 mg PO Q48H [facility] Last Admin: 11/02/23 08:05 Dose: 324 mg Documented By: MARIA LUISA Furosemide (Furosemide 20 Mg Tablet) 20 mg PO DAILY [facility]; Protocol Last Admin: 11/02/23 08:05 Dose: 20 mg Documented By: MARIA LUISA Ceftriaxone Sodium 2 gm/ (Sodium Chloride) 50 mls @ 100 mls/hr IV Q24H [facility] Last Infusion: 11/02/23 09:02 Dose: Infused Documented By: MARIA LUISA Meclizine HCl (Meclizine Hcl 12.5 Mg Tablet) 12.5 mg PO TID PRN PRN Reason: dizziness Melatonin (Melatonin 3 Mg Tablet) 6 mg PO BEDTIME PRN PRN Reason: Insomnia Ondansetron HCl (Ondansetron Hcl 4 Mg/2 Ml Vial) 4 mg IVPUSH Q8H PRN PRN Reason: Nausea and Vomiting Polyethylene Glycol (Polyethylene Glycol 3350 17 Gm Powd.Pack) 17 gm PO DAILY PRN PRN Reason: Constipation Sertraline HCl (Sertraline Hcl 100 Mg Tablet) 100 mg PO DAILY [facility] Last Admin: 11/02/23 08:04 Dose: 100 mg Documented By: MARIA LUISA Sodium Chloride (0.9 % Sodium Chloride Flush 3 Ml Syringe) 3 ml IVFLUSH QSHIFT [facility] Last Admin: 11/02/23 08:05 Dose: 3 ml Documented By: MARIA LUISA Sumatriptan Succinate (Sumatriptan Succinate 50 Mg Tablet) 50 mg PO DAILY PRN PRN Reason: Headache Labs 10/31/23 05:43 10/31/23 05:43 Microbiology Microbiology Results: Microbiology 11/01/23 06:04 Blood Culture - Preliminary Blood - Venous No growth after 24 hours. 11/01/23 06:04 Blood Culture - Preliminary Blood - Venous No growth after 24 hours. Assessment and Plan (1) Cellulitis: Status: Acute (2) Gram-positive bacteremia: Status: Acute Plan d6 53yo F with HTN, PVD, lymphedema, hx breast CA, ANSON on CPAP, OUD on Suboxone, anxiety, depression, morbid obesity presenting with dizziness + chills admitted for sepsis due to RLE cellulitis, found to have GBS bacteremia GBS bacteremia/cellulitis - vanc 10/27-10/29, pip-yamila 10/27-10/30, changed to ceftriaxone 10/30-; repeated BCx 10/31 and if clear 11/02, will d/c on cefuroxime as per ID; DORIE 10/31/23 negative for vegetations chronic lymphedema - furosemide DIDIER- - continue Fe OUD - continue Suboxone mood disorder - continue sertraline ANSON - continue CPAP at night morbid obesity - diet/exercise counseling VTE ppx - LMWH dispo - likely home tomorrow In my clinical judgment, the patient requires continued inpatient hospitalization for the following reasons: IV ABX, BCx clearance Total time managing care of this patient today: 35 minutes. Quality Stroke Does the patient have a stroke diagnosis?: No VTE Prior VTE?: No VTE Risk Level:: Medical - moderate - high VTE Device Contraindication: Treatment Not Indicated VTE Drug Contraindication: N/A - Med Ordered
[2023-11-02] MEDS: Enoxaparin Sodium 40 MG/0.4 ML SYRINGE SUBCUT (12:26)
--- NOTE | 2023-11-02 13:02 | MHC.CM.PN ---
EMR REVIEWED AND PER MD ROUNDS, PT MAY BE READY FOR DC TOMORROW AFTER FINAL CULTURES. MD NOTIFIED PT WILL NOT BE ABLE TO HAVE HOME SERVICES DUE TO LACK OF INSURANCE. CM WILL CONTINUE TO FOLLOW
[2023-11-02 15:32] VITALS: BP 135/63; PULSE 63; RESP 18; TEMP 36.3; O2SAT 98
[2023-11-02 19:30] VITALS: BP 128/60; PULSE 67; RESP 18; TEMP 36.2; O2SAT 97
[2023-11-03 00:12] VITALS: BP 126/58; PULSE 57; RESP 18; TEMP 36.9; O2SAT 97
[2023-11-03 04:00] VITALS: BP 101/54; PULSE 60; RESP 15; TEMP 36.4; O2SAT 98
[2023-11-03 04:15] VITALS: PULSE 59; RESP 20; O2SAT 98
[2023-11-03 07:37] VITALS: BP 155/69; PULSE 56; RESP 18; TEMP 36.2; O2SAT 98
[2023-11-03] MEDS: cefTRIAXone sodium 2 GM in 0.9 % Sodium Chloride 50 ML IV (08:49)
[2023-11-03] MEDS: Buprenorphine/Naloxone 8/2 mg FILM 3 FILM SUBLINGUAL (08:49)
[2023-11-03] MEDS: 0.9 % Sodium Chloride Flush 3 ML SYRINGE IVFLUSH (08:49)
[2023-11-03] MEDS: Furosemide 20 MG TABLET PO (08:50)
[2023-11-03] MEDS: Sertraline HCL 100 MG TABLET PO (08:50)
--- NOTE | 2023-11-03 09:15 | PM.DS ---
DS: Providers Provider Date of Service: 11/03/23 Date of admission: 10/28/23 13:11 Date of discharge: 11/03/23 Primary care physician: Faisal Melgoza PA-C Consults: 10/28/23 18:33 Consult to Wound Care Routine Reason for consultation: Bilateral lower extremities. 10/31/23 07:37 Consult to Infectious Diseases Routine Consulting Provider: [facility] – [place] [facility] Reason for consultation: gbs bacteremia DS: Diagnosis Discharge Diagnosis (1) Cellulitis: Status: Acute (2) Sepsis: Status: Acute (3) Bacteremia due to group B Streptococcus: Status: Acute (4) Morbid obesity: Status: Acute (5) Lymphedema: Status: Acute DS: Summary Hospital Course Hospital Course: From the history and physical by the admitting hospitalist, DONELL Hernández, 10/28/23: Pt is a 53-year-old female with a PMH significant for?HTN, PVD, lymphedema, hx of breast cancer, ANSON on CPAP, opiate use disorder on Suboxone, anxiety, and depression who presents to the ED for evaluation of sudden onset dizziness, chills, and nausea since yesterday. Patient reports symptoms began yesterday afternoon. [place] feverish, but did not measure temperature. Has not experienced vomiting or abdominal pain. No known sick contacts. Chronic pain in legs at baseline. Denies any injury or trauma to her lower extremities or change in their appearance. Symptoms persisted this morning and patient decided to come to the emergency room for further evaluation. No chest pain/pressure, palpitations. Denies shortness of breath, difficulty breathing, cough. No headache. No changes to bowel or bladder habits. ? In the ED pt was febrile up to 102.4, with elevated HR of 95, and desatting as low as 88% on RA while asleep. Labs were significant for leukocytosis of 13.4 and lactic acid 2.6 with repeat 1.0 after fluids, otherwise grossly unremarkable. Stable H&H. No significant electrolyte abnormalities. Renal and hepatic function WNL. UA negative for UTI. Tested negative for flu, COVID, RSV. CXR showed no acute cardiopulmonary disease. Pt was treated with IVF, ondansetron, acetaminophen, Zosyn and vancomycin. Pt will be admitted to the hospital for treatment and further evaluation of right lower leg cellulitis with sepsis. 53yo F with HTN, PVD, lymphedema, hx breast CA, ANSON on CPAP, OUD on Suboxone, anxiety, depression, and morbid obesity presenting with dizziness + chills and admitted to the medical-surgical unit for sepsis due to RLE cellulitis and eventually found to have GBS bacteremia. She was treated with vancomycin 10/27-10/29 plus piperacillin-tazobactam 10/27-10/30, and changed to ceftriaxone 10/30. Repeat BCx 10/31 clear as of 11/02. Cellulitis resolved. ID was consulted. No vegetations on TTE 10/31/23. She was discharged on 12 more days of antibiotic therapy with cefadroxil 500 mg bid to complete a 14-day course from culture clearance. Time Attestation Discharge Coordination Time (in mins): 40 Quality: Safe Use of Opioids Does Pt have an Active Cancer Diagnosis on the Problem List?: No Quality: Stroke Does the patient have a stroke diagnosis?: No Physical Exam Vital Signs: Vital Signs: Last Vital Signs Temp 97.1 F 11/03/23 07:37 Pulse 56 11/03/23 07:37 Resp 18 11/03/23 07:37 BP 155/69 H 11/03/23 07:37 Pulse Ox 98 11/03/23 07:37 O2 Del Method Room Air 11/03/23 07:37 O2 Flow Rate 2 10/28/23 13:07 BMI result Body Mass Index 53.4 Gen: in no acute distress HEENT: sclera anicteric, moist mucus membranes Neck: supple Lungs: clear to auscultation bilaterally Heart: regular rate and rhythm, no murmurs Abd: soft, non-tender, non-distended, obese Ext: bilateral lymphedema, erythema of RLE completely resolved, no purulence Skin: warm/well-perfused Neuro: alert and oriented x3, no focal findings Psych: appropriate affect DS: Data Data Completed and Pending Completed studies during hospitalization [Text1]: Laboratory Results WBC 4.7 X10*3/uL (4.8-10.8) L 10/31/23 05:43 RBC 4.13 X10*6/uL (4.20-5.50) L 10/31/23 05:43 Hgb 9.3 g/dl (12.0-16.0) L 10/31/23 05:43 Hct 31.3 % (37.0-47.0) L 10/31/23 05:43 MCV 75.8 fL (80.0-98.0) L 10/31/23 05:43 MCH 22.5 pg (27.0-33.0) L 10/31/23 05:43 MCHC 29.7 g/dl (31.0-35.0) L 10/31/23 05:43 RDW 16.5 % (11.0-16.0) H 10/31/23 05:43 Plt Count 212 X10*3/uL (160-400) D 10/31/23 05:43 MPV 10.7 fL (9.4-12.3) 10/31/23 05:43 Immature Gran % (Auto) 0.6 % (0.0-0.4) H 10/31/23 05:43 Neut % (Auto) 65.3 % (45-73) 10/31/23 05:43 Lymph % (Auto) 23.6 % (20-40) 10/31/23 05:43 [place] % (Auto) 8.2 % (2-11) 10/31/23 05:43 Eos % (Auto) 1.9 % (0-4) 10/31/23 05:43 Baso % (Auto) 0.4 % (0-2) 10/31/23 05:43 Lymph # (Auto) 1.1 X10*3/uL (1.2-4.9) L 10/31/23 05:43 [place] # (Auto) 0.4 X10*3/uL (0.1-1.2) 10/31/23 05:43 Eos # (Auto) 0.1 X10*3/uL (0.0-0.4) 10/31/23 05:43 Baso # (Auto) 0.0 X10*3/uL (0.0-0.2) 10/31/23 05:43 Abs Immat Gran (auto) 0.03 X10*3/uL (0.00-0.03) 10/31/23 05:43 Absolute Neuts (auto) 3.0 x10*3/uL (2.0-8.3) 10/31/23 05:43 Absolute Nucleated RBC 0.000 X10*3/uL (0.0-0.012) 10/31/23 05:43 Nucleated RBC % (auto) 0.0 /100WBC (0.0-0.2) 10/31/23 05:43 Smear Tech's Comments VERIFIED 10/28/23 08:56 ESR 105 MM/HR (0-20) H 11/01/23 06:04 Hold Purple Top SEE NOTE 10/31/23 05:43 VBG pH 7.44 (7.32-7.43) H 10/28/23 11:15 VBG pCO2 39 mmHg 10/28/23 11:15 VBG pO2 67 mmHg 10/28/23 11:15 VBG HCO3 27 mmol/L (22-26) H 10/28/23 11:15 VBG O2 Saturation 93.0 % 10/28/23 11:15 VBG Base Excess 3.3 mmol/L 10/28/23 11:15 Sodium 138 mmol/L (135-145) 10/29/23 05:21 Potassium 3.3 mmol/L (3.3-5.1) 10/29/23 05:21 Chloride 103 mmol/L (96-108) 10/29/23 05:21 Carbon Dioxide 27 mmol/L (22-29) 10/29/23 05:21 Anion Gap 11 (12-20) L 10/29/23 05:21 BUN 9 mg/dL (9-16) 10/29/23 05:21 Creatinine 0.61 mg/dL (0.5-1.4) 10/31/23 05:43 Estim Creat Clear Calc 143.0 10/31/23 05:43 Estimated GFR > 60 10/31/23 05:43 Random Glucose 112 mg/dL (60-115) 10/29/23 05:21 Estimat Average Glucose 123 mg/dL 10/31/23 05:43 Hemoglobin A1c % 5.9 % (<6.0) 10/31/23 05:43 Lactic Acid 2.6 mmol/L (0.5-2.0) H* 10/28/23 08:56 Lactic Acid F/U @ 2Hr 1.0 mmol/L (0.5-2.0) 10/28/23 11:13 Calcium 8.4 mg/dL (8.4-10.2) 10/29/23 05:21 Magnesium 1.9 mg/dL (1.6-2.6) 10/29/23 05:21 Total Bilirubin 0.5 mg/dL (0.0-1.0) 10/28/23 09:56 Direct Bilirubin 0.2 mg/dL (0.0-0.5) 10/28/23 09:56 AST 12 U/L (5-31) 10/28/23 09:56 ALT 5 U/L (0-31) 10/28/23 09:56 Alkaline Phosphatase 48 U/L (39-117) 10/28/23 09:56 Total Protein 7.0 g/dL (6.5-8.0) 10/28/23 09:56 Albumin 3.5 g/dL (3.5-5.0) 10/28/23 09:56 Lipase 6 U/L (8-78) L 10/28/23 09:56 Urine Color Yellow 10/28/23 08:56 Urine Appearance Clear 10/28/23 08:56 Urine pH 7.0 (5.0-9.0) 10/28/23 08:56 Ur Specific [place] 1.020 (1.005-1.025) 10/28/23 08:56 Urine Protein 300 (3+) mg/dL (Neg-Trace) H 10/28/23 08:56 Urine Glucose (UA) Negative mg/dL (Negative) 10/28/23 08:56 Urine Ketones 15 mg/dL (Negative) 10/28/23 08:56 Urine Blood Small (1+) (Negative) H 10/28/23 08:56 Urine Nitrite Negative (Negative) 10/28/23 08:56 Ur Leukocyte Esterase Negative (Negative) 10/28/23 08:56 Urine RBC 0-2 /HPF (0-2) 10/28/23 08:56 Urine WBC 0-5 /HPF (0-5) 10/28/23 08:56 Ur Squamous Epith Cells 0-2 /HPF (0-2) 10/28/23 08:56 Urine Bacteria None Seen (None Seen) 10/28/23 08:56 Hyaline Casts 0-2 /LPF (0-2) 10/28/23 08:56 Stl C. cayetanensis PCR Not Detected (Not Detect.) 10/29/23 Unknown Stool Rotavirus A PCR Not Detected (Not Detect.) 10/29/23 Unknown Stl Adenov F 40/41 PCR Not Detected (Not Detect.) 10/29/23 Unknown Stool Astrovirus (PCR) Not Detected (Not Detect.) 10/29/23 Unknown Stool Campylobacter PCR Not Detected (Not Detect.) 10/29/23 Unknown Stool Cryptosporidium PCR Not Detected (Not Detect.) 10/29/23 Unknown Stl Sh Tox Pr E STEC PCR Not Detected (Not Detect.) 10/29/23 Unknown Stool E coli O157 PCR Not applicable (Not Detect.) 10/29/23 Unknown Stl Enterotoxigenic E PCR Not Detected (Not Detect.) 10/29/23 Unknown Stool EPEC (PCR) Not Detected (Not Detect.) 10/29/23 Unknown Stool EAEC (PCR) Not Detected (Not Detect.) 10/29/23 Unknown Stl E. histolytica PCR Not Detected (Not Detect.) 10/29/23 Unknown Stool Giardia Lamblia PCR Not Detected (Not Detect.) 10/29/23 Unknown Stl P. shigelloides PCR Not Detected (Not Detect.) 10/29/23 Unknown Stool Salmonella PCR Not Detected (Not Detect.) 10/29/23 Unknown Stool Sapovirus (PCR) Not Detected (Not Detect.) 10/29/23 Unknown Stl Shigella/EIEC PCR Not Detected (Not Detect.) 10/29/[address].enterocolitica PCR Not Detected (Not Detect.) 10/29/23 Unknown Stool Vibrio (PCR) Not Detected (Not Detect.) 10/29/23 Unknown Stl Vibrio cholerae PCR Not Detected (Not Detect.) 10/29/23 Unknown Stl Norovirus GI/GII PCR Not Detected (Not Detect.) 10/29/23 Unknown Random Vancomycin 8.1 mcg/mL (15-20) L 10/29/23 21:00 Urine Opiates Screen Not Detected (Not Detect) 10/28/23 Unknown Ur Buprenorphine Scrn Positive ng/mL (Not Detect) H 10/28/23 Unknown Ur Oxycodone Screen Not Detected ng/mL (Not Detect) 10/28/23 Unknown Urine Methadone Screen Not Detected ng/mL (Not Detect) 10/28/23 Unknown Urine Fentanyl Screen Not Detected (Not Detect) 10/28/23 Unknown Ur Barbiturates Screen Not Detected (Not Detect) 10/28/23 Unknown Ur Phencyclidine Scrn Not Detected (Not Detect) 10/28/23 Unknown Ur Amphetamines Screen Not Detected (Not Detect) 10/28/23 Unknown U Benzodiazepines Scrn Not Detected (Not Detect) 10/28/23 Unknown Urine Cocaine Screen Not Detected (Not Detect) 10/28/23 Unknown U Marijuana (THC) Screen Not Detected (Not Detect) 10/28/23 Unknown C. difficile Tox B Gene NEGATIVE (Negative) 10/29/23 Unknown Influenza Type A (PCR) NEGATIVE (Negative) 10/28/23 08:57 Influenza Type B (PCR) NEGATIVE (Negative) 10/28/23 08:57 RSV RNA Qual (PCR) NEGATIVE (Negative) 10/28/23 08:57 SARS-CoV-2 RNA (RT-PCR) NEGATIVE (Negative) 10/28/23 08:57 Impressions Chest X-Ray 10/28/23 09:29 IMPRESSION: Unremarkable examination. Microbiology 11/01/23 06:04 Blood - Venous Blood Culture - Preliminary No growth after 48 hours. 11/01/23 06:04 Blood - Venous Blood Culture - Preliminary No growth after 48 hours. 10/28/23 09:08 Blood - Venous Blood Culture - Final Strep agalactiae (Grp B) 10/28/23 08:56 Blood - Venous Blood Culture - Final Strep agalactiae (Grp B) TTE 10/31/23 - The left ventricular systolic function is normal. The calculated ejection fraction is 64% by biplane method. - No obvious valvular pathology seen on this study. Discharge Plan Discharge Anticipated Discharge Date/Time: 11/03/23 09:12 Patient Disposition: Home, Self-Care Discharge Diagnosis: sepsis from Group B streptococcus bacteremia, cellulitis Referrals: Faisal Melgoza PA-C [Primary Care Provider] - 1 Week Discharge Medications: New cefadroxil 500 mg capsule 500 mg PO BID Qty: 24 0RF Continued ferrous sulfate [Feosol] 325 mg (65 mg iron) tablet 325 mg PO BID Qty: 60 1RF (DME) CPAP Machine/Device Device See Rx Instructions .Route Qty: 1 0RF Rx Instructions: Need for auto PAP 6 to 12 cm H20- for nightly lifetime use sumatriptan succinate 50 mg tablet 50 mg PO DAILY MDD 200mg PRN (Reason: Headache) Rx Instructions: Take 1 tab at onset of headache; if no relief may repeat 1 tab after at least 2 hrs; max = 4 tabs/24 hr acetaminophen 650 mg Tablet Extended Release 650 mg PO Q8H PRN (Reason: Pain) buprenorphine-naloxone [Suboxone] 8-2 mg film 3 film sublingual DAILY (DME) Blood Pressure Cuff Misc See Rx Instructions .ROUTE .MEDSUPPLY Qty: 1 0RF Rx Instructions: As directed (DME) Ultra-Light Rollator Misc See Rx Instructions .Route Qty: 1 0RF Rx Instructions: As directed meclizine 12.5 mg tablet 12.5 mg PO TID PRN (Reason: dizziness) 10 Days Qty: 30 3RF sertraline 100 mg tablet 100 mg PO DAILY 90 Days Qty: 90 2RF Discharge Orders: Discharge Order (Routine); Ordered 11/03/23 Ordered By: Edith De La Rosa Diet: Advance to usual diet Activity on Discharge: As tolerated Stand Alone Forms: Patient Portal Discharge page Print Language: Estonian Care Plan Goals: cure of infection Health Concerns: sepsis from Group B streptococcus bacteremia, cellulitis Plan of Treatment: cefadroxil 500 mg twice daily for 12 days Please follow up with your primary care doctor within 1 week. Return to the hospital if you experience recurrent or worsening symptoms. Assessment: See Discharge Summary.
--- NOTE | 2023-11-03 09:25 | MHC.CM.PN ---
Patient medically cleared for dc home self care on PO abx. Patient does not have insurance and is aware her will pay out of pocket for abx. Does not anticipate an issue with this. Son will transport home. RN aware.
== END 2023-11-03 12:58 | disposition home or self-care (01) | DRG 872 ==
LOC: HO.ED 10:21 → HO.EDOVER 15:09 → HO.S3 16:03
PROVIDERS: Admitting Provider Student in an Organized Health Care Education/Training Program; Emergency Provider Emergency Medicine; PCP Physician Assistant; Visit Provider Family Medicine
DX: A41.9 Sepsis, unspecified organism (principal); F11.20 Opioid dependence, uncomplicated; L03.115 Cellulitis of right lower limb; Z68.43 Body mass index [BMI] 50.0-59.9, adult; E66.01 Morbid (severe) obesity due to excess calories; D50.9 Iron deficiency anemia, unspecified; B95.1 Streptococcus, group B, as the cause of diseases classified elsewhere; I89.0 Lymphedema, not elsewhere classified; G47.33 Obstructive sleep apnea (adult) (pediatric); M79.7 Fibromyalgia; G93.2 Benign intracranial hypertension; Z20.822 Contact with and (suspected) exposure to COVID-19; Z87.891 Personal history of nicotine dependence; Z79.899 Other long term (current) drug therapy
CPT/HCPCS: 0241U; 36415; 71045; 80048; 80076; 80202; 80307; 81001; 82565; 82803; 83036; 83605; 83690; 83735; 85025; 85027; 85652; 87040; 87147; 87205; 87493; 87507; 93306; 94660; 97162; 99285; J0696; J1650; J2405; J2543; J3370; J3371; Q9957

== ENCOUNTER 2023-10-28 13:11 | Outpatient (BNV) | payer SELFPAY | END 2023-10-31 07:00 | PROVIDERS: Admitting Provider Student in an Organized Health Care Education/Training Program; Emergency Provider Emergency Medicine; PCP Physician Assistant; Visit Provider Internal Medicine | DX: R78.81 Bacteremia (principal) | CPT/HCPCS: 93306 ==

== ENCOUNTER → 2023-10-28 13:11 | Outpatient (BNV) | payer MEDICAID, OTHER, SELFPAY | PROVIDERS: Admitting Provider Student in an Organized Health Care Education/Training Program; Emergency Provider Emergency Medicine; PCP Physician Assistant; Visit Provider Student in an Organized Health Care Education/Training Program | DX: A41.9 Sepsis, unspecified organism (principal); L03.90 Cellulitis, unspecified; R78.81 Bacteremia | CPT/HCPCS: 99223; 99232; 99233; 99239 ==

== ENCOUNTER → 2023-10-28 13:11 | Outpatient (BNV) | payer MEDICAID, SELFPAY | PROVIDERS: Admitting Provider Student in an Organized Health Care Education/Training Program; Emergency Provider Emergency Medicine; PCP Physician Assistant; Visit Provider Internal Medicine | DX: A41.9 Sepsis, unspecified organism (principal); R78.81 Bacteremia | CPT/HCPCS: 99222 ==

== ENCOUNTER 2024-01-19 22:32 | Emergency (ER) | payer MEDICAID, SELFPAY ==
--- NOTE | 2024-01-19 | ECG_ITS ---
Test Reason : PALPATATIONS Blood Pressure : / mmHG Vent. Rate : 075 BPM Atrial Rate : 075 BPM P-R Int : 172 ms QRS Dur : 098 ms QT Int : 372 ms P-R-T Axes : 046 011 030 degrees QTc Int : 415 ms Normal sinus rhythm Normal ECG When compared with ECG of 02-JUL-2023 12:32, No significant change was found Referred By: Generic ED Physician Electronically Signed By:JOSSIE ALONZO
--- NOTE | ~2024-01-19 | CT_ITS ---
EXAMINATION: CT HEAD WITHOUT CONTRAST CLINICAL INFORMATION: Headache. Hypertension. COMPARISON: None available. TECHNIQUE: Contiguous axial imaging was performed from the skull base to vertex without intravenous administration of contrast. This CT examination was performed using dose optimization techniques as appropriate, variously including the following: *Automated exposure control *Adjustment of mA and/or kV according to patient size (this includes techniques or standardized protocols for targeted exams where dose is matched to indication/reason for exam; i.e. extremities or head) *Use of iterative reconstruction technique DLP: 676 mGy-cm FINDINGS: The lateral, third and fourth ventricles are normally outlined. The cortical sulci and basal cisterns are normally outlined as well. There is no acute territorial defect, hemorrhage or midline shift. Extra-axial spaces are unremarkable. Calvarium/scalp: Intact. Maxillofacial sinuses and mastoids: The visualized maxillofacial sinuses clear. There is opacification of the right mastoid. The left mastoid is clear. CT/CT head/brain wo IV con IMPRESSION: No acute intracranial pathology. Opacification of the right mastoid. Electronically signed by: Ramy Curran MD 01/20/2024 04:51 AM EDT
[2024-01-19 22:53] VITALS: BP 184/88; PULSE 86; RESP 20; TEMP 37.2; O2SAT 96; BMI 53.6
[2024-01-19 23:17] LABS: MANUAL DIFF FLAG NO
[2024-01-19 23:39] LABS: Troponin-I High Sensitivity < 2.7 ng/L (<3.5-17.0)
[2024-01-19 23:41] LABS: Alanine Aminotransferase 10 U/L (0-31); Albumin Level 3.9 g/dL (3.5-5.0); Alkaline Phosphatase 70 U/L (39-117); Anion Gap 8 (12-20); Aspartate Amino Transferase 11 U/L (5-31); Bilirubin Total 0.2 mg/dL (0.0-1.0); Blood Urea Nitrogen 16 mg/dL (9-16); Calcium 9.1 mg/dL (8.4-10.2); Carbon Dioxide 29 mmol/L (22-29); Chloride 106 mmol/L (96-108); Creatinine Clr Calc Pharmacy 130.5; Estimated Glomerular Filt Rate > 60; Glucose Random 119 mg/dL (60-115); HCG Quantitative < 2 mIU/mL; Potassium 4.2 mmol/L (3.3-5.1); Sodium 139 mmol/L (135-145); Total Protein 7.5 g/dL (6.5-8.0)
[2024-01-19 23:58] LABS: Influenza A PCR NEGATIVE (Negative); Influenza B PCR NEGATIVE (Negative); Resp Syncy Virus RNA Qual PCR NEGATIVE (Negative); SARS COV2 PCR INHOUSE NEGATIVE (Negative)
[2024-01-20] VITALS (7 sets, daily range): BP systolic 152–221; BP diastolic 59–108; PULSE 62–100; RESP 18; TEMP 36.9; O2SAT 95–96
[2024-01-20 00:55] LABS: Basophils Percent Auto 0.4 % (0-2); Eosinophils Absolute Auto 0.1 X10*3/uL (0.0-0.4); Eosinophils Percent Auto 1.7 % (0-4); Hematocrit 34.8 % (37.0-47.0); Hemoglobin 10.9 g/dl (12.0-16.0); Imm Gran Abs Auto 0.03 X10*3/uL (0.00-0.03); Imm Gran Pct Auto 0.4 % (0.0-0.4); Lymphocytes Absolute Auto 1.5 X10*3/uL (1.2-4.9); Lymphocytes Percent Auto 20.1 % (20-40); Mean Corpuscular HGB Conc 31.3 g/dl (31.0-35.0); Mean Corpuscular Volume 73.4 fL (80.0-98.0); Mean Platelet Volume 9.8 fL (9.4-12.3); Monocytes Absolute Auto 0.5 X10*3/uL (0.1-1.2); Monocytes Percent Auto 6.9 % (2-11); Neutrophils Absolute Auto 5.1 x10*3/uL (2.0-8.3); Neutrophils Percent Auto 70.5 % (45-73); Platelet Count 271 X10*3/uL (160-400); Red Blood Count 4.74 X10*6/uL (4.20-5.50); Red Cell Distribution Width 16.1 % (11.0-16.0); White Blood Count 7.2 X10*3/uL (4.8-10.8)
--- NOTE | 2024-01-20 03:17 | ED.GENADULT ---
HPI - General Adult General Chief complaint: General Medical Stated complaint: dizziness ,high blood pressure, nausea Time Seen by Provider: 01/20/24 03:08 Source: patient Mode of arrival: ambulatory Limitations: no limitations History of Present Illness ED Provider: chrissy MCCLELLAN narrative: Patient's history of pseudotumor cerebri, migraine headaches, hypertension sleep apnea with history of opiate dependence comes here for feeling dizziness chills since yesterday feels lightheaded especially on standing also complaining of headache no nausea no vomiting no diarrhea no fever no chills patient also complaining of intermittent palpitation for last few days Related Data Home Medications ?Medication ?Instructions ?Recorded ?Confirmed buprenorphine 8 mg-naloxone 2 mg 3 film sublingual DAILY 05/07/20 10/28/23 sublingual film (Suboxone) acetaminophen 650 mg 650 mg PO Q8H PRN Pain 10/28/23 10/28/23 tablet,extended release sumatriptan succinate 50 mg tablet 50 mg PO DAILY PRN Headache 10/28/23 10/28/23 Previous Rx's ?Medication ?Instructions ?Recorded walker (Ultra-Light Rollator misc) #1 ea 09/08/21 miscellaneous medical supply #1 ea 01/17/23 (Blood Pressure Cuff) meclizine 12.5 mg tablet 12.5 mg PO TID PRN dizziness 10 07/18/23 days #30 tabs sertraline 100 mg tablet 100 mg PO DAILY 90 days #90 tabs 07/18/23 ferrous sulfate 325 mg (65 mg 325 mg PO BID #60 tabs 08/30/23 iron) tablet (Feosol) CPAP (CPAP Machine/Device) #1 ea 09/19/23 cefadroxil 500 mg capsule 500 mg PO BID #24 caps 11/03/23 Allergies Allergy/AdvReac Type Severity Reaction Status Date / Time ibuprofen [IBUPROFEN] Allergy Intermediate SWELLING Verified 01/19/24 22:57 codeine [CODEINE] Allergy Unknown ITCHY Verified 01/19/24 22:57 gabapentin [From Neurontin] Allergy Unknown anxiety, Verified 01/19/24 22:57 insomnia, restless/anxiety hydrocodone [From VICODIN] Allergy Unknown UNKNOWN Verified 01/19/24 22:57 nabumetone [Nabumetone] Allergy Unknown swelling, Verified 01/19/24 22:57 facial swelling Nabumetone Allergy Unknown edema Uncoded 10/28/23 07:56 nsaids Allergy Unknown Unknown Uncoded 10/28/23 07:56 Review of Systems Review of Systems: Yes all other systems are reviewed and are negative [facility] Past Medical History Medical History Sepsis Lumbar stenosis Kidney stones Intermittent explosive disorder Adult ADHD Anxiety and depression Myasthenia gravis Carpal tunnel syndrome Arthritis Fibromyalgia Pseudotumor cerebri Iron deficiency anemia Breast CA Surgical History History of History of tubal ligation History of endometrial ablation Family History Family History Mother Mental health disorder Heart attack CVA (cerebral vascular accident), Onset Age: 50 Breast cancer Sister CVA (cerebral vascular accident), Onset Age: 51 Leukemia Social History Social History Household Members: Children Housing: Apartment Are you a primary director long term care to a significant other at home: No Do you presently have visiting nurse or other home services: No Alcohol intake: never Patient Tobacco Use Status: Former Tobacco user Tobacco use type: Cigarette Smoked in Last 30 Days: No e-Cigarette/Vaping Use: Never Used Second Hand Smoke Exposure: No Use of substances other than those prescribed or required for medical reasons: No Advance Directives: No Advance Directives Information Provided: Yes Patient : No service: No Current occupational status: employed 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 Current occupational exposures/hazards: No Sexual orientation: Straight/Heterosexual Gender identity: Female Cognitive needs: Yes Hearing needs: No Vision needs: Yes (Pt wears glasses and is up to date.) Physical Exam ED Vital Signs: Vital Signs - 24 hr 01/19/24 22:53 01/20/24 03:45 01/20/24 03:46 Temperature 98.9 F Pulse Rate 86 62 81 Respiratory Rate 20 Blood Pressure 184/88 H 197/87 H 221/108 H Pulse Oximetry 96 Oxygen Delivery Method Room Air 01/20/24 03:47 01/20/24 03:49 01/20/24 04:32 Temperature Pulse Rate 100 Respiratory Rate Blood Pressure 194/98 H 152/59 H Pulse Oximetry Oxygen Delivery Method 01/20/24 06:33 Temperature Pulse Rate Respiratory Rate 18 Blood Pressure 153/59 H Pulse Oximetry 95 Oxygen Delivery Method Room Air BMI result Body Mass Index 53.6 Appearance: Alert. Oriented X3. No acute distress. Obese Eyes: No pallor or icterus ENT: Pharynx normal. Oral Mucosa moist Neck: Normal inspection. Neck supple. CVS: Normal heart rate and rhythm. Pulses normal. Respiratory: No respiratory distress. Equal air entry bilateral, no wheezing/rales/rhonchi Abdomen: Soft and nontender. Bowel sounds are present, no mass palpable, no CVA tenderness Skin: Skin warm and dry. Normal skin color. Normal skin turgor. Extremities: No lower extremity edema. No calf tenderness Neuro: Oriented X 3. No motor deficit. No sensory deficit.No cerebellar signs , cranial nerves II-XII intact Medications Administered Discontinued Medications Generic Name Dose Route Start Last Admin Trade Name Freq PRN Reason Stop Dose Admin Sumatriptan Succinate 6 mg 01/20/24 04:32 01/20/24 05:00 Sumatriptan Succinate 6 Mg/0.5 Ml Vial SUBCUT 01/20/24 04:33 6 mg ONCE ONE Administration Medical Decision Making Medical Decision Making [facility] Narrative: Patient with migraine headache nonspecific dizziness recheck blood pressure was 152/59 Patient is feeling much better after Imitrex Differential Diagnosis Differential Diagnoses: The differential diagnosis associated with the presentation includes Nonspecific dizziness/migraine/hypertension/SAH Lab Data [facility] Lab Attestation statement: I reviewed the patient's lab results. 01/19/24 23:10 01/19/24 23:10 Labs: Lab Results 01/19/24 01/20/24 01/20/24 Range/Units 23:10 03:52 04:12 WBC 7.2 (4.8-10.8) X10*3/uL RBC 4.74 (4.20-5.50) X10*6/uL Hgb 10.9 L (12.0-16.0) g/dl Hct 34.8 L (37.0-47.0) % MCV 73.4 L (80.0-98.0) fL MCH 23.0 L (27.0-33.0) pg MCHC 31.3 (31.0-35.0) g/dl RDW 16.1 H (11.0-16.0) % Plt Count 271 D (160-400) X10*3/uL MPV 9.8 (9.4-12.3) fL Immature Gran % (Auto) 0.4 (0.0-0.4) % Neut % (Auto) 70.5 (45-73) % Lymph % (Auto) 20.1 (20-40) % [place] % (Auto) 6.9 (2-11) % Eos % (Auto) 1.7 (0-4) % Baso % (Auto) 0.4 (0-2) % Lymph # (Auto) 1.5 (1.2-4.9) X10*3/uL [place] # (Auto) 0.5 (0.1-1.2) X10*3/uL Eos # (Auto) 0.1 (0.0-0.4) X10*3/uL Baso # (Auto) 0.0 (0.0-0.2) X10*3/uL Abs Immat Gran (auto) 0.03 (0.00-0.03) X10*3/uL Absolute Neuts (auto) 5.1 (2.0-8.3) x10*3/uL Absolute Nucleated RBC 0.000 (0.0-0.012) X10*3/uL Nucleated RBC % (auto) 0.0 (0.0-0.2) /100WBC Sodium 139 (135-145) mmol/L Potassium 4.2 D (3.3-5.1) mmol/L Chloride 106 (96-108) mmol/L Carbon Dioxide 29 (22-29) mmol/L Anion Gap 8 L (12-20) BUN 16 (9-16) mg/dL Creatinine 0.67 (0.5-1.4) mg/dL Estim Creat Clear Calc 130.5 Estimated GFR > 60 Random Glucose 119 H (60-115) mg/dL Calcium 9.1 D (8.4-10.2) mg/dL Total Bilirubin 0.2 (0.0-1.0) mg/dL AST 11 (5-31) U/L ALT 10 (0-31) U/L Alkaline Phosphatase 70 (39-117) U/L Troponin I High Sens < 2.7 (<3.5-17.0) ng/L B-Natriuretic Peptide 36 (<100) pg/mL Total Protein 7.5 (6.5-8.0) g/dL Albumin 3.9 (3.5-5.0) g/dL Beta HCG, Quant < 2 mIU/mL Urine Color Yellow Urine Appearance Clear Urine pH 6.5 (5.0-9.0) Ur Specific [place] 1.015 (1.005-1.025) Urine Protein Negative (Neg-Trace) mg/dL Urine Glucose (UA) Negative (Negative) mg/dL Urine Ketones Negative (Negative) mg/dL Urine Blood Negative (Negative) Urine Nitrite Negative (Negative) Ur Leukocyte Esterase Negative (Negative) Influenza Type A (PCR) NEGATIVE (Negative) Influenza Type B (PCR) NEGATIVE (Negative) RSV RNA Qual (PCR) NEGATIVE (Negative) SARS-CoV-2 RNA (RT-PCR) NEGATIVE (Negative) Independent Interpretation I performed an independent interpretation of an: EKG Interpretation: Normal sinus rhythm heart rate 75 beats per minute normal intervals normal axis no acute ST T wave changes Radiology Impression Discussion of test interpretation with radiology: I have reviewed the radiologist's reading. Radiologist Impression: Negative head CT Discharge Plan Discharge Clinical Impression: Dizziness, Headache, migraine Patient Disposition: Home, Self-Care Instructions: Migraine Headache (ED), Dizziness (ED) Additional Instructions: Take Imitrex as prescribed by your PCP Drink plenty of fluids Prescriptions: No Action ferrous sulfate [Feosol] 325 mg (65 mg iron) tablet 325 mg PO BID Qty: 60 1RF (DME) CPAP Machine/Device Device See Rx Instructions .Route Qty: 1 0RF Rx Instructions: Need for auto PAP 6 to 12 cm H20- for nightly lifetime use sumatriptan succinate 50 mg tablet 50 mg PO DAILY MDD 200mg PRN (Reason: Headache) Rx Instructions: Take 1 tab at onset of headache; if no relief may repeat 1 tab after at least 2 hrs; max = 4 tabs/24 hr acetaminophen 650 mg Tablet Extended Release 650 mg PO Q8H PRN (Reason: Pain) cefadroxil 500 mg capsule 500 mg PO BID Qty: 24 0RF buprenorphine-naloxone [Suboxone] 8-2 mg film 3 film sublingual DAILY (DME) Blood Pressure Cuff Misc See Rx Instructions .ROUTE .MEDSUPPLY Qty: 1 0RF Rx Instructions: As directed (DME) Ultra-Light Rollator Misc See Rx Instructions .Route Qty: 1 0RF Rx Instructions: As directed meclizine 12.5 mg tablet 12.5 mg PO TID PRN (Reason: dizziness) 10 Days Qty: 30 3RF sertraline 100 mg tablet 100 mg PO DAILY 90 Days Qty: 90 2RF Print Language: Ukrainian
--- NOTE | 2024-01-20 03:42 | PC.NURSE ---
pt from home a&ox3, respirations even and unlabored. pt reporting increased dizziness and weakness when standing. pt reports it subsides when she sits or lays down. pt denies chest pain, n/v/d. pt neuros in tact. orthos completed, pt reports extreme dizziness and headache on standing, unable to obtain standing blood pressure. aware.
[2024-01-20 03:57] LABS: Appearance Urine Clear; Color Urine Yellow; Glucose Urine UA Negative (Negative); Leukocyte Esterase Urine Negative (Negative); Nitrite Urine Negative (Negative); PH 6.5 (5.0-9.0); Specific Gravity - Urine 1.015 (1.005-1.025); Urine Blood Negative (Negative); Urine Ketones Negative (Negative); Urine Protein Negative (Neg-Trace)
[2024-01-20 04:38] LABS: B Type Natriuretic Peptide 36 pg/mL (<100)
[2024-01-20] MEDS: SUMAtriptan succinate 6 MG/0.5 ML VIAL SUBCUT (05:00)
== END 2024-01-20 07:31 | disposition home or self-care (01) ==
PROVIDERS: Emergency Provider Internal Medicine; PCP Physician Assistant
DX: R42 Dizziness and giddiness (principal); G43.909 Migraine, unspecified, not intractable, without status migrainosus; I10 Essential (primary) hypertension; G47.33 Obstructive sleep apnea (adult) (pediatric); R10.2 Pelvic and perineal pain; R06.02 Shortness of breath; Z79.899 Other long term (current) drug therapy; Z03.818 Encounter for observation for suspected exposure to other biological agents ruled out
CPT/HCPCS: 0241U; 36415; 70450; 80053; 81003; 83880; 84484; 84702; 85025; 93005; 96372; 99285; J3030

== ENCOUNTER 2024-01-22 23:11 | Emergency (ER) | payer MEDICAID, SELFPAY ==
[2024-01-22 23:17] VITALS: BP 155/75; PULSE 76; RESP 18; TEMP 36.6; O2SAT 99; BMI 54.0
[2024-01-22 23:54] VITALS: BP 133/59; PULSE 74; RESP 17; TEMP 37.1; O2SAT 97
--- NOTE | 2024-01-23 00:01 | ED_ITS ---
HPI - Headache General Chief Complaint: Headache Stated Complaint: feeling worse, now dizzy Time Seen by Provider: 01/23/24 00:01 History of Present Illness ED Provider: Ken MCCLELLAN Narrative: The patient is a 53-year-old female who presents because of a headache. She says that she has a history of migraines. She also says that she has a history of pseudotumor cerebri. She says that she does not think that the headache she is experiencing currently has a headache of pseudotumor cerebri. She says that the headaches she associated with pseudotumor cerebri had a different character and were also associated with a distinct sense of facial numbness that she does not have on this occasion. She says that she was here 3 days ago and received a dose of Imitrex which was very helpful. Subsequently her headache returned and tonight after washing dishes she felt dizzy. She took her blood pressure and it was high. She became concerned and return to the emergency room. Here her blood pressures are better. She thinks she is having another migraine headache. The patient says that she has had similar dizziness in the past and she says that meclizine works for her. 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 She has a lot of problems with her legs and requires a Rollator for ambulation. Related Data Home Medications ?Medication ?Instructions ?Recorded ?Confirmed buprenorphine 8 mg-naloxone 2 mg 3 film sublingual DAILY 05/07/20 10/28/23 sublingual film (Suboxone) acetaminophen 650 mg 650 mg PO Q8H PRN Pain 10/28/23 10/28/23 tablet,extended release sumatriptan succinate 50 mg tablet 50 mg PO DAILY PRN Headache 10/28/23 10/28/23 Previous Rx's ?Medication ?Instructions ?Recorded walker (Ultra-Light Rollator misc) #1 ea 09/08/21 miscellaneous medical supply #1 ea 01/17/23 (Blood Pressure Cuff) meclizine 12.5 mg tablet 12.5 mg PO TID PRN dizziness 10 07/18/23 days #30 tabs sertraline 100 mg tablet 100 mg PO DAILY 90 days #90 tabs 07/18/23 ferrous sulfate 325 mg (65 mg 325 mg PO BID #60 tabs 08/30/23 iron) tablet (Feosol) CPAP (CPAP Machine/Device) #1 ea 09/19/23 cefadroxil 500 mg capsule 500 mg PO BID #24 caps 11/03/23 meclizine 25 mg tablet 25 mg PO TID PRN dizziness #12 tabs 01/23/24 Allergies Allergy/AdvReac Type Severity Reaction Status Date / Time ibuprofen [IBUPROFEN] Allergy Intermediate SWELLING Verified 01/22/24 23:19 codeine [CODEINE] Allergy Unknown ITCHY Verified 01/22/24 23:19 gabapentin [From Neurontin] Allergy Unknown anxiety, Verified 01/22/24 23:19 insomnia, restless/anxiety hydrocodone [From VICODIN] Allergy Unknown UNKNOWN Verified 01/22/24 23:19 nabumetone [Nabumetone] Allergy Unknown swelling, Verified 01/22/24 23:19 facial swelling Nabumetone Allergy Unknown edema Uncoded 01/22/24 23:19 nsaids Allergy Unknown Unknown Uncoded 01/22/24 23:19 Review of Systems Review of Systems: Yes all other systems are reviewed and are negative PMFSH Past Medical History Medical History Sepsis Lumbar stenosis Kidney stones Intermittent explosive disorder Adult ADHD Anxiety and depression Myasthenia gravis Carpal tunnel syndrome Arthritis Fibromyalgia Pseudotumor cerebri Iron deficiency anemia Breast CA Surgical History History of History of tubal ligation History of endometrial ablation Family History Family History Mother Mental health disorder Heart attack CVA (cerebral vascular accident), Onset Age: 50 Breast cancer Sister CVA (cerebral vascular accident), Onset Age: 51 Leukemia Social History Social History Household Members: Children Housing: Apartment Are you a primary home health care respiratory therapist to a significant other at home: No Do you presently have visiting nurse or other home services: No Alcohol intake: never Patient Tobacco Use Status: Former Tobacco user Tobacco use type: Cigarette Smoked in Last 30 Days: Yes e-Cigarette/Vaping Use: Never Used Second Hand Smoke Exposure: No Use of substances other than those prescribed or required for medical reasons: No Advance Directives: No Advance Directives Information Provided: Yes Patient : No service: No Current occupational status: employed 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 She does not appear in obvious distress or seem obviously acutely ill. HEENT: Other: Face is symmetrical. Mucous membranes moist. Eyes: Other: Pupils are round equal, conjunctivae are clear, extraocular movements intact Neck: Other: Moving her neck easily Resp: Effort & Inspection: normal respiratory effort Auscultation: clear to auscultation bilaterally Cardio: Rate: regular rate Rhythm: regular rhythm Heart sounds: S1 normal heart sound present and S2 normal heart sound present Skin: Other: Skin is dry and unremarkable Neuro: Other: The patient is awake, alert, pleasant, cooperative. Mental status is normal. Her demeanor is pleasant. Cranial nerves are intact. She moves her arms and legs symmetrically. She has a Rollator that she relies on for ambulation. She was able to walk steadily with a Rollator. Finger-nose is intact bilaterally. Extrem: Other: The patient has what seems to be chronic symmetrical swelling of both lower legs. Medications Administered Discontinued Medications Generic Name Dose Route Start Last Admin Trade Name Freq PRN Reason Stop Dose Admin Sumatriptan Succinate 6 mg 01/23/24 00:08 01/23/24 01:20 Sumatriptan Succinate 6 Mg/0.5 Ml Vial SUBCUT 01/23/24 00:09 6 mg ONCE ONE Administration Medical Decision Making Medical Decision Making [facility] Narrative: The patient is a very pleasant 53-year-old female. She has a history of pseudotumor also has a history of migraine headaches. She was seen here 3 days ago for headache that she did not think was a pseudotumor related headache. She received a dose of Imitrex with improvement. She says her headache was about a day but then returned. The headache is associated with photophobia. I believe she is at her neurological baseline. The patient was hopeful for another injection of Imitrex. She was given 6 mg of Imitrex was some improvement of her discomfort although not complete resolution. She felt well enough for discharge at that point. IM injection of ketorolac and metoclopramide as well at the time of discharge. Additionally she requested meclizine. Meclizine has helped with the dizzy symptoms in the past. Overall the patient's demeanor seems very benign. The patient seems quite confident that her symptoms are not related to pseudotumor cerebri. Nevertheless I think it would be good for her to follow up with her substation design draftsperson not in her neurologist, neither of whom she has seen in a long time. She will therefore be discharged with a prescription for meclizine, plans to keep her PCP appointment in 2 days, and recommendations to contact Dr. Miller's and Dr. Mathew's offices as well. Discharge Plan Discharge Clinical Impression: Migraine headache Patient Disposition: Home, Self-Care Additional Instructions: Please plan on keeping your appointment with your regular provider on Tuesday as scheduled. Given that you are having a series of headaches and that you have a history of pseudotumor cerebri I think it would be seen by the substation design draftsperson, Dr. Miller, and also your neurologist, Dr. Mathew. Therefore please contact these offices for a follow up appointment soon as well. I have sent a prescription for meclizine to your pharmacy. You may use this medication as needed for dizziness. Continue your other medications as usual. Return to the emergency room if significantly worse. Prescriptions: New meclizine 25 mg tablet 25 mg PO TID PRN (Reason: dizziness) Qty: 12 0RF No Action ferrous sulfate [Feosol] 325 mg (65 mg iron) tablet 325 mg PO BID Qty: 60 1RF (DME) CPAP Machine/Device Device See Rx Instructions .Route Qty: 1 0RF Rx Instructions: Need for auto PAP 6 to 12 cm H20- for nightly lifetime use sumatriptan succinate 50 mg tablet 50 mg PO DAILY MDD 200mg PRN (Reason: Headache) Rx Instructions: Take 1 tab at onset of headache; if no relief may repeat 1 tab after at least 2 hrs; max = 4 tabs/24 hr acetaminophen 650 mg Tablet Extended Release 650 mg PO Q8H PRN (Reason: Pain) cefadroxil 500 mg capsule 500 mg PO BID Qty: 24 0RF buprenorphine-naloxone [Suboxone] 8-2 mg film 3 film sublingual DAILY (DME) Blood Pressure Cuff Misc See Rx Instructions .ROUTE .MEDSUPPLY Qty: 1 0RF Rx Instructions: As directed (DME) Ultra-Light Rollator Misc See Rx Instructions .Route Qty: 1 0RF Rx Instructions: As directed meclizine 12.5 mg tablet 12.5 mg PO TID PRN (Reason: dizziness) 10 Days Qty: 30 3RF sertraline 100 mg tablet 100 mg PO DAILY 90 Days Qty: 90 2RF Referrals: aFisal Melgoza PA-C [Primary Care Provider] - (Headache) Jacky Mathew MD [Physician] - (Headache, history of idiopathic intracranial hypertension) Abiel Miller [Physician] - (Headache, history of pseudotumor cerebri) Print Language: Mozambican
[2024-01-23] MEDS: SUMAtriptan succinate 6 MG/0.5 ML VIAL SUBCUT (01:20)
[2024-01-23] MEDS: Ketorolac Tromethamine 30 MG/ML VIAL IM (02:36)
[2024-01-23] MEDS: Metoclopramide HCl 10 MG/2 ML VIAL IM (02:36)
[2024-01-23] MEDS: Meclizine HCl 25 MG TABLET PO (02:37)
[2024-01-23 03:30] VITALS: BP 126/63; PULSE 93; RESP 16; TEMP 37; O2SAT 98
== END 2024-01-23 03:30 | disposition home or self-care (01) ==
PROVIDERS: Emergency Provider Emergency Medicine; PCP Physician Assistant
DX: G43.909 Migraine, unspecified, not intractable, without status migrainosus (principal); R42 Dizziness and giddiness; Z87.891 Personal history of nicotine dependence
CPT/HCPCS: 96372; 99284; J1885; J2765; J3030

== ENCOUNTER 2024-05-10 01:38 | Emergency (ER) | payer OTHER, SELFPAY ==
--- NOTE | 2024-05-10 | ECG_ITS ---
Test Reason : CHEST PAIN Blood Pressure : */* mmHG Vent. Rate : 69 BPM Atrial Rate : 69 BPM P-R Int : 168 ms QRS Dur : 104 ms QT Int : 392 ms P-R-T Axes : 49 8 31 degrees QTcB Int : 420 ms Normal sinus rhythm with sinus arrhythmia Minimal voltage criteria for LVH, may be normal variant ( R in aVL ) Borderline ECG When compared with ECG of 19-Jan-2024 22:57, No significant change was found Referred By: Generic ED Physician Electronically Signed By: KALEE WITT
--- NOTE | ~2024-05-10 | XR_ITS ---
CLINICAL HISTORY: chest pain 2 view chest x-ray Comparison: CR/SR - XR CHEST 1V - 10/28/23 09:24 EDT Findings: No consolidation or effusion. Heart size is normal. No acute fracture. IMPRESSION: 1. No acute findings. This document has been electronically signed by: Ge Galloway MD, PHD on 05/10/2024 02:22:18
[2024-05-10 01:56] VITALS: BP 134/67; PULSE 69; RESP 18; TEMP 36.6; O2SAT 99; BMI 53.4
[2024-05-10 02:07] LABS: MANUAL DIFF FLAG NO
[2024-05-10 02:36] LABS: Alanine Aminotransferase 8 U/L (0-31); Albumin Level 3.8 g/dL (3.5-5.0); Anion Gap 11 (12-20); Aspartate Amino Transferase 18 U/L (5-31); Bilirubin Total 0.2 mg/dL (0.0-1.0); Blood Urea Nitrogen 19 mg/dL (9-16); Calcium 8.9 mg/dL (8.4-10.2); Carbon Dioxide 26 mmol/L (22-29); Chloride 108 mmol/L (96-108); Creatinine Clr Calc Pharmacy 128.7; Estimated Glomerular Filt Rate > 60; Glucose Random 104 mg/dL (60-115); Potassium 4.2 mmol/L (3.3-5.1); Sodium 141 mmol/L (135-145); Total Protein 7.4 g/dL (6.5-8.0); Troponin-I High Sensitivity < 2.7 ng/L (<3.5-17.0)
[2024-05-10 02:40] LABS: Alkaline Phosphatase 72 U/L (39-117)
[2024-05-10 02:41] LABS: Basophils Percent Auto 0.3 % (0-2); Eosinophils Absolute Auto 0.1 X10*3/uL (0.0-0.4); Eosinophils Percent Auto 1.9 % (0-4); Hematocrit 32.8 % (37.0-47.0); Hemoglobin 10.5 g/dl (12.0-16.0); Imm Gran Abs Auto 0.01 X10*3/uL (0.00-0.03); Imm Gran Pct Auto 0.1 % (0.0-0.4); Lymphocytes Absolute Auto 2.1 X10*3/uL (1.2-4.9); Mean Corpuscular Hemoglobin 23.3 pg (27.0-33.0); Mean Corpuscular Volume 72.9 fL (80.0-98.0); Mean Platelet Volume 9.6 fL (9.4-12.3); Monocytes Absolute Auto 0.5 X10*3/uL (0.1-1.2); Monocytes Percent Auto 6.7 % (2-11); Neutrophils Absolute Auto 4.5 x10*3/uL (2.0-8.3); Platelet Count 296 X10*3/uL (160-400); Red Cell Distribution Width 14.2 % (11.0-16.0); White Blood Count 7.2 X10*3/uL (4.8-10.8)
--- NOTE | 2024-05-10 05:22 | ED_ITS ---
HPI - General Adult General Chief complaint: General Medical Stated complaint: chest pain, dizziness Time Seen by Provider: 05/10/24 05:14 Source: patient Mode of arrival: ambulatory Limitations: no limitations History of Present Illness ED Provider: DR. Boyer HPI narrative: 54-year-old female with history of migraine, pseudotumor cerebri, and vertigo. Came in today for evaluation of headache for the past 4 days patient ran out of Imitrex which is the only medicine make the patient feel better, no photophobia, no nausea, no vomiting, no neurological deficit, patient stated that the headache is similar to her previous headache. Patient also is complaining of left-sided chest pain and palpitation that is resolved now. Related Data Home Medications ?Medication ?Instructions ?Recorded ?Confirmed buprenorphine 8 mg-naloxone 2 mg 3 film sublingual DAILY 05/07/20 10/28/23 sublingual film (Suboxone) acetaminophen 650 mg 650 mg PO Q8H PRN Pain 10/28/23 10/28/23 tablet,extended release sumatriptan succinate 50 mg tablet 50 mg PO DAILY PRN Headache 10/28/23 10/28/23 Previous Rx's ?Medication ?Instructions ?Recorded walker (Ultra-Light Rollator misc) #1 ea 09/08/21 miscellaneous medical supply #1 ea 01/17/23 (Blood Pressure Cuff) meclizine 12.5 mg tablet 12.5 mg PO TID PRN dizziness 10 07/18/23 days #30 tabs sertraline 100 mg tablet 100 mg PO DAILY 90 days #90 tabs 07/18/23 ferrous sulfate 325 mg (65 mg 325 mg PO BID #60 tabs 08/30/23 iron) tablet (Feosol) CPAP (CPAP Machine/Device) #1 ea 09/19/23 cefadroxil 500 mg capsule 500 mg PO BID #24 caps 11/03/23 meclizine 25 mg tablet 25 mg PO TID PRN dizziness #12 tabs 01/23/24 Allergies Allergy/AdvReac Type Severity Reaction Status Date / Time ibuprofen [IBUPROFEN] Allergy Intermediate SWELLING Verified 05/10/24 01:57 codeine [CODEINE] Allergy Unknown ITCHY Verified 05/10/24 01:57 gabapentin [From Neurontin] Allergy Unknown anxiety, Verified 05/10/24 01:57 insomnia, restless/anxiety hydrocodone [From VICODIN] Allergy Unknown UNKNOWN Verified 05/10/24 01:57 nabumetone [Nabumetone] Allergy Unknown swelling, Verified 05/10/24 01:57 facial swelling Nabumetone Allergy Unknown edema Uncoded 01/22/24 23:19 nsaids Allergy Unknown Unknown Uncoded 01/22/24 23:19 Review of Systems 2 Review of Systems: All other systems are reviewed and are negative Constitutional: Reports as per HPI and Reports no additional constitutional complaints Eyes: Reports as per HPI and Reports no additional eye complaints Reports system reviewed and no additional complaints, except as documented Cardiovascular: Reports as per HPI and Reports no additional cardiovascular complaints Respiratory: Reports as per HPI and Reports no additional respiratory complaints Gastrointestinal: Reports as per HPI and Reports no additional gastrointestinal complaints Genitourinary: Reports no additional female genitourinary complaints Musculoskeletal: Reports no additional musculoskeletal complaints Skin/Breast: Reports system reviewed and no additional complaints, except as docu Psychiatric: Reports no additional psychiatric complaints Endocrine: Reports no additional endocrine complaints Hematologic/Lymphatic: Reports no additional hematologic/lymphatic complaints Allergic/Immunologic: Reports no additional allergic/immunologic complaints Reports system reviewed and no additional complaints, except as documented and Reports Abnormal speech present [facility] Past Medical History Medical History Sepsis Lumbar stenosis Kidney stones Intermittent explosive disorder Adult ADHD Anxiety and depression Myasthenia gravis Carpal tunnel syndrome Arthritis Fibromyalgia Pseudotumor cerebri Iron deficiency anemia Breast CA Surgical History History of History of tubal ligation History of endometrial ablation Family History Family History Mother Mental health disorder Heart attack CVA (cerebral vascular accident), Onset Age: 50 Breast cancer Sister CVA (cerebral vascular accident), Onset Age: 51 Leukemia Social History Social History Household Members: Children Housing: Apartment Are you a primary child care development specialist to a significant other at home: No Do you presently have visiting nurse or other home services: No Alcohol intake: never Patient Tobacco Use Status: Former Tobacco user Tobacco use type: Cigarette e-Cigarette/Vaping Use: Never Used Second Hand Smoke Exposure: No Use of substances other than those prescribed or required for medical reasons: No Advance Directives: No Advance Directives Information Provided: Yes Do you have a plan to hurt others: No Plan service: No Current occupational status: employed 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 Blood pressure elevated. Heart rate normal. Respiratory rate normal. Temperature normal. Oxygen saturation normal. Appearance: Alert. Oriented X3. No acute distress. Head: Normal external exam. Normocephalic. Atraumatic. No Shepard signs noted. No raccoon eyes noted Eyes: PERRLA. EOMI. Conjunctiva and sclera normal. Eyelids normal. ENT: TM's Normal. Pharynx normal. Uvula midline. Moist mucous membranes. No trismus noted. No drooling noted. No muffled voice noted. Neck: Normal inspection. Neck supple. FROM. No adenopathy. Thyroid Normal. No meningeal signs. No neck mass noted. CVS: Normal heart rate and rhythm. Heart sound normal. No murmurs noted. Pulses normal throughout. Respiratory: No respiratory distress. Painless inspiration. Breath sounds normal. No wheezes/rales/rhonchi noted. Chest nontender. No accessory muscle usage noted or decreased air movement noted. Abdomen: Soft and nontender. Bowel sounds normal in all 4 quadrants. No distention noted. No organomegaly noted. No visible injury noted. Back: No CVA tenderness. Full range of motion noted. Skin: Skin warm and dry. Normal skin color. Normal skin turgor. No rashes/lesions/lacerations noted. Extremities: No lower extremity edema. Extremities exhibit normal range of motion. Extremities nontender. Neuro: Mental status: Normal attention, orientation, memory, and affect. Cranial nerves: Pupils are equal, round and reactive to light, EOMI, visual coburn are fall, face is symmetric, facial sensations are normal. Motor examination normal muscle tone, strength to 4 extremities. DTR are +2, planter's are flexor. Sensory exam; normal coordination, no ataxia, gait stable. Cerebellar exam: [id number] and [id number] is normal. Extrapyramidal system: No tremors, no rigidity with normal facial expressions. Pronator drift not present Course Reevaluation(s) Reevaluation #1: Headache for 4 days patient received Imitrex and Tylenol in the emergency department with improvement of her headache. Chest pain unremarkable cardiac workup for the chest pain. Time: 06:28 Medications Administered Discontinued Medications Generic Name Dose Route Start Last Admin Trade Name Freq PRN Reason Stop Dose Admin Acetaminophen 650 mg 05/10/24 05:20 05/10/24 05:33 Acetaminophen 325 Mg Tablet PO 05/10/24 05:21 650 mg ONCE ONE Administration Meclizine HCl 25 mg 05/10/24 05:20 05/10/24 05:32 Meclizine Hcl 25 Mg Tablet PO 05/10/24 05:21 25 mg ONCE ONE Administration Sumatriptan Succinate 50 mg 05/10/24 05:20 05/10/24 05:32 Sumatriptan Succinate 50 Mg Tablet PO 05/10/24 05:21 50 mg ONCE ONE Administration Medical Decision Making Differential Diagnosis Differential Diagnoses: The differential diagnosis associated with the presentation includes (Migraine, tension headache, meningitis, ACS, pneumonia, pneumothorax, pleural effusion, electrolyte derangement, severe anemia.) Admission/Observation Consideration of admission/observation: Escalation of care including admission/observation considered Lab Data MDM Lab Attestation statement: I reviewed the patient's lab results. 05/10/24 02:33 05/10/24 02:00 Labs: Lab Results 05/10/24 05/10/24 Range/Units 02:00 02:33 WBC 7.2 (4.8-10.8) X10*3/uL RBC 4.50 (4.20-5.50) X10*6/uL Hgb 10.5 L (12.0-16.0) g/dl Hct 32.8 L (37.0-47.0) % MCV 72.9 L (80.0-98.0) fL MCH 23.3 L (27.0-33.0) pg MCHC 32.0 (31.0-35.0) g/dl RDW 14.2 (11.0-16.0) % Plt Count 296 (160-400) X10*3/uL MPV 9.6 (9.4-12.3) fL Immature Gran % (Auto) 0.1 (0.0-0.4) % Neut % (Auto) 62.0 (45-73) % Lymph % (Auto) 29.0 (20-40) % Mccone % (Auto) 6.7 (2-11) % Eos % (Auto) 1.9 (0-4) % Baso % (Auto) 0.3 (0-2) % Lymph # (Auto) 2.1 (1.2-4.9) X10*3/uL Mccone # (Auto) 0.5 (0.1-1.2) X10*3/uL Eos # (Auto) 0.1 (0.0-0.4) X10*3/uL Baso # (Auto) 0.0 (0.0-0.2) X10*3/uL Abs Immat Gran (auto) 0.01 (0.00-0.03) X10*3/uL Absolute Neuts (auto) 4.5 (2.0-8.3) x10*3/uL Absolute Nucleated RBC 0.000 (0.0-0.012) X10*3/uL Nucleated RBC % (auto) 0.0 (0.0-0.2) /100WBC Sodium 141 (135-145) mmol/L Potassium 4.2 (3.3-5.1) mmol/L Chloride 108 (96-108) mmol/L Carbon Dioxide 26 (22-29) mmol/L Anion Gap 11 L (12-20) BUN 19 H (9-16) mg/dL Creatinine 0.67 (0.5-1.4) mg/dL Estim Creat Clear Calc 128.7 Estimated GFR > 60 Random Glucose 104 (60-115) mg/dL Calcium 8.9 (8.4-10.2) mg/dL Total Bilirubin 0.2 (0.0-1.0) mg/dL AST 18 (5-31) U/L ALT 8 (0-31) U/L Alkaline Phosphatase 72 (39-117) U/L Troponin I High Sens < 2.7 (<3.5-17.0) ng/L Total Protein 7.4 (6.5-8.0) g/dL Albumin 3.8 (3.5-5.0) g/dL Independent Interpretation I performed an independent interpretation of an: EKG (Normal sinus rhythm at 69 beats per minutes, normal intervals, no ST-T changes, no change from previous EKG.) and Plain X-Ray (Chest: No acute findings) Radiology Impression Discussion of test interpretation with radiology: I have reviewed the radiologist's reading. Discharge Plan Discharge Clinical Impression: Headache, migraine, Chest pain Patient Disposition: Home, Self-Care Instructions: Migraine Headache (ED) Prescriptions: No Action ferrous sulfate [Feosol] 325 mg (65 mg iron) tablet 325 mg PO BID Qty: 60 1RF (DME) CPAP Machine/Device Device See Rx Instructions .Route Qty: 1 0RF Rx Instructions: Need for auto PAP 6 to 12 cm H20- for nightly lifetime use sumatriptan succinate 50 mg tablet 50 mg PO DAILY MDD 200mg PRN (Reason: Headache) Rx Instructions: Take 1 tab at onset of headache; if no relief may repeat 1 tab after at least 2 hrs; max = 4 tabs/24 hr acetaminophen 650 mg Tablet Extended Release 650 mg PO Q8H PRN (Reason: Pain) cefadroxil 500 mg capsule 500 mg PO BID Qty: 24 0RF meclizine 25 mg tablet 25 mg PO TID PRN (Reason: dizziness) Qty: 12 0RF buprenorphine-naloxone [Suboxone] 8-2 mg film 3 film sublingual DAILY (DME) Blood Pressure Cuff Misc See Rx Instructions .ROUTE .MEDSUPPLY Qty: 1 0RF Rx Instructions: As directed (DME) Ultra-Light Rollator Misc See Rx Instructions .Route Qty: 1 0RF Rx Instructions: As directed meclizine 12.5 mg tablet 12.5 mg PO TID PRN (Reason: dizziness) 10 Days Qty: 30 3RF sertraline 100 mg tablet 100 mg PO DAILY 90 Days Qty: 90 2RF Print Language: Maori
[2024-05-10] MEDS: SUMAtriptan succinate 50 MG TABLET PO (05:32)
[2024-05-10] MEDS: Meclizine HCl 25 MG TABLET PO (05:32)
[2024-05-10] MEDS: Acetaminophen 325 MG TABLET 650 MG PO (05:33)
--- NOTE | 2024-05-10 05:35 | PC.NURSE ---
medicated per mar, pt resting in bed.
--- NOTE | 2024-05-10 05:38 | PC.NURSE ---
pt a&o, no sob or chest pain, pt ran out of her medication for migraine, pt walks with a walker.
[2024-05-10 05:40] VITALS: BP 152/67; PULSE 65; RESP 12; TEMP 36.6; O2SAT 100
--- NOTE | 2024-05-10 05:43 | PC.NURSE ---
pt given apple juice drank all of it fine.
--- NOTE | 2024-05-10 06:33 | PC.NURSE ---
pt report improvement in headache, reviewed discharge instruction with pt. pt verbalized understanding, no sign of distress.
[2024-05-10 06:34] VITALS: BP 152/67; PULSE 65; RESP 12; TEMP 36.6; O2SAT 100
== END 2024-05-10 06:34 | disposition home or self-care (01) ==
PROVIDERS: Emergency Provider Emergency Medicine
DX: G43.909 Migraine, unspecified, not intractable, without status migrainosus (principal); R07.9 Chest pain, unspecified
CPT/HCPCS: 36415; 71046; 80053; 84484; 85025; 93005; 99283; 99285

== ENCOUNTER → 2024-05-10 01:51 | Outpatient (BNV) | payer OTHER, SELFPAY | PROVIDERS: Emergency Provider Emergency Medicine; Visit Provider Internal Medicine | DX: R07.9 Chest pain, unspecified (principal) | CPT/HCPCS: 93010 ==

== ENCOUNTER → 2024-05-10 02:00 | Outpatient (BNV) | payer OTHER, SELFPAY | PROVIDERS: Visit Provider General Practice | DX: R07.9 Chest pain, unspecified (principal) | CPT/HCPCS: 71046 ==

== ENCOUNTER 2024-05-15 14:52 | Outpatient (AMB) | payer OTHER, SELFPAY ==
[2024-05-15 15:03] VITALS: BP 132/70; PULSE 87; TEMP 36.4; O2SAT 98; BMI 52.0
--- NOTE | 2024-05-15 15:03 | A.OFFPC_ITS ---
Vital Signs 05/15/24 15:03 Height 5 ft 2 in Weight 284 lb 6.341 oz BMI 52.0 BP 132/70 Blood Pressure Location Lt brachial Position Sitting Pulse 87 Pulse Source Pulse Oximeter Temp 97.5 F Temp Source Temporal Artery Scan Pulse Oximetry (%) 98 Oxygen Delivery Method Room Air Intake [place] [facility] [place] Headaches/Dizziness Certified Hyperbaric Technician Required: No Accompanied by: Self / Same As Patient Allergies ibuprofen [IBUPROFEN] Allergy (Intermediate, Verified 05/15/24 15:13) SWELLING codeine [CODEINE] Allergy (Unknown, Verified 05/15/24 15:13) ITCHY gabapentin [From Neurontin] Allergy (Unknown, Verified 05/15/24 15:13) anxiety, insomnia, restless/anxiety hydrocodone [From VICODIN] Allergy (Unknown, Verified 05/15/24 15:13) UNKNOWN nabumetone [Nabumetone] Allergy (Unknown, Verified 05/15/24 15:13) swelling, facial swelling Nabumetone Allergy (Unknown, Uncoded 05/15/24 15:13) edema nsaids Allergy (Unknown, Uncoded 05/15/24 15:13) Unknown Medication List - Last Reconciled 05/15/24 by Faisal Melgoza PA-C acetaminophen ER 650 mg PO Q8H PRN buprenorphine-naloxone 8-2 mg (Suboxone) 3 film sublingual DAILY CPAP (CPAP Machine/Device) Need for auto PAP 6 to 12 cm H20- for nightly lifetime use ferrous sulfate (Feosol) 325 mg PO BID meclizine 25 mg PO TID PRN miscellaneous medical supply (Blood Pressure Cuff) As directed sertraline 100 mg PO DAILY 90 days sumatriptan succinate 50 mg PO DAILY PRN MDD 200mg walker (Ultra-Light Rollator misc) As directed Tobacco use date assessed: 05/15/24 Dental Screening Dental Screen Date: 05/15/24 Did you have a dental visit in the last 12 months?: No Did you have a dental problem in the last 6 months where you did not have access to dental care?: No Was dental information given to patient?: Patient has dentist [place] [facility] [place] Headaches/Dizziness HPI Details The patient is a 54-year-old female presenting with persistent headaches. Recently seen at the [facility] for the same. She reports that the headaches began approximately two weeks ago and have not shown significant improvement despite various interventions. The patient describes the pain as severe and recurring in nature. She has tried multiple xird-yom-uobtrcg medications including ibuprofen, Tylenol, and Ezetra migraine, but these have provided only temporary relief. In the past, medications such as Nurtec have been suggested, but she has expressed concerns about obtaining insurance coverage for it. The patient is adamant about avoiding narcotic medications such as Furset. [facility] Medical History Sepsis Lumbar stenosis Kidney stones Intermittent explosive disorder Adult ADHD Anxiety and depression Myasthenia gravis Carpal tunnel syndrome Arthritis Fibromyalgia Pseudotumor cerebri Iron deficiency anemia Breast CA Surgical History History of History of tubal ligation History of endometrial ablation Family History Mother Mental health disorder Heart attack CVA (cerebral vascular accident), Onset Age: 50 Breast cancer Sister CVA (cerebral vascular accident), Onset Age: 51 Leukemia Social History Household Members: Children Housing: Apartment Are you a primary primary care nurse practitioner to a significant other at home: No Do you presently have visiting nurse or other home services: No Alcohol intake: never Patient Tobacco Use Status: Former Tobacco user Tobacco use type: Cigarette e-Cigarette/Vaping Use: Never Used Second Hand Smoke Exposure: No service: No Current occupational status: employed 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 1. Little interest or pleasure in doing things: not at all 2. Feeling down, depressed, or hopeless: not at all 3. Trouble falling or staying asleep, or sleeping too much: not at all 4. Feeling tired or having little energy: not at all 5. Poor appetite or overeating: not at all 6. Feeling bad about yourself - or that you are a failure or have let yourself or your family down: not at all 7. Trouble concentrating on things, such as reading the newspaper or watching television: not at all 8. Moving or speaking so slowly that other people could have noticed. Or the opposite - being so fidgety or restless that you have been moving around a lot more than usual: not at all 9. Thoughts that you would be better off or of hurting yourself in some way: not at all Total score: 0 Depression Screening Interpretation: Negative Depression Screening Done: Yes 46197 - PHQ-9 Billing: Yes Source: Developed by Drs. Garrett Peres, Marla Dick, Jorge Duarte and colleagues, with an educational romeo from [employer]. Thrive Questionnaire Date Thrive assessed: 05/15/24 I am a: Patient What is your living situation today?: I have a steady place to live Within the past 12 months, did the food you bought not last and you didn't have the money to get more?: Never true Within the past 12 months, did you worry whether your food would run out before you got money to buy more?: Never true Do you have trouble paying for medicines?: No Do you have trouble getting transportation to medical appointments?: No Do you have trouble paying your heating and electricity bill?: No Do you have trouble taking care of your child, family member or friend?: No Do you have trouble with day-to-day activities such as bathing, preparing meals, shopping, managing finances, etc.?: No Are you currently unemployed and looking for a job?: No Are you interested in more education?: No Please select the resources that you would like help with: None Currently or been in a relationship where the following occur: No concerns reported THRIVE Score: 0 AUDIT C Alcohol Use Questionnaire (AUDIT-C) 1. How often do you have a drink containing alcohol?: Never 3. How often do you have six or more drinks on one occasion?: Never Total Score: 0 GENE-7 AMB Questionnaire GENE-7 Date GENE - 7 assessed: 05/15/24 Feeling nervous, anxious, or on edge: 0 = Not at all Not being able to stop or control worryin = Not at all Worrying too much about different things: 0 = Not at all Trouble relaxin = Not at all Being so restless that it is hard to sit still: 0 = Not at all Becoming easily annoyed or irritable: 0 = Not at all Feeling afraid as if something awful might happen: 0 = Not at all Total GENE-7 score (0-4 normal; 5-9 mild; 10-14 moderate; 15-21 severe): 0 Source: Developed by Drs. Garrett Peres, Maral Dick, Jorge Duarte and colleagues, with an educational romeo from [employer]. GENE-7 Assessment Billing GENE-7 Assessment Tool: GENE-7 Assessment 67520 Review of Systems Const Reports headache(s) Eyes Denies loss of vision ENT Reports headache(s) Card Denies chest pain, Denies leg edema and Denies lightheadedness Resp Denies cough, Denies hemoptysis and Denies wheezing GI Denies abdominal pain, Denies melena, Denies constipation, Denies diarrhea and Denies vomiting Denies urinary frequency, Denies dysuria and Denies urinary urgency Musc Denies arthralgias, Denies joint swelling, Denies numbness and Denies tingling Neuro Denies Abnormal speech present, Denies behavioral changes, Reports headache(s), Denies loss of vision, Denies memory loss, Denies numbness and Denies tingling Psych Denies anxiety, Denies behavioral changes, Denies depression, Denies memory loss and Denies panic attacks Kevin/Lymph Denies easy bleeding and Denies easy bruising Aller/Immun Denies wheezing Physical exam (Primary Care) Vital Signs: Last Vital Signs Temp 97.5 F 05/15/24 15:03 Pulse 87 05/15/24 15:03 BP 132/70 05/15/24 15:03 Pulse Ox 98 05/15/24 15:03 Oxygen Delivery Method Room Air 05/15/24 15:03 BMI result Body Mass Index 52.0 Tobacco/Smoking Status: Tobacco use Status Tobacco use date assessed 05/15/24 05/15/24 15:11 Patient Tobacco Use Status Former Tobacco user 05/15/24 15:11 Tobacco use type Cigarette 05/15/24 15:11 e-Cigarette/Vaping Use Never Used 05/15/24 15:11 PHQ-9: PHQ-9 Score PHQ-9: Total score 0 05/15/24 15:12 Depression Screening Interpretation: Negative Thrive Assessment: Date of Thrive Assessment Date Thrive assessed 05/15/24 05/15/24 15:11 Currently or been in a relationship where the following occur: No concerns reported Const General: healthy appearing, no acute distress, alert and awake Nutritional Appearance: well nourished Orientation/consciousness: oriented to person, oriented to place and oriented to time HENMT Ears: TM's normal bilaterally General nose exam: Normal nasal mucous membranes and turbinates present Eyes Conjunctivae: conjunctivae normal Sclerae: sclerae normal Pupils: Equal, round and reactive pupils present Neck Neck: Yes no lymphadenopathy and Yes no JVD Thyroid: Thyroid normal Carotids: no bruits Resp Effort & Inspection: normal respiratory effort and not tachypneic Auscultation: no crackles, no rales, no rhonchi and no wheezes Cardio Rate: regular rate Rhythm: regular rhythm Heart sounds: no murmurs and normal S1 and S2 GI Palpation (GI): Soft to palpation, nontender, no hepatomegaly and no splenomegaly Auscultation: normal bowel sounds Skin General skin exam: no rashes or lesions noted and dry skin Neuro General: oriented to person, oriented to place and oriented to time Cranial nerves: Yes Equal, round and reactive pupils present Speech: No Abnormal speech present Gait exam (Neuro): Normal gait present Motor exam (neuro): no tremor noted Extrem Right upper extremity: full ROM Left upper extremity: full ROM Right lower extremity: full ROM; no edema Left lower extremity: full ROM; no edema Psych Mental Status: mental status grossly normal Speech and movement: Normal speech and movement present Affect: normal affect Attitude: cooperative Thought process: Normal thought process present Office Procedures Flu Questionnaire Does the patient have a severe egg allergy?: No Immunizations Fluarix Triv [id number] (PF) 45 mcg (15 mcg x 3)/0.5 mL IM syringe Performing Provider: Faisal Melgoza PA-C [place] [facility] [facility] Documented (not given) by: RANDY Ojeda on 05/15/24 15:13 Reason Not Given: Patient Refused Coding Level of Care Code Est Pt Level 3 (77883) Diagnoses Migraine without aura and without status migrainosus, not intractable G43.009 Intractability: not intractable Migraine type: without aura Status migrainosus presence: without status migrainosus Additional Codes GENE-7 Assessment Billing - GENE-7 Assessment Tool: GENE-7 Assessment 41696 ([id number]) PHQ-9 - 00968 - PHQ-9 Billing: Yes ([id number]) Assessment & Plan Assessment & Plan (1) Headache, migraine: Code(s): G43.909 - Migraine, unspecified, not intractable, without status migrainosus Category: Medical Qualifiers: Intractability: not intractable Migraine type: without aura Status migrainosus presence: without status migrainosus Qualified Code(s): G43.009 - Migraine without aura, not intractable, without status migrainosus Plan: During our discussion, I reviewed the patient's chronic migraine management, including alternatives like Immitrex and the potential challenges with Nurtec due to insurance coverage. Risks and benefits of medications were acknowledged, emphasizing the non-narcotic preference Orders: Orders Influenza [id number] Immunization Today Z23 - Encounter for immunization Complete Blood Count no Diff Today D50.0 - Iron deficiency anemia secondary to blood loss (chronic) IRON PROFILE Today D50.0 - Iron deficiency anemia secondary to blood loss (chronic), D50.9 - Iron deficiency anemia, unspecified Comprehensive [place]. Panel Fast Today Z13.1 - Encounter for screening for diabetes mellitus Referrals Hematology & Oncology Referral C50.211 - Malignant neoplasm of upper-inner quadrant of right female breast, Z17.1 - Estrogen receptor negative status [ER-] Medications: New sumatriptan succinate take 1 tab at onset of headache; if no relief, may repeat 1 tab after at least 2 hrs; max = 2 tabs/24 hrs PO 30 days 10 tabs 3RF G43.009 - Migraine without aura, not intractable, without status migrainosus [QUAD CANE] As directed 1 ea 0RF I89.0 - Lymphedema, not elsewhere classified, M54.16 - Radiculopathy, lumbar region furosemide 20 mg PO DAILY 7 days 7 tabs 0RF G43.009 - Migraine without aura, not intractable, without status migrainosus Changed From acetaminophen ER 650 mg PO Q8H PRN Pain Z13.1 - Encounter for screening for diabetes mellitus To acetaminophen ER 650 mg PO Q8H 30 days PRN 90 tabs 2RF Pain Z13.1 - Encounter for screening for diabetes mellitus Refilled meclizine 25 mg PO TID PRN 12 tabs 0RF dizziness Z13.1 - Encounter for screening for diabetes mellitus ferrous sulfate (Feosol) 325 mg PO BID 60 tabs 1RF I10 - Essential (primary) hypertension
== END 2024-05-15 15:34 | disposition home or self-care (01) ==
PROVIDERS: PCP Physician Assistant; Visit Provider Physician Assistant
DX: Z23 Encounter for immunization (principal); G43.009 Migraine without aura, not intractable, without status migrainosus

== ENCOUNTER → 2024-05-15 14:52 | Outpatient (BNVA) | payer OTHER, SELFPAY | PROVIDERS: PCP Physician Assistant; Visit Provider Physician Assistant | DX: G43.009 Migraine without aura, not intractable, without status migrainosus (principal); D50.9 Iron deficiency anemia, unspecified; C50.211 Malignant neoplasm of upper-inner quadrant of right female breast; I89.0 Lymphedema, not elsewhere classified; M54.16 Radiculopathy, lumbar region; I10 Essential (primary) hypertension; Z17.1 Estrogen receptor negative status [ER-]; Z28.21 Immunization not carried out because of patient refusal | CPT/HCPCS: 90471; 96127; 99212 ==

== ENCOUNTER → 2024-05-29 10:52 | Outpatient (RCR) | payer OTHER, SELFPAY ==
--- NOTE | 2022-02-19 13:14 | MHC.OT.OD ---
[address] [phone] F: [phone] Occupational Therapy Daily Note Start Time: 1300 End Time: 1400 Visit Duration: 60 Billable Time: 60 Date of Evaluation: 09/04/21 Treatments to Date: 1 Cancellations to Date: No Shows to Date: Authorized Treatment: Insurance End Date: Subjective: Pain Score: Pain Location: Objective: Began pt ed on dx, precautions and treatment options Pt agreeable to below knee compression stockings Tests and Measures: Assessment: Vika is a 51 yo female to worsening bilateral lower extremity pitting edema with underlying obesity, varicose veins, knee OA and low back pain. She is unable to physically manage self bandaging and reports she does not have a reliable support system to assist with consistant edema bandaging or a velcro closure system to reduce leg volume. She was agreeable to use of a below knee velcro closure wrap such as a Farrow wrap to reduce lower leg volume and progress to a compression knee high. She was also agreeable to try to wear proper foot wear to assist in management of foot edema. Orthotics and Prosthetic received RX for bilateral below knee Farrow wraps at 30-40 mmhg. Pt no showed OT and appointment with O+P. Messages were left for pt to contact OT and O+P Pt has not called back Short Term Goals: Pt will understand lymphedema precautions to decrease the risk of infection and exacerbation of the lymphedema Pt will develop a tolerance for wearing a below the knee compression wrap to facilitate limb decongestion Pt will demonstrate a decrease in pitting edema which will improve tissue health and decrease the risk of infection Pt will perform HEP with minimal assistance to help improve lymphatic flow and venous return Halfway Goals: Pt will be indep with use of a compression wrap for continued volume reduction and prevent re-accumulaton of edema fluid. Plan of Care: See eval D/C Today: YES Treatment Plan: Treatment Plan Comments: Electronically Signed By: Ninfa Boyer OT CHT CLT Reviewed/agree with student documentation: N/A Therapist:
== END | disposition home or self-care (01) ==
LOC: HO.OT 09-14 12:43
PROVIDERS: PCP Physician Assistant; Visit Provider Physician Assistant
DX: I89.0 Lymphedema, not elsewhere classified (principal)

== ENCOUNTER 2024-07-03 07:07 | Emergency (ER) | payer OTHER, SELFPAY ==
--- NOTE | 2024-07-03 07:16 | ECG_ITS ---
Test Reason : palpatations Blood Pressure : */* mmHG Vent. Rate : 75 BPM Atrial Rate : 75 BPM P-R Int : 156 ms QRS Dur : 94 ms QT Int : 380 ms P-R-T Axes : 26 5 25 degrees QTcB Int : 424 ms Normal sinus rhythm Minimal voltage criteria for LVH, may be normal variant ( R in aVL ) Borderline ECG When compared with ECG of 10-May-2024 01:51, No significant change was found Referred By: Generic ED Physician Electronically Signed By: MALIK TAM MD
[2024-07-03 07:26] VITALS: BP 146/81; PULSE 88; RESP 18; TEMP 36.5; O2SAT 100; BMI 52.5
[2024-07-03 08:06] LABS: MANUAL DIFF FLAG NO
[2024-07-03 08:07] LABS: Basophils Percent Auto 0.7 % (0-2); Eosinophils Absolute Auto 0.1 X10*3/uL (0.0-0.4); Eosinophils Percent Auto 2.4 % (0-4); Hematocrit 34.7 % (37.0-47.0); Hemoglobin 10.6 g/dl (12.0-16.0); Imm Gran Abs Auto 0.02 X10*3/uL (0.00-0.03); Imm Gran Pct Auto 0.4 % (0.0-0.4); Lymphocytes Absolute Auto 1.7 X10*3/uL (1.2-4.9); Lymphocytes Percent Auto 32.3 % (20-40); Mean Corpuscular HGB Conc 30.5 g/dl (31.0-35.0); Mean Corpuscular Hemoglobin 21.9 pg (27.0-33.0); Mean Corpuscular Volume 71.5 fL (80.0-98.0); Mean Platelet Volume 9.5 fL (9.4-12.3); Monocytes Absolute Auto 0.4 X10*3/uL (0.1-1.2); Monocytes Percent Auto 6.9 % (2-11); Neutrophils Absolute Auto 3.1 x10*3/uL (2.0-8.3); Neutrophils Percent Auto 57.3 % (45-73); Platelet Count 310 X10*3/uL (160-400); Red Blood Count 4.85 X10*6/uL (4.20-5.50); White Blood Count 5.4 X10*3/uL (4.8-10.8)
[2024-07-03 08:23] LABS: Alanine Aminotransferase 13 U/L (0-31); Albumin Level 4.1 g/dL (3.5-5.0); Alkaline Phosphatase 79 U/L (39-117); Anion Gap 11 (12-20); Aspartate Amino Transferase 17 U/L (5-31); Bilirubin Total 0.2 mg/dL (0.0-1.0); Blood Urea Nitrogen 18 mg/dL (9-16); Calcium 8.9 mg/dL (8.4-10.2); Carbon Dioxide 26 mmol/L (22-29); Chloride 107 mmol/L (96-108); Creatinine Clr Calc Pharmacy 129.2; Estimated Glomerular Filt Rate > 60; Glucose Random 104 mg/dL (60-115); Sodium 140 mmol/L (135-145); Total Protein 8.5 g/dL (6.5-8.0)
[2024-07-03 08:29] LABS: Troponin-I High Sensitivity < 2.7 ng/L (<3.5-17.0)
[2024-07-03 10:37] VITALS: BP 139/75; PULSE 100; RESP 18; O2SAT 96
--- NOTE | 2024-07-03 10:44 | ED.ARRPALP ---
HPI - Arrhythmia/Palpitations General Chief Complaint: Arrhythmia/Palpitations Stated Complaint: HEART RACING Time Seen by Provider: 07/03/24 10:43 Source: patient and old records reviewed Mode of arrival: ambulatory Limitations: no limitations History of Present Illness ED Provider: JACOB HPI narrative: 54 yo female with PMH of obesity, migraines, anxiety, HTN, anemia, ANSON, lymphedema, PVD, was writing notes at 4am and then her heart was fast, has been feeling well. She felt very ill during the episode - it lasted about 3 hours. She has had this in the past but not for years. MD complaint: heart racing and palpitations Onset (ago): hour(s) (7am today) Duration: intermittent Severity: moderate Context: occurred during rest Arrhythmia history: other Associated symptoms: shortness of breath Related Data Home Medications ?Medication ?Instructions ?Recorded ?Confirmed buprenorphine 8 mg-naloxone 2 mg 3 film sublingual DAILY 05/07/20 06/20/24 sublingual film (Suboxone) Previous Rx's ?Medication ?Instructions ?Recorded walker (Ultra-Light Rollator misc) #1 ea 09/08/21 miscellaneous medical supply #1 ea 01/17/23 (Blood Pressure Cuff) CPAP (CPAP Machine/Device) #1 ea 09/19/23 QUAD CANE #1 ea 05/15/24 acetaminophen 650 mg 650 mg PO Q8H PRN Pain 30 days #90 05/17/24 tablet,extended release tabs ferrous sulfate 325 mg (65 mg 325 mg PO BID #60 tabs 05/17/24 iron) tablet (Feosol) furosemide 20 mg tablet 20 mg PO DAILY 7 days #7 tabs 05/17/24 meclizine 25 mg tablet 25 mg PO TID PRN dizziness #12 tabs 05/17/24 sumatriptan succinate 100 mg tablet See Rx Instructions PO .COMPLEX 30 05/17/24 days #10 tabs sertraline 100 mg tablet 100 mg PO DAILY 90 days #90 tabs 06/11/24 Allergies Allergy/AdvReac Type Severity Reaction Status Date / Time ibuprofen [IBUPROFEN] Allergy Intermediate SWELLING Verified 07/03/24 07:30 codeine [CODEINE] Allergy Unknown ITCHY Verified 07/03/24 07:30 gabapentin [From Neurontin] Allergy Unknown anxiety, Verified 07/03/24 07:30 insomnia, restless/anxiety hydrocodone [From VICODIN] Allergy Unknown UNKNOWN Verified 07/03/24 07:30 nabumetone [Nabumetone] Allergy Unknown swelling, Verified 07/03/24 07:30 facial swelling Nabumetone Allergy Unknown edema Uncoded 05/15/24 15:13 nsaids Allergy Unknown Unknown Uncoded 05/15/24 15:13 Review of Systems Review of Systems: Constitutional : No Weight loss, No Fever, No Chills ENT/Mouth : No sore throat, No Rhinorrhea Eyes: No Eye Pain, No Swelling Cardiovascular :no Chest Pain, pos SOB, no Dyspnea on Exertion, No Orthopnea, pos Edema, pos Palpitations Respiratory : No Cough, No Sputum Gastrointestinal : no Nausea, No Vomiting, No Diarrhea, No abdominal Pain, No Hematochezia, No Melena Genitourinary : No Dysuria, No Urinary Frequency Musculoskeletal : No joint pain, No Myalgias, No Joint Swelling Skin : No Skin Lesions, No rash Neuro : No Weakness, No Numbness, No Dizziness, No Headache All other systems reviewed and are negative [facility] Past Medical History Attestation statement: The following information was validated with the patient. Source: old records reviewed Medical History Sepsis Lumbar stenosis Kidney stones Intermittent explosive disorder Adult ADHD Anxiety and depression Myasthenia gravis Carpal tunnel syndrome Arthritis Fibromyalgia Pseudotumor cerebri Iron deficiency anemia Breast CA Surgical History History of History of tubal ligation History of endometrial ablation Family History Family History Mother Mental health disorder Heart attack CVA (cerebral vascular accident), Onset Age: 50 Breast cancer Sister CVA (cerebral vascular accident), Onset Age: 51 Leukemia Social History Social History Household Members: Children and None Housing: Apartment Are you a primary client care coordinator to a significant other at home: No Do you presently have visiting nurse or other home services: No Alcohol intake: never Patient Tobacco Use Status: Former Tobacco user Tobacco use type: Cigarette e-Cigarette/Vaping Use: Never Used Second Hand Smoke Exposure: No Advance Directives: No Advance Directives Information Provided: Yes service: No Current occupational status: employed 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 Oriented X3. No acute distress. Eyes: Pupils equal, round and reactive to light. ENT: Pharynx normal. Neck: Normal inspection. Neck supple. CVS: Normal heart rate and rhythm. Pulses normal. Respiratory: No respiratory distress. Breath sounds normal. Abdomen: Soft and nontender. Skin: Skin warm and dry. Normal skin color. Normal skin turgor. Extremities: bilateral leg lymphedema Neuro: Oriented X 3. No motor deficit. No sensory deficit. CN2-12 intact Medical Decision Making Medical Decision Making MDM Narrative: 54 yo female with PMH of obesity, migraines, anxiety, HTN, anemia, ANSON, lymphedema, PVD here with atypical palpitations and dyspnea she states she feels fine has had these before - at this time I am going to obtain labs, troponin x 2, EKG. She has no pleuritic pain, no prior VTE. She does decline further labs and work up and chooses to go home. Possible palpitations, atypical chest pain, chest pain, acs, lyte abnormality Differential Diagnosis Differential Diagnoses: The differential diagnosis associated with the presentation includes palpitations, lyte abnormality Admission/Observation Consideration of admission/observation: Escalation of care including admission/observation considered does not want to stay in triage anymore she is alert and oriented, shared decision making and she declines further work up given precautions to return Lab Data [facility] Lab Attestation statement: I reviewed the patient's lab results. 07/03/24 07:58 07/03/24 07:58 Labs: Lab Results 07/03/24 Range/Units 07:58 WBC 5.4 (4.8-10.8) X10*3/uL RBC 4.85 (4.20-5.50) X10*6/uL Hgb 10.6 L (12.0-16.0) g/dl Hct 34.7 L (37.0-47.0) % MCV 71.5 L (80.0-98.0) fL MCH 21.9 L (27.0-33.0) pg MCHC 30.5 L (31.0-35.0) g/dl RDW 15.0 (11.0-16.0) % Plt Count 310 (160-400) X10*3/uL MPV 9.5 (9.4-12.3) fL Immature Gran % (Auto) 0.4 (0.0-0.4) % Neut % (Auto) 57.3 (45-73) % Lymph % (Auto) 32.3 (20-40) % [place] % (Auto) 6.9 (2-11) % Eos % (Auto) 2.4 (0-4) % Baso % (Auto) 0.7 (0-2) % Lymph # (Auto) 1.7 (1.2-4.9) X10*3/uL [place] # (Auto) 0.4 (0.1-1.2) X10*3/uL Eos # (Auto) 0.1 (0.0-0.4) X10*3/uL Baso # (Auto) 0.0 (0.0-0.2) X10*3/uL Abs Immat Gran (auto) 0.02 (0.00-0.03) X10*3/uL Absolute Neuts (auto) 3.1 (2.0-8.3) x10*3/uL Absolute Nucleated RBC 0.000 (0.0-0.012) X10*3/uL Nucleated RBC % (auto) 0.0 (0.0-0.2) /100WBC Sodium 140 (135-145) mmol/L Potassium 4.0 (3.3-5.1) mmol/L Chloride 107 (96-108) mmol/L Carbon Dioxide 26 (22-29) mmol/L Anion Gap 11 L (12-20) BUN 18 H (9-16) mg/dL Creatinine 0.66 (0.5-1.4) mg/dL Estim Creat Clear Calc 129.2 Estimated GFR > 60 Random Glucose 104 (60-115) mg/dL Calcium 8.9 (8.4-10.2) mg/dL Total Bilirubin 0.2 (0.0-1.0) mg/dL AST 17 (5-31) U/L ALT 13 (0-31) U/L Alkaline Phosphatase 79 (39-117) U/L Troponin I High Sens < 2.7 (<3.5-17.0) ng/L Total Protein 8.5 H (6.5-8.0) g/dL Albumin 4.1 (3.5-5.0) g/dL Independent Interpretation I performed an independent interpretation of an: EKG Interpretation: Rate: 75 Rhythm: NSR [place]: normal, LVH Normal P waves. Normal DIPESH. Normal QRS complex. ST T wave : no MARINO, normal qTC: 424 prior studies: no acute ischemia The study has been interpreted contemporaneously by me. . External Record Review External record reviewed: Outpatient record Discharge Plan Discharge Clinical Impression: Palpitations Patient Disposition: Home, Self-Care Instructions: Heart Palpitations (ED) Additional Instructions: return for worsening symptoms, pain, trouble breathing, increased leg pain or swelling please come back at any time you did not get a repeat heart test we offered but you can return at any time. Prescriptions: No Action (DME) CPAP Machine/Device Device See Rx Instructions .Route Qty: 1 0RF Rx Instructions: Need for auto PAP 6 to 12 cm H20- for nightly lifetime use acetaminophen 650 mg tablet extended release 650 mg PO Q8H PRN (Reason: Pain) 30 Days Qty: 90 2RF ferrous sulfate [Feosol] 325 mg (65 mg iron) tablet 325 mg PO BID Qty: 60 1RF furosemide 20 mg tablet 20 mg PO DAILY 7 Days Qty: 7 0RF meclizine 25 mg tablet 25 mg PO TID PRN (Reason: dizziness) Qty: 12 0RF sumatriptan succinate 100 mg tablet See Rx Instructions PO .COMPLEX 30 Days Qty: 10 3RF Rx Instructions: take 1 tab at onset of headache; if no relief, may repeat 1 tab after at least 2 hrs; max = 2 tabs/24 hrs PO sertraline 100 mg tablet 100 mg PO DAILY 90 Days Qty: 90 2RF buprenorphine-naloxone [Suboxone] 8-2 mg film 3 film sublingual DAILY (DME) Blood Pressure Cuff Misc See Rx Instructions .ROUTE .MEDSUPPLY Qty: 1 0RF Rx Instructions: As directed (DME) Ultra-Light Rollator Misc See Rx Instructions .Route Qty: 1 0RF Rx Instructions: As directed (DME) QUAD CANE See Rx Instructions .Route .MEDSUPPLY Qty: 1 0RF Rx Instructions: As directed Print Language: American
--- NOTE | 2024-07-03 10:44 | PC.NURSE ---
patient brought back into triage to be evaluated by Dr. Sherman.
--- NOTE | 2024-07-03 10:50 | PC.NURSE ---
patient discahrged by Dr. Sherman from triage.
== END 2024-07-03 10:51 | disposition home or self-care (01) ==
PROVIDERS: Emergency Provider Emergency Medicine; PCP Physician Assistant
DX: I49.9 Cardiac arrhythmia, unspecified (principal); R06.02 Shortness of breath; R00.2 Palpitations; Z79.899 Other long term (current) drug therapy
CPT/HCPCS: 36415; 80053; 84484; 85025; 93005; 99282; 99283

== ENCOUNTER → 2024-07-03 07:16 | Outpatient (BNV) | payer OTHER, SELFPAY | PROVIDERS: PCP Physician Assistant; Visit Provider Internal Medicine Cardiovascular Disease | DX: R00.2 Palpitations (principal) | CPT/HCPCS: 93010 ==

== ENCOUNTER 2024-07-07 00:38 | Emergency (ER) | payer OTHER, SELFPAY ==
[2024-07-07 00:45] VITALS: BP 125/68; PULSE 77; PULSE 82; RESP 20; TEMP 36.6; O2SAT 100; O2SAT 98; BMI 52.5
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
[2024-07-07] MEDS: Propranolol HCL 10 MG TABLET PO (01:33)
[2024-07-07 02:08] VITALS: BP 145/52; PULSE 71; RESP 16; TEMP 37.1; O2SAT 97
== END 2024-07-07 02:16 | disposition home or self-care (01) ==
PROVIDERS: Emergency Provider Emergency Medicine Emergency Medical Services; PCP Physician Assistant
DX: R00.2 Palpitations (principal); F41.0 Panic disorder [episodic paroxysmal anxiety]; I10 Essential (primary) hypertension; E66.01 Morbid (severe) obesity due to excess calories; Z68.43 Body mass index [BMI] 50.0-59.9, adult; Z87.891 Personal history of nicotine dependence
CPT/HCPCS: 99282; 99283

== ENCOUNTER 2024-08-27 15:31 | Outpatient (REF) | payer OTHER, SELFPAY ==
[2024-08-27 17:12] LABS: Hematocrit 34.9 % (37.0-47.0); Hemoglobin 10.5 g/dl (12.0-16.0); Mean Corpuscular HGB Conc 30.1 g/dl (31.0-35.0); Mean Corpuscular Hemoglobin 20.8 pg (27.0-33.0); Mean Corpuscular Volume 69.1 fL (80.0-98.0); Mean Platelet Volume 9.8 fL (9.4-12.3); Platelet Count 282 X10*3/uL (160-400); Red Blood Count 5.05 X10*6/uL (4.20-5.50); Red Cell Distribution Width 17.3 % (11.0-16.0); White Blood Count 5.8 X10*3/uL (4.8-10.8)
[2024-08-27 18:28] LABS: Alanine Aminotransferase 10 U/L (0-31); Alkaline Phosphatase 78 U/L (39-117); Anion Gap 12 (12-20); Aspartate Amino Transferase 16 U/L (5-31); Bilirubin Total 0.3 mg/dL (0.0-1.0); Blood Urea Nitrogen 16 mg/dL (9-16); Calcium 9.1 mg/dL (8.4-10.2); Carbon Dioxide 29 mmol/L (22-29); Chloride 105 mmol/L (96-108); Cholesterol 167 mg/dL (<200); Estimated Glomerular Filt Rate > 60; Glucose Fasting 98 mg/dL (60-99); HDL Cholesterol 56 mg/dL (>40); Iron 27 mcg/dL (30-160); LDL Cholesterol Calculated 98 mg/dL (<100); Percent Iron Saturation 8 % (15-50); Potassium 4.6 mmol/L (3.3-5.1); Sodium 141 mmol/L (135-145); Total Iron Binding Capacity 339 mcg/dL (228-428); Total Protein 7.8 g/dL (6.5-8.0); Triglycerides 65 mg/dL (<150); Unsaturated Iron Binding 312 ug/dL
== END 2024-08-27 15:32 | disposition home or self-care (01) ==
LOC: HO.LAB 15:31
PROVIDERS: PCP Physician Assistant; Visit Provider Physician Assistant
DX: Z00.00 Encounter for general adult medical examination without abnormal findings (principal); F11.21 Opioid dependence, in remission; F33.1 Major depressive disorder, recurrent, moderate; E66.813 Obesity, class 3; F41.1 Generalized anxiety disorder; D50.9 Iron deficiency anemia, unspecified; I89.0 Lymphedema, not elsewhere classified; R09.89 Other specified symptoms and signs involving the circulatory and respiratory systems
CPT/HCPCS: 36415; 80053; 80061; 83540; 85027; 96127; 99396

== ENCOUNTER 2024-08-27 15:31 | Outpatient (AMB) | payer OTHER, SELFPAY ==
--- NOTE | 2024-08-27 15:43 | A.OFFPC_ITS ---
Vital Signs 08/27/24 15:44 Height 5 ft 2 in Weight 291 lb BMI 53.2 BP 130/80 Blood Pressure Location Lt brachial Position Sitting Pulse 86 Pulse Source Pulse Oximeter Temp 97.8 F Temp Source Temporal Artery Scan Pulse Oximetry (%) 95 Oxygen Delivery Method Room Air Intake Visit Reasons: pe Intake Note: Patient is here today for a physical. Single Corner Cutter Required: No Backup Administrator: Not Required per policy Accompanied by: Self / Same As Patient Allergies ibuprofen [IBUPROFEN] Allergy (Intermediate, Verified 08/27/24 15:57) SWELLING codeine [CODEINE] Allergy (Unknown, Verified 08/27/24 15:57) ITCHY gabapentin [From Neurontin] Allergy (Unknown, Verified 08/27/24 15:57) anxiety, insomnia, restless/anxiety hydrocodone [From VICODIN] Allergy (Unknown, Verified 08/27/24 15:57) UNKNOWN nabumetone [Nabumetone] Allergy (Unknown, Verified 08/27/24 15:57) swelling, facial swelling Nabumetone Allergy (Unknown, Uncoded 08/27/24 15:57) edema nsaids Allergy (Unknown, Uncoded 08/27/24 15:57) Unknown Medication List - Last Reconciled 08/27/24 by Faisal Melgoza PA-C acetaminophen ER 650 mg PO Q8H PRN 30 days buprenorphine-naloxone 8-2 mg (Suboxone) 3 film sublingual DAILY CPAP (CPAP Machine/Device) Need for auto PAP 6 to 12 cm H20- for nightly lifetime use ferrous sulfate (Feosol) 325 mg PO BID furosemide 20 mg PO DAILY 7 days meclizine 25 mg PO TID PRN miscellaneous medical supply (Blood Pressure Cuff) As directed propranolol 10 mg PO BID [QUAD CANE As directed] sertraline 100 mg PO DAILY 90 days sumatriptan succinate take 1 tab at onset of headache; if no relief, may repeat 1 tab after at least 2 hrs; max = 2 tabs/24 hrs PO 30 days walker (Ultra-Light Rollator misc) As directed Tobacco use date assessed: 08/27/24 Dental Screening Dental Screen Date: 05/15/24 HPI pe HPI Details Patient is a 54-year-old female here today for routine annual physical. Patient has a past medical history significant for major depressive disorder, history of breast cancer status post lumpectomy, opiate dependence, abnormal at uterine bleeding come peripheral vascular disease, obesity, lymphedema. .. Class 3 Obesity: Has been able to lose a significant amount of weight over the last 2 months since changing her diet, now not drinking soda. She is a bit more physically active as well. She has moderate lymphedema in her lower extremities which cause her pain and decreased mobility. She has been followed by the lymphedema in vascular clinic and does have home pneumatic machine that she is having difficulty placing on herself. She has been doing her own home wrappings with Elroy bandages which has been helpful. .. Migraines: Patient reports she continues to migraine though not at the frequency and severity as before. She has stopped using ear bud which has drastically reduced her migraines. She does use symmetric than 50 mg on a p.r.n. basis which significantly reduces her green severity. .. .. opiate dependence: Still on suboxone 3 local clinic. She does have a mental therapist at the [facility]. .. Mammogram: Has a personal history of breast cancer, she does follow Oncology, does get mammograms on a annual basis .. Vaccine: UTD Tdap, UTD with COVID, Tdap Colorectal cancer screening: colgaurd done in 2022-repeat 3 years [facility] Medical History Sepsis Lumbar stenosis Kidney stones Intermittent explosive disorder Adult ADHD Anxiety and depression Myasthenia gravis Carpal tunnel syndrome Arthritis Fibromyalgia Pseudotumor cerebri Iron deficiency anemia Breast CA Surgical History History of History of tubal ligation History of endometrial ablation Family History Mother Mental health disorder Heart attack CVA (cerebral vascular accident), Onset Age: 50 Breast cancer Sister CVA (cerebral vascular accident), Onset Age: 51 Leukemia Social History Household Members: Children and None Housing: Apartment Are you a primary animal care specialist to a significant other at home: No Do you presently have visiting nurse or other home services: No Alcohol intake: never Patient Tobacco Use Status: Former Tobacco user Tobacco use type: Cigarette e-Cigarette/Vaping Use: Never Used Second Hand Smoke Exposure: Yes service: No Current occupational status: employed 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 1. Little interest or pleasure in doing things: nearly every day 2. Feeling down, depressed, or hopeless: several days 3. Trouble falling or staying asleep, or sleeping too much: more than half the days 4. Feeling tired or having little energy: several days 5. Poor appetite or overeating: several days 6. Feeling bad about yourself - or that you are a failure or have let yourself or your family down: not at all 7. Trouble concentrating on things, such as reading the newspaper or watching television: more than half the days 8. Moving or speaking so slowly that other people could have noticed. Or the opposite - being so fidgety or restless that you have been moving around a lot more than usual: nearly every day 9. Thoughts that you would be better off or of hurting yourself in some way: not at all Total score: 13 Depression Screening Interpretation: Positive Depression Screening Follow-up: Existing condition Depression Screening Done: Yes 54688 - PHQ-9 Billing: Yes Source: Developed by Drs. Garrett Peres, Marla Dick, Jorge Duarte and colleagues, with an educational romeo from [employer]. Thrive Questionnaire Date Thrive assessed: 05/15/24 I am a: Patient What is your living situation today?: I have a steady place to live Within the past 12 months, did the food you bought not last and you didn't have the money to get more?: I choose not to answer this question Within the past 12 months, did you worry whether your food would run out before you got money to buy more?: I choose not to answer this question Do you have trouble paying for medicines?: I choose not to answer this question Do you have trouble getting transportation to medical appointments?: I choose not to answer this question Do you have trouble paying your heating and electricity bill?: Yes Do you have trouble taking care of your child, family member or friend?: No Do you have trouble with day-to-day activities such as bathing, preparing meals, shopping, managing finances, etc.?: Yes Are you currently unemployed and looking for a job?: No Are you interested in more education?: No Please select the resources that you would like help with: None Currently or been in a relationship where the following occur: No concerns reported THRIVE Score: 1 AUDIT C Alcohol Use Questionnaire (AUDIT-C) 1. How often do you have a drink containing alcohol?: Never Total Score: 0 GENE-7 AMB Questionnaire GENE-7 Date GENE - 7 assessed: 08/27/24 Feeling nervous, anxious, or on edge: 2 = More than half the days Not being able to stop or control worryin = More than half the days Worrying too much about different things: 2 = More than half the days Trouble relaxin = More than half the days Being so restless that it is hard to sit still: 2 = More than half the days Becoming easily annoyed or irritable: 2 = More than half the days Feeling afraid as if something awful might happen: 0 = Not at all Total GENE-7 score (0-4 normal; 5-9 mild; 10-14 moderate; 15-21 severe): 12 Source: Developed by Drs. Garrett Peres, Marla Dick, Jorge Duarte and colleagues, with an educational romeo from [employer]. GENE-7 Assessment Billing GENE-7 Assessment Tool: GENE-7 Assessment 25046 Review of Systems Const Denies body aches, Denies chills, Denies excessive sweating, Denies fatigue, Denies fever(s) and Denies headache(s) Eyes Denies blurry vision ENT Denies dysphagia, Denies vertigo, Denies dizziness, Denies headache(s), Denies hearing loss and Denies tinnitus Card Denies chest pain, Denies chest pain with activity, Denies syncope, Denies irre gular heart rhythm and Denies dyspnea Resp Denies chest congestion, Denies cough, Denies hemoptysis, Denies dyspnea and Denies wheezing GI Denies abdominal pain, Denies melena, Denies hematochezia, Denies coffee ground emesis, Denies dysphagia, Denies diarrhea, Denies nausea and Denies vomiting Denies urinary frequency, Denies dysuria, Denies urinary hesitancy and Denies urinary urgency Musc Denies arthralgias, Denies limited range of motion, Denies muscle cramps and Denies muscle weakness Skin/Breast Denies rash and Denies skin ulcer Neuro Denies Abnormal speech present, Denies confusion, Denies vertigo, Denies dizziness, Denies syncope, Denies headache(s), Denies memory loss and Denies seizure-like activity Psych Denies anxiety, Denies confusion, Denies depression, Denies memory loss, Denies panic attacks and Denies paranoia Endo Denies excessive sweating, Denies fatigue, Denies flushing, Denies polydipsia and Denies polyuria Aller/Immun Denies wheezing Physical exam (Primary Care) Vital Signs: Last Vital Signs Temp 97.8 F 08/27/24 15:44 Pulse 86 08/27/24 15:44 BP 130/80 08/27/24 15:44 Pulse Ox 95 08/27/24 15:44 Oxygen Delivery Method Room Air 08/27/24 15:44 BMI result Body Mass Index 53.2 Tobacco/Smoking Status: Tobacco use Status Tobacco use date assessed 08/27/24 08/27/24 15:50 Patient Tobacco Use Status Former Tobacco user 08/27/24 15:50 Tobacco use type Cigarette 08/27/24 15:50 e-Cigarette/Vaping Use Never Used 08/27/24 15:50 PHQ-9: PHQ-9 Score PHQ-9: Total score 13 08/27/24 15:59 Depression Screening Interpretation: Positive Depression Screening Follow-up: Existing condition Thrive Assessment: Date of Thrive Assessment Date Thrive assessed 05/15/24 08/27/24 15:50 Currently or been in a relationship where the following occur: No concerns reported Const General: cooperative, comfortable, no acute distress, alert and awake; No confusion Orientation/consciousness: oriented to person, oriented to place, patient oriented x3 and No confusion HENMT Head: Yes normocephalic Ears: external ears normal and TM's normal bilaterally Face and sinus: No sinus tenderness Mouth: Normal oral and palatal mucosa present and tongue normal Teeth and gingiva: dentition normal and gingiva normal Throat: Yes posterior oropharynx normal, Yes tonsils normal and Yes uvula midline Eyes Conjunctivae: conjunctivae normal Sclerae: sclerae normal Pupils: Equal, round and reactive pupils present EOM: EOMs intact bilaterally Direct Ophthalmoscopy: No no photophobia Neck Neck: Yes no lymphadenopathy, No tender and Yes no JVD Thyroid: Thyroid normal Carotids: no bruits Chest Chest palpation & inspection: no tenderness Resp Effort & Inspection: normal respiratory effort, no audible wheezes, not labored and no stridor Auscultation: no crackles, no rales, no rhonchi and no wheezes Cardio Jugular venous distension: no JVD Rate: regular rate, not bradycardic and not tachycardic Rhythm: regular rhythm Bruits: no carotid bruits Peripheral pulses: Peripheral pulses 2+ throughout GI Inspection: Yes normal to inspection, No abdominal wall ecchymosis and No visible herniation Palpation (GI): Soft to palpation, nontender, no guarding, not rigid and No hepatosplenomegaly present Auscultation: normoactive bowel sounds General: Yes no CVA tenderness Back/Spine/Pelvis Back: no CVA tenderness and No back tenderness Cervical Spine: cervical ROM normal Thoracic/Lumbar Spine: thoracic and lumbar spine normal to inspection, straight leg raise negative bilaterally, No thoraco-lumbar ROM limited and No lumbar spinal tenderness Skin Lesions: no lesions Rashes: no rashes Wounds: no wounds Neuro General: oriented to person, oriented to place, patient oriented x3, CN's II-XI intact bilaterally and No confusion Cranial nerves: Yes Equal, round and reactive pupils present and Yes Normal accommodation reflex present Cognition (Neuro): normal cognition Speech: No Abnormal speech present Gait exam (Neuro): Normal gait present Motor exam (neuro): 5/5 motor strength present throughout Extrem Other: SEVERE BILATERAL LOWER EXTREMITY LYMPHEDEMA NOTED WITH HYPERPIGMENTED SKIN CHANGES Right upper extremity: full ROM; no cyanosis Left upper extremity: full ROM; no cyanosis Right lower extremity: no edema Left lower extremity: no edema Psych Appearance: grossly normal Mental Status: mental status grossly normal Affect: normal affect Attitude: cooperative Thought process: Normal thought process present Coding Level of Care Code Est Pt Prev Care 40-64y(85157) Diagnoses Annual physical exam Z00.00 Opioid dependence in remission F11.21 Substance use status: in remission MDD (major depressive disorder), recurrent episode, moderate F33.1 Class 3 obesity E66.813 GENE (generalized anxiety disorder) F41.1 Iron deficiency anemia, unspecified iron deficiency anemia type D50.9 Iron deficiency anemia type: unspecified iron deficiency Lymphedema I89.0 Additional Codes PHQ-9 - 54234 - PHQ-9 Billing: Yes ([id number]) GENE-7 Assessment Billing - GENE-7 Assessment Tool: GENE-7 Assessment 56580 ([id number]) Assessment & Plan Assessment & Plan (1) Annual physical exam: Code(s): Z00.00 - Encounter for general adult medical examination without abnormal findings Category: Medical Plan: As per HPI (2) Opiate dependence: Code(s): F11.20 - Opioid dependence, uncomplicated Category: Medical Qualifiers: Substance use status: in remission Qualified Code(s): F11.21 - Opioid dependence, in remission Plan: Has been sober many years from illicit opiates, continues to follow [facility] clinic has been sober now from illicit opiates, continues to follow (3) MDD (major depressive disorder), recurrent episode, moderate: Code(s): F33.1 - Major depressive disorder, recurrent, moderate Category: Medical Plan: Patient's PHQ-9 score positive for depression which has been existing condition for her. She does have a mental health therapist and a counselor [facility]. (4) Class 3 obesity: Code(s): E66.813 - Obesity, class 3 Category: Medical Plan: Patient does understand her BMI is over 50 and will continue working on trying to be more physically active and treating her severe lower extremity lymphedema. (5) GENE (generalized anxiety disorder): Code(s): F41.1 - Generalized anxiety disorder Category: Medical Plan: Patient's GENE-7 score positive for anxiety which has been existing condition for her. She continues on sertraline 100 mg with good effect on her anxiety and depression. (6) Iron deficiency anemia: Code(s): D50.9 - Iron deficiency anemia, unspecified Category: Medical Qualifiers: Iron deficiency anemia type: unspecified iron deficiency Qualified Code(s): D50.9 - Iron deficiency anemia, unspecified Plan: Will continue to follow iron studies and CBC. (7) Lymphedema: Code(s): I89.0 - Lymphedema, not elsewhere classified Category: Medical Plan: Patient has pretty severe lymphedema in her lower extremities. She is followed by vascular/lymphedema clinic and has been doing her own manual Elroy bandage wrappings. She does have a pneumatic compression machine at home she is having some difficulty with placing on herself. She will call clearance representative to help with education on use Orders: Orders Lipid Panel 08/27/24 R09.89 - Other specified symptoms and signs involving the circulatory and respiratory systems
[2024-08-27 15:44] VITALS: BP 130/80; PULSE 86; TEMP 36.6; O2SAT 95; BMI 53.2
== END 2024-08-27 16:17 | disposition home or self-care (01) ==
LOC: HO.HMCH 15:32
PROVIDERS: PCP Physician Assistant; Visit Provider Physician Assistant
DX: Z00.00 Encounter for general adult medical examination without abnormal findings (principal); F11.21 Opioid dependence, in remission; E66.813 Obesity, class 3; Z68.43 Body mass index [BMI] 50.0-59.9, adult; F33.1 Major depressive disorder, recurrent, moderate; F41.1 Generalized anxiety disorder; D50.9 Iron deficiency anemia, unspecified; I89.0 Lymphedema, not elsewhere classified

== ENCOUNTER 2024-09-23 23:09 | Emergency (ER) | payer OTHER, SELFPAY ==
[2024-09-23 23:12] VITALS: BP 106/52; PULSE 78; RESP 18; TEMP 36.4; O2SAT 99; BMI 52.9
--- NOTE | 2024-09-23 23:32 | ED_ITS ---
HPI - General Adult General Chief complaint: General Medical Stated complaint: accidently took 3 of her mothers prescription Time Seen by Provider: 09/23/24 23:31 Source: patient Mode of arrival: ambulatory Limitations: no limitations History of Present Illness ED Provider: Dr. Evgeny Kruger HPI narrative: 54-year-old with a history of benign brain tumor, arthritis, depression, anxiety , breast cancer who presents emergency department for evaluation of accidental ingestion of her mother's medications. Patient states that she took Tylenol, clonidine 0.2 mg and Eliquis 5 mg accidentally. The patient states that she immediately realized that she had taken the medications and induced vomiting. She believes that she may have vomited up the pills but she is not certain. Patient currently has no complaints. She states she was not ill in any way in the last several days. The patient does not have any bleeding disorders. Related Data Home Medications ?Medication ?Instructions ?Recorded ?Confirmed buprenorphine 8 mg-naloxone 2 mg 3 film sublingual DAILY 05/07/20 08/27/24 sublingual film (Suboxone) Previous Rx's ?Medication ?Instructions ?Recorded walker (Ultra-Light Rollator misc) #1 ea 09/08/21 miscellaneous medical supply #1 ea 01/17/23 (Blood Pressure Cuff) CPAP (CPAP Machine/Device) #1 ea 09/19/23 QUAD CANE #1 ea 05/15/24 acetaminophen 650 mg 650 mg PO Q8H PRN Pain 30 days #90 05/17/24 tablet,extended release tabs ferrous sulfate 325 mg (65 mg 325 mg PO BID #60 tabs 05/17/24 iron) tablet (Feosol) furosemide 20 mg tablet 20 mg PO DAILY 7 days #7 tabs 05/17/24 meclizine 25 mg tablet 25 mg PO TID PRN dizziness #12 tabs 05/17/24 sumatriptan succinate 100 mg tablet See Rx Instructions PO .COMPLEX 30 05/17/24 days #10 tabs sertraline 100 mg tablet 100 mg PO DAILY 90 days #90 tabs 06/11/24 propranolol 10 mg tablet 10 mg PO BID #1 tab 07/07/24 Allergies Allergy/AdvReac Type Severity Reaction Status Date / Time ibuprofen [IBUPROFEN] Allergy Intermediate SWELLING Verified 09/23/24 23:15 codeine [CODEINE] Allergy Unknown ITCHY Verified 09/23/24 23:15 gabapentin [From Neurontin] Allergy Unknown anxiety, Verified 09/23/24 23:15 insomnia, restless/anxiety hydrocodone [From VICODIN] Allergy Unknown UNKNOWN Verified 09/23/24 23:15 nabumetone [Nabumetone] Allergy Unknown swelling, Verified 09/23/24 23:15 facial swelling Nabumetone Allergy Unknown edema Uncoded 08/27/24 15:57 nsaids Allergy Unknown Unknown Uncoded 08/27/24 15:57 Review of Systems Review of Systems: Yes all other systems are reviewed and are negative [facility] Past Medical History Medical History Sepsis Lumbar stenosis Kidney stones Intermittent explosive disorder Adult ADHD Anxiety and depression Myasthenia gravis Carpal tunnel syndrome Arthritis Fibromyalgia Pseudotumor cerebri Iron deficiency anemia Breast CA Surgical History History of History of tubal ligation History of endometrial ablation Family History Family History Mother Mental health disorder Heart attack CVA (cerebral vascular accident), Onset Age: 50 Breast cancer Sister CVA (cerebral vascular accident), Onset Age: 51 Leukemia Social History Social History Household Members: Children and None Housing: Apartment Are you a primary care professional to a significant other at home: No Do you presently have visiting nurse or other home services: No Alcohol intake: never Patient Tobacco Use Status: Former Tobacco user Tobacco use type: Cigarette e-Cigarette/Vaping Use: Never Used Second Hand Smoke Exposure: Yes service: No Current occupational status: employed 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 Exam: General: Awake, alert in no distress Head: Normocephalic, atraumatic EENT: PERRL, Lids normal, sclera normal, conjunctiva normal, nose normal , ears normal, throat without erythema or exudates Neck: Supple, no adenopathy Lung: breath sounds symmetric, no wheezing, rales or rhonchi Heart: regular rate and rhythm, normal S1, S2 no murmurs or rubs Abdomen: soft, non-tender, nondistended, normal bowel sounds Extremities: no deformities, moves all extremities symmetrically Neuro: Awake, alert, oriented, normal speech Psych: Pleasant, cooperative Medical Decision Making Medical Decision Making MDM Narrative: 54-year-old with a history of benign brain tumor, arthritis, depression, anxiety, breast cancer who presents emergency department for evaluation of accidental ingestion of her mother's medications. Patient states that she took Tylenol, clonidine 0.2 mg and Eliquis 5 mg accidentally. The patient states that she immediately realized that she had taken the medications and induced vomiting. She believes that she may have vomited up the pills but she is not certain. Patient currently has no complaints. She states she was not ill in any way in the last several days. The patient does not have any bleeding disorders. Vital signs were normal. Physical examination was unremarkable. Differential diagnosis: ?Includes but is not limited to accidental medication/drug ingestion, hypotension, somnolence, bleeding Course: The patient's vital signs were unremarkable. Her exam was normal. I did discuss the accidental medication ingestion with the patient and I do not think that any of these medications will have a serious adverse effect on the patient. I did reassure the patient and discussed the possibility of low blood pressure and sleepiness caused by clonidine. I advised the patient to go home and rest. I also advised her on the risk of bleeding and I Ext 12 hours secondary to the Eliquis ingestion. She was given printed and verbal instructions and discharged home. Admission/Observation Consideration of admission/observation: Escalation of care including admission/observation considered (No) Chronic Conditions Patient?s care impacted by: Other (Depression, anxiety) Discharge Plan Discharge Clinical Impression: Accidental drug ingestion Patient Disposition: Home, Self-Care Additional Instructions: Clonidine is a medication used for high blood pressure, mood control and sleep. The small amount that you accidentally swallowed should not hurt you in any way. However it may make you sleepy. Eliquis is a blood thinner. The effects will last for proximally 12 hours. After 12 hours, the effects of Eliquis will wear off and you do not have to worry about bleeding. If you get a cut then you should apply pressure to the cut for at least 20 minutes and this should stop the bleeding. Please return to the emergency department if your symptoms get worse or if you develop any symptoms that are concerning to you. Prescriptions: No Action (DME) CPAP Machine/Device Device See Rx Instructions .Route Qty: 1 0RF Rx Instructions: Need for auto PAP 6 to 12 cm H20- for nightly lifetime use acetaminophen 650 mg tablet extended release 650 mg PO Q8H PRN (Reason: Pain) 30 Days Qty: 90 2RF ferrous sulfate [Feosol] 325 mg (65 mg iron) tablet 325 mg PO BID Qty: 60 1RF furosemide 20 mg tablet 20 mg PO DAILY 7 Days Qty: 7 0RF meclizine 25 mg tablet 25 mg PO TID PRN (Reason: dizziness) Qty: 12 0RF sumatriptan succinate 100 mg tablet See Rx Instructions PO .COMPLEX 30 Days Qty: 10 3RF Rx Instructions: take 1 tab at onset of headache; if no relief, may repeat 1 tab after at least 2 hrs; max = 2 tabs/24 hrs PO sertraline 100 mg tablet 100 mg PO DAILY 90 Days Qty: 90 2RF propranolol 10 mg tablet 10 mg PO BID Qty: 1 0RF buprenorphine-naloxone [Suboxone] 8-2 mg film 3 film sublingual DAILY (DME) Blood Pressure Cuff Misc See Rx Instructions .ROUTE .MEDSUPPLY Qty: 1 0RF Rx Instructions: As directed (DME) Ultra-Light Rollator Misc See Rx Instructions .Route Qty: 1 0RF Rx Instructions: As directed (DME) QUAD CANE See Rx Instructions .Route .MEDSUPPLY Qty: 1 0RF Rx Instructions: As directed Print Language: Czech
[2024-09-24 00:10] VITALS: BP 106/52; PULSE 78; RESP 18; TEMP 36.4; O2SAT 99
== END 2024-09-24 00:10 | disposition home or self-care (01) ==
PROVIDERS: Emergency Provider Emergency Medicine Emergency Medical Services; PCP Physician Assistant
DX: T39.1X1A Poisoning by 4-Aminophenol derivatives, accidental (unintentional), initial encounter (principal); T46.5X1A Poisoning by other antihypertensive drugs, accidental (unintentional), initial encounter; T45.511A Poisoning by anticoagulants, accidental (unintentional), initial encounter; Y92.009 Unspecified place in unspecified non-institutional (private) residence as the place of occurrence of the external cause
CPT/HCPCS: 99282

== ENCOUNTER 2025-02-23 23:25 | Emergency (ER) | payer OTHER, SELFPAY ==
[2025-02-23 23:32] VITALS: BP 181/88; PULSE 85; RESP 16; TEMP 36.9; O2SAT 97; BMI 51.4
--- NOTE | 2025-02-24 00:26 | ED_ITS ---
HPI - Extremity Problem General Chief complaint: Extremity Problem Stated complaint: right knee swelling Time Seen by Provider: 02/23/25 23:59 Source: patient Mode of arrival: ambulatory Limitations: no limitations History of Present Illness ED Provider: Dr. Ana Temple HPI Narrative: Patient comes to the emergency room complaining of pain in the posterior aspect of the knee in the right leg. Patient states that she has been sitting serosanguineous fluid draining from back there. Patient has history of lymphedema. Patient states that she is aware that she has chronic lymphedema b ut over last few days, she has been drinking more fluid than usual from behind her knee. Patient states sometimes he gets very itchy and she has been scratching the back of her knee with napkins and now she has abrasions due to scratching. Patient denies fever chills. Patient denies calf pain. Related Data Home Medications ?Medication ?Instructions ?Recorded ?Confirmed buprenorphine 8 mg-naloxone 2 mg 3 film sublingual CHANG LY 05/07/20 08/27/24 sublingual film (Suboxone) Previous Rx's ?Medication ?Instructions ?Recorded walker (Ultra-Light Rollator misc) #1 ea 09/08/21 miscellaneous medical supply #1 ea 01/17/23 (Blood Pressure Cuff) CPAP (CPAP Machine/Device) #1 ea 09/19/23 QUAD CANE #1 ea 05/15/24 acetaminophen 650 mg 650 mg PO Q8H PRN Pain 30 da ys #90 05/17/24 tablet,extended release tabs ferrous sulfate 325 mg (65 mg 325 mg PO BID #60 tabs 0 05/17/24 iron) tablet (Feosol) furosemide 20 mg tablet 20 mg PO DAILY 7 days #7 tab s 05/17/24 meclizine 25 mg tablet 25 mg PO TID PRN dizziness # 12 tabs 05/17/24 sertraline 100 mg tablet 100 mg PO DAILY 90 days #90 tabs 06/11/24 sumatriptan succinate 100 mg tablet See Rx Instruction s PO .COMPLEX 30 12/04/24 days #10 tabs cephalexin 500 mg capsule 500 mg PO BID #20 caps 02/24 doxycycline hyclate 100 mg tablet 100 mg PO BID #20 ta bs 02/24/25 nystatin 100,000 unit/gram topical 1 appl topical TID #60 grams 02/24/25 powder Allergies Allergy/AdvReac Type Severity Reaction Status Date / Time ibuprofen (IBUPROFEN) Allergy Intermediate SWELLING Verified 02/23/25 23:35 codeine (CODEINE) Allergy Unknown ITCHY Verified 02/23/25 23:35 gabapentin (From Neurontin) Allergy Unknown anxiety, Verified 02/23/25 23:35 insomnia, restless/anxiety hydrocodone (From VICODIN) Allergy Unknown UNKNOWN Verified 02/23/25 23:35 nabumetone (Nabumetone) Allergy Unknown swelling, Verified 02/23/25 23:35 facial swelling Nabumetone Allergy Unknown edema Uncoded 02/23/25 23:35 nsaids Allergy Unknown Unknown Uncoded 02/23/25 23:35 Review of Systems Review of Systems: Constitutional : No Weight loss, No Fever, No Chills, No Night Sweats, No Fatigue, No Malaise ENT/Mouth : No Hearing loss, No Ear Pain, No Nasal Congestion, No Sinus Pain, No Hoarseness, No sore throat, No Rhinorrhea, No Swallowing Difficulty Eyes: No Eye Pain, No Swelling, No Redness, No Foreign Body, No Discharge, No Vision Changes Cardiovascular : No Chest Pain, No SOB, No Dyspnea on Exertion, No Orthopnea, No Edema, No Palpitations Respiratory : No Cough, No Sputum, No Wheezing, No Smoke Exposure, No Dyspnea Gastrointestinal : No Nausea, No Vomiting, No Diarrhea, No Constipation, No abdominal Pain, No Hematochezia, No Melena Genitourinary : no irregular bleeding, No Dysuria, No Urinary Frequency, No Hematuria, No Urinary Incontinence, No Urgency, No Flank Pain, No Urinary Flow Changes, No Hesitancy Musculoskeletal : Complaining of serosanguineous fluid drainage from behind any of the right leg, chronic lymphedema Skin : No Skin Lesions, No rash Neuro : No Weakness, No Numbness, No Paresthesias, No Loss of Consciousness, No Dizziness, No Headache Psych : No Anxiety/Panic, No Depression, No SI/HI/AH/VH, No Social Issues, Heme/Lymph: No Bruising, No Bleeding,No Lymphadenopathy Endocrine : No Polyuria, No Polydipsia, No Temperature Intolerance PMFSH Past Medical History Medical History Sepsis Lumbar stenosis Kidney stones Intermittent explosive disorder Adult ADHD Anxiety and depression Myasthenia gravis Carpal tunnel syndrome Arthritis Fibromyalgia Pseudotumor cerebri Iron deficiency anemia Breast CA Surgical History History of History of tubal ligation History of endometrial ablation Family History Family History Mother Mental health disorder Heart attack CVA (cerebral vascular accident), Onset Age: 50 Breast cancer Sister CVA (cerebral vascular accident), Onset Age: 51 Leukemia Social History Social History Household Members: Children and None Housing: Apartment Are you a primary senior care assistant to a significant other at home: No Do you presently have visiting nurse or other home services: No Alcohol intake: never Patient Tobacco Use Status: Former Tobacco user Tobacco use type: Cigarette e-Cigarette/Vaping Use: Never Used Second Hand Smoke Exposure: Yes Advance Directives: No Advance Directives Information Provided: Yes Do you have a plan to hurt others: No Plan service: No Current occupational status: employed 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 Oriented X3. No acute distress. Eyes: Pupils equal, round and reactive to light. ENT: Pharynx normal. Neck: Normal inspection. Neck supple. No lymph nodes noted. No crepitus CVS: Normal heart rate and rhythm. Pulses normal. Normal S1 and S2 Respiratory: No respiratory distress. Breath sounds normal. No Wheezing. No rales Abdomen: Soft and nontender. No rigidity. No distention. Skin: Skin warm and dry. Normal skin color. Normal skin turgor. Extremities: Chronic lymphedema, serosanguineous fluid draining from the back of the right knee, small amount of blood from the abrasions from scratching. Slightly erythematous in the posterior aspect of the knee. Patient able to flex and extend the knee, no pain in the joint. Also, mild candidiasis between the skin folds at the knee Neuro: Oriented X 3. No motor deficit. No sensory deficit. Moving all extremities. No slurred speech. CN 2 through 12 grossly intact Psych: calm, cooperative, normal affect Vital Signs: Vital Signs: Last Vital Signs Temp 98.5 F 02/23/25 23:32 Pulse 85 02/23/25 23:32 Resp 16 02/23/25 23:32 BP 181/88 H 02/23/25 23:32 Pulse Ox 97 02/23/25 23:32 O2 Del Method Room Air 02/23/25 23:32 BMI result Body Mass Index 51.4 Medical Decision Making Medical Decision Making MDM Narrative: I discussed the physical exam with the patient, patient has a combination of mild superficial cellulitis and candidiasis. We put Xeroform between the skin falls to help healing. Patient was given p.o. cephalexin and doxycycline. Both medications were sent to the patient's pharmacy along with antifungal medication. I discussed with the patient that she would benefit from going to a lymphedema clinic. Patient was provided with information to make an appointment. Differential Diagnosis Differential Diagnoses: The differential diagnosis associated with the presentation includes (Lymphedema, cellulitis, candidiasis) Tests considered The following testing was considered but not selected: I considered ordering labs. However, patient does not have any fever chills, vitals stable. Patient has clear superficial cellulitis and candidiasis, I do not think that labs would be contributory to patient's treatment Chronic Conditions Patient?s care impacted by: Other (Lymphedema) Discharge Plan Discharge Clinical Impression: Cellulitis, Candidiasis Patient Disposition: Home, Self-Care Instructions: Cellulitis (ED), Yeast Infection (ED) Additional Instructions: Please considered calling the Lymphedema Management Clinic at [facility]. Please call [phone] to schedule an appointment. Sometimes they require a primary care physician referral. Please follow-up with your primary care physician tomorrow. If you have any worsening or new symptoms, please return to the emergency room or call [phone] Prescriptions: New cephalexin 500 mg capsule 500 mg PO BID Qty: 20 0RF nystatin 100,000 unit/gram powder 1 appl topical TID Qty: 60 0RF doxycycline hyclate 100 mg tablet 100 mg PO BID Qty: 20 0RF No Action (DME) CPAP Machine/Device Device See Rx Instructions .Route Qty: 1 0RF Rx Instructions: Need for auto PAP 6 to 12 cm H20- for nightly lifetime use acetaminophen 650 mg tablet extended release 650 mg PO Q8H PRN (Reason: Pain) 30 Days Qty: 90 2RF ferrous sulfate [Feosol] 325 mg (65 mg iron) tablet 325 mg PO BID Qty: 60 1RF furosemide 20 mg tablet 20 mg PO DAILY 7 Days Qty: 7 0RF meclizine 25 mg tablet 25 mg PO TID PRN (Reason: dizziness) Qty: 12 0RF sertraline 100 mg tablet 100 mg PO DAILY 90 Days Qty: 90 2RF sumatriptan succinate 100 mg tablet See Rx Instructions PO .COMPLEX 30 Days Qty: 10 3RF Rx Instructions: take 1 tab at onset of headache; if no relief, may repeat 1 tab after at least 2 hrs; max = 2 tabs/24 hrs PO buprenorphine-naloxone [Suboxone] 8-2 mg film 3 film sublingual DAILY (DME) Blood Pressure Cuff Misc See Rx Instructions .ROUTE .MEDSUPPLY Qty: 1 0RF Rx Instructions: As directed (DME) Ultra-Light Rollator Misc See Rx Instructions .Route Qty: 1 0RF Rx Instructions: As directed (DME) QUAD CANE See Rx Instructions .Route .MEDSUPPLY Qty: 1 0RF Rx Instructions: As directed Print Language: Faroese
--- NOTE | 2025-02-24 00:39 | PC.NURSE ---
Addendum entered by Behzad Kohli RN 02/24/25 00:42: pt medicated per [facility] Original Note: this RN assumed care of this pt approximately @0000, provider Lucille Temple at the bedside assessing the pt, orders for ABX placed and verbal order for placement of Xeroform dressing to the back of the right knee. Pt noted to have skin on skin overlapping w/ red, itchy, oozing noted between the skin folds, gauze wrap placed to secure Xeroform in place.
[2025-02-24 00:59] VITALS: BP 143/79; PULSE 90; RESP 16; TEMP 36.6; O2SAT 96
[2025-02-24 01:00] VITALS: BP 143/79; PULSE 90; RESP 16; TEMP 36.6; O2SAT 96
== END 2025-02-24 01:01 | disposition home or self-care (01) ==
PROVIDERS: Emergency Provider Emergency Medicine; PCP Physician Assistant
DX: L03.115 Cellulitis of right lower limb (principal); B37.2 Candidiasis of skin and nail; Z79.899 Other long term (current) drug therapy
CPT/HCPCS: 99282; 99283

== ENCOUNTER 2025-02-26 15:41 | Outpatient (AMB) | payer OTHER, SELFPAY ==
--- NOTE | 2025-02-26 15:48 | A.OFFPC_ITS ---
Vital Signs 02/26/25 15:49 Height 5 ft 3 in Weight 307 lb 8 oz BMI 54.5 BP 140/80 H Blood Pressure Location Lt brachial Position Sitting Pulse 89 Pulse Source Pulse Oximeter Temp 97.5 F Temp Source Temporal Artery Scan Pulse Oximetry (%) 96 Oxygen Delivery Method Room Air Intake Visit Reasons: 6 Months f/u Intake Note: Patient is here to follow up on Migraine, HTN, ANSON. Hotel Assistant General Manager Required: No Advanced Registered Nurse: Not Required per policy Accompanied by: Self / Same As Patient Allergies ibuprofen (IBUPROFEN) Allergy (Intermediate, Verified 02/26/25 16:12) SWELLING codeine (CODEINE) Allergy (Unknown, Verified 02/26/25 16:12) ITCHY gabapentin (From Neurontin) Allergy (Unknown, Verified 02/26/25 16:12) anxiety, insomnia, restless/anxiety hydrocodone (From VICODIN) Allergy (Unknown, Verified 02/26/25 16:12) UNKNOWN nabumetone (Nabumetone) Allergy (Unknown, Verified 02/26/25 16:12) swelling, facial swelling Nabumetone Allergy (Unknown, Uncoded 02/26/25 16:12) edema nsaids Allergy (Unknown, Uncoded 02/26/25 16:12) Unknown Medication List - Last Reconciled 02/26/25 by Faisal Melgoza PA-C acetaminophen ER 650 mg PO Q8H PRN 30 days buprenorphine-naloxone 8-2 mg (Suboxone) 3 film sublingual DAILY cephalexin 500 mg PO BID CPAP (CPAP Machine/Device) Need for auto PAP 6 to 12 cm H20- for nightly lifetime use doxycycline hyclate 100 mg PO BID ferrous sulfate (Feosol) 325 mg PO BID furosemide 20 mg PO DAILY 7 days meclizine 25 mg PO TID PRN miscellaneous medical supply (Blood Pressure Cuff) As directed nystatin 1 appl topical TID [QUAD CANE As directed] sertraline 100 mg PO DAILY 90 days sumatriptan succinate take 1 tab at onset of headache; if no relief, may repeat 1 tab after at least 2 hrs; max = 2 tabs/24 hrs PO 30 days walker (Ultra-Light Rollator misc) As directed Tobacco use date assessed: 02/26/25 Dental Screening Dental Screen Date: 05/15/24 HPI 6 Months f/u HPI Details Patient is a 54-year-old female here today for follow up. Patient has a past medical history significant for major depressive disorder, history of breast cancer status post lumpectomy, opiate dependence, abnormal at uterine bleeding come peripheral vascular disease, obesity, lymphedema. .. Chronic lymphedema: The patient has a history of severe bilateral lymphedema with chronic cellulitis, for which she was hospitalized at the beginning of the year. She describes the prior episode as more severe, with the leg becoming rock hard and leaking fluid. Two days prior to this visit, she went to the ER for the current episode, which presented with increasing pain, tightness, redness, and new fluid leaking from a posterior skin fold. In the ER, she was prescribed antibiotics and nystatin powder for a suspected fungal component. The patient reports intense itching, which led her to scratch the area. Regarding management of her lymphedema, she was previously seen by a vascular specialist and prescribed pneumatic compression devices, which she was unable to use due to difficulty with self-application. She has significant trouble with activities of daily living, such as putting on socks, which requires her daughte r's assistance. She has been sleeping in a recliner for about three years and elevates her legs with two pillows at night. .. Obstructive sleep apnea: Patient continues to sleep in a recliner. Patient uses CPAP machine on a nightly basis with good effect on her sleep. She needs paperwork filled out for her electrical [employer] justifying the need for electricity for her life sustaining medical equipment at home. .. Class 3 Obesity: Unfortunately gained weight since last office visit, now not drinking soda. She is a bit more physically active as well. She has moderate lymphedema in her lower extremities which cause her pain and decreased mobility. She has been followed by the lymphedema in vascular clinic and does have home pneumatic machine that she is having difficulty placing on herself. She has been doing her own home wrappings with Elroy bandages which has been helpful. .. Migraines: Patient reports she continues to migraine though not at the frequency and severity as before. She has stopped using ear bud which has drastically reduced her migraines. She does use symmetric than 50 mg on a p.r.n. basis which significantly reduces her green severity. .. .. opiate dependence: Still on suboxone 3 local clinic. She does have a mental therapist at the [facility] Clinic. [facility] Medical History Sepsis Lumbar stenosis Kidney stones Intermittent explosive disorder Adult ADHD Anxiety and depression Myasthenia gravis Carpal tunnel syndrome Arthritis Fibromyalgia Pseudotumor cerebri Iron deficiency anemia Breast CA Surgical History History of History of tubal ligation History of endometrial ablation Family History Mother Mental health disorder Heart attack CVA (cerebral vascular accident), Onset Age: 50 Breast cancer Sister CVA (cerebral vascular accident), Onset Age: 51 Leukemia Social History Household Members: Children and None Housing: Apartment Are you a primary care specialist to a significant other at home: No Do you presently have visiting nurse or other home services: No Alcohol intake: never Patient Tobacco Use Status: Former Tobacco user Tobacco use type: Cigarette e-Cigarette/Vaping Use: Never Used Second Hand Smoke Exposure: Yes service: No Current occupational status: employed 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 Current occupational exposures/hazards: No Sexual orientation: Straight/Heterosexual Gender identity: Female Cognitive needs: Yes (Walker) Hearing needs: No Vision needs: Yes (Pt wears glasses and is up to date.) Questionnaire Thrive Questionnaire Date Thrive assessed: 08/27/24 I am a: Patient What is your living situation today?: I have a steady place to live Within the past 12 months, did the food you bought not last and you didn't have the money to get more?: I choose not to answer this question Within the past 12 months, did you worry whether your food would run out before you got money to buy more?: I choose not to answer this question Do you have trouble paying for medicines?: I choose not to answer this question Do you have trouble getting transportation to medical appointments?: I choose not to answer this question Do you have trouble paying your heating and electricity bill?: Yes Do you have trouble taking care of your child, family member or friend?: No Do you have trouble with day-to-day activities such as bathing, preparing meals, shopping, managing finances, etc.?: Yes Are you currently unemployed and looking for a job?: No Are you interested in more education?: No Please select the resources that you would like help with: None Currently or been in a relationship where the following occur: No concerns reported THRIVE Score: 1 AUDIT C Alcohol Use Questionnaire (AUDIT-C) 3. How often do you have six or more drinks on one occasion?: Never Total Score: 0 GENE-7 AMB Questionnaire GENE-7 Date GNEE - 7 assessed: 08/27/24 Source: Developed by Drs. Garrett Peres, Marla Dick, Jorge Duarte and colleagues, with an educational romeo from [employer]. Review of Systems Const Denies headache(s) Eyes Denies loss of vision ENT Denies vertigo, Denies dizziness, Denies headache(s) and Denies sore throat Card Denies chest pain, Denies leg edema and Denies lightheadedness Resp Denies cough, Denies hemoptysis and Denies wheezing GI Denies abdominal pain, Denies melena, Denies constipation, Denies diarrhea and Denies vomiting Denies urinary frequency, Denies dysuria and Denies urinary urgency Musc Denies arthralgias, Denies joint swelling, Denies numbness and Denies tingling Neuro Denies Abnormal speech present, Denies behavioral changes, Denies vertigo, Denies dizziness, Denies headache(s), Denies loss of vision, Denies memory loss, Denies numbness and Denies tingling Psych Denies anxiety, Denies behavioral changes, Denies depression, Denies memory loss and Denies panic attacks Kevin/Lymph Denies easy bleeding and Denies easy bruising Aller/Immun Denies wheezing Physical exam (Primary Care) Vital Signs: Last Vital Signs Temp 97.5 F 02/26/25 15:49 Pulse 89 02/26/25 15:49 BP 140/80 H 02/26/25 15:49 Pulse Ox 96 02/26/25 15:49 Oxygen Delivery Method Room Air 02/26/25 15:49 BMI result Body Mass Index 54.5 Tobacco/Smoking Status: Tobacco use Status Tobacco use date assessed 02/26/25 02/26/25 15:56 Patient Tobacco Use Status Former Tobacco user 02/26/25 15:56 Tobacco use type Cigarette 02/26/25 15:56 e-Cigarette/Vaping Use Never Used 02/26/25 15:56 Thrive Assessment: Date of Thrive Assessment Date Thrive assessed 08/27/24 02/26/25 15:56 Currently or been in a relationship where the following occur: No concerns reported Const General: healthy appearing, no acute distress, alert and awake Nutritional Appearance: well nourished Orientation/consciousness: oriented to person, oriented to place and oriented to time HENMT Ears: TM's normal bilaterally General nose exam: Normal nasal mucous membranes and turbinates present Eyes Conjunctivae: conjunctivae normal Sclerae: sclerae normal Pupils: Equal, round and reactive pupils present Neck Neck: Yes no lymphadenopathy and Yes no JVD Thyroid: Thyroid normal Carotids: no bruits Resp Effort & Inspection: normal respiratory effort and not tachypneic Auscultation: no crackles, no rales, no rhonchi and no wheezes Cardio Rate: regular rate Rhythm: regular rhythm Heart sounds: no murmurs and normal S1 and S2 GI Palpation (GI): Soft to palpation, nontender, no hepatomegaly and no splenomegaly Auscultation: normal bowel sounds Skin General skin exam: no rashes or lesions noted and dry skin Neuro General: oriented to person, oriented to place and oriented to time Cranial nerves: Yes Equal, round and reactive pupils present Speech: No Abnormal speech present Gait exam (Neuro): Normal gait present Motor exam (neuro): no tremor noted Extrem Other: BILATERAL LOWER EXTREMITY LYMPHEDEMA NOTED WORSE ON RIGHT LOWER EXTREMITY. DOES HAVE HYPERPIGMENTED SKIN CHANGES IN SKIN FOLD BEHIND THE POPLITEAL FOSSA. Right upper extremity: full ROM Left upper extremity: full ROM Right lower extremity: edema Left lower extremity: edema Psych Mental Status: mental status grossly normal Speech and movement: Normal speech and movement present Affect: normal affect Attitude: cooperative Thought process: Normal thought process present Coding Level of Care Code Est Pt Level 4 (36328) Diagnoses Lymphedema I89.0 Opioid dependence in remission F11.21 Substance use status: in remission Class 3 obesity E66.813 Iron deficiency anemia, unspecified iron deficiency anemia type D50.9 Iron deficiency anemia type: unspecified iron deficiency ANSON (obstructive sleep apnea) G47.33 Assessment & Plan Assessment & Plan (1) Lymphedema: Code(s): I89.0 - Lymphedema, not elsewhere classified Category: Medical Plan: Patient has pretty severe lymphedema in her lower extremities. Unfortunately pneumatic compression and wrappings has been difficult for patient to do on her own at home. She has pretty severe right lower extremity lymphedema which often causes cellulitis. She is interested in a 2nd opinion through a lymphedema clinic at [facility] for further recommendations on chronically controlling her lymphedema. (2) Opiate dependence: Code(s): F11.20 - Opioid dependence, uncomplicated Category: Medical Qualifiers: Substance use status: in remission Qualified Code(s): F11.21 - Opioid dependence, in remission Plan: Has been sober many years from illicit opiates, continues to follow Suboxone clinic has been sober now from illicit opiates, continues to follow (3) Class 3 obesity: Code(s): E66.813 - Obesity, class 3 Category: Medical Plan: Patient does understand her BMI is over 50 and will continue working on trying to be more physically active and treating her severe lower extremity lymphedema. (4) Iron deficiency anemia: Code(s): D50.9 - Iron deficiency anemia, unspecified Category: Medical Qualifiers: Iron deficiency anemia type: unspecified iron deficiency Qualified Code(s): D50.9 - Iron deficiency anemia, unspecified Plan: Will continue to follow iron studies and CBC. (5) ANSON (obstructive sleep apnea): Code(s): G47.33 - Obstructive sleep apnea (adult) (pediatric) Category: Medical Plan: Patient continues with the use of CPAP machine on a nightly basis with good effect on her sleep. She continues to sleep in a recliner. Orders: Orders Ferritin 02/26/25 D64.9 - Anemia, unspecified Complete Blood Count no Diff 02/26/25 D64.9 - Anemia, unspecified Microalbumin, Random (w Creat) 02/26/25 I10 - Essential (primary) hypertension Comprehensive [place]. Panel Fast 02/26/25 Z13.1 - Encounter for screening for diabetes mellitus IRON PROFILE 02/26/25 D50.9 - Iron deficiency anemia, unspecified, D64.9 - Anemia, unspecified Vitamin D 25-OH Total 02/26/25 E55.9 - Vitamin D deficiency, unspecified Referrals Lymphedema Clinic Referral I89.0 - Lymphedema, not elsewhere classified Medications: Changed From furosemide 20 mg PO DAILY 7 days 7 tabs 0RF G43.009 - Migraine without aura, not intractable, without status migrainosus To furosemide 20 mg PO Q OTHER DAY 14 tabs 0RF 4 weeks G43.009 - Migraine without aura, not intractable, without status migrainosus Refilled [QUAD CANE] As directed 1 ea 0RF I89.0 - Lymphedema, not elsewhere classified, M54.16 - Radiculopathy, lumbar region meclizine 25 mg PO TID PRN 12 tabs 0RF dizziness Z13.1 - Encounter for screening for diabetes mellitus
[2025-02-26 15:49] VITALS: BP 140/80; PULSE 89; TEMP 36.4; O2SAT 96; BMI 54.5
== END 2025-02-26 16:39 | disposition home or self-care (01) ==
LOC: HO.HMCH 15:43
PROVIDERS: PCP Physician Assistant; Visit Provider Physician Assistant
DX: I89.0 Lymphedema, not elsewhere classified (principal); F11.21 Opioid dependence, in remission; E66.813 Obesity, class 3; Z68.43 Body mass index [BMI] 50.0-59.9, adult; D50.9 Iron deficiency anemia, unspecified; G47.33 Obstructive sleep apnea (adult) (pediatric)

== ENCOUNTER → 2025-02-26 15:41 | Outpatient (BNVA) | payer OTHER, SELFPAY | PROVIDERS: PCP Physician Assistant; Visit Provider Physician Assistant | DX: I10 Essential (primary) hypertension (principal); G47.33 Obstructive sleep apnea (adult) (pediatric); G43.009 Migraine without aura, not intractable, without status migrainosus; I89.0 Lymphedema, not elsewhere classified; E66.813 Obesity, class 3; F11.21 Opioid dependence, in remission; D50.9 Iron deficiency anemia, unspecified; E55.9 Vitamin D deficiency, unspecified; Z99.89 Dependence on other enabling machines and devices; Z68.43 Body mass index [BMI] 50.0-59.9, adult | CPT/HCPCS: 99212 ==

== ENCOUNTER 2025-04-13 23:44 | Emergency (ER) | payer OTHER, SELFPAY ==
[2025-04-14 00:01] VITALS: BP 132/95; PULSE 86; RESP 20; TEMP 36.7; O2SAT 97; BMI 54.9
[2025-04-14 00:40] LABS: MANUAL DIFF FLAG NO
[2025-04-14 00:41] LABS: Hematocrit 35.6 % (37.0-47.0); Hemoglobin 10.5 g/dl (12.0-16.0); Imm Gran Abs Auto 0.02 X10*3/uL (0.00-0.03); Imm Gran Pct Auto 0.3 % (0.0-0.4); Lymphocytes Absolute Auto 1.6 X10*3/uL (1.2-4.9); Mean Corpuscular HGB Conc 29.5 g/dl (31.0-35.0); Mean Corpuscular Hemoglobin 20.2 pg (27.0-33.0); Mean Corpuscular Volume 68.6 fL (80.0-98.0); NRBC Abs Auto 0.000 X10*3/uL (0.0-0.012); NRBC Pct Auto 0.0 /100WBC (0.0-0.2); Platelet Count 374 X10*3/uL (160-400); Red Blood Count 5.19 X10*6/uL (4.20-5.50); White Blood Count 7.9 X10*3/uL (4.8-10.8)
[2025-04-14 00:57] LABS: Alanine Aminotransferase 13 U/L (0-31); Albumin Level 4.3 g/dL (3.5-5.0); Alkaline Phosphatase 76 U/L (39-117); Anion Gap 14 (12-20); Aspartate Amino Transferase 19 U/L (5-31); Blood Urea Nitrogen 14 mg/dL (9-16); Calcium 9.4 mg/dL (8.4-10.2); Carbon Dioxide 27 mmol/L (22-29); Chloride 107 mmol/L (96-108); Creatinine Clr Calc Pharmacy 127.2; Estimated Glomerular Filt Rate > 60; Potassium 4.1 mmol/L (3.3-5.1); Sodium 144 mmol/L (135-145); Total Protein 8.1 g/dL (6.5-8.0)
[2025-04-14 01:05] VITALS: BP 127/71; PULSE 86; RESP 18; TEMP 37.1; O2SAT 98
--- NOTE | 2025-04-14 01:20 | PC.NURSE ---
attempt to ambulate pt with walker, pt very unsteady on feet, DONELL David witnessed attempt. Pt to stay for PT/CM, fall risk bracelet, yellow socks and falling start in place.
[2025-04-14 01:22] LABS: Appearance Urine Cloudy; Glucose Urine UA Negative (Negative); PH 6.5 (5.0-9.0); Specific Gravity - Urine 1.025 (1.005-1.025); UMIC TRIGGER UACC YES
--- NOTE | 2025-04-14 01:52 | ED_ITS ---
HPI - General Adult General Chief complaint: General Medical Stated complaint: possible cellulitis Time Seen by Provider: 04/14/25 01:52 Source: patient Mode of arrival: ambulatory Limitations: no limitations History of Present Illness ED Provider: Dr. Tish Rdz HPI narrative: 54-year-old female with a history of hypertension, breast cancer, arthritis, fibromyalgia, and prior right-leg cellulitis who presents for recurrent right- leg pain/swelling and a severe headache. ? Right leg: Swelling, pain, burning, and warmth have recurred over the past ~5 weeks. Symptoms initially improved while on a 1-week course of amoxicillin (with doxycycline refill available) prescribed during an ED visit five weeks ago but worsened after antibiotics were completed. Patient notes fluid ?leaking? from the posterior aspect of the leg and gravity-dependent firmness that softens when lying down. No fevers in the past 24 h. ? Headache: Diffuse, severe headache ?4 days. History of migraines, benign brain tumor, and pseudotumor cerebri. Current episode not relieved by home Imitrex, acetaminophen. Associated nausea but no vomiting. No focal neurologic symptoms reported. ? Associated/other symptoms: Mild intermittent sinus congestion; epigastric abdominal pain without radiation; brief episode of diarrhea a few days ago; chronic microscopic hematuria (patient reports visible blood in urine regularly); perimenopausal symptoms with irregular periods (last normal period a couple months ago, now just little here and there); no cough, no shortness of breath, no current vomiting, no urinary pain. ? Sick contacts: Daughter recently had cough/cold symptoms. ? Medications tried this episode: Imitrex, acetaminophen; prior amoxicillin course. Related Data Home Medications ?Medication ?Instructions ?Recorded ?Confirmed buprenorphine 8 mg-naloxone 2 mg 3 film sublingual CHANG LY 05/07/20 02/26/25 sublingual film (Suboxone) Previous Rx's ?Medication ?Instructions ?Recorded walker (Ultra-Light Rollator misc) #1 ea 09/08/21 miscellaneous medical supply #1 ea 01/17/23 (Blood Pressure Cuff) CPAP (CPAP Machine/Device) #1 ea 09/19/23 acetaminophen 650 mg 650 mg PO Q8H PRN Pain 30 da ys #90 05/17/24 tablet,extended release tabs ferrous sulfate 325 mg (65 mg 325 mg PO BID #60 tabs 0 05/17/24 iron) tablet (Feosol) sertraline 100 mg tablet 100 mg PO DAILY 90 days #90 tabs 06/11/24 sumatriptan succinate 100 mg tablet See Rx Instruction s PO .COMPLEX 30 12/04/24 days #10 tabs cephalexin 500 mg capsule 500 mg PO BID #20 caps 02/24 doxycycline hyclate 100 mg tablet 100 mg PO BID #20 ta bs 02/24/25 nystatin 100,000 unit/gram topical 1 appl topical TID #60 grams 02/24/25 powder QUAD CANE #1 ea 02/26/25 furosemide 20 mg tablet 20 mg PO Q OTHER DAY 4 weeks #14 02/26/25 tabs meclizine 25 mg tablet 25 mg PO TID PRN dizziness # 12 tabs 02/26/25 fbskswytrc-tyjjlckmsjrdh-mltmhylz 1 cap PO TID PRN hea dache #10 caps 04/14/25 50 mg-300 mg-40 mg capsule (Fioricet) cefdinir 300 mg capsule 300 mg PO BID 7 days #14 cap s 04/14/25 doxycycline monohydrate 100 mg 100 mg PO BID 7 days #1 4 caps 04/14/25 capsule Allergies Allergy/AdvReac Type Severity Reaction Status Date / Time ibuprofen (IBUPROFEN) Allergy Intermediate SWELLING Verified 04/14/25 00:02 codeine (CODEINE) Allergy Unknown ITCHY Verified 04/14/25 00:02 gabapentin (From Neurontin) Allergy Unknown anxiety, Verified 04/14/25 00:02 insomnia, restless/anxiety hydrocodone (From VICODIN) Allergy Unknown UNKNOWN Verified 04/14/25 00:02 nabumetone (Nabumetone) Allergy Unknown swelling, Verified 04/14/25 00:02 facial swelling Nabumetone Allergy Unknown edema Uncoded 02/26/25 16:12 nsaids Allergy Unknown Unknown Uncoded 02/26/25 16:12 [facility] Past Medical History Medical History Sepsis Lumbar stenosis Kidney stones Intermittent explosive disorder Adult ADHD Anxiety and depression Myasthenia gravis Carpal tunnel syndrome Arthritis Fibromyalgia Pseudotumor cerebri Iron deficiency anemia Breast CA Surgical History History of History of tubal ligation History of endometrial ablation Family History Family History Mother Mental health disorder Heart attack CVA (cerebral vascular accident), Onset Age: 50 Breast cancer Sister CVA (cerebral vascular accident), Onset Age: 51 Leukemia Social History Social History Household Members: Children and None Housing: Apartment Are you a primary morning caregiver to a significant other at home: No Do you presently have visiting nurse or other home services: No Alcohol intake: never Patient Tobacco Use Status: Former Tobacco user Tobacco use type: Cigarette Smoked in Last 30 Days: No e-Cigarette/Vaping Use: Never Used Second Hand Smoke Exposure: Yes Advance Directives: No Advance Directives Information Provided: No Do you have a plan to hurt others: No Plan Patient : No service: No Current occupational status: employed Current occupation: [employer] Current occupational exposures/hazards: No Sexual orientation: Straight/Heterosexual Gender identity: Female Cognitive needs: Yes (Walker) Hearing needs: No Vision needs: Yes (Pt wears glasses and is up to date.) Physical Exam ED Vital Signs: Vital Signs - 24 hr 04/14/25 00:01 04/14/25 01:05 Temperature 98.0 F 98.8 F Pulse Rate 86 86 Respiratory Rate 20 18 Blood Pressure 132/95 H 127/71 Pulse Oximetry 97 98 Oxygen Delivery Method Room Air Room Air BMI result Body Mass Index 54.9 Medications Administered Discontinued Medications Generic Name Dose Route Start Last Admin Trade Name Freq PRN Reason Stop Dose Admin Acetaminophen/Butalbital/Caffeine 1 tab 04/14/25 03:49 04/14/25 04:12 Butalb/Acetamin/Caff 50/325/40 Tablet PO 04/14/25 03:50 1 tab ONCE ONE Administration Cephalexin HCl 500 mg 04/14/25 03:49 04/14/25 04:12 Cephalexin 500 Mg Capsule PO 04/14/25 03:50 500 mg ONCE ONE Administration Doxycycline Monohydrate 100 mg 04/14/25 03:49 04/14/25 04:12 Doxycycline Monohydrate 100 Mg Capsule PO 04/14/25 03:50 100 mg ONCE ONE Administration Medical Decision Making Medical Decision Making MDM Narrative: 54-year-old female with recurrent right lower-extremity cellulitis and severe migraine-type headache. Differential diagnosis includes abscess, cellulitis, deep space infection such as fasciitis, bone infection, vascular abnormality, among many others. Findings are not consistent with fasciitis specifically with no crepitus, blistering of the skin, pain out of proportion, hemodynamic instability, poor historical factors. Problem #1: Right lower-leg cellulitis Assessment: Re-exacerbation of previously treated cellulitis; exam notable for warmth, swelling, and serous drainage without systemic signs of sepsis (afebrile). Likely requires additional antibiotic therapy. - Administer first dose of intravenous/IM antibiotic in ED (orders placed). - Elevation of right leg as tolerated; avoid trauma or skin picking. - Continue with planned referral to lymphedema clinic for ongoing management. - Return precautions: fever >100.4 ?F, spreading redness, increased pain/swelling, or systemic symptoms. Problem #2: Severe headache / migraine exacerbation Assessment: History of migraines, current episode refractory to home Imitrex and acetaminophen; associated nausea but no focal deficits. Plan: - Administer Fioricet in ED and monitor response. - If effective, provide limited outpatient prescription (small supply) for breakthrough headaches. - Reassurance regarding compatibility with current Suboxone therapy. - Return precautions: worsening headache, neurologic changes, visual changes, persistent or worsening nausea/vomiting. Differential Diagnosis Differential Diagnoses: The differential diagnosis associated with the presentation includes (as above) Admission/Observation Consideration of admission/observation: Escalation of care including admission/observation considered Lab Data 04/14/25 00:29 04/14/25 00:29 Labs: Lab Results 04/14/25 04/14/25 Range/Units 00:29 01:11 WBC 7.9 (4.8-10.8) X10*3/uL RBC 5.19 (4.20-5.50) X10*6/uL Hgb 10.5 L (12.0-16.0) g/dl Hct 35.6 L (37.0-47.0) % MCV 68.6 L (80.0-98.0) fL MCH 20.2 L (27.0-33.0) pg MCHC 29.5 L (31.0-35.0) g/dl RDW 17.3 H (11.0-16.0) % Plt Count 374 (160-400) X10*3/uL MPV 9.3 L (9.4-12.3) fL Immature Gran % (Auto) 0.3 (0.0-0.4) % Neut % (Auto) 70.7 (45-73) % Lymph % (Auto) 20.5 (20-40) % Powell % (Auto) 6.3 (2-11) % Eos % (Auto) 1.8 (0-4) % Baso % (Auto) 0.4 (0-2) % Lymph # (Auto) 1.6 (1.2-4.9) X10*3/uL Powell # (Auto) 0.5 (0.1-1.2) X10*3/uL Eos # (Auto) 0.1 (0.0-0.4) X10*3/uL Baso # (Auto) 0.0 (0.0-0.2) X10*3/uL Abs Immat Gran (auto) 0.02 (0.00-0.03) X10*3/uL Absolute Neuts (auto) 5.6 (2.0-8.3) x10*3/uL Absolute Nucleated RBC 0.000 (0.0-0.012) X10*3/uL Nucleated RBC % (auto) 0.0 (0.0-0.2) /100WBC Sodium 144 (135-145) mmol/L Potassium 4.1 (3.3-5.1) mmol/L Chloride 107 (96-108) mmol/L Carbon Dioxide 27 (22-29) mmol/L Anion Gap 14 (12-20) BUN 14 (9-16) mg/dL Creatinine 0.69 (0.5-1.4) mg/dL Estim Creat Clear Calc 127.2 Estimated GFR > 60 Random Glucose 113 (60-115) mg/dL Lactic Acid 0.9 (0.5-2.0) mmol/L Calcium 9.4 (8.4-10.2) mg/dL Total Bilirubin 0.2 (0.0-1.0) mg/dL AST 19 (5-31) U/L ALT 13 (0-31) U/L Alkaline Phosphatase 76 (39-117) U/L Total Protein 8.1 H (6.5-8.0) g/dL Albumin 4.3 (3.5-5.0) g/dL Urine Color Yellow Urine Appearance Cloudy Urine pH 6.5 (5.0-9.0) Ur Specific Dell 1.025 (1.005-1.025) Urine Protein Trace (Neg-Trace) mg/dL Urine Glucose (UA) Negative (Negative) mg/dL Urine Ketones Negative (Negative) mg/dL Urine Blood Small (1+) H (Negative) Urine Nitrite Negative (Negative) Ur Leukocyte Esterase Negative (Negative) Urine RBC >20 H (0-2) /HPF Urine WBC 0-5 (0-5) /HPF Ur Squamous Epith Cells 0-2 (0-2) /HPF Urine Bacteria None Seen (None Seen) Hyaline Casts 0-2 (0-2) /LPF External Record Review External record reviewed: Inpatient record Prescription Management I considered prescription management with: Pain Medication and Antibiotic Chronic Conditions Patient?s care impacted by: Diabetes, Hypertension and Other (Lymphedema) Social Determinants Patient?s care significantly limited by Social Determinants of Health including: Other Social Determinant of Health Discharge Plan Discharge Clinical Impression: Cellulitis of leg without foot, right, Lymphedema, Acute nonintractable headache Patient Disposition: Home, Self-Care Instructions: Cellulitis (ED), Acute Headache (ED), Lymphedema (ED) Additional Instructions: Continue to follow up with the lymphedema clinic as soon as possible as per the referral sent by your primary care doctor. Take your antibiotic as prescribed until the course is completed. Do not stop this medication early when you start to feel better. Return to the emergency department immediately with any new or worsening symptoms including: Passing out, headaches associated with fevers greater than 100?, inability to tolerate food or drink, any new symptom that concerns you. Call 911 with any medical emergency. Prescriptions: New doxycycline monohydrate 100 mg capsule 100 mg PO BID 7 Days Qty: 14 0RF cefdinir 300 mg capsule 300 mg PO BID 7 Days Qty: 14 0RF [id number]-[id number] [Fioricet] 50-300-40 mg capsule 1 cap PO TID PRN (Reason: headache) Qty: 10 0RF No Action (DME) CPAP Machine/Device Device See Rx Instructions .Route Qty: 1 0RF Rx Instructions: Need for auto PAP 6 to 12 cm H20- for nightly lifetime use acetaminophen 650 mg tablet extended release 650 mg PO Q8H PRN (Reason: Pain) 30 Days Qty: 90 2RF ferrous sulfate [Feosol] 325 mg (65 mg iron) tablet 325 mg PO BID Qty: 60 1RF sertraline 100 mg tablet 100 mg PO DAILY 90 Days Qty: 90 2RF sumatriptan succinate 100 mg tablet See Rx Instructions PO .COMPLEX 30 Days Qty: 10 3RF Rx Instructions: take 1 tab at onset of headache; if no relief, may repeat 1 tab after at least 2 hrs; max = 2 tabs/24 hrs PO cephalexin 500 mg capsule 500 mg PO BID Qty: 20 0RF nystatin 100,000 unit/gram powder 1 appl topical TID Qty: 60 0RF doxycycline hyclate 100 mg tablet 100 mg PO BID Qty: 20 0RF buprenorphine-naloxone [Suboxone] 8-2 mg film 3 film sublingual DAILY (DME) Blood Pressure Cuff Misc See Rx Instructions .ROUTE .MEDSUPPLY Qty: 1 0RF Rx Instructions: As directed (DME) Ultra-Light Rollator Misc See Rx Instructions .Route Qty: 1 0RF Rx Instructions: As directed meclizine 25 mg tablet 25 mg PO TID PRN (Reason: dizziness) Qty: 12 0RF furosemide 20 mg tablet 20 mg PO Q OTHER DAY 28 Days Qty: 14 0RF (DME) QUAD CANE See Rx Instructions .Route .MEDSUPPLY Qty: 1 0RF Rx Instructions: As directed Interventions: ED Discharge Assessment Last Done: 04/14/25 04:26 Discharge Date/Time: 04/14/25 04:49 Print Language: Guyanese
[2025-04-14] MEDS: Butalb/Acetamin/Caff 50/325/40 TABLET 1 TAB PO (04:12)
[2025-04-14 04:26] VITALS: BP 131/62; PULSE 71; RESP 18; TEMP 37.1; O2SAT 98
== END 2025-04-14 04:49 | disposition home or self-care (01) ==
PROVIDERS: Emergency Provider Emergency Medicine; PCP Physician Assistant
DX: L03.115 Cellulitis of right lower limb (principal); R51.9 Headache, unspecified; Z87.891 Personal history of nicotine dependence
CPT/HCPCS: 36415; 80053; 81001; 83605; 85025; 87040; 99283; 99284

== ENCOUNTER 2025-04-18 01:22 | Emergency (ER) | payer OTHER, SELFPAY ==
[2025-04-18 01:44] VITALS: BP 151/75; PULSE 91; RESP 18; TEMP 36.7; O2SAT 96; BMI 54.0
--- NOTE | 2025-04-18 02:03 | ED_ITS ---
HPI - Headache General Chief Complaint: Headache Stated Complaint: Headace Time Seen by Provider: 04/18/25 01:51 Source: patient Mode of arrival: ambulatory Limitations: no limitations History of Present Illness ED Provider: Edgar MARLEY HPI Narrative: Patient is a 54-year-old female who presents to the Emergency Department for evaluation of a persistent, progressively worsening headache that began prior to her ED visit last week. She was seen in the ED at that time for cellulitis and a ?very bad headache.? Her cellulitis is improving on antibiotics, but the headache has not resolved. Describes the headache as global with associated photophobia. She denies fever, nausea, vomiting, recent head trauma, falls, or motor-vehicle collisions. She has a known history of pseudotumor cerebri and migraines. Patient also reports sinus pressure and questions if she may have a sinus infection. Related Data Home Medications ?Medication ?Instructions ?Recorded ?Confirmed buprenorphine 8 mg-naloxone 2 mg 3 film sublingual CHANG LY 05/07/20 02/26/25 sublingual film (Suboxone) Previous Rx's ?Medication ?Instructions ?Recorded walker (Ultra-Light Rollator misc) #1 ea 09/08/21 miscellaneous medical supply #1 ea 01/17/23 (Blood Pressure Cuff) CPAP (CPAP Machine/Device) #1 ea 09/19/23 acetaminophen 650 mg 650 mg PO Q8H PRN Pain 30 da ys #90 05/17/24 tablet,extended release tabs ferrous sulfate 325 mg (65 mg 325 mg PO BID #60 tabs 0 05/17/24 iron) tablet (Feosol) sertraline 100 mg tablet 100 mg PO DAILY 90 days #90 tabs 06/11/24 sumatriptan succinate 100 mg tablet See Rx Instruction s PO .COMPLEX 30 12/04/24 days #10 tabs cephalexin 500 mg capsule 500 mg PO BID #20 caps 02/24 doxycycline hyclate 100 mg tablet 100 mg PO BID #20 ta bs 02/24/25 nystatin 100,000 unit/gram topical 1 appl topical TID #60 grams 02/24/25 powder QUAD CANE #1 ea 02/26/25 furosemide 20 mg tablet 20 mg PO Q OTHER DAY 4 weeks #14 02/26/25 tabs meclizine 25 mg tablet 25 mg PO TID PRN dizziness # 12 tabs 02/26/25 [id number]-mllxjiazynmec-fftdyvur 1 cap PO TID PRN hea dache #10 caps 04/14/25 50 mg-300 mg-40 mg capsule (Fioricet) cefdinir 300 mg capsule 300 mg PO BID 7 days #14 cap s 04/14/25 doxycycline monohydrate 100 mg 100 mg PO BID 7 days #1 4 caps 04/14/25 capsule Allergies Allergy/AdvReac Type Severity Reaction Status Date / Time ibuprofen (IBUPROFEN) Allergy Intermediate SWELLING Verified 04/18/25 01:45 codeine (CODEINE) Allergy Unknown ITCHY Verified 04/18/25 01:45 gabapentin (From Neurontin) Allergy Unknown anxiety, Verified 04/18/25 01:45 insomnia, restless/anxiety hydrocodone (From VICODIN) Allergy Unknown UNKNOWN Verified 04/18/25 01:45 nabumetone (Nabumetone) Allergy Unknown swelling, Verified 04/18/25 01:45 facial swelling Nabumetone Allergy Unknown edema Uncoded 02/26/25 16:12 nsaids Allergy Unknown Unknown Uncoded 02/26/25 16:12 Review of Systems 2 Review of Systems: Yes all other systems are reviewed and are negative [facility] Past Medical History Medical History Sepsis Lumbar stenosis Kidney stones Intermittent explosive disorder Adult ADHD Anxiety and depression Myasthenia gravis Carpal tunnel syndrome Arthritis Fibromyalgia Pseudotumor cerebri Iron deficiency anemia Breast CA Surgical History History of History of tubal ligation History of endometrial ablation Family History Family History Mother Mental health disorder Heart attack CVA (cerebral vascular accident), Onset Age: 50 Breast cancer Sister CVA (cerebral vascular accident), Onset Age: 51 Leukemia Social History Social History Household Members: Children and None Housing: Apartment Are you a primary administrator health care facility to a significant other at home: No Do you presently have visiting nurse or other home services: No Alcohol intake: never Patient Tobacco Use Status: Former Tobacco user Tobacco use type: Cigarette Smoked in Last 30 Days: No e-Cigarette/Vaping Use: Never Used Second Hand Smoke Exposure: Yes Use of substances other than those prescribed or required for medical reasons: No Advance Directives: No Advance Directives Information Provided: Yes Do you have a plan to hurt others: No Plan Patient : No service: No Current occupational status: employed Current occupation: [employer] Current occupational exposures/hazards: No Sexual orientation: Straight/Heterosexual Gender identity: Female Cognitive needs: Yes (Walker) Hearing needs: No Vision needs: Yes (Pt wears glasses and is up to date.) Physical Exam 2 Vital Signs: Vital Signs: Last Vital Signs Temp 98.1 F 04/18/25 01:44 Pulse 91 04/18/25 01:44 Resp 18 04/18/25 01:44 BP 151/75 H 04/18/25 01:44 Pulse Ox 96 04/18/25 01:44 O2 Del Method Room Air 04/18/25 01:44 BMI result Body Mass Index 54.0 CONSTITUTIONAL: The patient appears uncomfortable but otherwise non-toxic, well nourished and in no acute distress. Vital signs as documented. HEAD: Atraumatic, normocephalic. EYES: EOMs grossly intact, pupils equal, conjunctiva clear, no exudate. ENT: Nares patent, no discharge. Airway patent, no audible stridor, visible mucosa is pink and moist without noted lesions. NECK: Trachea is midline, no obvious masses or gross abnormalities. CHEST: Symmetric movement, normal appearance. LUNGS: LS present and CTAB, no w/r/r. Non-labored work of breathing. CARDIAC: Regular Rhythm, S1/S2 appreciated, no murmurs, rubs or gallops. ABDOMEN: Abdomen soft and non-tender x4 quadrants, no palpable masses or organomegaly. : Deferred. EXTREMITIES: Normal tone, moves all extremities spontaneously without reported pain. No obvious acute injury or deformity noted. NEURO: Alert and oriented x3, CN II-XII appear grossly intact. Cerebellar Functioning grossly intact. No obvious sensory or motor deficits. Speech clear and appropriate. PSYCH: normal affect, appropriate eye contact, fluid speech, with appropriate response to questioning. No reported suicidality or homicidality. SKIN: Warm, dry, color appropriate, normal turgor. No rashes noted. Medications Administered Discontinued Medications Generic Name Dose Route Start Last Admin Trade Name Freq PRN Reason Stop Dose Admin Acetaminophen 975 mg 04/18/25 02:22 04/18/25 02:38 Acetaminophen 325 Mg Tablet PO 04/18/25 02:23 975 mg ONCE ONE Administration Diphenhydramine HCl 50 mg 04/18/25 02:22 04/18/25 02:37 Diphenhydramine Hcl 50 Mg/Ml Vial IVPUSH 04/18/25 02:23 50 mg ONCE ONE Administration Sodium Chloride 1,000 mls @ 999 mls/hr 04/18/25 02:30 04/18/25 03:52 Ns IV 04/18/25 03:30 Infused .Q1H1M ARIA Infusion Metoclopramide HCl 10 mg 04/18/25 02:22 04/18/25 02:38 Metoclopramide Hcl 10 Mg/2 Ml Vial IVPUSH 04/18/25 02:23 10 mg ONCE ONE Administration Medical Decision Making Medical Decision Making MDM Narrative: 2:13 AM 04/18/2025 (Carter MARLEY): Patient is a 54-year-old female who presents to the Emergency Department for evaluation of a persistent, progressively worsening headache that began prior to her ED visit last week. She was seen in the ED at that time for cellulitis and a ?very bad headache.? Her cellulitis is improving on antibiotics, but the headache has not resolved. Describes the headache as global with associated photophobia. She denies fever, nausea, vomiting, recent head trauma, falls, or motor-vehicle collisions. She has a known history of pseudotumor cerebri and migraines. Patient also reports sinus pressure and questions if she may have a sinus infection. On exam patient has an unremarkable neurologic exam, no focal deficits, no significant tenderness to percussion of the sinuses. Vital signs are reassuring, no hypotension, tachypnea, tachycardia, hypoxia, or fever. The patient states she would like to avoid narcotic medication for management of her headache. Patient has multiple allergies including gabapentin, NSAIDs, codeine, and Vicodin. We will attempt IV fluid hydration, Reglan, Benadryl, Tylenol, and reassess. 3:53 AM 04/18/2025 (Carter MARLEY): Patient reports symptoms have improved significantly following interventions in the ED. Laboratory evaluation demonstrates no leukocytosis, electrolyte abnormality, or FELIPE. The patient's viral swabs are negative for influenza, COVID, and RSV. The patient's labs do demonstrate mild anemia with a H&H of 10.3 and 34.2. Patient's suffers from a history of microcytic anemia and patient's current values are at her baseline. As patient is reporting improvement in symptoms the patient will be discharged to follow up with PCP. Admission/Observation Consideration of admission/observation: Escalation of care including admission/observation considered Lab Data MDM Lab Attestation statement: I reviewed the patient's lab results. 04/18/25 01:52 04/18/25 01:52 Labs: Lab Results 04/18/25 04/18/25 Range/Units 01:52 02:45 WBC 8.2 (4.8-10.8) X10*3/uL RBC 4.98 (4.20-5.50) X10*6/uL Hgb 10.3 L (12.0-16.0) g/dl Hct 34.2 L (37.0-47.0) % MCV 68.7 L (80.0-98.0) fL MCH 20.7 L (27.0-33.0) pg MCHC 30.1 L (31.0-35.0) g/dl RDW 17.9 H (11.0-16.0) % Plt Count 348 (160-400) X10*3/uL MPV 9.2 L (9.4-12.3) fL Immature Gran % (Auto) 0.4 (0.0-0.4) % Neut % (Auto) 68.1 (45-73) % Lymph % (Auto) 22.7 (20-40) % Gentry % (Auto) 7.2 (2-11) % Eos % (Auto) 1.2 (0-4) % Baso % (Auto) 0.4 (0-2) % Lymph # (Auto) 1.9 (1.2-4.9) X10*3/uL Gentry # (Auto) 0.6 (0.1-1.2) X10*3/uL Eos # (Auto) 0.1 (0.0-0.4) X10*3/uL Baso # (Auto) 0.0 (0.0-0.2) X10*3/uL Abs Immat Gran (auto) 0.03 (0.00-0.03) X10*3/uL Absolute Neuts (auto) 5.6 (2.0-8.3) x10*3/uL Absolute Nucleated RBC 0.000 (0.0-0.012) X10*3/uL Nucleated RBC % (auto) 0.0 (0.0-0.2) /100WBC Sodium 142 (135-145) mmol/L Potassium 4.1 (3.3-5.1) mmol/L Chloride 107 (96-108) mmol/L Carbon Dioxide 26 (22-29) mmol/L Anion Gap 13 (12-20) BUN 18 H (9-16) mg/dL Creatinine 0.62 (0.5-1.4) mg/dL Estim Creat Clear Calc 140.2 Estimated GFR > 60 Random Glucose 103 (60-115) mg/dL Calcium 9.3 (8.4-10.2) mg/dL Total Bilirubin 0.2 (0.0-1.0) mg/dL AST 26 (5-31) U/L ALT 15 (0-31) U/L Alkaline Phosphatase 72 (39-117) U/L Total Protein 8.2 H (6.5-8.0) g/dL Albumin 4.3 (3.5-5.0) g/dL Influenza Type A (PCR) NEGATIVE (Negative) Influenza Type B (PCR) NEGATIVE (Negative) RSV RNA Qual (PCR) NEGATIVE (Negative) SARS-CoV-2 RNA (RT-PCR) NEGATIVE (Negative) Discharge Plan Discharge Clinical Impression: Headache, migraine Qualifiers: Migraine type: without aura Status migrainosus presence: without status migrainosus Intractability: not intractable Qualified Code(s): G43.009 - Migraine without aura, not intractable, without status migrainosus Patient Disposition: Home, Self-Care Instructions: Migraine Headache (ED) Additional Instructions: Thank you for choosing [facility]'s Emergency Department for your care today. Thankfully your laboratory evaluation, viral swabs, exam, and vital signs today are all reassuring. At this time there is no indication for admission to the hospital or continued ED observation, and it is safe to discharge you home. Seeing as your symptoms improved following interventions in the ED, it is likely you or suffering from a migraine. Please continue taking all your regularly prescribed medications as directed by your primary care provider and specialist. Please continue taking your antibiotics for your recently diagnosed cellulitis, until they are finished. You may take Tylenol 1000mg every 6 hours as needed for any additional pain. Please stay well hydrated and get plenty of rest. Please follow up with your primary care physician for re-evaluation, additional management of your symptoms, and continued preventative care. If you do not have a primary care physician, please call the [facility] at [phone] to establish a new primary care physician. While waiting to establish your new primary care physician, you can call our [facility] at [phone] for non-emergency needs. Please return to the emergency department if you develop a severe or sudden change in your symptoms, a fever over 100.4 that does not improve with Tylenol or Ibuprofen, recurrent vomiting, or any other new or worsening symptoms or concerns. Prescriptions: No Action (DME) CPAP Machine/Device Device See Rx Instructions .Route Qty: 1 0RF Rx Instructions: Need for auto PAP 6 to 12 cm H20- for nightly lifetime use acetaminophen 650 mg tablet extended release 650 mg PO Q8H PRN (Reason: Pain) 30 Days Qty: 90 2RF ferrous sulfate [Feosol] 325 mg (65 mg iron) tablet 325 mg PO BID Qty: 60 1RF sertraline 100 mg tablet 100 mg PO DAILY 90 Days Qty: 90 2RF sumatriptan succinate 100 mg tablet See Rx Instructions PO .COMPLEX 30 Days Qty: 10 3RF Rx Instructions: take 1 tab at onset of headache; if no relief, may repeat 1 tab after at least 2 hrs; max = 2 tabs/24 hrs PO cephalexin 500 mg capsule 500 mg PO BID Qty: 20 0RF nystatin 100,000 unit/gram powder 1 appl topical TID Qty: 60 0RF doxycycline hyclate 100 mg tablet 100 mg PO BID Qty: 20 0RF doxycycline monohydrate 100 mg capsule 100 mg PO BID 7 Days Qty: 14 0RF cefdinir 300 mg capsule 300 mg PO BID 7 Days Qty: 14 0RF [id number] [Fioricet] 50-300-40 mg capsule 1 cap PO TID PRN (Reason: headache) Qty: 10 0RF buprenorphine-naloxone [Suboxone] 8-2 mg film 3 film sublingual DAILY (DME) Blood Pressure Cuff Misc See Rx Instructions .ROUTE .MEDSUPPLY Qty: 1 0RF Rx Instructions: As directed (DME) Ultra-Light Rollator Misc See Rx Instructions .Route Qty: 1 0RF Rx Instructions: As directed meclizine 25 mg tablet 25 mg PO TID PRN (Reason: dizziness) Qty: 12 0RF furosemide 20 mg tablet 20 mg PO Q OTHER DAY 28 Days Qty: 14 0RF (DME) QUAD CANE See Rx Instructions .Route .MEDSUPPLY Qty: 1 0RF Rx Instructions: As directed Referrals: Po,Renee Yen MD [Primary Care Provider, Internal Medicine] Clinical Impression: Headache, migraine Print Language: Dutch
[2025-04-18 02:15] LABS: Hematocrit 34.2 % (37.0-47.0); Hemoglobin 10.3 g/dl (12.0-16.0); Imm Gran Abs Auto 0.03 X10*3/uL (0.00-0.03); Imm Gran Pct Auto 0.4 % (0.0-0.4); Lymphocytes Absolute Auto 1.9 X10*3/uL (1.2-4.9); MANUAL DIFF FLAG NO; Mean Corpuscular HGB Conc 30.1 g/dl (31.0-35.0); Mean Corpuscular Hemoglobin 20.7 pg (27.0-33.0); Mean Corpuscular Volume 68.7 fL (80.0-98.0); NRBC Abs Auto 0.000 X10*3/uL (0.0-0.012); NRBC Pct Auto 0.0 /100WBC (0.0-0.2); Platelet Count 348 X10*3/uL (160-400); Red Blood Count 4.98 X10*6/uL (4.20-5.50); White Blood Count 8.2 X10*3/uL (4.8-10.8)
[2025-04-18 02:34] LABS: Alanine Aminotransferase 15 U/L (0-31); Albumin Level 4.3 g/dL (3.5-5.0); Alkaline Phosphatase 72 U/L (39-117); Anion Gap 13 (12-20); Aspartate Amino Transferase 26 U/L (5-31); Blood Urea Nitrogen 18 mg/dL (9-16); Calcium 9.3 mg/dL (8.4-10.2); Carbon Dioxide 26 mmol/L (22-29); Chloride 107 mmol/L (96-108); Creatinine Clr Calc Pharmacy 140.2; Estimated Glomerular Filt Rate > 60; Potassium 4.1 mmol/L (3.3-5.1); Sodium 142 mmol/L (135-145); Total Protein 8.2 g/dL (6.5-8.0)
[2025-04-18 03:24] LABS: Resp Syncy Virus RNA Qual PCR NEGATIVE (Negative); SARS COV2 PCR INHOUSE NEGATIVE (Negative)
[2025-04-18 04:21] VITALS: BP 122/88; PULSE 77; RESP 15; TEMP 36.7; O2SAT 98
== END 2025-04-18 04:43 | disposition home or self-care (01) ==
PROVIDERS: Physician Assistant; Emergency Provider Emergency Medicine; PCP Internal Medicine
DX: G43.909 Migraine, unspecified, not intractable, without status migrainosus (principal); Z03.818 Encounter for observation for suspected exposure to other biological agents ruled out; Z87.891 Personal history of nicotine dependence; Z79.899 Other long term (current) drug therapy
CPT/HCPCS: 36415; 80053; 85025; 87637; 96361; 96374; 96375; 99284; 99285; J1200; J2765

== ENCOUNTER 2025-05-01 00:24 | Emergency (ER) | payer OTHER, SELFPAY ==
[2025-05-01 00:40] VITALS: BP 184/77; PULSE 94; RESP 16; TEMP 36.7; O2SAT 99; BMI 54.7
--- NOTE | 2025-05-01 00:40 | ED_ITS ---
HPI - General Adult General Chief complaint: Extremity Injury, Lower Stated complaint: cellulitis Time Seen by Provider: 05/01/25 03:47 Source: patient Limitations: no limitations History of Present Illness ED Provider: Marilin Cash PA-C HPI narrative: 55-year-old female with history of morbid obesity, chronic lymphedema, chronic peripheral vascular disease, chronic back pain, iron deficiency anemia, ADHD, intermittent explosive disorder, anxiety and depression, who presents with concern for right lower extremity infection. Patient states she has had progressive, increased swelling and drainage, within the crease behind the right knee, over the past few days. The drainage is foul smelling. Denies fever. Related Data Home Medications ?Medication ?Instructions ?Recorded ?Confirmed buprenorphine 8 mg-naloxone 2 mg 3 film sublingual CHANG LY 05/07/20 02/26/25 sublingual film (Suboxone) Previous Rx's ?Medication ?Instructions ?Recorded walker (Ultra-Light Rollator misc) #1 ea 09/08/21 miscellaneous medical supply #1 ea 01/17/23 (Blood Pressure Cuff) CPAP (CPAP Machine/Device) #1 ea 09/19/23 acetaminophen 650 mg 650 mg PO Q8H PRN Pain 30 da ys #90 05/17/24 tablet,extended release tabs ferrous sulfate 325 mg (65 mg 325 mg PO BID #60 tabs 0 05/17/24 iron) tablet (Feosol) sertraline 100 mg tablet 100 mg PO DAILY 90 days #90 tabs 06/11/24 sumatriptan succinate 100 mg tablet See Rx Instruction s PO .COMPLEX 30 12/04/24 days #10 tabs cephalexin 500 mg capsule 500 mg PO BID #20 caps 02/24 doxycycline hyclate 100 mg tablet 100 mg PO BID #20 ta bs 02/24/25 nystatin 100,000 unit/gram topical 1 appl topical TID #60 grams 02/24/25 powder QUAD CANE #1 ea 02/26/25 furosemide 20 mg tablet 20 mg PO Q OTHER DAY 4 weeks #14 02/26/25 tabs meclizine 25 mg tablet 25 mg PO TID PRN dizziness # 12 tabs 02/26/25 [id number] 1 cap PO TID PRN hea dache #10 caps 04/14/25 50 mg-300 mg-40 mg capsule (Fioricet) cefdinir 300 mg capsule 300 mg PO BID 7 days #14 cap s 04/14/25 doxycycline monohydrate 100 mg 100 mg PO BID 7 days #1 4 caps 04/14/25 capsule doxycycline hyclate 100 mg capsule 100 mg PO BID #27 c aps 05/01/25 fluconazole 150 mg tablet 150 mg PO ONCE #1 tab nystatin 100,000 unit/gram topical 1 appl topical BID #60 grams 05/01/25 powder Allergies Allergy/AdvReac Type Severity Reaction Status Date / Time ibuprofen (IBUPROFEN) Allergy Intermediate SWELLING Verified 05/01/25 00:43 codeine (CODEINE) Allergy Unknown ITCHY Verified 05/01/25 00:43 gabapentin (From Neurontin) Allergy Unknown anxiety, Verified 05/01/25 00:43 insomnia, restless/anxiety hydrocodone (From VICODIN) Allergy Unknown UNKNOWN Verified 05/01/25 00:43 nabumetone (Nabumetone) Allergy Unknown swelling, Verified 05/01/25 00:43 facial swelling Nabumetone Allergy Unknown edema Uncoded 02/26/25 16:12 nsaids Allergy Unknown Unknown Uncoded 02/26/25 16:12 Review of Systems 2 Review of Systems: Yes all other systems are reviewed and are negative Constitutional: Constitutional: Denies fatigue and Denies fever(s) Musculoskeletal: Musculoskeletal: Denies arthralgias and Denies joint swelling Integumentary/Breasts: Skin/Breast: Denies non-healing lesions, Reports erythema, Denies rash, Reports skin swelling, Denies sores and Reports wounds Endocrine: Endocrine: Denies fatigue PMFSH Past Medical History Attestation statement: The following information was validated with the patient. Medical History Sepsis Lumbar stenosis Kidney stones Intermittent explosive disorder Adult ADHD Anxiety and depression Myasthenia gravis Carpal tunnel syndrome Arthritis Fibromyalgia Pseudotumor cerebri Iron deficiency anemia Breast CA Surgical History History of History of tubal ligation History of endometrial ablation Family History Family History Mother Mental health disorder Heart attack CVA (cerebral vascular accident), Onset Age: 50 Breast cancer Sister CVA (cerebral vascular accident), Onset Age: 51 Leukemia Social History Social History Household Members: Children and None Housing: Apartment Are you a primary director long term care to a significant other at home: No Do you presently have visiting nurse or other home services: No Alcohol intake: never Patient Tobacco Use Status: Former Tobacco user Tobacco use type: Cigarette e-Cigarette/Vaping Use: Never Used Second Hand Smoke Exposure: Yes Advance Directives: No Advance Directives Information Provided: Yes Do you have a plan to hurt others: No Plan service: No Current occupational status: employed Current occupation: [employer] Current occupational exposures/hazards: No Sexual orientation: Straight/Heterosexual Gender identity: Female Cognitive needs: Yes (Walker) Hearing needs: No Vision needs: Yes (Pt wears glasses and is up to date.) Physical Exam ED Vital Signs: Vital Signs - 24 hr 05/01/25 00:40 Temperature 98.0 F Pulse Rate 94 Respiratory Rate 16 Blood Pressure 184/77 H Pulse Oximetry 99 Oxygen Delivery Method Room Air BMI result Body Mass Index 54.7 Const Other: Alert Orientation/consciousness: patient oriented x3 Resp Effort & Inspection: normal respiratory effort Cardio Other: Pitting edema noted is chronic Skin Other: Neuro General: patient oriented x3, gait normal, no focal motor deficits and CN's II- XI intact bilaterally Extrem Other: Bilateral pitting edema noted at baseline, the skin of both lower extremities is thickened, shiny and some regions with the overlying hyperpigmentation and scale, weeping and some regions, consistent with lymphedema/venous insufficiency Psych Other: Cooperative Course Course Course Narrative: RME, this is a rapid medical exam performed by Ilir Bhandari please refer to primary provider for complete H&P- 55-year-old female presents for evaluation of right leg pain and swelling. She reports a history of chronic cellulitis and her symptoms seemed to be worsening. Plan for labs including blood cultures. Medications Administered Discontinued Medications Generic Name Dose Route Start Last Admin Trade Name Freq PRN Reason Stop Dose Admin Doxycycline Monohydrate 100 mg 05/01/25 04:13 05/01/25 04:42 Doxycycline Monohydrate 100 Mg Capsule PO 05/01/25 04:14 100 mg ONCE ONE Administration Fluconazole 150 mg 05/01/25 04:13 05/01/25 04:42 Fluconazole 150 Mg Tablet PO 05/01/25 04:14 150 mg ONCE ONE Administration Medical Decision Making Medical Decision Making [facility] Narrative: 55-year-old female with history of morbid obesity, chronic lymphedema, chronic peripheral vascular disease, chronic back pain, iron deficiency anemia, ADHD, intermittent explosive disorder,, anxiety and depression, who presents with concern for right lower extremity infection. Patient states she has had progressive, increased swelling and drainage, within the crease behind the right knee, over the past few days. The drainage is foul smelling. Denies fever. Problem: Obesity, lymphedema, peripheral vascular disease, psychiatric illness History: Per patient I have considered the following differential diagnoses: Cellulitis, purulent cellulitis, fungal infection, septic joint, osteomyelitis Plan: Patient is here with the acute on chronic infection. I do not feel she requires IV antibiotics. She does not have a leukocytosis no left shift, her inflammatory markers are minimally elevated. I think the infection is mixed marysol, both bacterial and yeast. We will treat for both. I will give her the contact for the wound clinic. Her range of motion is at her baseline, I have no suspicion for septic joint, no indication for imaging. There are no open wounds, the skin is chafed and weeping, highly doubtful to be osteomyelitis. I have independently reviewed the following tests: Labs: No leukocytosis, no left shift, stable anemia, ESR 95, no electrolyte abnormality, CRP 1.65 Differential Diagnosis Differential Diagnoses: The differential diagnosis associated with the presentation includes See [facility] Admission/Observation Consideration of admission/observation: Escalation of care including admission/observation considered Not applicable Lab Data [facility] Lab Attestation statement: I reviewed the patient's lab results. 05/01/25 01:02 05/01/25 01:02 Labs: Lab Results 05/01/25 Range/Units 01:02 WBC 7.1 (4.8-10.8) X10*3/uL RBC 4.95 (4.20-5.50) X10*6/uL Hgb 10.2 L (12.0-16.0) g/dl Hct 34.5 L (37.0-47.0) % MCV 69.7 L (80.0-98.0) fL MCH 20.6 L (27.0-33.0) pg MCHC 29.6 L (31.0-35.0) g/dl RDW 18.6 H (11.0-16.0) % Plt Count 310 (160-400) X10*3/uL MPV 9.5 (9.4-12.3) fL Immature Gran % (Auto) 0.3 (0.0-0.4) % Neut % (Auto) 66.1 (45-73) % Lymph % (Auto) 24.0 (20-40) % Jewell % (Auto) 7.5 (2-11) % Eos % (Auto) 1.7 (0-4) % Baso % (Auto) 0.4 (0-2) % Lymph # (Auto) 1.7 (1.2-4.9) X10*3/uL Jewell # (Auto) 0.5 (0.1-1.2) X10*3/uL Eos # (Auto) 0.1 (0.0-0.4) X10*3/uL Baso # (Auto) 0.0 (0.0-0.2) X10*3/uL Abs Immat Gran (auto) 0.02 (0.00-0.03) X10*3/uL Absolute Neuts (auto) 4.7 (2.0-8.3) x10*3/uL Absolute Nucleated RBC 0.000 (0.0-0.012) X10*3/uL Nucleated RBC % (auto) 0.0 (0.0-0.2) /100WBC ESR 95 H (1-30) MM/HR Sodium 142 (135-145) mmol/L Potassium 4.0 (3.3-5.1) mmol/L Chloride 107 (96-108) mmol/L Carbon Dioxide 27 (22-29) mmol/L Anion Gap 12 (12-20) BUN 14 (9-16) mg/dL Creatinine 0.65 (0.5-1.4) mg/dL Estim Creat Clear Calc 133.2 Estimated GFR > 60 Random Glucose 90 (60-115) mg/dL Lactic Acid 1.0 (0.5-2.0) mmol/L Calcium 9.1 (8.4-10.2) mg/dL Total Bilirubin 0.1 (0.0-1.0) mg/dL AST 17 (5-31) U/L ALT 11 (0-31) U/L Alkaline Phosphatase 74 (39-117) U/L C-Reactive Protein 1.65 H (< or = 0.50) mg/dL Total Protein 7.8 (6.5-8.0) g/dL Albumin 4.1 (3.5-5.0) g/dL Discharge Plan Discharge Clinical Impression: Cellulitis of right leg, Skin yeast infection, Lymphedema Patient Disposition: Home, Self-Care Instructions: Cellulitis (ED), Lymphedema (ED), Skin Yeast Infection (ED) Additional Instructions: You are being treated for a mixed skin infection. You likely are developing cellulitis and you also have a fungal infection. See home care instructions. Take the doxycycline as directed, complete the course of this antibiotic. You have been given an a dose of Diflucan here in the emergency room, this is an antifungal medication. Repeat it in 1 week. Use the nystatin powder at the affected area, twice a day. Keep the wound as clean and dry as you can. If it is possible, exposure to the air and light, we will help heal the infection. I am providing you with a contact for our wound care clinic, call May 03 to schedule an appointment. Prescriptions: New fluconazole 150 mg tablet 150 mg PO ONCE Qty: 1 0RF Rx Instructions: Take this dose on May 08 nystatin 100,000 unit/gram powder 1 appl topical BID Qty: 60 0RF doxycycline hyclate 100 mg capsule 100 mg PO BID Qty: 27 0RF No Action (DME) CPAP Machine/Device Device See Rx Instructions .Route Qty: 1 0RF Rx Instructions: Need for auto PAP 6 to 12 cm H20- for nightly lifetime use acetaminophen 650 mg tablet extended release 650 mg PO Q8H PRN (Reason: Pain) 30 Days Qty: 90 2RF ferrous sulfate [Feosol] 325 mg (65 mg iron) tablet 325 mg PO BID Qty: 60 1RF sertraline 100 mg tablet 100 mg PO DAILY 90 Days Qty: 90 2RF sumatriptan succinate 100 mg tablet See Rx Instructions PO .COMPLEX 30 Days Qty: 10 3RF Rx Instructions: take 1 tab at onset of headache; if no relief, may repeat 1 tab after at least 2 hrs; max = 2 tabs/24 hrs PO cephalexin 500 mg capsule 500 mg PO BID Qty: 20 0RF nystatin 100,000 unit/gram powder 1 appl topical TID Qty: 60 0RF doxycycline hyclate 100 mg tablet 100 mg PO BID Qty: 20 0RF doxycycline monohydrate 100 mg capsule 100 mg PO BID 7 Days Qty: 14 0RF cefdinir 300 mg capsule 300 mg PO BID 7 Days Qty: 14 0RF [id number]-[id number]-[id number] [Fioricet] 50-300-40 mg capsule 1 cap PO TID PRN (Reason: headache) Qty: 10 0RF buprenorphine-naloxone [Suboxone] 8-2 mg film 3 film sublingual DAILY (DME) Blood Pressure Cuff Misc See Rx Instructions .ROUTE .MEDSUPPLY Qty: 1 0RF Rx Instructions: As directed (DME) Ultra-Light Rollator Misc See Rx Instructions .Route Qty: 1 0RF Rx Instructions: As directed meclizine 25 mg tablet 25 mg PO TID PRN (Reason: dizziness) Qty: 12 0RF furosemide 20 mg tablet 20 mg PO Q OTHER DAY 28 Days Qty: 14 0RF (DME) QUAD CANE See Rx Instructions .Route .MEDSUPPLY Qty: 1 0RF Rx Instructions: As directed Referrals: [facility] [Outside] Referral Note: Chronic lymphedema/venous insufficiency, recurrent cellulitis right lower extremity Print Language: Georgian
[2025-05-01 01:13] LABS: MANUAL DIFF FLAG NO
[2025-05-01 01:14] LABS: Hematocrit 34.5 % (37.0-47.0); Hemoglobin 10.2 g/dl (12.0-16.0); Imm Gran Abs Auto 0.02 X10*3/uL (0.00-0.03); Imm Gran Pct Auto 0.3 % (0.0-0.4); Lymphocytes Absolute Auto 1.7 X10*3/uL (1.2-4.9); Mean Corpuscular HGB Conc 29.6 g/dl (31.0-35.0); Mean Corpuscular Hemoglobin 20.6 pg (27.0-33.0); Mean Corpuscular Volume 69.7 fL (80.0-98.0); NRBC Abs Auto 0.000 X10*3/uL (0.0-0.012); NRBC Pct Auto 0.0 /100WBC (0.0-0.2); Platelet Count 310 X10*3/uL (160-400); Red Blood Count 4.95 X10*6/uL (4.20-5.50); White Blood Count 7.1 X10*3/uL (4.8-10.8)
[2025-05-01 01:30] LABS: Alanine Aminotransferase 11 U/L (0-31); Albumin Level 4.1 g/dL (3.5-5.0); Alkaline Phosphatase 74 U/L (39-117); Anion Gap 12 (12-20); Aspartate Amino Transferase 17 U/L (5-31); Blood Urea Nitrogen 14 mg/dL (9-16); Calcium 9.1 mg/dL (8.4-10.2); Carbon Dioxide 27 mmol/L (22-29); Chloride 107 mmol/L (96-108); Creatinine Clr Calc Pharmacy 133.2; Estimated Glomerular Filt Rate > 60; Potassium 4.0 mmol/L (3.3-5.1); Sodium 142 mmol/L (135-145); Total Protein 7.8 g/dL (6.5-8.0)
[2025-05-01 04:00] VITALS: BP 184/77; PULSE 94; RESP 16; TEMP 36.7; O2SAT 99
--- NOTE | 2025-05-01 05:04 | PC.NURSE ---
Assumed care of pt, presents with cellulitis to the right leg, site is tender to the touch, denies fevers, aaox4,
[2025-05-01 05:14] VITALS: BP 164/77; PULSE 88; RESP 16; TEMP 36.7; O2SAT 99
== END 2025-05-01 05:17 | disposition home or self-care (01) ==
PROVIDERS: Physician Assistant; Emergency Provider Emergency Medicine; PCP Physician Assistant
DX: L03.315 Cellulitis of perineum (principal); B37.2 Candidiasis of skin and nail; I89.0 Lymphedema, not elsewhere classified; R60.0 Localized edema; E66.01 Morbid (severe) obesity due to excess calories; Z68.43 Body mass index [BMI] 50.0-59.9, adult; I73.9 Peripheral vascular disease, unspecified; Z79.899 Other long term (current) drug therapy; Z87.891 Personal history of nicotine dependence
CPT/HCPCS: 36415; 80053; 83605; 85025; 85652; 86140; 87040; 99284